=== PATIENT | male | born 1935 | race Caucasian/White ===

== ENCOUNTER 2018-05-24 15:21 | Emergency (ER) | payer OTHER ==
--- OUTSIDE RECORDS SUMMARY | 2018-05-24 15:24 | XMS REPORT | Clinical Summary ---
:1935 Author Organization [facility] Address [address] [place] [id number] Care Team Providers Name Role Phone Diana Lau MD Primary Care Provider Allergies Active Allergy Reactions Severity Noted Date Comments Morphine 03/17/2016 Tetracycline 03/17/2016 Current Medications Prescription Sig. Disp. Refills Start Date End Date Status latanoprost INT 1 GTT IN 3 11/11/2016 Active (XALATAN) 0.005 % OU HS ophthalmic solution FLUZONE HIGH-DOSE ADM 0.5ML IM 0 08/03/2017 Active 2017-18, PF, 180 UTD mcg/0.5 mL syringe vaccine PREVNAR 13, PF, 0.5 ADM 0.5ML IM 0 08/03/2017 Active mL vaccine UTD warfarin (COUMADIN) TAKE 1 TABLET 90 tablet 0 12/16/2017 Active 2.5 MG tablet BY MOUTH DAILY sacubitril-valsartan Take 1 tablet 60 tablet 11 01/24/2018 Active (ENTRESTO) 24-26 mg by mouth 2 tablet per tablet (two) times a day. levothyroxine TAKE 1 45 tablet 1 03/01/2018 Active (SYNTHROID, LEVOXYL) TABLET(100 100 mcg tablet MCG) BY MOUTH EVERY OTHER DAY atorvastatin TAKE 1 TABLET 90 tablet 0 03/13/2018 Active (LIPITOR) 40 MG BY MOUTH DAILY tabletIndications: Persistent atrial fibrillation, Essential hypertension finasteride TAKE 1 90 tablet 0 04/21/2018 Active (PROSCAR) 5 mg TABLET(5 MG) tablet BY MOUTH EVERY DAY DIGOX 125 mcg TAKE 1 TABLET 90 tablet 0 05/23/2018 Active tabletIndications: BY MOUTH EVERY Persistent atrial DAY fibrillation, Essential hypertension nitroglycerin Place 0.4 mg Discontinued (NITROSTAT) 0.4 MG under the 7 SL tablet tongue every 5 (five) minutes as needed for chest pain. nutritional Take by mouth. Discontinued supplements (nutren Take as 7 2.0) liquid directed by your physician. warfarin (COUMADIN) Take 1 tablet 30 tablet 11 10/02/2016 Discontinued 2.5 MG tablet by mouth daily 7 levothyroxine Take 1 tab 16 tablet 2 10/13/2016 Discontinued (SYNTHROID) 100 MCG every other 7 tablet day finasteride TAKE 1 90 tablet 0 10/14/2016 Discontinued (PROSCAR) 5 mg TABLET(5 MG) 7 tablet BY MOUTH EVERY DAY digOXIN (LANOXIN) Take 1 tablet 90 tablet 3 12/22/2016 Discontinued 125 mcg (125 mcg 8 tabletIndications: total) by Persistent atrial mouth daily. fibrillation, Essential hypertension atorvastatin Take 1 tablet 90 tablet 3 12/22/2016 Discontinued (LIPITOR) 40 MG (40 mg total) 8 tabletIndications: by mouth Persistent atrial daily. fibrillation, Essential hypertension amIODarone Take 1 tablet 90 tablet 3 12/22/2016 Discontinued (PACERONE) 100 MG (100 mg total) 8 tablet by mouth daily. finasteride TAKE 1 90 tablet 0 01/11/2017 Discontinued (PROSCAR) 5 mg TABLET(5 MG) 7 tablet BY MOUTH EVERY DAY sacubitril-valsartan Take 1 tablet 60 tablet 11 01/20/2017 Discontinued (ENTRESTO) 24-26 mg by mouth 2 8 tablet per tablet (two) times a day. warfarin (COUMADIN) Take 5 mg by Discontinued 5 MG tablet mouth daily. 8 Take 1 tablet (5mg) by mouth daily for 30 days. spironolactone Take 0.5 45 tablet 3 03/23/2017 Discontinued (ALDACTONE) 25 MG tablets (12.5 8 tabletIndications: mg total) by Chronic combined mouth daily. systolic and diastolic heart failure finasteride TAKE 1 90 tablet 0 04/29/2017 Discontinued (PROSCAR) 5 mg TABLET(5 MG) 7 tablet BY MOUTH EVERY DAY levothyroxine TAKE 1 30 tablet 0 05/15/2017 Discontinued (SYNTHROID, LEVOXYL) TABLET(88 MCG) 7 88 mcg tablet BY MOUTH EVERY MORNING furosemide (LASIX) Take 1 tablet 180 tablet 3 05/14/2017 Discontinued 20 mg tablet (20 mg total) 7 by mouth 2 (two) times a day. levothyroxine TAKE 1 TABLET 30 tablet 0 05/30/2017 Discontinued (SYNTHROID, LEVOXYL) BY MOUTH EVERY 7 100 mcg tablet OTHER DAY furosemide (LASIX) Take 1 tablet 90 tablet 3 07/15/2017 Discontinued 20 mg tablet (20 mg total) 7 by mouth daily. finasteride TAKE 1 90 tablet 0 07/26/2017 Discontinued (PROSCAR) 5 mg TABLET(5 MG) 7 tablet BY MOUTH EVERY DAY levothyroxine TAKE 1 TABLET 16 tablet 0 08/06/2017 Discontinued (SYNTHROID, LEVOXYL) BY MOUTH EVERY 7 100 mcg tablet OTHER DAY levothyroxine TAKE 1 30 tablet 0 08/06/2017 Discontinued (SYNTHROID, LEVOXYL) TABLET(88 MCG) 7 88 mcg tablet BY MOUTH EVERY MORNING furosemide (LASIX) Take 1 tablet 180 tablet 3 08/20/2017 Discontinued 20 mg (20 mg total) 8 tabletIndications: by mouth every Coronary other day. arteriosclerosis, Pulmonary hypertension levothyroxine Take 1 tablet 45 tablet 1 09/08/2017 Discontinued (SYNTHROID, LEVOXYL) (100 mcg 8 100 mcg tablet total) by mouth every other day. levothyroxine Take 1 tablet 45 tablet 1 09/08/2017 Discontinued (SYNTHROID, LEVOXYL) (88 mcg total) 8 88 mcg tablet by mouth every other day. nystatin APPLY TO BELLY 1 09/15/2017 Discontinued (MYCOSTATIN) 100,000 BUTTON RASH 8 unit/gram cream TWICE DAILY warfarin (COUMADIN) TAKE 1 TABLET 30 tablet 0 10/27/2017 Discontinued 2.5 MG tablet BY MOUTH DAILY 8 finasteride TAKE 1 90 tablet 0 10/26/2017 Discontinued (PROSCAR) 5 mg TABLET(5 MG) 8 tablet BY MOUTH EVERY DAY DIGOX 125 mcg TAKE 1 TABLET 90 tablet 0 12/01/2017 Discontinued tabletIndications: BY MOUTH DAILY 8 Persistent atrial fibrillation, Essential hypertension amIODarone TAKE 1 TABLET 90 tablet 0 12/07/2017 Discontinued (PACERONE) 100 MG BY MOUTH DAILY 8 tablet atorvastatin TAKE 1 TABLET 90 tablet 0 12/16/2017 Discontinued (LIPITOR) 40 MG BY MOUTH DAILY 8 tabletIndications: Persistent atrial fibrillation, Essential hypertension warfarin (COUMADIN) Take 1 tablet 90 tablet 0 12/22/2017 5 MG tablet (5 mg total) 8 by mouth daily for 90 days. metoprolol succinate Take 0.5 90 tablet 3 01/07/2018 Discontinued XL (TOPROL-XL) 25 mg tablets (12.5 8 24 hr mg total) by tabletIndications: mouth daily. Essential hypertension ENTRESTO 24-26 mg TAKE 1 TABLET 60 tablet 0 01/11/2018 Discontinued tablet per tablet BY MOUTH TWICE 8 DAILY finasteride TAKE 1 90 tablet 0 01/19/2018 Discontinued (PROSCAR) 5 mg TABLET(5 MG) 8 tablet BY MOUTH EVERY DAY levothyroxine TAKE 1 45 tablet 1 03/01/2018 Discontinued (SYNTHROID, LEVOXYL) TABLET(88 MCG) 8 88 mcg tablet BY MOUTH EVERY OTHER DAY DIGOX 125 mcg TAKE 1 TABLET 90 tablet 0 02/26/2018 Discontinued tabletIndications: BY MOUTH EVERY 8 Persistent atrial DAY fibrillation, Essential hypertension amIODarone TAKE 1 TABLET 90 tablet 0 03/03/2018 Discontinued (PACERONE) 100 MG BY MOUTH EVERY 8 tablet DAY Active Problems Problem Noted Date Orthostatic dizziness 04/23/2018 Hypotension 04/22/2018 CAM (acute kidney injury) 04/22/2018 Biventricular implantable cardioverter-defibrillator in situ 03/22/2018 Abdominal pain 10/14/2017 Abnormal findings on diagnostic imaging of other abdominal regions, 10/14/2017 including retroperitoneum Abnormal weight loss 10/14/2017 Acute on chronic combined systolic and diastolic congestive heart failure Atrial tachycardia 10/14/2017 Open wound of hand with complication 10/14/2017 Spasm of the cricopharyngeus muscle 10/14/2017 Pharyngeal spasm 10/14/2017 Deep vein thrombosis (DVT) 10/14/2017 Esophageal dysmotility 10/14/2017 History of cardiac arrest 10/14/2017 Hematuria 09/08/2017 Overview: Likely partially due to coumadin use; exhaustive work up twice yielded no clear cause. Gynecomastia 09/08/2017 Overview: Normal breast tissue on mammogram 09/2017 Coronary arteriosclerosis 10/12/2016 Edema of lower extremity 10/12/2016 Ischemic congestive cardiomyopathy 10/12/2016 Mitral and aortic incompetence 10/12/2016 Ventricular tachycardia 10/12/2016 Pulmonary hypertension 10/12/2016 Hypothyroidism 04/24/2016 Benign non-nodular prostatic hyperplasia with lower urinary tract symptoms 01/2016 Retention of urine Hyperlipidemia Congestive heart failure Atrial fibrillation On continuous oral anticoagulation Overview: now on warfarin; changed from elaquis Hearing loss Overview: with hearing aides Resolved Problems Problem Noted Date Resolved Date Mitral valve regurgitation 10/12/2016 09/08/2017 Intractable vomiting with nausea 09/14/2016 09/08/2017 Essential hypertension 04/22/2018 Dysphagia 09/08/2017 Overview: on tube bolus feeding; thought 2/2 radiation previously--starting to eat some thick liquids BPH (benign prostatic hypertrophy) 09/08/2017 Aortocoronary bypass status 09/08/2017 Encounters Date Type Specialty Care Team Description 05/23/2018 Refill Cardiology Felice Cooley Med Gisel Villela MD PhD 05/11/2018 Anticoagulation Visit Cardiology Paroxysmal atrial fibrillation 04/29/2018 Office Visit Cardiology Andres Unger, Drug therapy (Primary Dx) ; Paroxysmal atrial fibrillation; Chronic combined systolic and diastolic congestive heart failure; Ischemic congestive cardiomyopathy; Pulmonary hypertension 04/27/2018 Anticoagulation Visit Cardiology Paroxysmal atrial fibrillation 04/22/2018 Emergency General Internal Christiane Daniel Orthostatic hypotension (Primary Dx); - Medicine MD Ember Dehydration; 04/23/2018 Sera Aguayo Chronic congestive heart failure, unspecified congestive heart failure type MD Veronica 04/20/2018 Refill Urology Georgette Daniel MD 04/06/2018 Anticoagulation Visit Cardiology Persistent atrial fibrillation 03/23/2018 Office Visit Cardiology Felice Cooley Biventricular implantable cardioverter-defibrillator in situ (Primary Dx); MD Tika PhD Persistent atrial fibrillation; Ischemic congestive cardiomyopathy; History of cardiac arrest 03/23/2018 Orders Only Cardiology Felice Cooley MD PhD 03/16/2018 Anticoagulation Visit Cardiology Atrial fibrillation, unspecified type 03/12/2018 Refill Cardiology Felice Cooley Refradha Villela MD PhD 03/03/2018 Refill Cardiology Felice Cooley MD PhD 03/02/2018 Anticoagulation Visit Cardiology Atrial fibrillation, unspecified type 02/26/2018 Refill Cardiology Felice Cooley MD PhD 02/26/2018 Refill Internal Diana Lau Medicine MD Zaira 02/24/2018 Anticoagulation Visit Cardiology Atrial fibrillation, unspecified type 02/23/2018 Ancillary Orders Procedural Felice Cooley Atrial fibrillation, Cardiology MD Tika PhD unspecified type 02/16/2018 Lab Lab Diana Lau Essential hypertension; MD Zaira Hyperlipidemia, unspecified hyperlipidemia type; Hypothyroidism, unspecified type 02/16/2018 Anticoagulation Visit Cardiology Atrial fibrillation, unspecified type 02/08/2018 Hospital Encounter Procedural Felice Cooley Atrial fibrillation, Cardiology MD Tika PhD unspecified type 02/07/2018 Anticoagulation Visit Cardiology Atrial fibrillation, unspecified type 01/24/2018 Refill Cardiology [place], Med Refill (Entresto Luc, MA 24/ MG) 01/19/2018 Anticoagulation Visit Cardiology Atrial fibrillation, unspecified type 01/19/2018 Refill Urology Georgette Daniel MD 01/11/2018 Refill Cardiology Andres Unger, Med Refill 01/07/2018 Office Visit Cardiology Andres Unger, Essential hypertension ( Primary Dx); Chronic combined systolic and diastolic congestive heart failure; Ischemic congestive cardiomyopathy; Pulmonary hypertension 12/22/2017 Anticoagulation Visit Cardiology Atrial fibrillation, unspecified type 12/22/2017 Refill Cardiology [place], Med Refill (Warfarin 5 Luc, [place] mg) 12/15/2017 Refill Cardiology Felice Cooley Refradha Villela MD PhD 12/15/2017 Refill Cardiology Andres Unger, Med Farazill 12/08/2017 Anticoagulation Visit Cardiology Atrial fibrillation, unspecified type 12/07/2017 Refill Cardiology Felice Cooley MD PhD 12/01/2017 Refill Cardiology Felice Cooley Refradha Villela MD PhD 11/11/2017 Ancillary Orders Procedural Felice Cooley Atrial fibrillation, Cardiology MD Tika PhD unspecified type 11/10/2017 Anticoagulation Visit Cardiology Atrial fibrillation, unspecified type 11/09/2017 Hospital Encounter Procedural Felice Cooley Atrial fibrillation, Cardiology MD Tika PhD unspecified type 10/26/2017 Refill Urology Georgette Daniel MD 10/26/2017 Refill Cardiology Andres Unger Med Refill MD 10/22/2017 Office Visit Orthopedic Kamar Mcbride Other osteomyelitis of Surgery MD ABDIRAHMAN left foot (Primary Dx) 10/14/2017 Office Visit Internal Diana Lau Osteomyelitis, unspecified site, unspecified type (Primary Dx); Jeremiah Meneses MD Gynecomastia; Essential hypertension; Hypothyroidism, unspecified type; Hyperlipidemia, unspecified hyperlipidemia type 10/14/2017 Anticoagulation Visit Cardiology Atrial fibrillation, unspecified type 10/01/2017 Hospital Encounter Radiology Diana Lau Gyneclidya gaxiola MD 10/01/2017 Hospital Encounter Radiology Diana Lau Gyneclidya gaxiola MD 10/01/2017 Ancillary Orders Access Diana Lau Gynecomaslidya thompson MD 09/28/2017 Hospital Encounter Radiology Kamar Mcbride II, MD 09/28/2017 Hospital Encounter Radiology Kamar Mcbride II, MD 09/28/2017 Hospital Encounter Radiology Kamar Mcbride II, MD 09/28/2017 Hospital Encounter Radiology Kamar Mcbride Other osteomyelitis of MD ABDIRAHMAN left foot 09/28/2017 Ancillary Orders Orthopedic Kamar Mcbride Other osteomyelitis of Surgery MD ABDIRAHMAN left foot 09/28/2017 Ancillary Orders Access Kamar Mcbride Other osteomyelitis of MD ABDIRAHMAN left foot 09/15/2017 Anticoagulation Visit Cardiology Atrial fibrillation, unspecified type 09/15/2017 Transcribe Orders Access Diana Lau Gyneclidya gaxiola MD (Primary Dx) 09/13/2017 Office Visit Orthopedic Diana Lau Other osteomyelitis of left foot (Primary Dx); Surgery MD Zaira Pain of toe of left foot Kamar Mcbride II, MD 09/08/2017 Office Visit Internal Diana Lau Gynecomasdonna (Primary Dx); Medicine MD Zaira Hematuria, unspecified type; Pain of toe of left foot; Acquired hypothyroidism; Skin lesion 08/20/2017 Office Visit Cardiology Andres Unger, Coronary arteriosclerosis (Primary Dx); Pulmonary hypertension; Atrial fibrillation, unspecified type 08/20/2017 Lab Lab Diana Lau Hyperlipidemia, unspecified hyperlipidemia type; MD Zaira Hypothyroidism (acquired) 08/10/2017 Ancillary Orders Procedural YasirFelice lopez Atrial fibrillation, Travon Villela MD PhD unspecified type 08/09/2017 Hospital Encounter Procedural Felice Cooley Atrial fibrillation, Cardiology MD Tika PhD unspecified type 08/05/2017 Anticoagulation Visit Cardiology Atrial fibrillation, unspecified type 08/03/2017 Refill Internal LauDiana Hyperlipidemia, unspecified hyperlipidemia type (Primary Dx); Medicine MD Zaira Hypothyroidism (acquired) 07/26/2017 Refill Urology Georgette Daniel MD 07/15/2017 Refill Cardiology Amilcar, Med Refill R[place] Calle 07/15/2017 Telephone Cardiology Gema Fitzgerald MA 07/07/2017 Anticoagulation Visit Cardiology Atrial fibrillation, unspecified type 06/09/2017 Anticoagulation Visit Cardiology Atrial fibrillation, unspecified type 05/29/2017 Refill Internal Diana Lau Medicine MD Zaira after 05/23/2017 Immunizations Name Dates Previously Given Next Due FLUZONE HIGH-DOSE PF 08/03/2017 Influenza (IM) Preservative Free 08/11/2013 Pneumococcal Conjugate 13-Valent 08/03/2017 Family History Medical History Relation Name Comments Hypertension Brother Prostate cancer Brother Coronary artery disease Father Diabetes Father Hypertension Father Heart disease Mother Hypertension Mother Hypertension Sister Relation Name Status Comments Brother Father (Age 68) Mother (Age 73) Sister Social History Tobacco Use Types Packs/Day Years Used Date Never Smoker Smokeless Tobacco: Never Used Tobacco Cessation: Counseling Given: No Alcohol Use Drinks/Week oz/Week Comments No Sex Assigned at Date Recorded Not on file Last Filed Vital Signs Vital Sign Reading Time Taken Blood Pressure 108/59 04/23/2018 2:36 PM CDT Pulse 86 04/23/2018 2:36 PM CDT Temperature 35.6 C (96 F) 04/23/2018 2:36 PM CDT Respiratory Rate 17 04/23/2018 2:36 PM CDT Oxygen Saturation 96% 04/23/2018 2:36 PM CDT Inhaled Oxygen Concentration - - Weight 72 kg (158 lb 11.2 oz) 04/22/2018 8:14 PM CDT Height 179.1 cm (5' 10.5") 04/22/2018 8:14 PM CDT Body Mass Index 22.45 04/22/2018 8:14 PM CDT Plan of Treatment Date Type Specialty Care Team Description 05/25/2018 Anticoagulation Visit Cardiology 09/28/2018 Office Visit Cardiology Felice Cooley MD PhD [address] [place] [id number] 11/04/2018 Office Visit Cardiology Andres Unger MD [address] [facility] [address] [place], [place] [id number] Health Maintenance Due Date Last Done Comments SHINGRIX VACCINE (#1) 1987 ZOSTER VACCINE 1997 INFLUENZA VACCINE 06/15/2018 08/03/2017, 08/11/2013, 08/29/2009 PNEUMOCOCCAL POLYSACCHARIDE VACCINE Completed 10/13/2012 AGE 65 AND OVER PNEUMOCOCCAL-13 Completed 08/03/2017 Procedures Procedure Name Priority Date/Time Associated Diagnosis Comments POC PT/INR Routine 05/11/2018 10:50 Paroxysmal atrial Results for this AM CDT fibrillation procedure are in the results section. POC PT/INR Routine 04/29/2018 1:27 Drug therapy Results for this PM CDT procedure are in the results section. POC PT/INR Routine 04/27/2018 11:18 Paroxysmal atrial Results for this AM CDT fibrillation procedure are in the results section. ESTIMATED GFR Routine 04/23/2018 4:38 Results for this AM CDT procedure are in the results section. LIPID PANEL Routine 04/23/2018 4:38 Results for this AM CDT procedure are in the results section. T4, FREE Routine 04/23/2018 4:38 Results for this AM CDT procedure are in the results section. THYROID STIMULATING Routine 04/23/2018 4:38 Results for this HORMONE AM CDT procedure are in the results section. MAGNESIUM LEVEL Routine 04/23/2018 4:38 Results for this AM CDT procedure are in the results section. BASIC METABOLIC PANEL Routine 04/23/2018 4:38 Results for this AM CDT procedure are in the results section. PARTIAL Routine 04/23/2018 4:38 Results for this THROMBOPLASTIN TIME AM CDT procedure are in (PTT) the results section. PROTHROMBIN TIME WITH Routine 04/23/2018 4:38 Results for this INR AM CDT procedure are in the results section. HC COMPLETE BLD COUNT Routine 04/23/2018 4:38 Results for this W/AUTO DIFF AM CDT procedure are in the results section. UREA NITROGEN, URINE, Routine 04/22/2018 10:20 Results for this RANDOM PM CDT procedure are in the results section. CREATININE LEVEL, Routine 04/22/2018 10:20 Results for this URINE, RANDOM PM CDT procedure are in the results section. T4, FREE STAT 04/22/2018 6:41 Results for this PM CDT procedure are in the results section. THYROID STIMULATING STAT 04/22/2018 6:41 Results for this HORMONE PM CDT procedure are in the results section. PROTHROMBIN TIME WITH Routine 04/22/2018 6:41 Results for this INR, I-STAT PM CDT procedure are in the results section. TROPONIN, I-STAT Timed 04/22/2018 6:41 Results for this PM CDT procedure are in the results section. URINALYSIS STAT 04/22/2018 5:48 Results for this PM CDT procedure are in the results section. XR CHEST 1 VW STAT 04/22/2018 5:02 Results for this PORTABLE PM CDT procedure are in the results section. CT HEAD WO CONTRAST STAT 04/22/2018 4:31 Results for this PM CDT procedure are in the results section. ESTIMATED GFR STAT 04/22/2018 3:56 Results for this PM CDT procedure are in the results section. DIGOXIN LEVEL STAT 04/22/2018 3:56 Results for this PM CDT procedure are in the results section. B NATRIURETIC PEP, STAT 04/22/2018 3:56 Results for this I-STAT PM CDT procedure are in the results section. TROPONIN, I-STAT STAT 04/22/2018 3:56 Results for this PM CDT procedure are in the results section. CREATINE KINASE, STAT 04/22/2018 3:56 Results for this TOTAL (CPK) PM CDT procedure are in the results section. COMPREHENSIVE STAT 04/22/2018 3:56 Results for this METABOLIC PANEL PM CDT procedure are in the results section. HC COMPLETE BLD COUNT STAT 04/22/2018 3:56 Results for this W/AUTO DIFF PM CDT procedure are in the results section. ECG ED PRELIMINARY Routine 04/22/2018 3:41 Results for this INTERPRETATION PM CDT procedure are in the results section. ECG 12-LEAD Routine 04/22/2018 3:25 Results for this PM CDT procedure are in the results section. CREATININE LEVEL, Routine 04/22/2018 10:20 Results for this URINE, RANDOM AM CDT procedure are in the results section. UREA NITROGEN, URINE, Routine 04/22/2018 10:20 Results for this RANDOM AM CDT procedure are in the results section. POC PT/INR Routine 04/06/2018 10:48 Persistent atrial Results for this AM CDT fibrillation procedure are in the results section. POC PT/INR Routine 03/23/2018 4:37 Persistent atrial Results for this PM CDT fibrillation procedure are in Ischemic congestive the results cardiomyopathy section. History of cardiac arrest Biventricular implantable cardioverter-defibrilla tor in situ ECG 12-LEAD Routine 03/23/2018 3:16 Persistent atrial Results for this PM CDT fibrillation procedure are in Ischemic congestive the results cardiomyopathy section. History of cardiac arrest Biventricular implantable cardioverter-defibrilla tor in situ CV PACEMAKER DEFIB Routine 03/23/2018 12:00 ILR INTERROGATION AM CDT POC PT/INR Routine 03/16/2018 10:11 Atrial fibrillation, Results for this AM CDT unspecified type procedure are in the results section. POC PT/INR Routine 03/02/2018 10:28 Atrial fibrillation, Results for this AM CDT unspecified type procedure are in the results section. POC PT/INR Routine 02/24/2018 9:59 Atrial fibrillation, Results for this AM CDT unspecified type procedure are in the results section. 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 T4, FREE Routine 02/16/2018 10:19 Hypothyroidism, Results for this AM CDT unspecified type procedure are in the results section. THYROID STIMULATING Routine 02/16/2018 10:19 Hypothyroidism, Results for this HORMONE AM CDT unspecified type procedure are in the results section. LIPID PANEL Routine 02/16/2018 10:19 Hyperlipidemia, Results for this AM CDT unspecified procedure are in hyperlipidemia type the results section. CBC WITH PLATELET AND Routine 02/16/2018 10:19 Essential hypertension Results for this DIFFERENTIAL AM CDT procedure are in the results section. COMPREHENSIVE Routine 02/16/2018 10:19 Essential hypertension Results for this METABOLIC PANEL AM CDT procedure are in the results section. POC PT/INR Routine 02/16/2018 10:08 Atrial fibrillation, Results for this AM CDT unspecified type procedure are in the results section. POC PT/INR Routine 02/07/2018 10:36 Atrial fibrillation, Results for this AM CDT unspecified type procedure are in the results section. POC PT/INR Routine 01/19/2018 10:43 Atrial fibrillation, Results for this AM [employer] unspecified type procedure are in the results section. ECHOCARDIOGRAM 2D Routine 01/07/2018 1:51 Coronary Results for this COMPLETE W MMODE PM [employer] arteriosclerosis procedure are in SPECTRAL COLOR Pulmonary hypertension the results DOPPLER (78089) section. POC PT/INR Routine 12/22/2017 10:54 Atrial fibrillation, Results for this AM [employer] unspecified type procedure are in the results section. POC PT/INR Routine 12/08/2017 11:08 Atrial fibrillation, Results for this AM [employer] unspecified type procedure are in the results section. 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 POC PT/INR Routine 10/14/2017 10:40 Atrial fibrillation, Results for this AM [employer] unspecified type procedure are in the results section. US BREAST COMPLETE Routine 10/01/2017 1:52 Gynecomastia, male Results for this RIGHT PM [employer] procedure are in the results section. MAMMO DIAGNOSTIC W Routine 10/01/2017 1:28 Gynecomastia, male Results for this CAD BILATERAL PM [employer] procedure are in the results section. NM BONE SCAN 3 PHASE Routine 09/28/2017 3:39 Other osteomyelitis of Results for this PM [employer] left foot procedure are in the results section. POC PT/INR Routine 09/15/2017 10:49 Atrial fibrillation, Results for this AM CDT unspecified type procedure are in the results section. AMB REFERRAL TO Routine 09/13/2017 7:04 Pain of toe of left ORTHOPEDIC SURGERY PM CDT foot XR FOOT 3+ VW LEFT Routine 09/09/2017 3:07 Pain of toe of left Results for this PM CDT foot procedure are in the results section. POC PT/INR Routine 08/20/2017 3:23 Coronary Results for this PM CDT arteriosclerosis procedure are in the results section. T4, FREE Routine 08/20/2017 11:58 Hypothyroidism Results for this AM CDT (acquired) procedure are in the results section. THYROID STIMULATING Routine 08/20/2017 11:58 Hypothyroidism Results for this HORMONE AM CDT (acquired) procedure are in the results section. LIPID PANEL Routine 08/20/2017 11:58 Hyperlipidemia, Results for this AM CDT unspecified procedure are in hyperlipidemia type the results section. CV PACEMAKER DEFIB Routine 08/10/2017 11:30 Atrial fibrillation, REMOTE TECH SERVICE AM CDT unspecified type POC PT/INR Routine 08/05/2017 10:32 Atrial fibrillation, Results for this AM CDT unspecified type procedure are in the results section. POC PT/INR Routine 07/07/2017 11:06 Atrial fibrillation, Results for this AM CDT unspecified type procedure are in the results section. POC PT/INR Routine 06/09/2017 1:06 Atrial fibrillation, Results for this PM CDT unspecified type procedure are in the results section. after 05/23/2017 Results POC PT/INR (05/11/2018 10:50 AM)Only the most recent of20 resultswithin the time period is included. POC prothrombin time 20.7 POC INR 1.7 Specimen Blood Estimated GFR (04/23/2018 4:38 AM)Only the most recent of2 resultswithin the time period is included. GFR Non Af Amer 49 (A) mL/min/1.73 m2 [facility] DEPARTMENT OF PATHOLOGY AND GENOMIC MEDICINE GFR Af Amer 59 (A) mL/min/1.73 m2 [facility] DEPARTMENT OF Comment: PATHOLOGY AND GENOMIC Chronic kidney disease: <60 mL/min/1.73m2 MEDICINE Kidney failure: <15 mL/min/1.73m2 The estimated GFR is calculated from the IDMS-traceable Modification of Diet in Renal Disease Equation. The accuracy of the calculation is poor when the creatinine is normal. Calculated values >90 mL/min/1.73m2 are not reported. This equation has not been validated in children (<18 years), women, the elderly (>70 years), or ethnic groups other than Caucasians and Americans. Specimen Plasma specimen Performing Organization Address City/[facility] Phone Number [facility] DEPARTMENT OF PATHOLOGY AND [address] [place] [address] Partial thromboplastin time, activated (04/23/2018 4:38 AM) PTT 39.7 (H) 23.0 - 36.0 sec [facility] DEPARTMENT OF PATHOLOGY Comment: AND GENOMIC MEDICINE PTT therapeutic range for unfractionated heparin is 61.0-112.0 seconds which corresponds to Anti-Xa 0.3-0.7 U/ml. Specimen Blood Performing Organization Address City/[facility] Phone Number [facility] DEPARTMENT OF PATHOLOGY AND [address] [place] [id number] [facility] Prothrombin time with INR (04/23/2018 4:38 AM) Prothrombin time 29.6 (H) 12.0 - 15.0 sec [facility] DEPARTMENT OF PATHOLOGY AND GENOMIC MEDICINE INR 2.7 [facility] DEPARTMENT OF Comment: PATHOLOGY AND GENOMIC The International Normalized Ratio (INR) is a therapeutic MEDICINE monitoring tool for patients who are stable on oral anticoagulant therapy. An INR of 2.0-3.0 is suggested for deep vein thrombosis/pulmonary embolism. Specimen Blood Performing Organization Address [facility] Phone Number [facility] DEPARTMENT OF PATHOLOGY AND [address] [place] [address] CBC with platelet and differential (04/23/2018 4:38 AM)Only the most recent of3 resultswithin the time period is included. WBC 5.88 4.50 - 11.00 k/uL [facility] DEPARTMENT OF PATHOLOGY AND GENOMIC MEDICINE RBC 4.22 (L) 4.40 - 6.00 m/uL [facility] DEPARTMENT OF PATHOLOGY AND GENOMIC MEDICINE HGB 13.2 (L) 14.0 - 18.0 g/dL [facility] DEPARTMENT OF PATHOLOGY AND GENOMIC MEDICINE HCT 40.1 (L) 41.0 - 51.0 % [facility] DEPARTMENT OF PATHOLOGY AND GENOMIC MEDICINE MCV 95.0 82.0 - 100.0 fL [facility] DEPARTMENT OF PATHOLOGY AND GENOMIC MEDICINE MCH 31.3 27.0 - 34.0 pg [facility] DEPARTMENT OF PATHOLOGY AND GENOMIC MEDICINE MCHC 32.9 31.0 - 37.0 g/dL [facility] DEPARTMENT OF PATHOLOGY AND GENOMIC MEDICINE RDW - SD 49.7 37.0 - 55.0 fL [facility] DEPARTMENT OF PATHOLOGY AND GENOMIC MEDICINE MPV 10.0 8.8 - 13.2 fL [facility] DEPARTMENT OF PATHOLOGY AND GENOMIC MEDICINE Platelet count 125 (L) 150 - 400 k/uL [facility] DEPARTMENT OF PATHOLOGY AND GENOMIC MEDICINE Nucleated RBC 0.00 /100 WBC [facility] DEPARTMENT OF PATHOLOGY AND GENOMIC MEDICINE Neutrophils 57.4 39.0 - 69.0 % [facility] DEPARTMENT OF PATHOLOGY AND GENOMIC MEDICINE Lymphocytes 30.1 25.0 - 45.0 % [facility] DEPARTMENT OF PATHOLOGY AND GENOMIC MEDICINE Monocytes 8.5 0.0 - 10.0 % [facility] DEPARTMENT OF PATHOLOGY AND GENOMIC MEDICINE Eosinophils 3.2 0.0 - 5.0 % [facility] DEPARTMENT OF PATHOLOGY AND GENOMIC MEDICINE Basophils 0.5 0.0 - 1.0 % [facility] DEPARTMENT OF PATHOLOGY AND GENOMIC MEDICINE Immature granulocytes 0.3Comment: 0.0 - 1.0 % [facility] DEPARTMENT OF "Immature PATHOLOGY AND GENOMIC granulocytes" MEDICINE (promyelocytes, myelocytes, metamyelocytes) Specimen Blood Performing Organization Address City/[facility] Phone Number [facility] DEPARTMENT OF PATHOLOGY AND [address] [place] [address] Thyroid stimulating hormone (04/23/2018 4:38 AM)Only the most recent of4 resultswithin the time period is included. TSH 2.74 0.27 - 4.20 uIU/mL [facility] DEPARTMENT OF PATHOLOGY AND GENOMIC MEDICINE Specimen Plasma specimen Performing Organization Address [facility] Phone Number [facility] DEPARTMENT OF PATHOLOGY AND [address] [place] [address] T4, free (04/23/2018 4:38 AM)Only the most recent of4 resultswithin the time period is included. T4, free 1.5 0.9 - 1.7 ng/dL [facility] DEPARTMENT OF PATHOLOGY AND GENOMIC MEDICINE Specimen Plasma specimen Performing Organization Address [facility] Phone Number [facility] DEPARTMENT OF PATHOLOGY AND [address] [place] [address] Magnesium level (04/23/2018 4:38 AM) Magnesium 2.0 1.6 - 2.4 mg/dL [facility] DEPARTMENT OF PATHOLOGY AND GENOMIC MEDICINE Specimen Plasma specimen Performing Organization Address [facility] Phone Number [facility] DEPARTMENT OF PATHOLOGY AND [address] [place] [phone] GENOMIC MEDICINE Lipid panel (04/23/2018 4:38 AM)Only the most recent of3 resultswithin the time period is included. Cholesterol 103 <200 mg/dL [facility] DEPARTMENT OF PATHOLOGY AND GENOMIC MEDICINE Triglycerides 67 <150 mg/dL [facility] DEPARTMENT OF PATHOLOGY AND GENOMIC MEDICINE HDL cholesterol 36 (L) >40 mg/dL [facility] DEPARTMENT OF PATHOLOGY AND GENOMIC MEDICINE LDL cholesterol 61Comment: Result <100 mg/dL [facility] DEPARTMENT obtained by direct LDL PATHOLOGY AND GENOMIC measurement MEDICINE Lipid panel interpretation SeeBelow [facility] DEPARTMENT OF Comment: PATHOLOGY AND GENOMIC Total Cholesterol (mg/dL) MEDICINE <200 Desirable 120-257Hrssjwrild-ojkv >=240High Triglycerides (mg/dL) <150 Normal 793-174Crsneunymn-gmav 200-499High >=500Very high HDL Cholesterol (mg/dL) <40Low (male) <40Low (female) LDL Cholesterol (mg/dL) <100 Optimal 100-129Near or above optimal 702-647Gsdtnvlbhc-pwob 160-189High >=190Very high Risk Catergories that modify LDL goals. Risk CatergoriesLDL goal (mg/dL) CHD and CHD risk equivalent<100 (10-year risk >20%) Multiple (2+) risk factors <130 (10-year risk=<20%) 0-1 risk factors <160 (<10-year risk) Defining levels of lipids in metabolic syndrome Triglycerides>=150 mg/dL HDL Cholesterol Men<40 mg/dL Women<40 mg/dL Non-HDL cholesterol is a second target for therapy in persons with high triglycerides (>=200 mg/dL) Specimen Plasma specimen Performing Organization Address City/State/[facility] Phone Number [facility] OF PATHOLOGY AND [address] [place] [address] [employer] MEDICINE Basic metabolic panel (04/23/2018 4:38 AM) Sodium 139 135 - 148 mEq/L [facility] DEPARTMENT OF PATHOLOGY AND GENOMIC MEDICINE Potassium 4.5 3.5 - 5.0 mEq/L [facility] DEPARTMENT OF PATHOLOGY AND GENOMIC MEDICINE Chloride 102 98 - 112 mEq/L [facility] DEPARTMENT OF PATHOLOGY AND GENOMIC MEDICINE CO2 25 24 - 31 mEq/L [facility] DEPARTMENT OF PATHOLOGY AND GENOMIC MEDICINE Anion gap 12@ANIO 7 - 15 mEq/L [facility] DEPARTMENT OF PATHOLOGY AND GENOMIC MEDICINE BUN 29 (H) 8 - 23 mg/dL [facility] DEPARTMENT OF PATHOLOGY AND GENOMIC MEDICINE Creatinine 1.4 (H) 0.7 - 1.2 mg/dL [facility] DEPARTMENT OF PATHOLOGY AND GENOMIC MEDICINE Glucose 89 65 - 99 mg/dL [facility] DEPARTMENT OF PATHOLOGY AND GENOMIC MEDICINE Calcium 8.5 (L) 8.8 - 10.2 mg/dL [facility] DEPARTMENT OF PATHOLOGY AND GENOMIC MEDICINE Specimen Plasma specimen Performing Organization Address City/[facility] Phone Number [facility] DEPARTMENT OF PATHOLOGY AND [address] [place] [address] Urea nitrogen, urine, random (04/22/2018 10:20 PM)Only the most recent of2 resultswithin the time period is included. Urea nitrogen, urine, random 720 mg/dL [facility] DEPARTMENT OF PATHOLOGY AND GENOMIC MEDICINE Specimen Urine Performing Organization Address [facility] Phone Number [facility] DEPARTMENT OF PATHOLOGY AND [address] [place] [address] Creatinine level, urine, random (04/22/2018 10:20 PM)Only the most recent of2 resultswithin the time period is included. Creatinine, urine, random 74 mg/dL [facility] DEPARTMENT OF PATHOLOGY AND GENOMIC MEDICINE Specimen Urine Performing Organization Address [facility] Phone Number [facility] DEPARTMENT OF PATHOLOGY AND [address] [place] [address] Troponin, I-Stat (04/22/2018 6:41 PM)Only the most recent of2 resultswithin the time period is included. Troponin, I-Stat 0.01 0.00 - 0.08 ng/mL DEPARTMENT OF Comment: PATHOLOGY AND GENOMIC 0.09 - 1.49 ng/mlMay indicate increased risk of acute [facility] coronary syndrome. [facility] >=1.5 ng/mlConsistent with acute myocardial infarction. The diagnostic value of a single normal or non-diagnostic result is questionable.Serial samples at 2-6 hour intervals are required to rule out acute myocardial injury. Specimen Plasma specimen Performing Organization Address City/State/Zipcode Phone Number DEPARTMENT OF PATHOLOGY AND [id number] [place] [phone] [facility] Prothrombin time with INR, I-Stat (04/22/2018 6:41 PM) POC prothrombin time 40.3 (H) 11.0 - 14.5 sec [facility] POC INR 3.6 DEPARTMENT OF Comment: PATHOLOGY AND GENOMIC The International Normalized Ratio (INR) is a [facility] monitoring tool for patients who are stable on oral [facility] vitamin K antagonist therapy. An INR of 2.0-3.0 is suggested for deep vein thrombosis/pulmonary embolism. An INR of 2.5-3.5 (high dose) is suggested for some patients with mechanical heart valves) Specimen Blood Performing Organization Address City/[facility] Phone Number DEPARTMENT OF PATHOLOGY AND [address] [place] [address] Urinalysis (04/22/2018 5:48 PM) Glucose, UA Negative Negative [facility] Bilirubin, UA Negative Negative [facility] Ketones, UA Negative Negative [facility] Specific gravity, UA 1.015 1.001 - 1.035 [facility] Blood, UA Negative Negative [facility] pH, UA 6.0 5.0 - 8.5 [facility] Protein, UA Negative Negative [facility] Urobilinogen, UA <2.0 <2.0 [facility] Nitrite, UA Negative Negative [facility] Leukocyte esterase, UA Trace (A) Negative [facility] Color, UA Yellow [facility] Appearance, UA Clear [facility] Specimen Urine Performing Organization Address City/[facility]/Zipcode Phone Number DEPARTMENT OF PATHOLOGY AND [address] [place] [id number] [place] [address] XR Chest 1 Vw Portable (04/22/2018 5:02 PM) Narrative Performed At XR CHEST 1 VW PORTABLE [facility] CL[facility]ICAL INDICATION:Chest Pain COMPARISON:09/14/2016 IMPRESSION: The heart is moderately enlarged with multilead left-sided ICD in place. Pulmonary vascularity is top normal and similar to priors. There is mild scarring in the left midlung with decreased volume in the left hemithorax and mild elevation of left hemidiaphragm. No acute change is identified. Bones are severely demineralized and unchanged. Thank you for allowing us to participate in the care of your patient. [facility]-[id number] Procedure Note Interface, Radiology Results Incoming - 04/22/2018 5:12 PM CDT XR CHEST 1 VW PORTABLE CLINICAL INDICATION: Chest Pain COMPARISON: 09/14/2016 IMPRESSION: The heart is moderately enlarged with multilead left-sided ICD in place. Pulmonary vascularity is top normal and similar to priors. There is mild scarring in the left midlung with decreased volume in the left hemithorax and mild elevation of left hemidiaphragm. No acute change is identified. Bones are severely demineralized and unchanged. Thank you for allowing us to participate in the care of your patient. [facility]-[id number] Performing Organization Address City/State/Zipcode Phone Number [facility] [address] [place] [address] CT Head Wo Contrast (04/22/2018 4:31 PM) Narrative Performed At Study: CT HEAD WO CONTRAST [facility] History:headaches COMPARISON:August 15, 2016 TECHNIQUE: Multiple axial CT images of the head obtained without IV contrast. CT imaging was performed with iterative reconstruction technique and/or automated exposure control to reduce radiation dose. FINDINGS: Parenchymal volume is mildly diffusely decreased likely age related.. There is no acute hemorrhage, midline shift, hydrocephalus, edema, or extra-axial collections. .The visualized paranasal sinuses are well aerated.The mastoid air cells are well aerated. No destructive calvarial lesions are seen. The visualized orbits are unremarkable. IMPRESSION: No acute intracranial abnormality. [facility]-[id number] Procedure Note Interface, Radiology Results Incoming - 04/22/2018 4:37 PM CDT Study: CT HEAD WO CONTRAST History:headaches COMPARISON:August 15, 2016 TECHNIQUE: Multiple axial CT images of the head obtained without IV contrast. CT imaging was performed with iterative reconstruction technique and/or automated exposure control to reduce radiation dose. FINDINGS: Parenchymal volume is mildly diffusely decreased likely age related.. There is no acute hemorrhage, midline shift, hydrocephalus, edema, or extra- axial collections. .The visualized paranasal sinuses are well aerated. The mastoid air cells are well aerated. No destructive calvarial lesions are seen. The visualized orbits are unremarkable. IMPRESSION: No acute intracranial abnormality. [facility]-[id number] Performing Organization Address City/[facility]/Zipcode Phone Number [facility] [address] [place] [address] B natriuretic pep, I-Stat (04/22/2018 3:56 PM) BNP, I-Stat 456 (H) 0 - 100 pg/mL [facility] Specimen Blood Performing Organization Address [facility] Phone Number DEPARTMENT OF PATHOLOGY AND [address] [place] [address] Creatine kinase, total (CPK) (04/22/2018 3:56 PM) Creatine kinase 94 39 - 380 U/L [facility] Specimen Plasma specimen Performing Organization Address [facility] Phone Number DEPARTMENT OF PATHOLOGY AND [address] [place] [address] Digoxin level (04/22/2018 3:56 PM) Digoxin 1.3 0.8 - 2.0 ng/mL [facility] DEPARTMENT OF PATHOLOGY Comment: AND [facility] For valid Digoxin results, at least 6 hours should elapse between time of last dose and collection of blood. Otherwise, result may be false high. Therapeutic Range: 0.8 - 2.0 ng/mL Specimen Plasma specimen Narrative Performed At [facility] DEPARTMENT OF PATHOLOGY AND GENOMIC MEDICINE Performing Organization Address [facility] Phone Number [facility] DEPARTMENT OF PATHOLOGY AND [address] [place] [phone] [facility] Comprehensive metabolic panel (04/22/2018 3:56 PM)Only the most recent of2 resultswithin the time period is included. Sodium 137 128 - 145 mEq/L DEPARTMENT OF PATHOLOGY AND GENOMIC MEDICINE, [facility] Potassium 5.0 3.6 - 5.1 mEq/L DEPARTMENT OF PATHOLOGY AND GENOMIC MEDICINE, [facility] CO2 27 18 - 33 mEq/L [facility] Chloride 102 98 - 108 mEq/L [facility] Glucose 112 73 - 118 mg/dL [facility] Calcium 8.7 8.0 - 10.3 mg/dL [facility] BUN 35 (H) 7 - 22 mg/dL [facility] Creatinine 1.9 (H) 0.6 - 1.2 mg/dL [facility] Alkaline phosphatase 78 53 - 128 U/L [facility] ALT 29 10 - 47 U/L [facility] AST 36 11 - 38 U/L [facility] Total bilirubin 1.0 0.2 - 1.6 mg/dL [facility] Albumin 3.7 3.3 - 5.5 g/dL [facility] Protein 6.7 6.4 - 8.1 g/dL [facility] Anion gap 8@ANIO 7 - 15 mEq/L [facility] A/G ratio 1.2 0.7 - 3.8 [facility]OLOG[facility] Specimen Plasma specimen Performing Organization Address City/State/[facility] Phone Number [place] [address] [facility] ECG ED Preliminary Interpretation - NOT AN ORDER (04/22/2018 3:41 PM) Narrative Performed At Christiane Daniel MD 04/22/20187:43 PM ECG ED Preliminary Interpretation - Not an Order Performed by: CHRISTIANE DANIEL Authorized by: CHRISTIANE DANIEL ECG reviewed by ED Physician in the absence of a urologist md: yes Previous ECG: Previous ECG:Compared to current Comparison ECG info:12/22/16 Similarity:Changes noted Interpretation: Interpretation: non-specific Quality: Tracing quality:Limited by artifact Rate: ECG rate:85 ECG rate assessment: normal Rhythm: Rhythm: paced Pacing: Capture:Complete Ectopy: Ectopy: none ST segments: ST segments:Non-specific Depression:III ECG 12 lead (04/22/2018 3:25 PM)Only the most recent of2 resultswithin the time period is included. Ventricular rate 85 [facility] Atrial rate 57 [facility] QRSD interval 196 [facility] QT interval 446 [facility] QTC interval 530 [facility] QRS axis 1 203 [facility] T wave axis 30 [facility] EKG impression Ventricular-paced rhythm-Biventricular [facility] MUSE pacemaker detected-Abnormal ECG-In automated comparison with ECG of 23-MAR-2018 15:16,-No significant change was found- Performing Organization Address City/[facility]/Zipcode Phone Number [facility] MUSE [address] [place] [address] CV pacemaker defib or ilr interrogation (03/23/2018) Narrative Performed At Cv pacemaker defib or ilr interrogation (02/23/2018 9:29 AM) Narrative Performed At Performing Organization Address City/[facility] Phone Number [facility] [address] [place] [address] Urinalysis, automated with microscopy (02/16/2018 10:19 AM) Color, UA YELLOW YELLOW [facility] Appearance CLEAR CLEAR [facility] Specific gravity, urine 1.020 1.001 - 1.035 [facility] pH, urine 6.0 5.0 - 8.0 [facility] Glucose, urine NEGATIVE NEGATIVE [facility] Bilirubin, UA NEGATIVE NEGATIVE [facility] Ketones, UA NEGATIVE NEGATIVE [facility] Occult blood, urine NEGATIVE NEGATIVE [facility] Protein, UA NEGATIVE NEGATIVE [facility] Nitrite, UA NEGATIVE NEGATIVE [facility] Leukocyte esterase, UA NEGATIVE NEGATIVE [facility] WBC, UA NONE SEEN < OR=5 /HPF [facility] RBC, UA NONE SEEN < OR=2 /HPF [facility] Squamous epithelial cells, UA NONE SEEN < OR=5 /HPF [facility] Bacteria, UA NONE SEEN NONE SEEN /HPF [facility] Hyaline casts, UA NONE SEEN NONE SEEN /LPF [facility] Specimen Blood Resulting Agency Comment Performing Organization Information: Site ID: [id number] Address: [address] [place] [address] Director: Addie Larios MD Performing Organization Address City/State/Zipcode Phone Number [facility] [address] [place], [place] [phone] Echocardiogram complete w contrast and 3D if needed (01/07/2018 1:51 PM) Narrative Performed At [facility] Echocardiography Report Pat.Name:SHELLY CORTÉS WPat.ID:[id number] St.Date: 01/07/2018 Refer.MD:ESAU RICHARDSON MD Exam Time: 1:11:00 PMStudy Type:Routine Echo Height:70inWeight: 156.67lb BSA: 1.88 m2 DOBAge:1935,82Y Sex: MALEBP:112/66 Sonogrphr: Rafael Go RDSum[facility] Campust. Stat.:Outpatient ICD - 9: I25.10 Pulmonary Hypertension Study Status:Final Echo Event ID:[id number] Order ID:[id number] Reason for Study:Pulmonary Hypertension History / Clinical:Congestive Heart Failure, Pulmonary Hypertension Procedures:2D Echo, Colorflow Doppler Race:C SUMMARY: LV size is normal. Estimated EF is 40-44%. RV systolic function is normal. LA/RA volume is severely enlarged. LV filling pressure is elevated. Estimated PA systolic pressure is 31 mmHg, assuming a mean RAP of 5 mmHg. FINDINGS: LV: LV size is normal. LV EF is mild to moderately depressed. EstimatedEF is 40-44%. RV: RV size is mildly enlarged. A pacemaker wire is seen in the RV.RV systolic function is normal. LA: LA volume is severely enlarged. RA: RA volume is severely enlarged. A pacemaker wire is seen. AO: Aortic root diameter is normal. BRADLY: No pericardial effusion. AV: Focal calcification of AV leaflets. Mild aortic regurgitation. MV: Focal thickening of mitral leaflets. Mild mitral regurgitation. PV: No structural PV abnormalities noted. TV: No structural TV abnormalities noted. Mild tricuspid regurgitation [place]: LV relaxation is impaired. LV filling pressure is elevated. Other:Estimated PA systolic pressure is 31 mmHg, assuming a mean RAPof 5 mmHg. MEASUREMENTS: 2D Parasternal [place] LVIDd4.9 cmIndex2.6 cm/m LV Wwwx158.1 g(122-174) LVIDs3.9 cmLVM Xofir410.9 g/m2 LV%fs 20.4 % RWT0.5 IVSd 1 cmLVOT 2.1 cm LVPWd1.2 cmAo An2.5 cm LA Ds5 cmAo Rtd 3.4 cm Index1.8 cm/m Right Ventricle RVIDd4.2 cm (2.6-4.3) RA Sng Plane RA Area 30.4 cm2(8.3-19.5) RA Vol 118.7 ml Index63.2 ml/m RA LngAx 6.7 cm LA Biplane LA 4Ch Area 38.3 cm2 LA Vol 163.8 ml Index87.1 ml/m LA 2Ch Area 35.2 cm2 DOPPLER LVOT For Flow LVOT Area3.5 cm2 LVOT SV 52.9 ml LVOTpkVel 98.6 cm/sHR85.5 bpm LVOTpkPG 3.9 mmHgLVOT CO4.5 l/min LVOTmnPG 1.6 mmHgLVOT CI2.4 l/m/m2 LVOT TVI15.3 cm WALL MOTION: RESTING WALL MOTION: Basal Inferolateral, Mid Inferolateral villarreal are akinetic.Apical Inferior, Apical villarreal are hypokinetic.Basal Anterolateral, Mid Anterolateral, Apical Septal, Apical Lateral villarreal are mildly hypokinetic. Normal in all other villarreal. Wall Index=1.5 Signed 01/10/2018 03:45 PM Rashard Khan M.D. Procedure Note Interface, Radiology Results In - 01/10/2018 3:45 PM [employer] [facility] Echocardiography Report Pat.Name: SHELLY CORTÉS [facility].ID: [id number] .Date: 01/07/2018 Refer.MD: ESAU RICHARDSON MD Exam Time: 1:11:00 PM Study Type:Routine Echo Height: 70in Weight: 156.67lb BSA: 1.88 m2 Age: 11 1935,82Y Sex: MALE BP: 112/66 Sonogrphr: Rafael Go RDCS Pat. Stat.:Outpatient ICD - 9: I25.10 Pulmonary Hypertension Study Status:Final Echo Event ID:[id number] Order ID: [id number] Reason for Study:Pulmonary Hypertension History / Clinical:Congestive Heart Failure, Pulmonary Hypertension Procedures:2D Echo, Colorflow Doppler Race: C SUMMARY: LV size is normal. Estimated EF is 40-44%. RV systolic function is normal. LA/RA volume is severely enlarged. LV filling pressure is elevated. Estimated PA systolic pressure is 31 mmHg, assuming a mean RAP of 5 mmHg. FINDINGS: LV: LV size is normal. LV EF is mild to moderately depressed. Estimated EF is 40-44%. RV: RV size is mildly enlarged. A pacemaker wire is seen in the RV. RV systolic function is normal. LA: LA volume is severely enlarged. RA: RA volume is severely enlarged. A pacemaker wire is seen. AO: Aortic root diameter is normal. BRADLY: No pericardial effusion. AV: Focal calcification of AV leaflets. Mild aortic regurgitation. MV: Focal thickening of mitral leaflets. Mild mitral regurgitation. PV: No structural PV abnormalities noted. TV: No structural TV abnormalities noted. Mild tricuspid regurgitation [place]: LV relaxation is impaired. LV filling pressure is elevated. Other: Estimated PA systolic pressure is 31 mmHg, assuming a mean RAP of 5 mmHg. MEASUREMENTS: 2D Parasternal [place] LVIDd 4.9 cm Index 2.6 cm/m LV Mass 197.1 g (122-174) LVIDs 3.9 cm LVM Index 104.9 g/m2 LV%fs 20.4 % RWT 0.5 IVSd 1 cm LVOT 2.1 cm LVPWd 1.2 cm Ao An 2.5 cm LA Ds 5 cm Ao Rtd 3.4 cm Index 1.8 cm/m Right Ventricle RVIDd 4.2 cm (2.6-4.3) RA Sng Plane RA Area 30.4 cm2 (8.3-19.5) RA Vol 118.7 ml Index 63.2 ml/m RA LngAx 6.7 cm LA Biplane LA 4Ch Area 38.3 cm2 LA Vol 163.8 ml Index 87.1 ml/m LA 2Ch Area 35.2 cm2 DOPPLER LVOT For Flow LVOT Area 3.5 cm2 LVOT SV 52.9 ml LVOTpkVel 98.6 cm/s HR 85.5 bpm LVOTpkPG 3.9 mmHg LVOT CO 4.5 l/min LVOTmnPG 1.6 mmHg LVOT CI 2.4 l/m/m2 LVOT TVI 15.3 cm WALL MOTION: RESTING WALL MOTION: Basal Inferolateral, Mid Inferolateral villarreal are akinetic. Apical Inferior, Apical villarreal are hypokinetic. Basal Anterolateral, Mid Anterolateral, Apical Septal, Apical Lateral villarreal are mildly hypokinetic. Normal in all other villarreal. Wall Index=1.5 Signed 01/10/2018 03:45 PM Rashard Khan M.D. Performing Organization Address [facility] Phone Number [facility] [id number] [place] [address] Cv pacemaker defib or ilr interrogation (11/11/2017 10:59 AM) Narrative Performed At Performing Organization Address [facility]/[employer] Phone Number [facility] [id number] [place] [address] US Breast Complete Right (10/01/2017 1:52 PM) Narrative Performed At PROCEDURE: [facility] MAMMO DIAGNOSTIC W CAD BILATERAL, US BREAST COMPLETE RIGHT 10/01/2017 1:00 PM COMPARISON: None. TECHNIQUE: Digital bilateral diagnostic mammography was performed and interpreted using computer-assisted detection. Hand-held high resolution sonographic images of the right breast(s) including all 4 quadrants and the retroareolar regions were obtained with color Doppler imaging as needed. CLINICAL HISTORY: 82-year-old male with approximately a month history of a tender palpable abnormality in the right breast. No personal or family history of breast malignancy. FINDINGS: MAMMOGRAM: There are scattered fibroglandular densities.There are no suspicious masses, calcifications or distortions in either breast. There are bilateral mammographic findings consistent with gynecomastia, right greater than left. ULTRASOUND: Corresponding to the palpable area of concern in the right subareolar breast is benign appearing fibroglandular tissue consistent with gynecomastia. There are no suspicious cystic or solid masses. IMPRESSION: Bilateral gynecomastia, right greater than left. Recommend clinical correlation with risk factors. BI-RADS Category 2. Benign finding(s). Recommend comparison with physical examination. Findings and recommendations were discussed with the patient at the time of the examination. This facility is accredited by [employer] for Mammography. A negative x-ray report should not delay biopsy if a dominant or clinically suspicious mass is present. Not all cancers are identified by x-ray. [facility]-[id number] Performing Organization Address [facility] Phone Number [facility] [address] [place] [address] Mammo Diagnostic w Cad Bilateral (10/01/2017 1:28 PM) Narrative Performed At PROCEDURE: [facility] MAMMO DIAGNOSTIC W CAD BILATERAL, US BREAST COMPLETE RIGHT 10/01/2017 1:00 PM COMPARISON: None. TECHNIQUE: Digital bilateral diagnostic mammography was performed and interpreted using computer-assisted detection. Hand-held high resolution sonographic images of the right breast(s) including all 4 quadrants and the retroareolar regions were obtained with color Doppler imaging as needed. CLINICAL HISTORY: 82-year-old male with approximately a month history of a tender palpable abnormality in the right breast. No personal or family history of breast malignancy. FINDINGS: MAMMOGRAM: There are scattered fibroglandular densities.There are no suspicious masses, calcifications or distortions in either breast. There are bilateral mammographic findings consistent with gynecomastia, right greater than left. ULTRASOUND: Corresponding to the palpable area of concern in the right subareolar breast is benign appearing fibroglandular tissue consistent with gynecomastia. There are no suspicious cystic or solid masses. IMPRESSION: Bilateral gynecomastia, right greater than left. Recommend clinical correlation with risk factors. BI-RADS Category 2. Benign finding(s). Recommend comparison with physical examination. Findings and recommendations were discussed with the patient at the time of the examination. This facility is accredited by [employer] for Mammography. A negative x-ray report should not delay biopsy if a dominant or clinically suspicious mass is present. Not all cancers are identified by x-ray. [facility]-[id number] Performing Organization Address [facility] Phone Number [facility] [address] [place] [address] NM Bone Scan 3 Phase (09/28/2017 3:39 PM) Narrative Performed At PROCEDURE:NM BONE SCAN 3 PHASE [facility] INDICATION:Evaluate for osteomyelitis of left foot. COMPARISON:3 views left foot dated 09/09/2017. TECHNIQUE: The patient was injected with 25 mCi of Tc-99m labeled MDP IV and a three phase bone scan of the feet was performed. Immediate flow and pool images were followed by delayed images acquired th ree hours later. Delayed planar whole body imaging was also performed. FINDINGS:Flow and pool images demonstrate hyperemia to the left forefoot. Delayed images demonstrate focal uptake in the left third digit, involving the distal phalanx.Degenerative uptake is present in both great toes and in both mid feet.Whole body imaging demonstrates degenerative uptake in the shoulders and spine. Bilateral knee prostheses appear uncomplicated. IMPRESSION: 1. Osteomyelitis involving the left third toe, most pronounced about the distal phalanx. 2.Degenerative uptake elsewhere in both feet. 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 COMPARISON: 3 views left foot dated 09/09/2017. TECHNIQUE: The patient was injected with 25 mCi of Tc-99m labeled MDP IV and a three phase bone scan of the feet was performed. Immediate flow and pool images were followed by delayed images acquired three hours later. Delayed planar whole body imaging was also performed. FINDINGS: Flow and pool images demonstrate hyperemia to the left forefoot. Delayed images demonstrate focal uptake in the left third digit, involving the distal phalanx. Degenerative uptake is present in both great toes and in both mid feet. Whole body imaging demonstrates degenerative uptake in the shoulders and spine. Bilateral knee prostheses appear uncomplicated. IMPRESSION: 1. Osteomyelitis involving the left third toe, most pronounced about the distal phalanx. 2. Degenerative uptake elsewhere in both feet. [facility]-[id number] Performing Organization Address City/State/Zipcode Phone Number [facility] [address] [place] [address] Ambulatory referral to Orthopedic Surgery (09/13/2017 7:04 PM)XR Foot 3+ Vw Left (09/09/2017 3:07 PM) Narrative Performed At EXAMINATION:XR FOOT 3VW LEFT [facility] CLINICAL HISTORY:M79.675 Pain in left toe(s), signs of possible infection COMPARISON:None. IMPRESSION: There is no evidence of acute fracture or dislocation The bones are demineralized No radiopaque foreign bodies are present No cortical irregularities to suggest osteomyelitis [id number] Procedure Note Hm Interface, Radiology Results Incoming - 09/09/2017 3:41 PM CDT EXAMINATION: XR FOOT 3 VW LEFT CLINICAL HISTORY: M79.675 Pain in left toe(s), signs of possible infection COMPARISON: None. IMPRESSION: There is no evidence of acute fracture or dislocation The bones are demineralized No radiopaque foreign bodies are present No cortical irregularities to suggest osteomyelitis [id number] Performing Organization Address City/State/Zipcode Phone Number [facility] [address] [place] [address] Cv pacemaker defib or ilr interrogation (08/10/2017 11:30 AM) Narrative Performed At Performing Organization Address City/State/Zipcode Phone Number [facility] [address] [place] [address] after 05/23/2017 Insurance Payer Benefit Plan / Group Subscriber ID Type Phone Address [employer] MEDICARE A[employer] MEDICARE HMO/PPO [facility] xxxxxxxx HMO [phone] [place] [id number]
--- OUTSIDE RECORDS SUMMARY | 2018-05-24 15:31 | XMS REPORT | Continuity of Care Document ---
:1935 Author Organization Interface Problems Problem Status Onset Classification Date Comments Source Date Reported DEGLOVING INJURY R Active 02/02/20 [facility] HAND [address] [place] [address] OTHER Active 02/02/[address] FOLLOW UP Active 08/13/[address] FOLLOW UP GTUBE Active 08/11/20 [facility] REMOVAL [address] [place] [address] BDDC - F/U Active 05/21/[address] CRICOPHARYNGEAL Active 04/08/[address] R10.84 - Active 02/04/20 [facility] GENERALIZED [address] ABDOMINAL PAIN R60. HOSPITAL F/U Active 01/06/[address] DYSPHAGIA WITH Active 12/31/19 [facility] ASPIRATION [address] [place] [address] DYSPHAGIA Active 12/19/[address] DSU-DYSPHAGIA Active 12/17/[address] R13.10 - Active 12/09/19 [facility] "DYSPHAGIA, [address] [place] UNSPECIFIED" BDDC-DYSPHAGIA Active 12/06/[address] SWALLOWING ISSUE Active 11/29/[address] WT. GAIN Active 10/18/[address] 783.21 - ABNORMAL Active 01/27/20 [facility] LOSS O 478.2 - [address] [place] DISEASE ABNORMAL WEIGHT Active 01/27/20 [facility] LOSS [address] [place] [address] Center 478.29 - DISEASE Active 01/26/20 [facility] OF PHAR [address] DYSPHAGIA,ICD.9-78 Active 01/03/20 [facility] 7.2 Medical Center 01/16/13, Active 01/03/20 [facility] ESCOGSCOPY [address] [place] [address] 787.20/478.29 Active 12/13/[address] DDC/ DYSPHAGIA Active 09/13/[address] RUQ PAIN Active 04/12/[address] NEW CLINIC VISIT Active 03/31/[address] DDC- NEW CLINIC Active 03/31/20 [facility] VISIT Medical [place] RIGHT UPPER Active 03/15/20 [facility] QUADRANT PAIN [address] [place] [address] Methicillin Active 08/28/20 Problem 02/09/2013 1Problem [facility] resistant 09 added by [facility], aureus<sup>1</sup> Expert. BRAD Morris Methicillin Active 08/28/20 Problem 01/24/2016 Problem resistant 09 added by [facility], aureus - Expert. [facility]<sup>1</sup> [facility] Atrial Inactive Problem 02/09/2013 [facility] Hyperlipidemia Active Problem 02/09/2013 [facility] Hypertension Active Problem 02/09/2013 [facility] Hypothyroidism Active Problem 02/09/2013 [facility] CAD - Coronary Resolved Problem 02/09/2013 [facility] Depression Resolved Problem 02/09/2013 [facility] GERD - Resolved Problem 02/09/2013 [facility] Hepatitis C Resolved Problem 02/09/2013 [facility] HLD - Resolved Problem 02/09/2013 [facility] HTN - Hypertension Resolved Problem 02/09/2013 [facility] 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 [facility] Atrial Resolved Problem 02/07/2017 fibrillation [facility] CAD - Coronary Active Problem 02/07/2017 artery disease [facility] Depression Active Problem 01/24/2016 [facility] GERD - Active Problem [facility]/07[facility] Hepatitis C Resolved Problem 12/29/2015 [facility] HLD - Active Problem 01/24/2016 Hyperlipidemia [facility] HTN - Hypertension Active Problem 01/24/2016 [facility] Hyperlipidemia Active Problem 02/07/2017 [facility] Hypertension Active Problem 02/07/2017 [facility] Hypothyroidism Active Problem 02/07/2017 [facility] 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 [facility] Depression Active Problem 02/07/2017 [facility] Other<sup>1</sup> Resolved Problem 02/07/2017 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- [facility] Other<sup>2</sup> Resolved Problem 01/24/2016 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- [facility] Pulmonary Resolved Problem 02/07/2017 Diagnosed [facility] hypertension<sup>2 in January Medical </sup> 2016 Center ABDMNAL PAIN RT Active [facility] UPR QUAD Medical Center DYSPHAGIA NOS Active [facility] DISEASE OF PHARYNX Active [facility] MEDICAL SERVICES Active [facility] NOT AVAILABLE IN Medical HOME Center MALIGNANT TERRANCE Active [facility] LARYNX NOS Medical Center UNDERWEIGHT Active [facility] ALCOHOLIC FATTY Active [facility] LIVER [facility] Center DYSPHAGIA, Active [facility] UNSPECIFIED Medical Center OTHER DISEASES OF Active [facility] PHARYNX [facility] Center ENCNTR FOR GENERAL Active [facility] ADULT MEDICAL EXAM Medical W/ Center UNSPECIFIED OPEN Active [facility] WOUND OF RIGHT Medical HAND, IN Center Medications Medication Details Route Status Patient Ordering Order Source Instructions Provider Date Bacitracin 1 appl, Route: No Longer 02/05[facility] TOP, Daily, Active 2017 Medical Drug form: [place] OINT, Apply on the affected area on the b/l hands., Start date: 02/05/17 9:00:00 CDT, Duration: 30 day, Stop date: 03/06/17 9:00:00 CDT calcium-vitamin D See Active 02/04[facility] 600 mg-400 intl Instructions, 2017 Medical units oral Take 1 tab BID, Center tablet, chewable # 30 tab, 0 Refill(s) Acetaminophen 300 1 tab, PO, Q6H, Active 02/04[facility] MG / Codeine PRN Pain, X 7 2017 Medical Phosphate 30 MG day, # 28 tab, Center Oral Tablet 0 Refill(s) [Tylenol with Codeine #3] Cephalexin 750 MG 750 mg=1 cap, Active 02/04[facility] Oral Capsule PO, Q12H, X 5 2017 Medical [Keflex] day, # 10 cap, Center 0 Refill(s) Amiodarone 100 mg, 1 tab, Inactive 02/04[facility] Route: PO, Drug 2017 Medical form: TAB, Center Daily, Dosing Weight 68.182, kg, Start date: 02/04/17 9:00:00 CDT, Duration: 30 day, Stop date: 03/05/17 9:00:00 CDTNotes: Same as: Cordaron, Pacerone Sodium Chloride 500 mL, 500 Inactive 02/03[facility] 0.154 MEQ/ML ml/hr, Infuse 2016 Medical Injectable Over: 1 hr, Center Solution Route: IV, 500, Drug form: INJ, ONCE, Priority: STAT, Dosing Weight 68.182 kg, Start date: 02/03/17 13:28:00 CDT, Duration: 1 doses or times, Stop date: 02/03/17 13:28:00 CDT Naloxone 0.4 mg, 1 mL, Inactive [place] Route: IVP, 2016 Medical Drug form: INJ, Center Q2MIN, Dosing Weight 68.182, kg, PRN Narcotic Reversal, Start date: 02/02/17 21:42:00 CDT, Duration: 8 doses or times, Stop date: Limited # of timesNotes: Same as Narcan Promethazine 6.25 mg, 0.25 Inactive [place] mL, Route: 2017 Medical IVPB, Drug Center form: INJ, ONCE, Dosing Weight 68.182, kg, PRN Nausea & Vomiting, Start date: 02/02/17 21:42:00 CDTNotes: Do not give IV push. (Same as: Phenergan) Acetaminophen 1,000 mg, 2 Inactive [place] tab, Route: PO, 2016 Medical Drug form: TAB, Center ONCE, Dosing Weight 68.182, kg, PRN Pain Score 1-3, Start date: 02/02/17 21:42:00 CDT, Duration: 1 doses or times, Stop date: Limited # of timesNotes: Max acetaminophen 4000 mg/day (4 gm/day). (Same as: Tylenol Extra Strength) Fentanyl 25 microgram, Inactive [place] 0.5 mL, Route: 2017 Medical IVP, Drug form: Center INJ, Q5Min, Dosing Weight 68.182, kg, PRN Pain Score 4-6, Priority: Routine, Start date: 02/02/17 21:42:00 CDT, Duration: 4 doses or times, Stop date: Limited # of timesNotes: (Same as: Sublimaze) Preservative free. Oxycodone 5 mg, 1 tab, Inactive [facility] Route: PO, Drug 2016 Medical form: TAB, Q4H, Center Dosing Weight 68.182, kg, PRN Pain Score 4-6, Start date: 02/02/17 21:42:00 CDT, Duration: 30 day, Stop date: 03/04/17 21:41:00 CDTNotes: (Same as: Roxicodone) Flumazenil 0.2 mg, 2 mL, Inactive [place] Route: IV2016 Medical Drug form: INJ, Center PRN, Dosing Weight 68.182, kg, PRN Benzodiazepine Reversal, Initial dose, Start date: 02/02/17 21:42:00 CDT, Duration: 30 day, Stop date: 03/04/17 21:41:00 CDTNotes: (Same as: Romazicon) Lasix 20 mg, 2 mL, Inactive [place] Route: IVP2016 Medical Drug form: INJ, Center ONCE, Dosing Weight 68.182, kg, Start date: 02/02/17 13:28:00 CDT, Stop date: 02/02/17 13:28:00 CDTNotes: (Same as: Lasix) sacubitril 24 MG 1 tab, PO, BID, Active [facility] / valsartan 26 MG # 28 tab, 0 2017 Medical Oral Tablet Refill(s) Center [Entresto] spironolactone 25 25 mg=1 tab, Active mg oral tablet PO, Daily, # 30 2017 Medical tab, 3 Center Refill(s) digoxin 125 mcg 125 microgram, No Longer [place] (0.125 mg) oral 1 tab, Route: Active 2016 Medical tablet PO, Drug form: Center TAB, Daily, Dosing Weight 68.182, kg, Start date: 02/02/17 9:00:00 CDT, Duration: 30 day, Stop date: 03/03/17 9:00:00 CDTNotes: Take on an Empty Stomach (Same as: Lanoxin) Citalopram 20 mg, 1 tab, No Longer [place] Route: PO, Drug Active 2016 Medical form: TAB, Center Daily, Dosing Weight 68.182, kg, Start date: 02/02/17 9:00:00 CDT, Duration: 30 day, Stop date: 03/03/17 9:00:00 CDTNotes: (Same As: CeleXA) Lipitor 40 mg, 1 tab, No Longer [place] Route: PO, Drug Active 2016 Medical form: TAB, Center Daily, Dosing Weight 68.182, kg, Start date: 02/02/17 9:00:00 CDT, Duration: 30 day, Stop date: 03/03/17 9:00:00 CDTNotes: (Same as: Lipitor) Amiodarone 200 mg, 1 tab, No Longer [place] Route: PO, Drug Active 2016 Medical form: TAB, Center Daily, Dosing Weight 68.182, kg, Start date: 02/02/17 9:00:00 CDT, Duration: 30 day, Stop date: 03/03/17 9:00:00 CDTNotes: (Same as: Cordarone) Calcium Carbonate 1 tab, Route: No Longer [place] 1250 MG / PO, Drug Form: Active 2017 Medical Cholecalciferol TAB, Dosing Center 200 UNT Oral Weight 68.182, Tablet kg, BID, Start date: 02/02/17 9:00:00 CDT, Duration: 30 day, Stop date: 03/03/17 17:00:00 CDTNotes: (Same As: Fly-D, OsCal-D, Oyster Calcium) Spironolactone 25 mg, 1 tab, No Longer [place] Route: PO, Drug Active 2016 Medical form: TAB, BID, Center Dosing Weight 68.182, kg, Start date: 02/02/17 9:00:00 CDT, Duration: 30 day, Stop date: 03/03/17 17:00:00 CDTNotes: (Same As: Aldactone) Streptococcus 0.5 mL, Route: Inactive [place] pneumoniae IM, Drug Form: 2017 Medical serotype 1 INJ, Daily, Center capsular antigen Start date: diphtheria [id number] 02/02/17 protein conjugate 9:00:00 CDT, vaccine / Duration: 1 Streptococcus doses or times, pneumoniae Stop date: serotype 14 02/02/17 capsular antigen 9:00:00 diphtheria [id number] CDTNotes: protein conjugate Lightly roll vaccine / vial (DO NOT Streptococcus SHAKE) before pneumoniae administration. serotype 18C (Same as: capsular antigen Prevnar 13) d metoprolol 25 mg, 1 tab, No Longer [place] tartrate Route: PO, Drug Active 2016 Medical form: ERTAB, Center BID, Dosing Weight 68.182, kg, Start date: 02/02/17 9:00:00 CDT, Duration: 30 day, Stop date: 03/03/17 17:00:00 CDTNotes: (Same as: Toprol XL) Do Not Crush Levoxyl 88 microgram, 1 No Longer [place] tab, Route: PO, Active 2016 Medical Drug form: TAB, Center Daily, Dosing Weight 68.182, kg, Start date: 02/02/17 9:00:00 CDT, Duration: 30 day, Stop date: 03/03/17 9:00:00 CDTNotes: Take 1 hour before or 2 hours after meal; Enteral feeds may interefere with the absorption of this medication. (Same as:Synthroid) Finasteride 5 mg, 1 tab, No Longer [facility] Route: PO, Drug Active 2016 Medical form: TAB, Center Daily, Dosing Weight 68.182, kg, Start date: 02/02/17 9:00:00 CDT, Duration: 30 day, Stop date: 03/03/17 9:00:00 CDTNotes: (Same as: Proscar) "Do Not Crush" Women of childbearing age should not touch or handle broken tablets Lasix 80 mg, 1 tab, No Longer [place] Route: PO, Drug Active 2016 Medical form: TAB, Center Daily, Dosing Weight 68.182, kg, Start date: 02/02/17 9:00:00 CDT, Duration: 30 day, Stop date: 03/03/17 9:00:00 CDTNotes: (Same as: Lasix) May cause GI upset. Give with food or milk. Protonix 40 mg, 1 tab, No Longer [facility] Route: PO, Drug Active 2016 Medical form: ECTAB, Center Before Breakfast, Dosing Weight 68.182, kg, Start date: 02/02/17 7:30:00 CDT, Duration: 30 day, Stop date: 03/03/17 7:30:00 CDTNotes: Tablet should not be chewed or crushed. (Same as: Protonix) Levothyroxine 88 microgram=1 Active [facility] Sodium 0.088 MG tab, PO, Daily, 2017 Medical Oral Tablet # 30 tab, 0 Center [Levoxyl] Refill(s) Ondansetron 4 mg, 2 mL, Inactive [place] Route: IVP, 2017 Medical Drug form: INJ, Center Q6H, Dosing Weight 68.182, kg, PRN Nausea & Vomiting, Start date: 02/02/17 4:30:00 CDT, Duration: 30 day, Stop date: 03/04/17 4:29:00 CDTNotes: (Same as: Brooks) MEDICATION WASTE Product Size: 4 mg Product Wasted: ___ mg Docusate 100 mg, 1 cap, No Longer [facility] Route: PO, Drug Active 2017 Medical form: CAP, BID, Center Dosing Weight 68.182, kg, PRN Constipation, Start date: 02/02/17 4:30:00 CDT, Duration: 30 day, Stop date: 03/04/17 4:29:00 CDTNotes: (Same as: Colace) (Do Not Crush) Sodium Chloride 1,000 mL, Rate: No Longer [facility] 0.154 MEQ/ML 42 ml/hr, Active 2017 Medical Injectable Infuse over: Center Solution 23.8 hr, Route: IV, Dosing Weight 68.182 kg, Total Volume: 1,000, Start date: 02/02/17 4:30:00 CDT, Duration: 30 day, Stop date: 03/04/17 4:29:00 CDT Saline Flush 0.9% 10 ml, Route: No Longer [place] IVP, Drug Form: Active 2017 Medical INJ, Dosing Center Weight 68.182, kg, PRN, PRN Line Flush, Start date: 02/02/17 4:30:00 CDT, Duration: 30 day, Stop date: 03/04/17 4:29:00 CDTNotes: Same as: BD Posiflush Sterile Acetaminophen 325 1 tab, Route: No Longer [facility] MG / Hydrocodone PO, Drug Form: Active 2017 Medical Bitartrate 5 MG TAB, Dosing Center Oral Tablet Weight 68.182, kg, Q4H, PRN Pain Score 4-6, Start date: 02/02/17 4:30:00 CDT, Duration: 30 day, Stop date: 03/04/17 4:29:00 CDTNotes: (Same as: O'Brien 325/5) Do not exceed 4gm/day of acetaminophen. Acetaminophen 650 mg, 2 tab, No Longer [place] Route: PO, Drug Active 2016 Medical form: TAB, Q4H, Center Dosing Weight 68.182, kg, PRN Pain 1-3/Temp > 100.4 F, Start date: 02/02/17 4:30:00 CDT, Duration: 30 day, Stop date: 03/04/17 4:29:00 CDTNotes: Do not exceed 4 gm/day. (Same as: Tylenol) Dilaudid 0.5 mg, 0.25 Inactive [place] mL, Route: IVP, 2016 Medical Drug form: INJ, Center ONCE, Dosing Weight 68.182, kg, Priority: STAT, Start date: 02/02/17 3:35:00 CDT, Stop date: 02/02/17 3:35:00 CDTNotes: Same as: Dilaudid Ancef 1 gm, Route: No Longer [place] IV, Drug form: Active 2016 Medical PDR/INJ, Center ABXQ8H, Dosing Weight 68.182, kg, Start date: 02/02/17 1:18:00 CDT, Duration: 30 day, Stop date: 03/03/17 21:00:00 CDTNotes: (Same As: Ancef, Kefzol) MEDICATION WASTE Product Size: 1000 mg Product Wasted: ___ mg Gentamicin 341 mg, 8.53 Inactive [place] Sulfate (SKILLED NURSING) mL, Route: 2017 Medical IVPB, ONCE, Center Dosing Weight 68.182, kg, Priority: STAT, Start date: 02/02/17 1:16:00 CDT, Stop date: 02/02/17 1:16:00 CDTNotes: TIME CRITICAL MEDICATION (Same as Garamycin) sildenafil 20 MG 20 mg, 1 tab, No Longer [place] Oral Tablet Route: PO, Drug Active 2016 Medical form: TAB, Q8H, Center Dosing Weight 68.182, kg, Start date: 02/02/17 0:58:00 CDT, Duration: 30 day, Stop date: 03/04/17 0:00:00 CDTNotes: (Same as: Revatio) Keflex 500 mg, 1 cap, Inactive [facility] Route: PO, Drug 2016 Medical form: CAP, Center ONCE, Dosing Weight 68.182, kg, Start date: 02/02/17 0:30:00 CDT, Stop date: 02/02/17 0:30:00 CDTNotes: Take on empty stomach. (Same As: Keflex) Keflex 500 mg, 1 tab, Inactive [facility] Route: PO, Drug 2016 Medical form: TAB, Center ONCE, Dosing Weight 68.182, kg, Start date: 02/02/17 0:13:00 CDT, Stop date: 02/02/17 0:13:00 CDTNotes: Take on empty stomach. (Same As: Keftab) Dilaudid 0.5 mg, 0.25 Inactive [facility] mL, Route: IVP, 2016 Medical Drug form: INJ, Center ONCE, Dosing Weight 68.182, kg, Priority: STAT, Start date: 02/01/17 23:45:00 CDT, Stop date: 02/01/17 23:45:00 CDTNotes: Same as: Dilaudid iodixanol 150 mL, Route: Inactive [facility] IVP, Drug Form: 2017 Medical SOLN, Dosing Center Weight 68.182, kg, ONCALL, STAT, Start date: 02/01/17 22:12:00 CDT, Duration: 1 doses or times, Dose=2.2ml/kg, Max [id number] -- "To be infused by Radiology Staff ONLY" Dilaudid 0.5 mg, 0.25 Inactive [facility] mL, Route: IVP, 2016 Medical Drug form: INJ, Center ONCE, Dosing Weight 68.182, kg, Priority: STAT, Start date: 02/01/17 21:47:00 CDT, Stop date: 02/01/17 21:47:00 CDTNotes: Same as: Dilaudid Ondansetron 4 mg, 2 mL, Inactive [facility] Route: IVP, 2017 Medical Drug form: INJ, Center ONCE, Dosing Weight 68.182, kg, Priority: STAT, Start date: 02/01/17 21:46:00 CDT, Stop date: 02/01/17 21:46:00 CDTNotes: (Same as: Brooks) MEDICATION WASTE Product Size: 4 mg Product Wasted: ___ mg Saline Flush 0.9% 10 mL, Route: No Longer [facility] IVP, Drug Form: Active 2017 Medical INJ, Dosing Center Weight 68.182, kg, PRN, PRN Line Flush, Start date: 02/01/17 20:54:00 CDT, Duration: 30 day, Stop date: 03/03/17 20:53:00 CDTNotes: (Same as: BD Posiflush) predniSONE 50 mg 50 mg=1 tab, Active [facility] oral tablet PO, Daily, 0 2015 Medical Refill(s) Center Prednisone 20 mg, PO, Inactive [facility] Daily, Quantity 2016 Medical sufficient, 0 Center Refill(s) potassium nitrate 1 appl, TOP, Active [facility] 250 MG/ML / ONCE, APPLY TO 2016 Medical Silver Nitrate AFFECTED AREA Center 750 MG/ML ONCE DAILY FOR Medicated Pad 6 DAYS, # 6 ea, 0 Refill(s), Pharmacy: [facility] [id number] Warfarin Sodium 2.5 mg=1 tab, Active [facility] 2.5 MG Oral PO, Daily, 0 2016 Medical Tablet [Coumadin] Refill(s) Center spironolactone 25 25 mg=1 tab, Active [facility] mg oral tablet PO, BID, 0 2015 Medical Refill(s) Center silodosin 8 MG 8 mg=1 cap, PO, Active [facility] Oral Capsule Daily, 0 2016 Medical [Rapaflo] Refill(s) Center sildenafil 20 MG 60 mg=3 tab, Active [facility] Oral Tablet PO, TID, 0 2016 Medical Refill(s) Center Finasteride 5 MG 5 mg=1 tab, PO, Active [facility] Oral Tablet Daily, 0 2016 Medical [Proscar] Refill(s) Center AMIODarone 200 mg 200 mg=1 tab, Active [facility] oral tablet PO, Daily, 0 2016 Medical Refill(s) [place] metoprolol 25 mg=1 tab, Active [facility] tartrate 25 mg PO, BID, # 60 2016 Medical oral tablet tab, 0 Center Refill(s) Furosemide 80 MG 80 mg=1 tab, Active [facility] Oral Tablet PO, Daily, # 30 2016 Medical [Lasix] tab, 0 Center Refill(s) Warfarin Sodium 5 5 mg=1 tab, PO, Active [facility] MG Oral Tablet Daily, # 30 2015 Medical [Coumadin] tab, 0 Center Refill(s) silodosin 8 mg 8 mg=1 cap, PO, Active [facility] oral capsule Daily, 0 2016 Medical Refill(s) [place] sildenafil 0 Refill(s) Active [facility] 2016 Medical [place] finasteride 5 mg 5 mg=1 tab, PO, Active [facility] oral tablet Daily, # 30 2016 Medical tab, 0 Center Refill(s) Potassium 20 mEq=1 tab, Active [facility] Chloride 20 MEQ PO, BID, 0 2016 Medical Extended Release Refill(s) [place] Tablet Nutren 2.0 Nutren 2.0, See Active [facility] Instructions, 2016 Medical Nutren 2.0 via Center PEG 250mL q 4hrs x 4/day + 180 mL x 1/day Water flush 30mL before and after feeds, # 150 can, Refill(s) 12 amLODIPine 5 mg 5 mg=1 tab, PO, Active [facility] oral tablet Daily, # 30 2015 Medical tab, 0 Center Refill(s) metoprolol 25 mg 25 mg=1 tab, Active [facility] oral tablet, PO, BID, # 60 2016 Medical extended release tab, 0 Center Refill(s) Protonix 40 mg, 1 pkt, Inactive [facility] Route: PO, Drug 2015 Medical form: GRAN/REC, Center Daily, Start date: 01/02/16 11:00:00, Duration: 30 day, Stop date: 02/01/16 9:00:00Notes: Same as: Protonix Mix in 5 mL apple juice or applesauce for oral & 10mL apple juice for NG tube Tylenol 500 mg, 15.62 No Longer [facility] mL, Route: PEG, Active 2015 Medical Drug form: LIQ, Center Q4H, Dosing Weight 78.636, kg, PRN Pain 4-6/Temp > 100.4 F, Start date: 01/01/16 21:45:00, Duration: 30 day, Stop date: 01/31/16 21:44:00Notes: Max acetaminophen=4 000mg/day (4 gm/day). (Same as: Tylenol) [place]phy[place] 5 mg, 1 tab, Inactive [facility] Route: PO, Drug 2015 Medical form: TAB, Center ONCE, Start date: 01/01/16 10:30:00, Stop date: 01/01/16 10:30:00Notes: (Same as: [place]phy[place], Vitamin K) Protonix 40 mg, 1 pkt, No Longer [facility] Route: PO, Drug Active 2015 Medical form: GRAN/REC, Center Daily, Dosing Weight 78.636, kg, Start date: 01/01/16 9:00:00, Stop date: 01/30/16 9:00:00Notes: Same as: Protonix Mix in 5 mL apple juice or applesauce for oral & 10mL apple juice for NG tube Thyroxine 100 microgram, No Longer [facility] 1 tab, Route: Active 2015 Medical PO, Drug form: Center TAB, Daily, Dosing Weight 78.636, kg, Start date: 01/01/16 9:00:00, Duration: 30 day, Stop date: 01/30/16 9:00:00Notes: Take 1 hour before or 2 hours after meal; Enteral feeds may interefere with the absorption of this medication. (Same as:Levothroid, Synthroid) Furosemide 40 MG 40 mg, 1 tab, No Longer [facility] Oral Tablet Route: PO, Drug Active 2015 Medical form: TAB, Center Daily, Dosing Weight 78.636, kg, Start date: 01/01/16 9:00:00, Duration: 30 day, Stop date: 01/30/16 9:00:00Notes: (Same as: Lasix) May cause GI upset. Give with food or milk. digoxin 125 mcg 125 microgram, No Longer [facility] (0.125 mg) oral 1 tab, Route: Active 2016 Medical tablet PO, Drug form: Center TAB, Daily, Dosing Weight 78.636, kg, Start date: 01/01/16 9:00:00, Duration: 30 day, Stop date: 01/30/16 9:00:00Notes: Take on an Empty Stomach (Same as: Lanoxin) Citalopram 20 mg, 1 tab, No Longer [place] Route: PO, Drug Active 2015 Medical form: TAB, Center Daily, Dosing Weight 78.636, kg, Start date: 01/01/16 9:00:00, Duration: 30 day, Stop date: 01/30/16 9:00:00Notes: (Same As: CeleXA) Norvasc 5 mg, 1 tab, No Longer [place] Route: PO, Drug Active 2015 Medical form: TAB, Center Daily, Dosing Weight 78.636, kg, Start date: 01/01/16 9:00:00, Stop date: 01/30/16 9:00:00Notes: (Same as: Norvasc) Magnesium Sulfate 2 gm, 50 mL, Inactive [place] Route: IVPB, 2015 Medical Drug form: INJ, Center ONCE, Dosing Weight 78.636, kg, Start date: 01/01/16 8:01:00, Duration: 2 hr, Stop date: 01/01/16 8:01:00Notes: WASTE: F/P - Sink; E - Municipal Trash Bin Vitamin K1 5 mg, 0.5 mL, Inactive [place] Route: SUB-Q, 2015 Medical Drug form: INJ, Center ONCE, Dosing Weight 78.636, kg, Start date: 01/01/16 8:00:00, Duration: 1 doses or times, Stop date: 01/01/16 8:00:00Notes: (Same as: Aqua-[place], Vitamin K) MEDICATION WASTE Product Size: 10 mg Product Wasted: ___ mg metoprolol 25 mg, 1 tab, No Longer [place] extended release Route: PO, Drug Active 2015 Medical form: ERTAB, Center BID, Start date: 12/31/15 21:00:00, Stop date: 01/30/16 17:00:00Notes: (Same as: Toprol XL) Do Not Crush enalapril 5 mg, 1 tab, No Longer [place] Route: PO, Drug Active 2015 Medical form: TAB, BID, Center Dosing Weight 78.636, kg, Start date: 12/31/15 21:00:00, Duration: 30 day, Stop date: 01/30/16 17:00:00Notes: (Same as: Vasotec) Lipitor 40 mg, 1 tab, No Longer [place] Route: PO, Drug Active 2015 Medical form: TAB, Center Bedtime, Dosing Weight 78.636, kg, Start date: 12/31/15 21:00:00, Duration: 30 day, Stop date: 01/29/16 21:00:00Notes: (Same as: Lipitor) Nitroglycerin 0.4 0.4 mg, 1 tab, No Longer [place] MG Sublingual Route: SL, Drug Active 2015 Medical Tablet form: TAB, Center [Nitrostat] Q5Min, Dosing Weight 78.636, kg, PRN Chest Pain, Start date: 12/31/15 19:37:00, Duration: 30 day, Stop date: 01/30/16 20:36:00Notes: (Same as:Nitroquick, Nitrostat) "Do Not Crush" Sublingual tablet enalapril 5 mg 5 mg=1 tab, PO, No Longer [place] oral tablet BID, 0 Active 2015 Medical Refill(s) Center citalopram 20 mg 20 mg=1 tab, No Longer [place] oral tablet PO, Daily, # 30 Active 2015 Medical tab, 0 Center Refill(s) metoprolol See No Longer [place] extended release Instructions, Active 2015 Medical 75 mgPO BID, 0 Center Refill(s) Furosemide 40 MG 40 mg=1 tab, No Longer [place] Oral Tablet PO, Daily, # 30 Active 2015 Medical tab, 0 Center Refill(s) levothyroxine 100 100 microgram=1 Active [place] mcg (0.1 mg) oral tab, PO, Daily, 2016 Medical tablet # 30 tab, 0 Center Refill(s) digoxin 125 mcg 0.125 mg, PO, No Longer [place] (0.125 mg) oral Daily, # 30 2015 Medical tablet tab, 0 Center Refill(s) atorvastatin 40 40 mg=1 tab, No Longer [place] Oral Tablet PO, Bedtime, # 2015 Medical [Lipitor] 30 tab, 0 Center Refill(s) apixaban 5 MG 5 mg=1 tab, PO, No Longer [place] Oral Tablet BID, 0 2015 Medical [Eliquis] Refill(s) Center Saline Flush 0.9% 10 ml, Route: No Longer [place] IVP, Drug Form: 2015 Medical INJ, Dosing Center Weight 77.273, kg, PRN, PRN Line Flush, Start date: 12/31/15 14:50:00, Duration: 30 day, Stop date: 01/30/16 15:49:00Notes: (Same as: BD Posiflush) Naloxone 0.04 mg, 0.1 No Longer [place] mL, Route: IVP, 2015 Medical Drug form: INJ, Center Q2MIN, Dosing Weight 77.273, kg, PRN Narcotic Reversal, Start date: 12/26/15 16:02:00, Duration: 8 doses or times, Stop date: Limited # of timesNotes: Same as Narcan Flumazenil 0.2 mg, 2 mL, No Longer [place] Route: IVP, 2015 Medical Drug form: INJ, Center PRN, Dosing Weight 77.273, kg, PRN Benzodiazepine Reversal, Initial dose, Start date: 12/26/15 16:02:00, Duration: 30 day, Stop date: 01/25/16 16:01:00Notes: (Same as: Romazicon) Ondansetron 4 mg, 2 mL, No Longer [place] Route: IVP, 2015 Medical Drug form: INJ, Center ONCE, Dosing Weight 77.273, kg, PRN Nausea & Vomiting, Start date: 12/26/15 16:02:00Notes: (Same as: Zofran) MEDICATION WASTE Product Size: 4 mg Product Wasted: ___ mg Labetalol 10 mg, 2 mL, No Longer [place] Route: IVP, 2015 Medical Drug form: INJ, Center Q5Min, Dosing Weight 77.273, kg, PRN Elevated BP, Start date: 12/26/15 16:02:00, Duration: 5 doses or times, Stop date: Limited # of times Oxycodone 5 mg, 1 tab, No Longer [place] Route: PO, Drug Active 2015 Medical form: TAB, Q4H, Center Dosing Weight 77.273, kg, PRN Pain Score 4-6, Start date: 12/26/15 16:02:00, Duration: 30 day, Stop date: 01/25/16 16:01:00Notes: (Same as: Roxicodone) Acetaminophen 1,000 mg, 100 No Longer [place] mL, Route: Active 2015 Medical IVPB, Drug Center form: INJ, ONCE, Dosing Weight 77.273, kg, PRN Pain Score 1-3, Start date: 12/26/15 16:02:00, Duration: 1 doses or times, Stop date: Limited # of timesNotes: Infuse over 15 minutes Do not exceed 4gm/day of acetaminophen MEDICATION WASTE Product Size: 1000 mg Product Wasted: ___ mg Furosemide 40 MG 40 mg=1 tab, Active [place] Oral Tablet PO, Daily, 0 2015 Medical Refill(s) Center apixaban 5 MG 5 mg=1 tab, PO, Active [place] Oral Tablet BID, 0 2015 Medical [Eliquis] Refill(s) Center digoxin 125 mcg 125 microgram=1 Active [facility] (0.125 mg) oral tab, PO, Daily, 2016 Medical tablet 0 Refill(s) Center Nitroglycerin 0.4 0.4 mg=1 tab, Active [facility] MG Sublingual SL, Q5Min, PRN 2015 Medical Tablet Chest Pain, # Center [Nitrostat] 100 tab, 0 Refill(s) acetaminophen-hyd 15 mL, Route: PO No Longer Agatha [place] rocodone 325 PO, Drug Form: Active 2012 Medical mg-10 mg/15 mL SOLN, Dosing Center oral solution Weight 82.273, kg, Q4H, PRN Pain Score 4-6, Start date: 01/16/13 12:41:00, Duration: 30 day, Stop date: 02/15/13 12:40:00 metoprolol 1 mg, 1 mL, IVP No Longer Ag[facility] Route: IVP, Active 2012 Medical Drug form: INJ, Center Q5Min, Dosing Weight 82.273, kg, PRN Elevated BP, Start date: 01/16/13 12:41:00, Duration: 5 doses or times, Stop date: 01/17/13 0:00:00 labetalol 5 mg, 1 mL, IVP No Longer [facility] Route: IVP, Active 2012 Medical Drug form: INJ, Center Q5Min, Dosing Weight 82.273, kg, PRN Elevated BP, Start date: 01/16/13 12:41:00, Duration: 5 doses or times, Stop date: 01/17/13 0:00:00 esmolol IV Push 10 mg, 1 mL, IVP No Longer [facility] Route: IVP, Active 2012 Medical Drug form: INJ, Center Q5Min, Dosing Weight 82.273, kg, PRN Elevated BP, Start date: 01/16/13 12:41:00, Duration: 5 doses or times, Stop date: 01/17/13 0:00:00 ondansetron 4 mg, 2 mL, IVP No Longer [facility] Route: IVP, Active 2012 Medical Drug form: INJ, Center ONCE, Dosing Weight 82.273, kg, PRN Nausea & Vomiting, Start date: 01/16/13 12:41:00 naloxone 0.04 mg, 0.1 IVP No Longer [facility] mL, Route: IVP, Active 2012 Medical Drug form: INJ, Center Q2MIN, Dosing Weight 82.273, kg, PRN Narcotic Reversal, Start date: 01/16/13 12:41:00, Duration: 8 doses or times, Stop date: 01/17/13 0:00:00 flumazenil 0.2 mg, 2 mL, IVP No Longer Ag[facility] Route: IVP, Active 2012 Medical Drug form: INJ, Center PRN, Dosing Weight 82.273, kg, PRN Benzodiazepine Reversal, Initial dose, Start date: 01/16/13 12:41:00, Duration: 30 day, Stop date: 02/15/13 13:40:00 Cleocin HCl 600 mg, 4 mL, IVPB No Longer [facility] Route: IVPB, Active 2012 Medical Drug form: INJ, Center PRE OP, Start date: 01/16/13 6:00:00, Duration: 1 day, Stop date: 01/17/13 5:59:00 rivaroxaban 20 mg, Route: PO No Longer [place] [facility] PO, QPM, Dosing Active 2011 Medical Weight 79.545, Center kg, Start date: 10/13/12 17:00:00, Duration: 30 day, Stop date: 11/11/12 17:00:00 Protonix 40 mg, 1 tab, PO No Longer [place] [facility]13[facility] Route: PO, Drug Active 2011 Medical form: ECTAB, Center Before Dinner, Dosing Weight 79.545, kg, Start date: 10/13/12 16:30:00, Duration: 30 day, Stop date: 11/11/12 16:30:00 pneumococcal 0.5 ml, Route: IM No Longer [facility] 23-valent vaccine IM, Drug Form: Active 2011 Medical INJ, Start Center date: 10/13/12 9:00:00, Stop date: 10/13/12 9:00:00 citalopram 20 mg, 1 tab, PO No Longer [place] [facility] Route: PO, Drug Active 2011 Medical form: TAB, Center Daily, Dosing Weight 79.545, kg, Start date: 10/13/12 9:00:00, Duration: 30 day, Stop date: 11/11/12 9:00:00 Toprol-XL 50 mg 50 mg, 1 tab, PO No Longer [place] [facility] oral tablet, Route: PO, Drug Active 2011 Medical extended release form: ERTAB, Center Daily, Start date: 10/13/12 9:00:00, Duration: 30 day, Stop date: 11/11/12 9:00:00 enalapril 10 mg, 1 tab, PO No Longer [place] [facility] Route: PO, Drug Active 2011 Medical form: TAB, Center Daily, Dosing Weight 79.545, kg, Start date: 10/13/12 9:00:00, Duration: 30 day, Stop date: 11/11/12 9:00:00 dabigatran 150 mg, 1 cap, PO No Longer [place] [facility] Route: PO, Drug Active 2011 Medical form: CAP, BID, Center Dosing Weight 79.545, kg, Start date: 10/13/12 9:00:00, Duration: 30 day, Stop date: 11/11/12 17:00:00 Norvasc 10 mg, 1 tab, PO No Longer [place] [facility] Route: PO, Drug Active 2011 Medical form: TAB, Center Daily, Dosing Weight 79.545, kg, Start date: 10/13/12 9:00:00, Duration: 30 day, Stop date: 11/11/12 9:00:00 Lipitor 40 mg, 1 tab, PO No Longer [place] [facility] Route: PO, Drug Active 2011 Medical form: TAB, Center Daily, Dosing Weight 79.545, kg, Start date: 10/13/12 9:00:00, Duration: 30 day, Stop date: 11/11/12 9:00:00 levothyroxine 125 microgram, PO No Longer [place] [facility] 1 tab, Route: Active 2011 Medical PO, Drug form: Center TAB, [id number], Dosing Weight 79.545, kg, Start date: 10/13/12 6:30:00, Duration: 30 day, Stop date: 11/11/12 6:30:00 clindamycin 600 mg, 4 mL, IVPB No Longer [place] [facility] Route: IVPB, Active 2011 Medical Drug form: INJ, Center [id number], Dosing Weight 79.545, kg, Priority: STAT, Start date: 10/13/12 5:47:00, Duration: 30 day, Stop date: 11/11/12 21:47:00 magnesium sulfate 2 gm, 50 mL, IVPB No Longer [facility] Route: IVPB, Active 2011 Medical Drug form: INJ, Center ONCE, Dosing Weight 79.545, kg, Total dose=2 gm, Start date: 10/13/12 0:30:00, Duration: 1 doses or times, Stop date: 10/13/12 0:30:00 Omnipaque 80 mL, Route: IVP No Longer [place] 10[facility]13[facility] 350mg/ml IVP, Drug Form: Active 2011 Medical SOLN, Dosing Center Weight 79.545, kg, ONCALL, STAT, Start date: 10/12/12 21:07:00, Duration: 1 doses or times, Weight=75 - 94kgWeight=75 - 94kg docusate 100 mg, 1 cap, PO No Longer [place] [facility] Route: PO, Drug Active 2011 Medical form: CAP, BID, Center Dosing Weight 79.545, kg, PRN Constipation, Start date: 10/12/12 18:00:00, Duration: 30 day, Stop date: 11/11/12 17:59:00 Trandate 5 mg, 1 mL, IVP No Longer [place] 10/12[facility] Route: IVP, Active 2011 Medical Drug form: INJ, Center Q5Min, PRN Elevated BP, Start date: 10/12/12 14:50:00, Duration: 30 day, Stop date: 11/11/12 14:49:00 flumazenil 0.2 mg, 2 mL, IVP No Longer [place] 11[facility] Route: IVP, Active 2011 Medical Drug form: INJ, Center PRN, Dosing Weight 79.545, kg, PRN Benzodiazepine Reversal, Initial dose, Start date: 10/12/12 13:57:00, Duration: 5 doses or times, Stop date: 10/13/12 0:00:00 naloxone 0.04 mg, 0.1 IVP No Longer [place] 10/12[facility] mL, Route: IVP, Active 2011 Medical Drug form: INJ, Center Q2MIN, Dosing Weight 79.545, kg, PRN Narcotic Reversal, Start date: 10/12/12 13:57:00, Duration: 8 doses or times, Stop date: 10/13/12 0:00:00 ondansetron 4 mg, 2 mL, IVP No Longer [place] 11[facility] Route: IVP, Active 2011 Medical Drug form: INJ, Center ONCE, Dosing Weight 79.545, kg, PRN Nausea & Vomiting, Start date: 10/12/12 13:57:00 hydrALAZINE 5 mg, 0.25 mL, IVP No Longer [place] 11[facility] Route: IVP, Active 2011 Medical Drug form: INJ, Center Q5Min, Dosing Weight 79.545, kg, PRN Elevated BP, Start date: 10/12/12 13:57:00, Duration: 4 doses or times, Stop date: 10/13/12 0:00:00 niCARdipine 0.25 mg, 0.1 IVP No Longer [place] 10/12[facility] mL, Route: IVP, Active 2011 Medical Drug form: INJ, Center Q5Min, Dosing Weight 79.545, kg, PRN Elevated BP, Start date: 10/12/12 13:57:00, Duration: 4 doses or times, Stop date: 10/13/12 0:00:00 labetalol 5 mg, Route: IVP No Longer [place] 11[facility] IVP, Q5Min, Active 2011 Medical Dosing Weight Center 79.545, kg, PRN Elevated BP, Start date: 10/12/12 13:57:00, Duration: 5 doses or times, Stop date: Limited # of times hydromorphone 0.2 mg, 0.1 mL, IVP No Longer [place] [id number] Route: IVP, Active 2011 Medical Drug form: INJ, Center Q5Min, Dosing Weight 79.545, kg, PRN Pain Score 4-6, Start date: 10/12/12 13:57:00, Duration: 5 doses or times, Stop date: 10/13/12 0:00:00 Xarelto 20 mg Substitution Active 10/12[facility] oral tablet Allowed 2011 [facility] citalopram 20 mg 20 mg, 1 tab, PO Active [place] 09/21[facility] oral tablet PO, Daily, 2011 Medical tab, Center Substitution Allowed, TAB Protonix 40 mg 40 mg, 1 tab, PO Active [place] 09/21[facility] oral enteric PO, Daily, 2011 Medical coated tablet tab, Center Substitution Allowed, ECTAB Pradaxa 150 mg PO, BID, PO No Longer [place] 09/21[facility] oral capsule Substitution Active 2011 Medical [facility] enalapril 10 mg 10 mg, 1 tab, PO Active [place] 09/21[facility] oral tablet PO, Daily, 2011 Medical tab, Center Substitution Allowed, TAB metoprolol 50 mg 50 mg, PO, PO Active [place] [facility] oral tablet, Daily, 30 tab, 2011 Medical extended release Substitution Center Allowed Norvasc 10 mg 10 mg, 1 tab, PO Active [place] oral tablet PO, Daily, 30 2011 Medical tab, Center Substitution Allowed, TAB Norvasc 10 mg 10 mg, 1 tab, PO No Longer [place] oral tablet PO, Daily, 30 Active 2011 Medical tab, Center Substitution Allowed, TAB Lipitor 40 mg 40 mg, 1 tab, PO Active [place] [facility] oral tablet PO, Daily, 30 2011 Medical tab, Center Substitution Allowed, TAB levothyroxine 125 Substitution Active [facility] mcg (0.125 mg) Allowed 2011 [facility] oral capsule [place] influenza virus 0.5 ml, Route: IM No Longer [facility] vaccine, IM, Drug Form: Active 2008 Medical inactivated INJ, ONCE, [place], Start date: OPID 08/29/09 [place] 9:00:00, Stop date: 08/29/09 9:00:00 Allergies, Adverse Reactions, Alerts Substance Category Reaction Severity Reaction Status Date Comments Source type Reported morphine Assertion Drug Active [facility] tetracyclines Assertion Drug Active [facility] Immunizations Immunization Date Site Status Last Comments Source Given Updated diphtheria/pertus Left completed [place] sis, acel/tetanus 7 [facility] pneumococcal completed [facility] 23-valent vaccine 2 [facility] pneumococcal Left completed Erik [facility] 23-valent vaccine 2 [facility] influenza virus completed [facility] vaccine, 9 [facility] OPID [place] influenza virus Right completed Yob[facility] vaccine, 9 [facility] Results Order Name Results Value Reference Date Interpretation Comments Source Range HEMATOLOGY Monocytes # 1.2 K/CMM 0.0 - 0.8 02/[address] HEMATOLOGY Lymphocytes # 0.9 K/CMM 1.0 - 5.5 02/[address] HEMATOLOGY Basophils # 0.1 K/CMM 0.0 - 0.2 02/[address] HEMATOLOGY Eosinophils # 0.1 K/CMM 0.0 - 0.5 02/04 [facility] HEMATOLOGY Basophils 0.6 % 0.0 - 1.0 02/04 [facility] HEMATOLOGY Eosinophils 1.2 % 0.0 - 4.0 02/04 [facility] HEMATOLOGY Segs-Bands # 10.4 K/CMM 1.5 - 8.1 02/04 [facility] HEMATOLOGY Monocytes 9.5 % 2.0 - 12.0 02/04 [facility] HEMATOLOGY Lymphocytes 7.1 % 20.0 - 02/04 [place] 40.0 [facility] HEMATOLOGY RBC Morph Normal 02/04 [facility] (02/04/17 5:17 AM) [place] HEMATOLOGY Segs 81.6 % 45.0 - 02/04 75.0 [facility] HEMATOLOGY Plt Morph Normal 02/04 [facility] (02/04/17 5:17 AM) [place] HEMATOLOGY WBC 12.8 K/CMM 3.7 - 10.4 02/04 [facility] HEMATOLOGY RBC 3.95 M/CMM 4.70 - 02/04 [place] 6.10 [facility] HEMATOLOGY Platelet 146 K/CMM 133 - 450 02/04 [facility] HEMATOLOGY MCV 91.3 fL 80.0 - 02/04 94.0 [facility] HEMATOLOGY Hgb 12.2 g/dL 14.0 - 02/04 18.0 [facility] HEMATOLOGY MCH 30.8 pg 27.0 - 02/04 31.0 [facility] HEMATOLOGY Hct 36.0 % 42.0 - 02/04 54.0 [facility] HEMATOLOGY MCHC 33.8 g/dL 32.0 - 02/04 36.0 [facility] HEMATOLOGY RDW 15.2 % 11.5 - 02/04 14.5 [facility] HEMATOLOGY MPV 9.2 fL 7.4 - 10.4 02/04 [facility] CHEM PANEL eGFR 61 02/03 Result Comment: The eGFR is calculated using the CKD-EPI formula. In most young, healthy individuals the eGFR will be >90 mL/ min/1.73m2. The eGFR declines with age. An eGFR of 60-89 may be normal in [facility] mL/min/1.7 some populations, particularly the elderly, for whom the CKD-EPI formula has not been extensively validated. Use of the eGFR is not recommended in the following populations: [address] Individuals with unstable creatinine concentrations, including patients and those with serious co-morbid conditions. Patients with extremes in muscle mass or diet. The data above are obtained from the National Kidney Disease Education Program (NKDEP) which additionally recommends that when the eGFR is used in patients with extremes of body mass index for purposes of drug dosing, the eGFR should be multiplied by the estimated BMI. CHEM PANEL Alk Phos 68 unit/L 39 - 136 02/[address] CHEM PANEL Bili Total 1.2 mg/dL 0.2 - 1.3 02/[address] CHEM PANEL Potassium Lvl 4.4 meq/L 3.5 - 5.1 02/[address] CHEM PANEL Chloride Lvl 105 meq/L 95 - 109 02/[address] CHEM PANEL CO2 27 meq/L 24 - 32 02/[address] CHEM PANEL Calcium Lvl 8.9 mg/dL 8.5 - 10.5 02/[address] CHEM PANEL Total Protein 6.0 g/dL 6.4 - 8.4 02/[address] CHEM PANEL Glucose Lvl 114 mg/dL 70 - 99 02/[address] CHEM PANEL BUN 27 mg/dL 7 - 22 02/[address] CHEM PANEL Creatinine 1.14 mg/dL 0.50 - 02/03 [facility] Lvl 1.40 [facility] CHEM PANEL Sodium Lvl 140 meq/L 135 - 145 02/[address] CHEM PANEL Albumin Lvl 2.8 g/dL 3.5 - 5.0 02/[address] CHEM PANEL ALT 25 unit/L 0 - 65 02/[address] CHEM PANEL AST 23 unit/L 0 - 37 02/[address] CHEM PANEL A/G Ratio 0.9 0.7 - 1.6 02/[address] CHEM PANEL Globulin 3.2 g/dL 2.7 - 4.2 02/[address] CHEM PANEL AGAP 12.4 meq/L 10.0 - 02/03 [facility] . [facility] CHEM PANEL B/C Ratio 24 6 - 25 02/03 [facility] CHEM PANEL Phosphorus 2.8 mg/dL 2.5 - 4.5 02/03 [facility] CHEM PANEL Magnesium Lvl 2.3 mg/dL 1.8 - 2.4 02/03 [facility] ELECTROLYTE AGAP 12.4 meq/L 10.0 - 02/03 [facility] . [facility] ELECTROLYTE eGFR 61 02/03 Result Comment: The eGFR is calculated using the CKD-EPI formula. In most young, healthy individuals the eGFR will be >90 mL/ min/1.73m2. The eGFR declines with age. An eGFR of 60-89 may be normal in [facility] mL/min/1. some populations, particularly the elderly, for whom the CKD-EPI formula has not been extensively validated. Use of the eGFR is not recommended in the following populations: [address] Individuals with unstable creatinine concentrations, including patients and those with serious co-morbid conditions. Patients with extremes in muscle mass or diet. The data above are obtained from the National Kidney Disease Education Program (NKDEP) which additionally recommends that when the eGFR is used in patients with extremes of body mass index for purposes of drug dosing, the eGFR should be multiplied by the estimated BMI. ELECTROLYTE CO2 27 meq/L 24 - 32 02/03 [facility] ELECTROLYTE Calcium Lvl 8.9 mg/dL 8.5 - 10.5 02/03 [facility] ELECTROLYTE Glucose Lvl 114 mg/dL 70 - 99 02/03 [facility] ELECTROLYTE Potassium Lvl 4.4 meq/L 3.5 - 5.1 02/03 [facility] ELECTROLYTE Sodium Lvl 140 meq/L 135 - 145 02/03 [facility] ELECTROLYTE Creatinine 1.14 mg/dL 0.50 - 02/03 [facility] Lvl 1.40 [facility] ELECTROLYTE BUN 27 mg/dL 7 - 02/03 [facility] ELECTROLYTE Chloride Lvl 105 meq/L 95 - 109 02/03 [facility] HEMATOLOGY INR 1.85 0.85 - 02/03 [facility] 1.17 [facility] HEMATOLOGY PT 21.7 s 12.0 - 02/03 14. [facility] HEMATOLOGY Segs 83.5 % 45.0 - 02/03 75.0 [facility] HEMATOLOGY Eosinophils 0.1 % 0.0 - 4.0 02/03 [facility] HEMATOLOGY Basophils 0.1 % 0.0 - 1.0 02/03 [facility] HEMATOLOGY Lymphocytes 10.2 % 20.0 - 02/03 40.0 [facility] HEMATOLOGY Monocytes 6.1 % 2.0 - 12.0 02/03 [facility] HEMATOLOGY Segs-Bands # 6.1 K/CMM 1.5 - 8.1 02/03 [facility] HEMATOLOGY Lymphocytes # 0.7 K/CMM 1.0 - 5.5 02/03 [facility] HEMATOLOGY Monocytes # 0.4 K/CMM 0.0 - 0.8 02/[address] [place] [address] HEMATOLOGY MPV 8.2 fL 7.4 - 10.4 02/03 [facility] HEMATOLOGY Platelet 129 K/CMM 133 - 450 02/03 [facility] HEMATOLOGY WBC 7.3 K/CMM 3.7 - 10.4 02/03 [facility] HEMATOLOGY RBC 4.04 M/CMM 4.70 - 02/03 6.10 [facility] HEMATOLOGY Hgb 12.2 g/dL 14.0 - 02/03 18.0 [facility] HEMATOLOGY Hct 37.0 % 42.0 - 02/03 54.0 [facility] HEMATOLOGY MCV 91.7 fL 80.0 - 02/03 94.0 [facility] HEMATOLOGY MCHC 33.0 g/dL 32.0 - 02/03 36.0 [facility] HEMATOLOGY MCH 30.2 pg 27.0 - 02/03 31.0 [facility] HEMATOLOGY RDW 15.4 % 11.5 - 02/03 14. [facility] HEMATOLOGY INR 1.79 0.85 - 02/02 1.17 [facility] HEMATOLOGY PT 21.1 s 12.0 - 02/02 14. [facility] DRUG SCREEN UDS Note See Note 02/02 [facility] (02/02/17 2:53 AM) Center DRUG SCREEN U Phencyc Scr Negative Negative 02/02 Medical *NA* Center (02/02/17 2:53 AM) DRUG SCREEN U Opiate Scr Positive Negative 02/02 [facility] *ABN* [place] (02/02/17 2:53 AM) DRUG SCREEN U Cocaine Scr Negative Negative 02/02 [facility] *NA* [place] (02/02/17 2:53 AM) DRUG SCREEN U Benzodia Negative Negative 02/02 Medical *NA* [place] (02/02/17 2:53 AM) DRUG SCREEN U Kay Scr Negative Negative 02/02 [facility] *NA* [place] (02/02/17 2:53 AM) DRUG SCREEN U Amph Scr Negative Negative 02/02 [facility] *NA* [place] (02/02/17 2:53 AM) DRUG SCREEN U Cannab Scr Negative Negative 02/02 [facility] *NA* [place] (02/02/17 2:53 AM) URINE AND UA Nitrite Negative Negative 02/02 STOOL [facility] (02/02/17 2:53 AM) [place] URINE AND UA 0.2 EU/dL 0.1 - 1.0 02/02 [facility] Urobilinogen [facility] URINE AND UA Blood Small Negative 02/02 [facility] Medical *ABN* [place] (02/02/17 2:53 AM) URINE AND UA Sq Epi None Seen Few 02/02 [facility] STOOL [facility] (02/02/17 2:53 AM) Center URINE AND UA Spec Grav null <=1.030 02/02 [place] STOOL [facility] URINE AND UA Color Yellow Yellow 02/02 Medical *NA* [place] (02/02/17 2:53 AM) URINE AND UA Bili Negative Negative 02/02 [facility] Medical *NA* [place] (02/02/17 2:53 AM) URINE AND UA Ketones Negative Negative 02/02 [facility] STOOL Medical *NA* [place] (02/02/17 2:53 AM) URINE AND UA Glucose Negative Negative 02/02 [facility] STOOL [facility] (02/02/17 2:53 AM) Center URINE AND UA Protein Trace Negative 02/02 [facility] Medical *ABN* Center (02/02/17 2:53 AM) URINE AND UA pH 5.0 5.0 - 8.0 02/02 [facility] URINE AND UA Leuk Est Negative Negative 02/02 [facility] (02/02/17 2:53 AM) [place] URINE AND UA WBC None Seen None Seen 02/02 [facility] (02/02/17 2:53 AM) [place] URINE AND UA Turbidity Clear Clear 02/02 [facility] (02/02/17 2:53 AM) [place] URINE AND UA RBC None Seen 0 - 2 02/02 [facility] (02/02/17 2:53 AM) [place] CARDIAC Total CK 92 unit/L 12 - 191 02/02 [facility] CHEM PANEL Lactic Acid 0.9 mMol/L 0.5 - 2.2 02/02 [facility] ELECTROLYTE AGAP 15.3 meq/L 10.0 - 02/02 [facility] 20. [facility] ELECTROLYTE eGFR 51 02/02 Result Comment: The eGFR is calculated using the CKD-EPI formula. In most young, healthy individuals the eGFR will be >90 mL/ min/1.73m2. The eGFR declines with age. An eGFR of 60-89 may be normal in [facility] mL/min/1.7 some populations, particularly the elderly, for whom the CKD-EPI formula has not been extensively validated. Use of the eGFR is not recommended in the following populations: [address] Individuals with unstable creatinine concentrations, including patients and those with serious co-morbid conditions. Patients with extremes in muscle mass or diet. The data above are obtained from the National Kidney Disease Education Program (NKDEP) which additionally recommends that when the eGFR is used in patients with extremes of body mass index for purposes of drug dosing, the eGFR should be multiplied by the estimated BMI. ELECTROLYTE Calcium Lvl 9.0 mg/dL 8.5 - 10.5 02/02 [facility] ELECTROLYTE Potassium Lvl 4.3 meq/L 3.5 - 5.1 02/02 [facility]2016 [facility] ELECTROLYTE Chloride Lvl 101 meq/L 95 - 109 02/02 [facility] ELECTROLYTE CO2 26 meq/L 24 - 32 02/02 [facility] ELECTROLYTE Creatinine 1.32 mg/dL 0.50 - 02/02 [facility] S Lvl 1.40 /2016 [facility] ELECTROLYTE Sodium Lvl 138 meq/L 135 - 145 02/02 [facility] ELECTROLYTE Glucose Lvl 133 mg/dL 70 - 99 02/02 [facility] ELECTROLYTE BUN 26 mg/dL 7 - 22 02/02 [facility] HEMATOLOGY INR 2.00 0.85 - 02/02 1.17 [facility] HEMATOLOGY PT 23.0 s 12.0 - 02/02 14.7 [facility] HEMATOLOGY PTT 35.0 s 22.9 - 02/02 35.8 [facility] HEMATOLOGY MPV 8.1 fL 7.4 - 10.4 02/02 [facility] HEMATOLOGY MCHC 34.1 g/dL 32.0 - 02/02 36.0 [facility] HEMATOLOGY Platelet 133 K/CMM 133 - 450 02/02 [facility] HEMATOLOGY RDW 15.2 % 11.5 - 02/02 14.5 [facility] HEMATOLOGY Hgb 12.9 g/dL 14.0 - 02/02 18.0 [facility] HEMATOLOGY RBC 4.18 M/CMM 4.70 - 02/02 6.10 [facility] HEMATOLOGY MCH 30.9 pg 27.0 - 02/02 31.0 [facility] HEMATOLOGY MCV 90.6 fL 80.0 - 02/02 94.0 [facility] HEMATOLOGY Hct 37.9 % 42.0 - 02/02 54.0 [facility] HEMATOLOGY WBC 7.5 K/CMM 3.7 - 10.4 02/02 [facility] HEMATOLOGY G-value Rapid 9.4 K d/sc 5.0 - 11.6 02/02 [facility] HEMATOLOGY Max Amplitude 65 mm 52 - 71 02/02 [facility] HEMATOLOGY R-time Rapid 0.9 min 0.4 - 0.7 02/02 [facility] HEMATOLOGY ACT (TEG) 136 s 86 - 118 02/02 [facility] HEMATOLOGY Angle Rapid 76 degrees 64 - 80 02/02 [facility] HEMATOLOGY K-time Rapid 1.0 min 0.6 - 2.3 02/02 /2016 [facility] HEMATOLOGY [place] 0.8 min 02/02 [facility] HEMATOLOGY Estimated % 0.0 % 0.0 - 7.5 02/02 [facility] Lysis [facility] HEMATOLOGY Monocytes 8.2 % 2.0 - 12.0 02/[address] HEMATOLOGY Eosinophils 1.5 % 0.0 - 4.0 02/02 [facility]2016 [facility] HEMATOLOGY Segs-Bands # 5.8 K/CMM 1.5 - 8.1 02/[address] HEMATOLOGY Lymphocytes # 0.9 K/CMM 1.0 - 5.5 02/[address] HEMATOLOGY Basophils 0.4 % 0.0 - 1.0 02/[address] HEMATOLOGY Monocytes # 0.6 K/CMM 0.0 - 0.8 02/[address] HEMATOLOGY Eosinophils # 0.1 K/CMM 0.0 - 0.5 02/[address] HEMATOLOGY Lymphocytes 12.5 % 20.0 - 02/02 [facility] 40.0 [facility] HEMATOLOGY Segs 77.4 % 45.0 - 02/02 [facility] 75. [facility] BLOOD BANK Antibody Scrn Negative 02/02 [facility] RESULTS /2016 [facility] (02/01/17 9:13 PM) [place] BLOOD BANK ABO/Rh O POS 02/02 [facility] RESULTS [facility] Brain wo Brain wo CT HEAD WITHOUT CONTRAST 02/01 - [facility] contrast CT contrast CT /2016 [facility] DATE: 02/01/2017 at 10:10 PM. Read by: Mao Reddy MD Dictated Date/time: 02/02/17 03:15 Electronically Signed by: Mao Reddy MD 02/02/17 03:16 FINAL REPORT COMPARISON: None. HISTORY: Pain Post Trauma - trauma. TECHNIQUE: Contiguous axial images of the brain were obtained without intravenous contrast administration. Sagittal and coronal reformats were also provided. DLP: 997 mGy-cm. FINDINGS: There are no acute hemorrhages or acute infarcts. The goldstein-white interfaces are well defined. Low density is noted within the periventricular white matter consistent with chronic small vessel ischemic disease. There is prominence of the cortical sulci, fissures, cisterns and ventricles consisten t with cortical atrophy appropriate for the patient's stated age of 81 years. There are no acute bony abnormalities. The calvarium is intact. Atherosclerotic calcification is noted within the villarreal of the left vertebral and bilateral cavernous internal carotid arteries. A prosthe tic lens is noted within the left lobe consistent with prior cataract surgery. IMPRESSION: 1. No acute intracranial abnormality. 2. Age related volume loss. 3. White matter hypodensity consistent with chronic small vessel ischemic disease. 4. Arterial atherosclerosis. Resident preliminary report by Dr. Philip Sanabria: neg acute diffuse cerebral volume loss and chronic microangiopathic ischemic changes. Chest/Abdom Chest/Abdomen EXAM: CT CHEST WITH CONTRAST 02/01 - [facility] en/Pelvis w /Pelvis w /2016 - Medical IV contrast contrast CT EXAM: CT ABDOMEN AND PELVIS WITH CONTRAST This report was dictated by a Warp Scouring Vat Tender/Fellow. I have personally reviewed the images as Center CT well as the Resident's interpretation and agree with the findings. Read by: [id number] Salvador RES [id number] Resident: [id number] Sanabria RES [id number] Dictated Date/time: 02/01/17 22:32 DATE: 02/01/2017 8:54 PM CDT Electronically Signed by: aJy Basurto MD 02/01/17 23:52 FINAL REPORT INDICATION: Pain Post Trauma - trauma COMPARISON: None. TECHNIQUE: Volumetric acquisition of the chest, abdomen and pelvis following intravenous administration of contrast. Delayed imaging was then performed through the abdomen and pelvis, using a radiation reduction technique. Axial, coronal and sagittal reformats. IV contrast: 150 mL Visipaque 320 Oral contrast: None. DLP: 2304 mGy-cm FINDINGS: Lines and Tubes: None. Lower Neck: Visible portions unremarkable. Thoracic Aorta and Mediastinum: No mediastinal hematoma or thoracic aortic injury. Postsurgical changes status post coronary artery Lungs and Pleura: There is biapical scarring and/or atelectasis. right upper lung scattered hazy groundglass opacities. Mild bibasilar subsegmental atelectasis. No pleural fluid or pneumothorax. Hepatobiliary: Normal. Gallbladder: No injury. Spleen: Normal. Pancreas: Normal. Adrenals: Normal. Kidneys: No acute renal injury. Multiple cysts are noted bilaterally with the largest measuring 2.4 cm in the lower pole of the right kidney. Ureters and Bladder: No injury. Reproductive Organs: No injury. Gastrointestinal Tract: No injury. Peritoneum and Retroperitoneum: No fluid collections or free air. Abdominal/Pelvic Vasculature: No vascular injury. The abdominal aorta and bilateral proximal iliac arteries are severely calcified. Lymphadenopathy: None. Spine/Bones: There is a chronic appearing compression deformity of L2 40% height loss. No acute abnormalities noted of spine. Mild multilevel degenerative changes are present. No other acute bony injury. Diffuse osteopenia seen Soft Tissues: No acute injury. A small lipoma is seen in the left anterior pelvic wall. IMPRESSION: 1. No acute thoracic, abdominal, or pelvic abnormality 2. Right upper lobe scarring and edema, but no letitia contusion 3. Chronic compression deformity of L2 with approximately 40% height loss 4. Mild multilevel degenerative changes of thoracic and lumbar spine 5. Biapical scarring and/or atelectasis 6. Diffuse osteopenia 7. Multiple bilateral renal cysts 8. Small lipoma in the left anterior pelvic wall Facial Facial Bones EXAM: CT ORBITS WITHOUT CONTRAST 02/01 - [facility] Bones wo /2016 - Medical contrast CT CT (ER) This report was dictated by a Warp Scouring Vat Tender/ Fellow. I have personally reviewed the images as Center (ER) well as the Resident's interpretation and agree with the findings. DATE: 02/01/2017 8:54 PM CDT Read by: [id number] Salvador RES [id number] Resident: [id number] JOHN Salvador [id number] Dictated Date/time: 02/01/17 22:43 Electronically Signed by: Jay Basurto MD 02/01/17 23:13 FINAL REPORT INDICATION: Pain Post Trauma - trauma COMPARISON: None TECHNIQUE: Volumetric CT acquisition of the orbits without contrast. Axial , coronal and sagittal reconstructions. IV contrast: None. DLP: 123 mGy-cm FINDINGS: Bones: No fracture or other acute bony abnormality is identified. The paranasal sinuses and mastoid air cells are clear. Dentures are visualized and are intact. Soft tissues: No abnormality of the globes is seen. There is no intraconal hematoma. Mild soft tissue contusion is seen in the left frontal region and possibly at the left cheek. No radiopaque foreign body is identified. IMPRESSION: 1. Mild soft tissue contusion seen in the left frontal region and possibly the left cheek 2. No acute fracture or malalignment abnormality. 3. Diffuse osteopenia. 4. Mild atherosclerotic calcification of the internal carotid arteries. Spine Spine EXAM: CT CERVICAL SPINE WITHOUT CONTRAST 02/01 - [facility] cervical wo cervical - Medical contrast CT contrast CT This report was dictated by a Warp Scouring Vat Tender/Fellow. I have personally reviewed the images as Center well as the Resident's interpretation and agree with the findings. DATE: 02/01/2017 8:54 PM CDT Read by: [id number] Salvador RES [id number] Resident: [id number] Salvador RES [id number] Dictated Date/time: 02/01/17 22:25 Electronically Signed by: Jay Basurto MD 02/01/17 23:10 FINAL REPORT INDICATION: Pain Post Trauma - trauma COMPARISON: None TECHNIQUE: Volumetric acquisition of the cervical spine without contrast. Axial, sagittal and coronal reconstructions. IV contrast: None. DLP: 478 mGy-cm FINDINGS: The spine is imaged from the skull base to the level of superior endplate of T2. No acute fracture or malalignment is identified. There is severe diffuse bone demineralization. Moderate to severe degenerative changes as evidenced by multilevel uncovertebral joint arthropathy C4-C7, posterior disc osteophyte complexes from C5 to C7 and anterior endplate osteophytosis from C2 to C6. No soft tissue abnormality is identified. Bilateral carotid bulbs are moderately calcified. Biapical atelectasis and/ or scarring is seen. IMPRESSION: 1. No acute abnormality of the cervical spine. 2. Severe diffuse bone demineralization 3. Moderate to severe degenerative changes. 4. Biapical atelectasis and/or scarring. 5. Moderate desiccation of bilateral carotid bulbs. Elbow 3 Elbow 3 views EXAM: XR LEFT ELBOW 3 VIEWS 02/01 - [place] views DX DX /2016 [facility] DATE: 02/01/2017 9:20 PM CDT Read by: Jay Basurto MD Dictated Date/time: 02/01/17 23:47 Electronically Signed by: Jay Basurto MD 02/01/17 23:47 FINAL REPORT INDICATION: trauma - trauma COMPARISON: None TECHNIQUE: AP, lateral and oblique radiographs of the left elbow DISCUSSION: No acute fracture or malalignment is identified. There is no excessive joint fluid. No soft tissue abnormality is identified. IMPRESSION: No acute abnormality. Hand 3 Hand 3 views EXAM: XR LEFT HAND 3 VIEWS 02/01 - [place] views DX - Medical EXAM: XR RIGHT HAND 3 VIEWS Center Read by: Jay Basurto MD Dictated Date/time: 02/01/17 23:48 DATE: 02/01/2017 9:20 PM CDT Electronically Signed by: Jay Basurto MD 02/01/17 23:49 FINAL REPORT INDICATION: trauma - trauma COMPARISON: None TECHNIQUE: PA, lateral and oblique radiographs of each hand DISCUSSION: No acute fracture or malalignment is identified. Osteoarthrosis is noted bilaterally and rather diffuse distribution. There is swelling in the dorsal aspect of the metacarpophalangeal area o f the right hand, on the lateral view. Swelling is also present in the left wrist area. IMPRESSION: Soft tissue swelling at the right hand, and left wrist, but no other acute abnormality. Knee 3 Knee 3 views EXAM: XR LEFT KNEE 3 VIEWS 02/01 - [place] views DX DX - [facility] Center DATE: 02/01/2017 9:20 PM CDT Read by: Jay Basurto MD Dictated Date/time: 02/01/17 23:45 Electronically Signed by: Jay Basurto MD 02/01/17 23:46 FINAL REPORT INDICATION: trauma - trauma COMPARISON: None. TECHNIQUE: AP, lateral and oblique views of the left knee DISCUSSION: Total arthroplasty hardware is seen in usual position and anatomic alignment. No acute fracture or malalignment is identified. There is no excessive joint fluid. No soft tissue abnormality is identified. IMPRESSION: No acute abnormality. Hand 3 Hand 3 views EXAM: XR LEFT HAND 3 VIEWS 02/01 - [place] views DX DX - Medical EXAM: XR RIGHT HAND 3 VIEWS Center Read by: Jay Basurto MD Dictated Date/time: 02/01/17 23:48 DATE: 02/01/2017 9:20 PM CDT Electronically Signed by: Jay Basurto MD 02/01/17 23:49 FINAL REPORT INDICATION: trauma - trauma COMPARISON: None TECHNIQUE: PA, lateral and oblique radiographs of each hand DISCUSSION: No acute fracture or malalignment is identified. Osteoarthrosis is noted bilaterally and rather diffuse distribution. There is swelling in the dorsal aspect of the metacarpophalangeal area o f the right hand, on the lateral view. Swelling is also present in the left wrist area. IMPRESSION: Soft tissue swelling at the right hand, and left wrist, but no other acute abnormality. Knee 3 Knee 3 views EXAM: XR RIGHT KNEE 3 VIEWS 02/01 - [place] views DX DX /2016 - [facility] DATE: 02/01/2017 9:20 PM CDT Read by: Jay Basurto MD Dictated Date/time: 02/01/17 23:46 Electronically Signed by: Jay Basurto MD 02/01/17 23:46 FINAL REPORT INDICATION: trauma - trauma COMPARISON: None. TECHNIQUE: AP, lateral and oblique views of the right knee DISCUSSION: Total arthroplasty hardware is seen in usual position and anatomic alignment. No acute fracture or malalignment is identified. There is no excessive joint fluid. No soft tissue abnormality is identified. IMPRESSION: No acute abnormality. Pelvis AP Pelvis AP DX EXAM: XR PELVIS 1 VIEW 02/01 [facility] DX - [facility] This report was dictated by a Warp Scouring Vat Tender/Fellow. I have personally reviewed the images as Center well as the Resident's interpretation and agree with the findings. DATE: 02/01/2017 at 2043 hours Read by: Olu Lopez MD Resident: Olu Lopez MD Dictated Date/time: 02/01/17 21:35 Electronically Signed by: Jay Basurto MD 02/01/17 22:50 FINAL REPORT INDICATION: Pain Post Trauma - trauma COMPARISON: None available. TECHNIQUE: A single AP supine radiograph of the pelvis FINDINGS: No acute fracture or malalignment is identified. Large and small bowel loops are filled with stool and gas and are nondilated. IMPRESSION: No acute abnormality. Chest 1view Chest 1view EXAM: XR CHEST 1 VIEW 02/01 [place] DX DX - Medical This report was dictated by a Warp Scouring Vat Tender/Fellow. I have personally reviewed the images as Center well as the Resident's interpretation and agree with the findings. DATE: 02/01/2017 at 2043 hours Read by: Olu Lopez MD Resident: Olu Lopez MD Dictated Date/time: 02/01/17 21:29 Electronically Signed by: Jay Basurto MD 02/01/17 22:49 FINAL REPORT INDICATION: Pain Post Trauma - trauma COMPARISON: None available. TECHNIQUE: AP chest FINDINGS: Lines, tubes and hardware: Pulse generator projects over the left anterior chest with pacing lead in the right atrium, AICD lead in the right ventricle, and pacing lead in the coronary sinus. Median sternotomy wires are seen and intact. Lungs and pleura: Diffuse bilateral airspace disease consistent with pulmonary edema. Heart and mediastinum: The cardiomediastinal silhouette is enlarged. Bones: No acute bony abnormality is identified. IMPRESSION: Cardiomegaly with diffuse pulmonary edema HEMATOLOGY INR 2.00 0.85 - 01/02 [facility] 12.01 [facility] HEMATOLOGY PT 23.0 s 12.0 - 01/02 [facility] HEMATOLOGY PT 29.4 s 12.0 - 01/01 [facility] HEMATOLOGY INR 2.75 0.85 - 01/01 [facility] 12.01 [facility] CHEM PANEL Magnesium Lvl 1.7 mg/dL 1.8 - 2.4 01/01 [facility]2015 [facility] CHEM PANEL Phosphorus 2.9 mg/dL 2.5 - 4.5 01/01 [facility]2015 [facility] ELECTROLYTE AGAP 12.1 meq/L 10.0 - 01/01 [facility] ELECTROLYTE eGFR 50 01/01 Result Comment: The eGFR is calculated using the CKD-EPI formula. In most young, healthy individuals the eGFR will be >90 mL/ min/1.73m2. The eGFR declines with age. An eGFR of 60-89 may be normal in [facility] mL/min/1 some populations, particularly the elderly, for whom the CKD-EPI formula has not been extensively validated. Use of the eGFR is not recommended in the following populations: [address] Individuals with unstable creatinine concentrations, including patients and those with serious co-morbid conditions. Patients with extremes in muscle mass or diet. The data above are obtained from the National Kidney Disease Education Program (NKDEP) which additionally recommends that when the eGFR is used in patients with extremes of body mass index for purposes of drug dosing, the eGFR should be multiplied by the estimated BMI. ELECTROLYTE CO2 28 meq/L 24 - 32 01/01 [facility] ELECTROLYTE Calcium Lvl 8.9 mg/dL 8.5 - 10.5 01/01 [facility] ELECTROLYTE Potassium Lvl 4.1 meq/L 3.5 - 5.1 01/01 [facility] ELECTROLYTE Sodium Lvl 141 meq/L 135 - 145 01/01 [facility] ELECTROLYTE Chloride Lvl 105 meq/L 95 - 109 01/01 [facility]2015 [facility] ELECTROLYTE Creatinine 1.35 mg/dL 0.50 - 01/01 [facility] Lvl 1.40 [facility] ELECTROLYTE BUN 34 mg/dL 7 - 22 01/01 [facility]2015 [facility] ELECTROLYTE Glucose Lvl 72 mg/dL 70 - 99 01/01 [facility]2015 [facility] HEMATOLOGY Microcyte 1+ None Seen 01/01 [facility] (12/31/15 6:56 PM) HEMATOLOGY Lymphocytes # 2.4 K/CMM 1.0 - 5.5 01/[address] HEMATOLOGY Monocytes # 0.8 K/CMM 0.0 - 0.8 01/01 [facility]2015 [facility] HEMATOLOGY Eosinophils # 0.1 K/CMM 0.0 - 0.5 01/[address] HEMATOLOGY Segs 53.5 % 45.0 - 01/01 [facility] 75.0 [facility] HEMATOLOGY Monocytes 10.9 % 2.0 - 12.0 01/[address] HEMATOLOGY Eosinophils 1.5 % 0.0 - 4.0 01/[address] HEMATOLOGY Basophils 0.3 % 0.0 - 1.0 01/01 [facility]2015 [facility] HEMATOLOGY Lymphocytes 33.8 % 20.0 - 01/01 [place] 40.0 [facility] HEMATOLOGY Segs-Bands # 3.7 K/CMM 1.5 - 8.1 01/01 [facility]2015 [facility] HEMATOLOGY MPV 8.5 fL 7.4 - 10.4 01/01 [facility]2015 [facility] HEMATOLOGY WBC 7.0 K/CMM 3.7 - 10.4 01/01 [facility]2015 [facility] HEMATOLOGY RBC 5.41 M/CMM 4.70 - 01/01 [place] 6.10 [facility] HEMATOLOGY Hgb 13.6 g/dL 14.0 - 01/01 [place] 18.0 [facility] HEMATOLOGY Hct 42.4 % 42.0 - 01/01 [place] 54.0 /2016 [facility] HEMATOLOGY MCV 78.3 fL 80.0 - 01/01 [place] 94.0 /2015 [facility] HEMATOLOGY MCH 25.2 pg 27.0 - 01/01 [place] 31.0 /2015 [facility] HEMATOLOGY MCHC 32.1 g/dL 32.0 - 01/01 [place] 36.0 /2015 [facility] HEMATOLOGY RDW 18.5 % 11.5 - 01/01 [place] 14.5 /2015 [facility] HEMATOLOGY Platelet 148 K/CMM 133 - 450 01/01 /2015 [facility] HEMATOLOGY PTT 37.6 s 22.9 - 01/01 [place] 35.8 /2015 [facility] HEMATOLOGY PT 28.6 s 12.0 - 01/01 [facility] 14.7 /2015 [facility] HEMATOLOGY INR 2.65 0.85 - 01/01 [facility] 1. [facility] Esophagus Esophagus BA EXAM: FLUOROSCOPY MODIFIED BARIUM SWALLOW 12/31 - [facility] BA swallow swallow - Medical function function This report was dictated by a Warp Scouring Vat Tender/ Fellow. I have personally reviewed the images as Center video DX video DX well as the Resident's interpretation and agree with the findings. DATE: 12/31/2015 at 0958 hours Read by: Aneta Gray MD Resident: Aneta Gray MD Dictated Date/time: 12/31/15 10:29 Electronically Signed by: Adela Borja MD 12/31/15 18:04 FINAL REPORT INDICATION: Dysphagia. COMPARISON: Modified barium swallow 02/07/2013. TECHNIQUE: Oral barium contrast of differing consistencies was given to the patient to assess swallowing mechanism. The study was performed in conjunction with speech pathology. FLUOROSCOPY TIME: 2 minutes 8 seconds DISCUSSION: The patient was given barium contrast of different consistencies. The swallowing reflex is delayed with difficulty with pharyngeal peristalsis. Thin barium with spoon: Symptomatic aspiration. Holiday barium with spoon: Symptomatic aspiration. Honey barium with spoon: Severe vallecular pooling. Pudding barium with spoon: Severe vallecular pooling causing laryngeal penetration. IMPRESSION: 1. Please refer to speech pathologist's notes for further details and recommendations. 2. Symptomatic aspiration with thin and nectar barium. ELECTROLYTE Potassium WB 5.1 meq/L 3.5 - 5.1 12/[address] ELECTROLYTE AGAP 12.2 meq/L 10.0 - 12/17 [facility] 20.0 [facility] ELECTROLYTE eGFR 63 12/17 Result Comment: The eGFR is calculated using the CKD-EPI formula. In most young, healthy individuals the eGFR will be >90 mL/ min/1.73m2. The eGFR declines with age. An eGFR of 60-89 may be normal in [facility] mL/min/1.7 some populations, particularly the elderly, for whom the CKD-EPI formula has not been extensively validated. Use of the eGFR is not recommended in the following populations: [address] Individuals with unstable creatinine concentrations, including patients and those with serious co-morbid conditions. Patients with extremes in muscle mass or diet. The data above are obtained from the National Kidney Disease Education Program (NKDEP) which additionally recommends that when the eGFR is used in patients with extremes of body mass index for purposes of drug dosing, the eGFR should be multiplied by the estimated BMI. ELECTROLYTE CO2 30 meq/L 24 - 32 12/[address] ELECTROLYTE Calcium Lvl 8.6 mg/dL 8.5 - 10.5 12/[address] ELECTROLYTE Chloride Lvl 104 meq/L 95 - 109 12/[address] ELECTROLYTE Potassium Lvl 5.2 meq/L 3.5 - 5.1 12/[address] ELECTROLYTE Sodium Lvl 141 meq/L 135 - 145 12/[address] ELECTROLYTE Creatinine 1.12 mg/dL 0.50 - 12/17 [facility] Lvl 1.40 /2015 [facility] ELECTROLYTE BUN 27 mg/dL 7 - 22 12/[address] ELECTROLYTE Glucose Lvl 84 mg/dL 70 - 99 12/[address] HEMATOLOGY Eosinophils # 0.1 K/CMM 0.0 - 0.[address] HEMATOLOGY Monocytes # 0.7 K/CMM 0.0 - 0.8 12/[address] HEMATOLOGY Lymphocytes # 2.0 K/CMM 1.0 - 5.5 12/[address] HEMATOLOGY Segs-Bands # 3.3 K/CMM 1.5 - 8.1 12/[address] HEMATOLOGY Lymphocytes 32.2 % 20.0 - 12/17 [place] 40.0 [facility] HEMATOLOGY Segs 53.9 % 45.0 - 12/17 [place] 75.0 [facility] HEMATOLOGY Basophils 0.6 % 0.0 - 1.0 12/17 [facility] HEMATOLOGY Eosinophils 1.7 % 0.0 - 4.0 12/17 [facility] HEMATOLOGY Monocytes 11.6 % 2.0 - 12.0 12/17 [facility] HEMATOLOGY G-value 5.3 K d/sc 4.5 - 11.0 12/17 [facility] HEMATOLOGY Angle 66.9 53.0 - 12/17 [facility] degrees 72.0 [facility] HEMATOLOGY K-time 1.8 min 1.0 - 3.0 12/17 [facility] HEMATOLOGY Max Amp 51.5 mm 50.0 - 12/17 70.0 [facility] HEMATOLOGY Ly30 3.7 % 0.0 - 7.5 12/17 [facility] HEMATOLOGY Coag Index 0.0 -3.0-3.0 - 12/17 3.0 [facility] HEMATOLOGY R-time 4.5 min 5.0 - 10.0 12/17 [facility] HEMATOLOGY TEG Data See Note 12/17 [facility] (12/17/15 1:45 PM) [place] HEMATOLOGY TEG Interp Thrombelas 12/17 [facility] ra [facility] show shortened value of R. This finding is suggestive of enzymatic hypercoagu lation.CPT :76566 HEMATOLOGY PT 20.2 s 12.0 - 12/17 14.7 /2015 [facility] HEMATOLOGY INR 1.69 0.85 - 12/17 1.17 [facility] HEMATOLOGY PTT 34.9 s 22.9 - 12/17 35.8 [facility] HEMATOLOGY MCHC 31.3 g/dL 32.0 - 12/17 36.0 [facility] HEMATOLOGY MCH 25.1 pg 27.0 - 02 31.0 [facility] HEMATOLOGY Platelet 153 K/CMM 133 - 450 12/17 [facility] HEMATOLOGY RDW 18.7 % 11.5 - 02 [facility] [place] 14.5 /2015 [facility] HEMATOLOGY MPV 9.0 fL 7.4 - 10.4 12/17 [facility] HEMATOLOGY RBC 5.12 M/CMM 4.70 - 12/17 [facility] 6.10 /2015 [facility] HEMATOLOGY WBC 6.1 K/CMM 3.7 - 10.4 12/17 [facility] HEMATOLOGY Hgb 12.9 g/dL 14.0 - 12/17 [facility] 18.0 /2015 [facility] HEMATOLOGY Hct 41.0 % 42.0 - 12/17 [facility] 54.0 /2015 [facility] HEMATOLOGY MCV 80.0 fL 80.0 - 12/17 [facility] 94.0 /2015 [facility] HEMATOLOGY INR 1.26 0.85 - 01/16 MS 3Interpretive Data: RECOMMENDED RANGES FOR PROTIME INR: [facility] 12.01 2.0-3.0 for most medical and surgical thromboembolic states. Medical 2.5-3.5 for artificial heart valves and recurrent embolism. Center INR SHOULD BE USED ONLY FOR PATIENTS ON STABLE ANTICOAGULANT THERAPY. HEMATOLOGY PT 16.0 s 12.0 - 03 [facility] 14.7 /2012 [facility] HEMATOLOGY PTT 33.4 s 22.9 - / Normal 5Interpretive [facility] 35.8 Data: Heparin [facility] Range: 57 - 92 Seconds CHEMISTRY AGAP 12.8 meq/L 10.0 - 01/10 Normal [facility] 20.0 [facility] CHEMISTRY eGFR 73 01/10 NA 1Result Comment: The eGFR is calculated using the CKD-EPI formula. In most young, healthy individuals the eGFR will be > 90 mL/min/1.73m2. The eGFR declines with age. An eGFR of 60-89 may be normal in [facility] mL/min/1.7 some populations, particularly the elderly, for whom the CKD-EPI formula has not been extensively validated. Use of the eGFR is not recommended in the following populations: [facility] Individuals with unstable creatinine concentrations, including patients and those with serious co-morbid conditions. Patients with extremes in muscle mass or diet. The data above are obtained from the National Kidney Disease Education Program (NKDEP) which additionally recommends that when the eGFR is used in patients with extremes of body mass index for purposes of drug dosing, the eGFR should be multiplied by the estimated BMI. CHEMISTRY Potassium Lvl 4.8 meq/L 3.5 - 5.1 01/10 Normal [facility] CHEMISTRY Glucose Lvl 85 mg/dL 70 - 99 01/10 Normal 2Interpretive Data: Adult reference range values reflect the clinical guidelines of the [place] [employer]. [facility] CHEMISTRY CO2 32 meq/L 24 - 32 01/10 Normal [facility] CHEMISTRY Chloride Lvl 103 meq/L 95 - 109 01/10 Normal [facility] CHEMISTRY Sodium Lvl 143 meq/L 135 - 145 01/10 Normal [facility] CHEMISTRY Creatinine 1.0 mg/dL 0.5 - 1.4 01/10 [facility] CHEMISTRY BUN 19 mg/dL 7 - 01/10 Normal [facility] CHEMISTRY Calcium Lvl 8.9 mg/dL 8.5 - 10.5 01/10 Normal [facility] HEMATOLOGY Segs 58.9 % 45.0 - 01/10 Normal [facility] 75.0 [facility] HEMATOLOGY Monocytes # 0.8 K/CMM 0.0 - 0.8 01/10 Normal [facility] HEMATOLOGY Eosinophils # 0.2 K/CMM 0.0 - 0.5 01/10 Normal [facility] HEMATOLOGY Lymphocytes 26.3 % 20.0 - 01/10 Normal [facility] 40.0 [facility] HEMATOLOGY Monocytes 11.1 % 2.0 - 12.0 01/10 Normal [facility] HEMATOLOGY Eosinophils 3.2 % 0.0 - 4.0 01/10 Normal [facility] HEMATOLOGY Basophils 0.5 % 0.0 - 1.0 01/10 Normal [facility] HEMATOLOGY Segs-Bands # 4.4 K/CMM 1.5 - 8.1 01/10 Normal [facility] HEMATOLOGY Lymphocytes # 2.0 K/CMM 1.0 - 5.5 01/10 Normal [facility] HEMATOLOGY PTT 48.3 s 22.9 - 01/10 HI 6Interpretive [facility] 35.8 /2012 Data: [facility] Range: 57 - 92 Seconds HEMATOLOGY INR 3.03 0.85 - 01/10 HI 4Interpretive Data: RECOMMENDED RANGES FOR PROTIME INR: [facility] 1.17 2.0-3.0 for most medical and surgical thromboembolic states. Medical 2.5-3.5 for artificial heart valves and recurrent embolism. Center INR SHOULD BE USED ONLY FOR PATIENTS ON STABLE ANTICOAGULANT THERAPY. HEMATOLOGY PT 31.2 s 12.0 - 01/10 [facility] 14.7 /2012 [facility] HEMATOLOGY RBC 4.66 M/CMM 4.70 - 01/10 [place] 6.10 /2012 [facility] HEMATOLOGY Platelet 154 K/CMM 133 - 450 01/10 Normal [facility] HEMATOLOGY RDW 15.5 % 11.5 - 01/10 [facility] 14.5 /2012 [facility] HEMATOLOGY MPV 8.7 fL 7.4 - 10.4 01/10 Normal [facility] HEMATOLOGY Hct 41.4 % 42.0 - 01/10 [place] 54.0 [facility] HEMATOLOGY Hgb 13.5 g/dL 14.0 - 01/10 [place] 18.0 /2012 [facility] HEMATOLOGY MCHC 32.6 g/dL 32.0 - 01/10 [facility] 36.0 [facility] HEMATOLOGY MCV 88.9 fL 80.0 - 01/10 [facility] 94.0 [facility] HEMATOLOGY MCH 29.0 pg 27.0 - 01/10 [facility] 31.0 [facility] HEMATOLOGY WBC 7.5 K/CMM 3.7 - 10.4 01/10 Normal [facility] HEMATOLOGY TEG Interp Thrombelas 01/10 NA [facility] tograph [facility] are within reference ranges. These indicate adequate hemostasis . If there is evidence of bleeding, consider anatomical or surgical bleeding. CPT:16696 HEMATOLOGY Angle 63.7 53.0 - 01/10 Normal [facility] degrees 72.0 [facility] HEMATOLOGY K-time 1.9 min 1.0 - 3.0 01/10 Normal [facility]2012 [facility] HEMATOLOGY R-time 7.2 min 5.0 - 10.0 01/10 Normal [facility] HEMATOLOGY TEG Data See Note 7 01/10 Normal 7Interpretive Data: Normal ranges are for citrated whole blood with kaolin activator. [facility] (01/10/2013 15:10:00) R TIME: Reflects the degree of anti- coagulation due to LMWH, unfractionated heparin, and coumadin as well as non- specific Center factor deficiencies. K TIME, ALPHA ANGLE, AND MA(MAX AMPLITUDE): Have been associated with the platelet release reaction and fibrin polymer formation. These parameters assess the speed of clot formation and the tensil strength of the clot. Higher levels are associated with hypercoagulable states. G VALUE: Another measure of clot strength. LY30: Percent lysis in 30 Minutes is associated with the degree of fibrinolysis. CI or COAG INDEX: A calculation from the above measured data indicating an overall hyper or hypo coagulability with values above (plus) +3.0 being relatively hypercoagulable and those below (minus) -3.0 being relatively hypocoagulable. These measurements are functional in nature with many variables and require close clinical correlation. Thromboelasography (TEG) is mostly used to monitor significant coagulopathy in trauma patients or surgical patients. It assesses gloabal ( primary and secondary) hemostasis using whole blood and therefo re, not expected to correlate well with conventional coagulation tests. TEG results need to be correlated with clinical evaluation for patient management. HEMATOLOGY Coag Index -1.3 -3.0-3.0 - 01/10 Normal [facility] 3.0 [facility] HEMATOLOGY Ly30 0.6 % 0.0 - 7.5 01/10 Normal [facility] /2012 [facility] HEMATOLOGY G-value 6.8 K d/sc 4.5 - 11.0 01/10 Normal [facility] HEMATOLOGY Max Amp 57.7 mm 50.0 - 01/10 Normal [facility] 70.0 [facility] CHEMISTRY Troponin-T null 0.000 - 10/13 Normal [facility] 0.100 [facility] CHEMISTRY Troponin-I null 0.00 - 10/13 Normal [facility] 0.40 [facility] CHEMISTRY Total CK 43 unit/L 12 - 191 10/13 Normal [facility]2011 [facility] CHEMISTRY eGFR 87 10/13 NA 1Result Comment: The eGFR is calculated using the CKD-EPI formula. In most young, healthy individuals the eGFR will be > 90 mL/min/1.73m2. The eGFR declines with age. An eGFR of 60-89 may be normal in [facility] mL/min/1.7 /2011 some populations, particularly the elderly, for whom the CKD-EPI formula has not been extensively validated. Use of the eGFR is not recommended in the following populations: [address] Individuals with unstable creatinine concentrations, including patients and those with serious co-morbid conditions. Patients with extremes in muscle mass or diet. The data above are obtained from the National Kidney Disease Education Program (NKDEP) which additionally recommends that when the eGFR is used in patients with extremes of body mass index for purposes of drug dosing, the eGFR should be multiplied by the estimated BMI. CHEMISTRY Calcium Lvl 8.4 mg/dL 8.5 - 10.5 10/13 LOW [facility] CHEMISTRY CO2 24 meq/L 24 - 32 10/13 Normal [facility] CHEMISTRY Chloride Lvl 105 meq/L 95 - 109 10/13 Normal [facility] CHEMISTRY Potassium Lvl 4.3 meq/L 3.5 - 5.1 10/13 Normal [facility]2011 [facility] CHEMISTRY Sodium Lvl 142 meq/L 135 - 145 10/13 Normal [facility]2011 [facility] CHEMISTRY Creatinine 0.8 mg/dL 0.5 - 1.4 10/13 Normal [facility] CHEMISTRY BUN 20 mg/dL 7 - 22 10/13 Normal [facility]2011 [facility] CHEMISTRY Glucose Lvl 131 mg/dL 70 - 99 10/13 MS 4Interpretive Data: Adult reference range values reflect the clinical guidelines of the [place] [employer]. [facility] CHEMISTRY AGAP 17.3 meq/L 10.0 - 10/13 Normal [facility] 20.0 [facility] CHEMISTRY A/G Ratio 1.5 0.7 - 1.6 10/13 Normal [facility] CHEMISTRY Globulin 2.5 g/dL 2.0 - 4.0 10/13 Normal [facility] CHEMISTRY Bili Indirect 1.1 mg/dL 0.0 - 1.0 10/13 [facility] CHEMISTRY AST 22 unit/L 0 - 37 10/13 Normal [facility]2011 [facility] CHEMISTRY Total Protein 6.2 g/dL 6.4 - 8.4 10/13 LOW [facility]2011 [facility] CHEMISTRY Bili Total 1.7 mg/dL 0.2 - 1.3 10/13 [facility] CHEMISTRY Bili Direct 0.6 mg/dL 0.0 - 0.3 10/13 [facility] CHEMISTRY Alk Phos 113 unit/L 39 - 136 10/13 Normal [facility]2011 [facility] CHEMISTRY Albumin Lvl 3.7 g/dL 3.5 - 5.0 10/13 Normal [facility] CHEMISTRY ALT 23 unit/L 0 - 65 10/13 Normal [facility] CHEMISTRY Phosphorus 4.3 mg/dL 2.5 - 4.5 10/13 Normal [facility] CHEMISTRY Magnesium Lvl 2.3 mg/dL 1.8 - 2.4 10/13 Normal [facility] CHEMISTRY Ca Norm mgdL 4.64 mg/dL 4.65 - 10/13 LOW [place] 5.20 Medical Center CHEMISTRY Ca Ion mgdL 4.64 mg/dL 4.65 - 10/13 LOW [facility] 5.20 Medical Center CHEMISTRY Ca Norm 1.16 1.16 - 10/13 Normal [place] mMol/L 1. Medical [place] CHEMISTRY Ca Ion 1.16 1.16 - 10/13 Normal [place] mMol/L 1.30 Medical [place] CHEMISTRY Troponin-T null 0.000 - 10/13 Normal [facility] 0.100 Medical [place] CHEMISTRY Troponin-I null 0.00 - 10/13 Normal [facility] 0.40 Medical Center CHEMISTRY Total CK 38 unit/L 12 - 191 10/13 Normal [facility] CHEMISTRY POC A O2 Sat 91.0 % 95.0 - 10/13 LOW [facility] 100.0 Medical [place] CHEMISTRY POC A HCO3 25 mMol/L 22 - 26 10/13 Normal [facility] CHEMISTRY POC A Na 138 meq/L 135 - 145 10/13 Normal [facility] CHEMISTRY POC A K 4.0 meq/L 3.5 - 5.1 10/13 Normal [facility] CHEMISTRY POC A BE 1 mMol/L -2-2 - 2 10/13 Normal [facility] CHEMISTRY POC A LA 1.8 mMol/L 0.5 - 2.2 10/13 Normal [facility] CHEMISTRY POC A Glu 145 mg/dL 70 - 99 10/13 HI [facility] [place] CHEMISTRY POC A Ca Ion 1.16 1.16 - 10/13 Normal [place] mMol/L 1.30 [facility] [place] CHEMISTRY POC A Source ART 10/13 NA [facility] Center CHEMISTRY POC A Temp 37.0 Kar[place] 10/13 NA Medical Center CHEMISTRY POC A PCO2 40 mm[Hg] 35 - 45 10/13 Normal [facility] CHEMISTRY POC A pH 7.41 7.35 - 10/13 Normal [place] 7.45 [facility] CHEMISTRY POC A PO2 60 mm[Hg] 80 - 100 10/13 CRIT [facility] HEMATOLOGY Segs 84.9 % 45.0 - 10/13 HI [facility] 75.0 [facility] HEMATOLOGY Lymphocytes 10.4 % 20.0 - 10/13 LOW [facility] 40.0 [facility] HEMATOLOGY Monocytes 3.4 % 2.0 - 12.0 10/13 Normal [facility] HEMATOLOGY Monocytes # 0.3 K/CMM 0.0 - 0.8 10/13 Normal [facility] HEMATOLOGY Basophils # 0.1 K/CMM 0.0 - 0.2 10/13 Normal [facility] HEMATOLOGY Eosinophils 0.1 % 0.0 - 4.0 10/13 Normal [facility] HEMATOLOGY Basophils 1.2 % 0.0 - 1.0 10/13 HI [facility] HEMATOLOGY Segs-Bands # 7.7 K/CMM 1.5 - 8.1 10/13 Normal [facility] HEMATOLOGY Lymphocytes # 1.0 K/CMM 1.0 - 5.5 10/13 Normal [facility] HEMATOLOGY PTT 31.2 s 22.9 - 10/13 Normal 10Interpretiv [facility] 35.8 e Data: [facility] Therapeutic Range: 57 - 92 Seconds HEMATOLOGY INR 1.24 0.85 - 10/13 HI 7Interpretive Data: RECOMMENDED RANGES FOR PROTIME INR: [facility] 1. 2.0-3.0 for most medical and surgical thromboembolic states. Medical 2.5-3.5 for artificial heart valves and recurrent embolism. Center INR SHOULD BE USED ONLY FOR PATIENTS ON STABLE ANTICOAGULANT THERAPY. HEMATOLOGY PT 15.8 s 12.0 - 10/13 HI [facility] 14.7 [facility] HEMATOLOGY Platelet 134 K/CMM 133 - 450 10/13 Normal [facility] HEMATOLOGY MCH 30.0 pg 27.0 - 10/13 Normal [facility] 31.0 [facility] HEMATOLOGY MCHC 33.5 g/dL 32.0 - 10/13 Normal [facility] 36.0 [facility] HEMATOLOGY MCV 89.5 fL 80.0 - 10/13 Normal [facility] 94.0 /2011 [facility] HEMATOLOGY RDW 16.2 % 11.5 - 10/13 HI [facility] 14.5 /2011 [facility] HEMATOLOGY WBC 9.1 K/CMM 3.7 - 10.4 10/13 Normal [facility] HEMATOLOGY RBC 4.22 M/CMM 4.70 - 10/13 LOW [facility] 6.10 /2011 [facility] HEMATOLOGY Hgb 12.7 g/dL 14.0 - 10/13 LOW [facility] 18.0 /2011 [facility] HEMATOLOGY Hct 37.8 % 42.0 - 10/13 LOW [facility] 54.0 /2011 [facility] HEMATOLOGY MPV 8.8 fL 7.4 - 10.4 10/13 Normal [facility] URINALYSIS UA <=1.0 0.1 - 1.0 10/13 NA [facility] Urobilinogen mg/dL Medical
*NA*< Center br/>(10/12 22:50:00) <sup> </sup> URINALYSIS UA Sq Epi None Seen 10/13 NA [facility] URINALYSIS UA Hyal Cast 1 /LPF 0 - 2 10/13 Normal [facility]2011 [facility] URINALYSIS UA Bacteria Occasional /HPF None Seen 10/13 [facility] *NA* [place] (10/12/2012 22:50:00) URINALYSIS UA RBC null 0 - 2 10/13 Normal [facility] URINALYSIS UA WBC 2 /HPF 0 - 5 10/13 Normal [facility]2011 [facility] URINALYSIS UA Leuk Est Trace Negative 10/13 ABN [facility] *ABN* Center (10/12/2012 22:50:00) URINALYSIS UA Nitrite Negative Negative 10/13 Normal [facility] (10/12/2012 22:50:00) Center URINALYSIS UA Blood Negative Negative 10/13 Normal [facility] (10/12/2012 22:50:00) Center URINALYSIS UA Ketones Negative mg/dL Negative 10/13 NA [facility] *NA* Center (10/12/2012 22:50:00) URINALYSIS UA Mucus Few /LPF None Seen 10/13 NA [facility] *NA* Center (10/12/2012 22:50:00) URINALYSIS UA Bili Negative Negative 10/13 [facility] *NA* [place] (10/12/2012 22:50:00) URINALYSIS UA Glucose Negative mg/dL Negative 10/13 [facility] [place] (10/12/2012 22:50:00) URINALYSIS UA Spec Grav 1.011 <=1.030 10/13 Normal [facility] URINALYSIS UA Turbidity Clear Clear 10/13 Normal [facility] (10/12/2012 22:50:00) [place] URINALYSIS UA Color Yellow Yellow 10/13 [facility] [place] (10/12/2012 22:50:00) URINALYSIS UA Protein Negative mg/dL Negative 10/13 Normal [facility] (10/12/2012 22:50:00) [place] URINALYSIS UA pH 5.5 5.0 - 8.0 10/13 Normal [facility] CHEMISTRY Total CK 38 unit/L 12 - 191 10/13 Normal [facility] CHEMISTRY Troponin-T null 0.000 - 10/13 Normal [facility] 0.100 [facility] CHEMISTRY Troponin-I null 0.00 - 10/13 Normal [facility] 0.40 [facility] CHEMISTRY T4 Free 1.45 ng/dL 0.76 - 10/13 Normal [facility] 1.46 [facility] Microbiolog Culture: 10/13 [facility] y Urine [facility] CHEMISTRY Magnesium Lvl 1.7 mg/dL 1.8 - 2.4 10/13 LOW [facility] CHEMISTRY Phosphorus 4.5 mg/dL 2.5 - 4.5 10/13 Normal [facility] CHEMISTRY TSH 0.291 0.360 - 10/13 LOW [facility] uIU/mL 3.740 [facility] CHEMISTRY eGFR 83 10/13 NA 2Result Comment: The eGFR is calculated using the CKD-EPI formula. In most young, healthy individuals the eGFR will be > 90 mL/min/1.73m2. The eGFR declines with age. An eGFR of 60-89 may be normal in [facility] mL/min/1.7 some populations, particularly the elderly, for whom the CKD-EPI formula has not been extensively validated. Use of the eGFR is not recommended in the following populations: [address] Individuals with unstable creatinine concentrations, including patients and those with serious co-morbid conditions. Patients with extremes in muscle mass or diet. The data above are obtained from the National Kidney Disease Education Program (NKDEP) which additionally recommends that when the eGFR is used in patients with extremes of body mass index for purposes of drug dosing, the eGFR should be multiplied by the estimated BMI. CHEMISTRY BUN 18 mg/dL 7 - 22 10/13 Normal [facility] CHEMISTRY Glucose Lvl 129 mg/dL 70 - 99 10/13 MS 5Interpretive Data: Adult reference range values reflect the clinical guidelines of the [place] [employer]. [facility] CHEMISTRY Alk Phos 130 unit/L 39 - 136 10/13 Normal [facility]2011 [facility] CHEMISTRY Creatinine 0.9 mg/dL 0.5 - 1.4 10/13 Normal [facility] CHEMISTRY Sodium Lvl 141 meq/L 135 - 145 10/13 Normal [facility] CHEMISTRY ALT 24 unit/L 0 - 65 10/13 Normal [facility]2011 [facility] CHEMISTRY Albumin Lvl 4.4 g/dL 3.5 - 5.0 10/13 [facility] CHEMISTRY Total Protein 7.2 g/dL 6.4 - 8.4 10/13 Normal [facility] CHEMISTRY AST 18 unit/L 0 - 37 10/13 Normal [facility]2011 [facility] CHEMISTRY Calcium Lvl 8.8 mg/dL 8.5 - 10.5 10/13 [facility] CHEMISTRY Potassium Lvl 4.5 meq/L 3.5 - 5.1 10/13 Normal [facility] CHEMISTRY CO2 25 meq/L 24 - 32 10/13 [facility] CHEMISTRY Chloride Lvl 105 meq/L 95 - 109 10/13 Normal [facility] CHEMISTRY Bili Total 1.9 mg/dL 0.2 - 1.3 10/13 HI [facility] CHEMISTRY A/G Ratio 1.6 0.7 - 1.6 10/13 Normal [facility] CHEMISTRY Globulin 2.8 g/dL 2.0 - 4.0 10/13 Normal [facility] CHEMISTRY B/C Ratio 20 6 - 25 10/13 Normal [facility] CHEMISTRY AGAP 15.5 meq/L 10.0 - 10/13 Normal [place] 20.0 Medical [place] HEMATOLOGY RDW 16.0 % 11.5 - 10/13 HI [place] 14.5 /2011 Medical [place] HEMATOLOGY MCHC 32.8 g/dL 32.0 - 10/13 Normal [place] 36.0 /2011 [facility] HEMATOLOGY Platelet 156 K/CMM 133 - 450 10/13 Normal [facility] HEMATOLOGY MPV 8.9 fL 7.4 - 10.4 10/13 Normal [facility] HEMATOLOGY WBC 8.3 K/CMM 3.7 - 10.4 10/13 Normal [facility] HEMATOLOGY RBC 4.57 M/CMM 4.70 - 10/13 LOW [place] 6.10 [facility] HEMATOLOGY Hgb 13.5 g/dL 14.0 - 10/13 [facility] [place] 18.0 [facility] HEMATOLOGY MCV 90.0 fL 80.0 - 10/13 Normal [place] 94.0 [facility] HEMATOLOGY Hct 41.1 % 42.0 - 10/13 [facility] [place] 54.0 Medical [place] HEMATOLOGY MCH 29.6 pg 27.0 - 10/13 Normal [place] 31.0 [facility] HEMATOLOGY Basophils 0.2 % 0.0 - 1.0 10/13 Normal [facility] HEMATOLOGY Monocytes # 0.1 K/CMM 0.0 - 0.8 10/13 Normal [facility] HEMATOLOGY Lymphocytes # 0.9 K/CMM 1.0 - 5.5 10/13 [facility] HEMATOLOGY Segs-Bands # 7.2 K/CMM 1.5 - 8.1 10/13 Normal [facility] HEMATOLOGY Segs 86.6 % 45.0 - 10/13 [facility] [place] 75.0 [facility] HEMATOLOGY Eosinophils 0.3 % 0.0 - 4.0 10/13 Normal [facility] HEMATOLOGY Monocytes 1.5 % 2.0 - 12.0 10/13 [facility] HEMATOLOGY Lymphocytes 11.4 % 20.0 - 10/13 [facility] [place] 40.0 [facility] CHEMISTRY POC A Ca Ion 1.15 1.16 - 10/12 [facility] [place] mMol/L 1.30 [facility] CHEMISTRY POC A LA 0.7 mMol/L 0.5 - 2.2 10/12 Normal [facility] CHEMISTRY POC A O2 Sat 81.0 % 95.0 - 10/12 LOW [facility] 100.0 [facility] CHEMISTRY POC A BE 1 mMol/L -2-2 - 2 10/12 Normal [facility] CHEMISTRY POC A Na 137 meq/L 135 - 145 10/12 Normal [facility] CHEMISTRY POC A K 4.3 meq/L 3.5 - 5.1 10/12 Normal [facility] CHEMISTRY POC A Hct 41.0 % 42.0 - 10/12 LOW [facility] 54.0 [facility] CHEMISTRY POC A Glu 115 mg/dL 70 - 99 10/12 HI [facility] CHEMISTRY POC A PO2 46 mm[Hg] 80 - 100 10/12 CRIT [facility] CHEMISTRY POC A pH 7.39 7.35 - 10/12 Normal [facility] 7.45 [facility] CHEMISTRY POC A HCO3 26 mMol/L 22 - 26 10/12 Normal [facility] CHEMISTRY POC A PCO2 43 mm[Hg] 35 - 45 10/12 Normal [facility] CHEMISTRY POC A Temp 37.0 [place] 10/12 NA [facility] CHEMISTRY POC A Source ART 10/12 NA [facility] HEMATOLOGY PT 15.4 s 12.0 - 10/12 HI [facility] 14.7 [facility] HEMATOLOGY INR 1.20 0.85 - 10/12 HI 8Interpretive Data: RECOMMENDED RANGES FOR PROTIME INR: [facility] 1. 2.0-3.0 for most medical and surgical thromboembolic states. Medical 2.5-3.5 for artificial heart valves and recurrent embolism. Center INR SHOULD BE USED ONLY FOR PATIENTS ON STABLE ANTICOAGULANT THERAPY. HEMATOLOGY PTT 32.9 s 22.9 - 10/12 Normal 11Interpretiv [facility] 35.8 e Data: [facility] Therapeutic Range: 57 - 92 Seconds CHEMISTRY Globulin 2.8 g/dL 2.0 - 4.0 09/21 Normal [facility] CHEMISTRY A/G Ratio 1.5 0.7 - 1.6 09/21 Normal [facility] CHEMISTRY AGAP 13.0 meq/L 10.0 - 09/21 Normal [facility] 20. [facility] CHEMISTRY B/C Ratio 20 6 - 25 09/21 Normal [facility]2011 [facility] CHEMISTRY eGFR 84 09/21 NA 3Result Comment: The eGFR is calculated using the CKD-EPI formula. In most young, healthy individuals the eGFR will be > 90 mL/min/1.73m2. The eGFR declines with age. An eGFR of 60-89 may be normal in [facility] mL/min/1.7 some populations, particularly the elderly, for whom the CKD-EPI formula has not been extensively validated. Use of the eGFR is not recommended in the following populations: [address] Individuals with unstable creatinine concentrations, including patients and those with serious co-morbid conditions. Patients with extremes in muscle mass or diet. The data above are obtained from the National Kidney Disease Education Program (NKDEP) which additionally recommends that when the eGFR is used in patients with extremes of body mass index for purposes of drug dosing, the eGFR should be multiplied by the estimated BMI. CHEMISTRY AST 28 unit/L 0 - 37 09/21 Normal [facility]2011 [facility] CHEMISTRY Sodium Lvl 141 meq/L 135 - 145 09/[address] CHEMISTRY Total Protein 7.0 g/dL 6.4 - 8.4 09/[address] CHEMISTRY Chloride Lvl 104 meq/L 95 - 109 09/[address] CHEMISTRY Potassium Lvl 5.0 meq/L 3.5 - 5.1 09/[address] CHEMISTRY CO2 29 meq/L 24 - 32 09/[address] CHEMISTRY Bili Total 1.3 mg/dL 0.2 - 1.3 09/[address] CHEMISTRY Calcium Lvl 8.8 mg/dL 8.5 - 10.5 09/[address] CHEMISTRY Creatinine 0.9 mg/dL 0.5 - 1.4 09/21 Normal [facility] CHEMISTRY BUN 18 mg/dL 7 - 22 09/[address] CHEMISTRY Albumin Lvl 4.2 g/dL 3.5 - 5.0 09/[address] CHEMISTRY Glucose Lvl 93 mg/dL 70 - 99 09/21 Normal 6Interpretive Data: Adult reference range values reflect the clinical guidelines [facility] /2012 of the [employer]. Medical Center CHEMISTRY Alk Phos 102 unit/L 39 - 136 11 Normal [facility] CHEMISTRY ALT 27 unit/L 0 - 65 09/21 Normal [facility] HEMATOLOGY Basophils # 0.1 K/CMM 0.0 - 0.2 09/21 Normal [facility] HEMATOLOGY Basophils 2.0 % 0.0 - 1.0 09/21 [facility] [place] HEMATOLOGY Eosinophils 2.9 % 0.0 - 4.0 09/21 Normal [facility] HEMATOLOGY Segs-Bands # 4.4 K/CMM 1.5 - 8.1 09/21 Normal [facility] [place] HEMATOLOGY Lymphocytes # 1.8 K/CMM 1.0 - 5.5 09/21 Normal [facility] HEMATOLOGY Monocytes # 0.7 K/CMM 0.0 - 0.8 09/21 Normal [facility] [place] HEMATOLOGY Eosinophils # 0.2 K/CMM 0.0 - 0.5 09/21 Normal [facility] HEMATOLOGY Monocytes 9.7 % 2.0 - 12.0 09/21 Normal [facility] HEMATOLOGY Segs 61.0 % 45.0 - 11 Normal [place] 75.0 Medical Center HEMATOLOGY Lymphocytes 24.4 % 20.0 - 11 [facility] [place] 40.0 [facility] HEMATOLOGY RBC 4.44 M/CMM 4.70 - 09/21 LOW [place] 6.10 [facility] [place] HEMATOLOGY Hgb 13.0 g/dL 14.0 - 09/21 [place] 18.0 [facility] [place] HEMATOLOGY Hct 40.2 % 42.0 - 11 [facility] [place] 54.0 Medical Center HEMATOLOGY WBC 7.3 K/CMM 3.7 - 10.4 09/21 Normal Medical Center HEMATOLOGY MCH 29.4 pg 27.0 - 11 [facility] [place] 31.0 [facility] [place] HEMATOLOGY MCHC 32.4 g/dL 32.0 - 11 [facility] [place] 36.0 [facility] [place] HEMATOLOGY RDW 16.0 % 11.5 - 11 [facility] [place] 14.5 Medical Center HEMATOLOGY MCV 90.6 fL 80.0 - 11 Normal [place] 94.0 Medical Center HEMATOLOGY Platelet 153 K/CMM 133 - 450 09/21 Normal [facility] HEMATOLOGY MPV 8.9 fL 7.4 - 10.4 09/21 Normal [facility] HEMATOLOGY PT 20.1 s 12.0 - 09/21 [facility] [place] 14.7 /2011 [facility] HEMATOLOGY PTT 60.9 s 22.9 - 09/21 MS 12Interpretiv [facility] 35.8 /2012 e Data: Medical [facility] Therapeutic Range: 57 - 92 Second[facility] HEMATOLOGY INR 1.70 0.85 - 09/21 MS 9Interpretive Data: RECOMMENDED RANGES FOR PROTIME INR: [facility] . 2.0-3.0 for most medical and surgical thromboembolic states. Medical 2.5-3.5 for artificial heart valves and recurrent embolism. Center INR SHOULD BE USED ONLY FOR PATIENTS ON STABLE ANTICOAGULANT THERAPY. Vital Signs Vital Sign Value Date Comments Source Respitory Rate 20 02/04/2017 [facility] [place] [facility] Systolic (mm Hg) 125 02/04/2017 [facility] [place] [facility] Diastolic (mm Hg) 74 02/04/2017 [facility] [place] [facility] Heart Rate 85 02/04/2017 [facility] [place] [facility] Temperature Oral (F) 97.9 F 02/04/2017 [facility] [place] [facility] Temperature Oral (F) 97.6 F 02/04/2017 [facility] [place] [facility] Heart Rate 86 02/04/2017 [facility] [place] [facility] Respitory Rate 20 02/04/2017 [facility] [place] [facility] Systolic (mm Hg) 99 02/04/2017 [facility] [place] [facility] Diastolic (mm Hg) 59 02/04/2017 [facility] [place] [facility] Temperature Oral (F) 98.0 F 02/04/2017 [facility] [place] [facility] Systolic (mm Hg) 97 02/04/2017 [facility] [place] [facility] Diastolic (mm Hg) 60 02/04/2017 [facility] [place] [facility] Heart Rate 84 02/04/2017 [facility] [place] [facility] Respitory Rate 20 02/04/2017 [facility] [place] [facility] Height 180.34 cm 02/02/2017 [facility] [place] [facility] Weight 68.182 02/02/2017 [facility] [place] [facility] BMI Calculated 20.96 02/02/2017 [facility] [place] [facility] BMI Calculated 20.96 02/02/2017 [facility] [place] [facility] Weight 68.182 02/02/2017 [facility] [place] [facility] Height 180.34 cm 02/02/2017 [facility] [place] [facility] Height 180.34 cm 09/04/2016 [facility] [place] [facility] Respitory Rate 18 09/04/2016 [facility] Heart Rate 86 09/04/2016 [facility] [place] [facility] BMI Calculated 19.18 09/04/2016 [facility] Weight 62.386 09/04/2016 [facility] Systolic (mm Hg) 105 09/04/2016 [facility] Diastolic (mm Hg) 63 09/04/2016 [facility] [place] [facility] Weight 64.716 05/22/2016 [facility] [place] [facility] Height 177.8 cm 05/22/2016 [facility] [place] [facility] BMI Calculated 20.47 05/22/2016 [facility] Systolic (mm Hg) 107 05/22/2016 [facility] Diastolic (mm Hg) 67 05/22/2016 [facility] [place] [facility] Heart Rate 84 05/22/2016 [facility] [place] [facility] Temperature Oral (F) 96.9 F 05/22/2016 [facility] [place] [facility] Weight 62.273 03/25/2016 [facility] [place] [facility] BMI Calculated 19.7 03/25/2016 [facility] [place] [facility] Height 177.8 cm 03/25/2016 [facility] [place] [facility] Heart Rate 54 03/25/2016 [facility] Systolic (mm Hg) 76 03/25/2016 [facility] Diastolic (mm Hg) 51 03/25/2016 [facility] [place] [facility] BMI Calculated 26.89 01/21/2016 [facility] [place] [facility] Weight 68.864 01/21/2016 [facility] [place] [facility] Height 160.02 cm 01/21/2016 [facility] Systolic (mm Hg) 120 01/21/2016 [facility] Diastolic (mm Hg) 71 01/21/2016 [facility] [place] [facility] Temperature Oral (F) 97.2 F 01/21/2016 [facility] Heart Rate 53 01/21/2016 [facility] Systolic (mm Hg) 107 01/02/2016 [facility] Diastolic (mm Hg) 63 01/02/2016 [facility] Respitory Rate 18 01/02/2016 [facility] Heart Rate 86 01/02/2016 [facility] Systolic (mm Hg) 111 01/02/2016 [facility] Diastolic (mm Hg) 66 01/02/2016 [facility] Respitory Rate 18 01/02/2016 [facility] Systolic (mm Hg) 121 01/02/2016 [facility] Diastolic (mm Hg) 76 01/02/2016 [facility] Heart Rate 86 01/02/2016 [facility] Respitory Rate 18 01/02/2016 [facility] [place] [facility] Heart Rate 85 01/02/2016 [facility] [place] [facility] Temperature Oral (F) 97.1 F 01/01/2016 [facility] [place] [facility] Temperature Oral (F) 96.9 F 01/01/2016 [facility] [place] [facility] BMI Calculated 24.87 01/01/2016 [facility] [place] [facility] Weight 78.636 01/01/2016 [facility] [place] [facility] Height 177.8 cm 01/01/2016 [facility] Systolic (mm Hg) 117 12/31/2015 [facility] Diastolic (mm Hg) 74 12/31/2015 [facility] [place] [facility] Respitory Rate 84 12/31/2015 [facility] [place] [facility] BMI Calculated 24.44 12/31/2015 [facility] [place] [facility] Height 177.8 cm 12/31/2015 [facility] [place] [facility] Weight 77.273 12/31/2015 [facility] [place] [facility] Respitory Rate 16 12/26/2015 [facility] Systolic (mm Hg) 107 12/26/2015 [facility] Diastolic (mm Hg) 65 12/26/2015 [facility] [place] [facility] Respitory Rate 20 12/26/2015 [facility] Systolic (mm Hg) 112 12/26/2015 [facility] Diastolic (mm Hg) 74 12/26/2015 [facility] [place] [facility] Respitory Rate 19 12/26/2015 [facility] Systolic (mm Hg) 110 12/26/2015 [facility] Diastolic (mm Hg) 71 12/26/2015 [facility] [place] [facility] Heart Rate 93 12/26/2015 [facility] [place] [facility] Height 177.8 cm 12/17/2015 [facility] [place] [facility] BMI Calculated 24.44 12/17/2015 [facility] [place] [facility] Weight 77.273 12/17/2015 [facility] [place] [facility] Temperature Oral (F) 97.8 F 12/06/2015 [facility] [place] [facility] BMI Calculated 23.8 12/06/2015 [facility] [place] [facility] Weight 75.227 12/06/2015 [facility] [place] [facility] Height 177.8 cm 12/06/2015 [facility] Diastolic (mm Hg) 63 01/16/2013 [facility] Systolic (mm Hg) 98 01/16/2013 [facility] Respitory Rate 18 01/16/2013 [facility] Diastolic (mm Hg) 66 01/16/2013 [facility] Systolic (mm Hg) 103 01/16/2013 [facility] Respitory Rate 18 01/16/2013 [facility] Systolic (mm Hg) 102 01/16/2013 [facility] Diastolic (mm Hg) 66 01/16/2013 [facility] [place] [facility] Respitory Rate 20 01/16/2013 [facility] [place] [facility] Height 180.34 cm 01/16/2013 [facility] [place] [facility] Weight 82.273 01/16/2013 [facility] [place] [facility] Heart Rate 63 01/16/2013 [facility] [place] [facility] Weight 82.273 01/10/2013 [facility] [place] [facility] Height 180.34 cm 01/10/2013 [facility] Diastolic (mm Hg) 58 10/13/2012 [facility] [place] [facility] Respitory Rate 20 10/13/2012 [facility] [place] [facility] Systolic (mm Hg) 112 10/13/2012 [facility] [place] [facility] Temperature Oral (F) 96.0 F 10/13/2012 [facility] [place] [facility] Heart Rate 83 10/13/2012 [facility] [place] [facility] Systolic (mm Hg) 121 10/13/2012 [facility] Diastolic (mm Hg) 76 10/13/2012 [facility] [place] [facility] Heart Rate 82 10/13/2012 [facility] [place] [facility] Systolic (mm Hg) 120 10/13/2012 [facility] [place] [facility] Respitory Rate 20 10/13/2012 [facility] [place] [facility] Diastolic (mm Hg) 75 10/13/2012 [facility] [place] [facility] Heart Rate 83 10/13/2012 [facility] [place] [facility] Temperature Oral (F) 97.1 F 10/13/2012 [facility] [place] [facility] Respitory Rate 18 10/13/2012 [facility] [place] [facility] Temperature Oral (F) 97.0 F 10/13/2012 [facility] [place] [facility] Weight 79.545 10/12/2012 [facility] [place] [facility] Height 180.34 cm 10/12/2012 [facility] [place] [facility] Height 180.34 cm 09/21/2012 [facility] [place] [facility] Weight 80.909 09/21/2012 [facility] [place] [facility] Weight 86.136 04/12/2012 [facility] [place] [facility] Height 180.34 cm 04/12/2012 [facility] Systolic (mm Hg) 111 04/12/2012 [facility] [place] [facility] Diastolic (mm Hg) 72 04/12/2012 [facility] [place] [facility] Heart Rate 70 04/12/2012 [facility] [place] [facility] Encounters Location Location Encounter Encounter Reason Attending ADM DC Status Source Details Type Number For Provider Date Date Visit [facility] Outpatient [id number] RIGHT DONNELL 03/17 Active [facility] UPPER BARRETT /2011 [facility] [place] QUADRANT Center PAIN [facility] [place] [facility] [id number] DDC- NEW ADELA DELACRUZ 04/12 Active [facility] CLINIC /2011 [facility] [place] VISIT Center [facility] [place] [facility]patient [id number] RUQ PAIN ADELA DELACRUZ 04/15 Active [facility] /2011 Medical [facility] [place] OU [id number] DDC/ ADELA DELACRUZ 10/12 10/13 Active [facility] [place] Medical DYSPHAGI /2011 Medical [facility] [place] Outpatient [id number] 787.20/4 MULUGETA 12/16 Active [facility] 78.29 EAM[facility] [place] DS [id number] DYSPHAGI MULUGETA 01/16 Active [facility],ICD.9- EAMON [facility] 787.2 Center [facility] Outpatient [id number] DYSPHAGI MULUGETA 02/07 Active [facility] [place] [facility] Outpatient [id number] Non 10/24 10/25 Gurwinder Physician /2014 [facility] Outpatient [id number] [place] 12/06 12/07 [facility] /2015 [facility] Bedded [id number] 12/12 [facility] Outpatient [place] /2015 [facility] OBS Day [id number] [place] 12/26 12/27 [facility] [place] [facility] Outpatient [id number] [place] 12/31 01/01 [facility] [place] [facility] Outpatient [id number] [place] 12/31 01/01 [facility] [place] /2015 [facility] OBS [id number] Get[place]w 01/01 01/02 [facility] Observation Suhas Corrales /2015 [facility] Outpatient [id number] [place] 01/20 01/21 [facility] /2015 [facility] Outpatient [id number] WENCESLAO RALPH 02/03 Active [facility] Outpatient [id number] [place] 03/25 03/26 [facility] /2015 [facility] Outpatient [id number] Mulugeta 04/16 04/17 [facility] [place] [facility] /2015 [facility] Outpatient [id number] [place] 05/22 05/23 [facility] /2015 [facility] [id number] [place] 09/04 09/05 [facility] /2015 [facility] Inpatient [id number] Corina Lopez 02/02 02/04 [facility] /2016 [facility] Outpatient [id number] ABNORMAL NON Cancel [facility] PHYSICIAN [facility] LOSS Center OD [id number] 478.29 - MULUGETA Cancel OPID DISEASE EAMON Gurwinder OF PHAR OD [id number] 783.21 - MULUGETA Cancel OPID ABNORMAL EAMON Sugar LOSS [place] 478.2 - DISEASE OF PHAR 787.20 Procedures Procedure Code Date Perfomer Comments Source CABG - Coronary [id number] 29996 [facility] graft [place] <sup>1</sup> Hernia repair 52787576 [facility] [place] [facility] Knee replacement 739440803 [facility] [place] [facility] Operation [id number] 2Placement of [facility] <sup>2</sup> Pacemaker and Medical AICD (2008) Center CABG - Coronary [id number] 1992 [facility] graft<sup>1</sup> Hernia repair 38454741 [facility] Knee replacement [id number] [facility] Operation<sup>2</ 526154848 Placement of [facility] sup> Pacemaker and City AICD (2008) CABG - Coronary [id number] 1992 [facility] Medical graft<sup>1</sup> Center Hernia repair 14637973 [facility] [place] [facility] Knee replacement 98347389 [facility] [place] [facility] Operation<sup>2</ 852096752 Placement of [facility] sup> Pacemaker and Medical AICD (2008) Center Abdomen endoscopy 701372998 [facility] [place] [facility] Barium swallow 795018014 [facility] CABG - Coronary [id number] 1993patietn [facility] artery bypass [facility] had Medical graft<sup>1, quadraple CABG Center 2</sup> Cataract 805127383 left eye with [facility] surgery<sup>3</valencia lens Medical p> Center Colonoscopy<sup>4 [id number] 2009 [facility] </sup> Medical [place] Hernia 11521562 hernia repair [facility] repair<sup>5, (INGUINAL) Medical 6</sup> x4x'3 in the Center Operation<sup>7</ 522054521 Placement of [facility] sup> Pacemaker and Medical AICD (2008) Center Colonoscopy<sup>2 [id number] 2009 [facility] </sup> [facility] Hernia 49087537 x'3 in the [facility] repair<sup>3</sup Medical > Center Operation<sup>4</ 707231400 Placement of [facility] sup> Pacemaker and Medical AICD (2009) [place]
--- OUTSIDE RECORDS SUMMARY | 2018-05-24 15:32 | XMS REPORT | CCD ---
:1935 Author Organization [facility] Care Team Providers Name Role Phone Bertin Holguin Referring Provider Airam Jarvis Consulting Provider Allergies, Adverse Reactions, Alerts Substance Reaction Status morphine Active tetracyclines Active Problem List Condition Effective Dates Status Methicillin resistant Staphylococcus aureus1 08/28/2009 Active 1Problem added by Discern Expert. Medications Medication Instructions Start Date End Date Status influenza virus vaccine, 0.5 ml, Route: IM, Drug 08/29/2009 08/29/2009 Completed inactivated Form: INJ, ONCE, Start date: 08/29/09 9:00:00, Stop date: 08/29/09 9:00:00 Immunizations Vaccine Date Status influenza virus vaccine, inactivated 08/29/2009 Auth (Verified)
--- OUTSIDE RECORDS SUMMARY | 2018-05-24 15:32 | XMS REPORT | CCD ---
:1935 Author Organization [facility] Outpatient Imaging [facility] Team Providers Name Role Phone Bertin Holguin Consulting Provider Bertin Petersen Referring Provider Unavailable Allergies, Adverse Reactions, Alerts Substance Reaction Status [...]
--- OUTSIDE RECORDS SUMMARY | 2018-05-24 15:33 | XMS REPORT | Summary of Care ---
:[address] [facility] Address [address] [place], [place] [address]- Encounter HQ Cocontr_sophie(FIN) [id number] Date(s): 12/12/15 - 12/12/[address] [facility] [address] [place] [id number] [email or web address] Discharge Disposition: Home Attending Physician: Marin Beverly MD Referring Physician: Marin Beverly MD Vital Signs No data available for this section Problem List Condition Effective Dates Status Health Status Informant Atrial fibrillation(Confirmed) Resolved CAD - Coronary artery Resolved disease(Confirmed) Depression(Confirmed) Active GERD - Gastro-esophageal reflux Resolved disease(Confirmed) Hepatitis C(Confirmed) Resolved HLD - Hyperlipidemia(Confirmed) Active HTN - Hypertension(Confirmed) Active Hyperlipidemia(Confirmed) Active Hypertension(Confirmed) Active Hypothyroidism(Confirmed) Active Methicillin resistant Staphylococcus 08/28/09 Active aureus - nares(Confirmed)1 Tongue carcinoma(Confirmed) Resolved 1Problem added by Discern Expert. Allergies, Adverse Reactions, Alerts Substance Reaction Severity Status morphine Active tetracyclines Active Medications No data available for this section Results No data available for this section Immunizations Vaccine Date Refusal Reason influenza virus vaccine, inactivated 08/29/09 pneumococcal 23-valent vaccine 10/13/12 Procedures Procedure Date Related Diagnosis Body Site CABG - Coronary artery bypass graft1 Hernia repair Knee replacement Operation2 [id number] of Pacemaker and AICD (2008) Social History Social History Type Response Smoking Status Never smoker; Exposure to Tobacco Smoke None; Cigarette Smoking Last 365 Days No; Reg Smoking Cessation Counseling No Assessment and Plan No data available for this section
--- OUTSIDE RECORDS SUMMARY | 2018-05-24 15:33 | XMS REPORT | CCD ---
:1935 Author Organization [facility] Care Team Providers Name Role Phone Bertin Holguin Referring Provider Allergies, Adverse Reactions, Alerts Substance Reaction Status morphine Active tetracyclines Active Problem List Condition Effective Dates Status Atrial fibrillation < 10/12/2012 Inactive Hyperlipidemia Active Hypertension Active Hypothyroidism Active Methicillin resistant Staphylococcus aureus1 08/28/2009 Active 1Problem added by Discern Expert. Medications Medication Instructions Start Date End Date Status citalopram 20 mg, 1 tab, Route: PO, 10/13/2012 10/13/2012 Discontinued Drug form: TAB, Daily, Dosing Weight 79.545, kg, Start date: 10/13/12 9:00:00, Duration: 30 day, Stop date: 11/11/12 9:00:00 rivaroxaban 20 mg, Route: PO, QPM, 10/13/2012 10/13/2012 Deleted Dosing Weight 79.545, kg, Start date: 10/13/12 17:00:00, Duration: 30 day, Stop date: 11/11/12 17:00:00 Protonix 40 mg, 1 tab, Route: PO, 10/13/2012 10/13/2012 Discontinued Drug form: ECTAB, Before Dinner, Dosing Weight 79.545, kg, Start date: 10/13/12 16:30:00, Duration: 30 day, Stop date: 11/11/12 16:30:00 Toprol-XL 50 mg oral 50 mg, 1 tab, Route: PO, 10/13/2012 10/13/2012 Discontinued tablet, extended release Drug form: ERTAB, Daily, Start date: 10/13/12 9:00:00, Duration: 30 day, Stop date: 11/11/12 9:00:00 levothyroxine 125 microgram, 1 tab, 10/13/2012 10/13/2012 Discontinued Route: PO, Drug form: TAB, [id number], Dosing Weight 79.545, kg, Start date: 10/13/12 6:30:00, Duration: 30 day, Stop date: 11/11/12 6:30:00 Omnipaque 350mg/ml 80 mL, Route: IVP, Drug Form: SOLN, Dosing Weight 79.545, kg, ONCALL, STAT, Start date: 10/12/12 21:07:00, Duration: 1 doses or times, Weight=75 - 94kg 10/12/2012 10/12/2012 Completed Weight=75 - 94kg Protonix 40 mg oral 40 mg, 1 tab, PO, Daily, 09/21/2012 Ordered enteric coated tablet 30 tab, Substitution Allowed, ECTAB enalapril 10 mg, 1 tab, Route: PO, 10/13/2012 10/13/2012 Discontinued Drug form: TAB, Daily, Dosing Weight 79.545, kg, Start date: 10/13/12 9:00:00, Duration: 30 day, Stop date: 11/11/12 9:00:00 dabigatran 150 mg, 1 cap, Route: PO, 10/13/2012 10/13/2012 Canceled Drug form: CAP, BID, Dosing Weight 79.545, kg, Start date: 10/13/12 9:00:00, Duration: 30 day, Stop date: 11/11/12 17:00:00 Norvasc 10 mg, 1 tab, Route: PO, 10/13/2012 10/13/2012 Discontinued Drug form: TAB, Daily, Dosing Weight 79.545, kg, Start date: 10/13/12 9:00:00, Duration: 30 day, Stop date: 11/11/12 9:00:00 Lipitor 40 mg, 1 tab, Route: PO, 10/13/2012 10/13/2012 Discontinued Drug form: TAB, Daily, Dosing Weight 79.545, kg, Start date: 10/13/12 9:00:00, Duration: 30 day, Stop date: 11/11/12 9:00:00 clindamycin 600 mg, 4 mL, Route: 10/13/2012 10/13/2012 Discontinued IVPB, Drug form: INJ, [id number], Dosing Weight 79.545, kg, Priority: STAT, Start date: 10/13/12 5:47:00, Duration: 30 day, Stop date: 11/11/12 21:47:00 Pradaxa 150 mg oral PO, BID, Substitution 09/21/2012 10/13/2012 Discontinued capsule Allowed enalapril 10 mg oral 10 mg, 1 tab, PO, Daily, 09/21/2012 Ordered tablet 30 tab, Substitution Allowed, TAB metoprolol 50 mg oral 50 mg, PO, Daily, 30 tab, 09/21/2012 10/21/2012 Ordered tablet, extended release Substitution Allowed pneumococcal 23-valent 0.5 ml, Route: IM, Drug 10/13/2012 10/13/2012 Completed vaccine Form: INJ, Start date: 10/13/12 9:00:00, Stop date: 10/13/12 9:00:00 Norvasc 10 mg oral tablet 10 mg, 1 tab, PO, Daily, 09/21/2012 Ordered 30 tab, Substitution Allowed, TAB docusate 100 mg, 1 cap, Route: PO, 10/12/2012 10/13/2012 Discontinued Drug form: CAP, BID, Dosing Weight 79.545, kg, PRN Constipation, Start date: 10/12/12 18:00:00, Duration: 30 day, Stop date: 11/11/12 17:59:00 influenza virus vaccine, 0.5 ml, Route: IM, Drug 08/29/2009 08/29/2009 Completed inactivated Form: INJ, ONCE, Start date: 08/29/09 9:00:00, Stop date: 08/29/09 9:00:00 pneumococcal 23-valent 0.5 ml, Route: IM, Drug 10/13/2012 10/13/2012 Completed vaccine Form: INJ, Daily, Start date: 10/13/12 9:00:00, Duration: 1 doses or times, Stop date: 10/13/12 9:00:00 magnesium sulfate 2 gm, 50 mL, Route: IVPB, 10/13/2012 10/13/2012 Completed Drug form: INJ, ONCE, Dosing Weight 79.545, kg, Total dose=2 gm, Start date: 10/13/12 0:30:00, Duration: 1 doses or times, Stop date: 10/13/12 0:30:00 Norvasc 10 mg oral tablet 10 mg, 1 tab, PO, Daily, 09/21/2012 10/12/2012 Discontinued 30 tab, Substitution Allowed, TAB Lipitor 40 mg oral tablet 40 mg, 1 tab, PO, Daily, 09/21/2012 Ordered 30 tab, Substitution Allowed, TAB levothyroxine 125 mcg Substitution Allowed 09/21/2012 Ordered (0.125 mg) oral capsule flumazenil 0.2 mg, 2 mL, Route: IVP, 10/12/2012 10/12/2012 Discontinued Drug form: INJ, PRN, Dosing Weight 79.545, kg, PRN Benzodiazepine Reversal, Initial dose, Start date: 10/12/12 13:57:00, Duration: 5 doses or times, Stop date: 10/13/12 0:00:00 naloxone 0.04 mg, 0.1 mL, Route: 10/12/2012 10/12/2012 Discontinued IVP, Drug form: INJ, Q2MIN, Dosing Weight 79.545, kg, PRN Narcotic Reversal, Start date: 10/12/12 13:57:00, Duration: 8 doses or times, Stop date: 10/13/12 0:00:00 ondansetron 4 mg, 2 mL, Route: IVP, 10/12/2012 10/12/2012 Discontinued Drug form: INJ, ONCE, Dosing Weight 79.545, kg, PRN Nausea & Vomiting, Start date: 10/12/12 13:57:00 hydrALAZINE 5 mg, 0.25 mL, Route: 10/12/2012 10/12/2012 Discontinued IVP, Drug form: INJ, Q5Min, Dosing Weight 79.545, kg, PRN Elevated BP, Start date: 10/12/12 13:57:00, Duration: 4 doses or times, Stop date: 10/13/12 0:00:00 niCARdipine 0.25 mg, 0.1 mL, Route: 10/12/2012 10/12/2012 Discontinued IVP, Drug form: INJ, Q5Min, Dosing Weight 79.545, kg, PRN Elevated BP, Start date: 10/12/12 13:57:00, Duration: 4 doses or times, Stop date: 10/13/12 0:00:00 labetalol 5 mg, Route: IVP, Q5Min, 10/12/2012 10/12/2012 Discontinued Dosing Weight 79.545, kg, PRN Elevated BP, Start date: 10/12/12 13:57:00, Duration: 5 doses or times, Stop date: Limited # of times hydromorphone 0.2 mg, 0.1 mL, Route: 10/12/2012 10/12/2012 Discontinued IVP, Drug form: INJ, Q5Min, Dosing Weight 79.545, kg, PRN Pain Score 4-6, Start date: 10/12/12 13:57:00, Duration: 5 doses or times, Stop date: 10/13/12 0:00:00 Trandate 5 mg, 1 mL, Route: IVP, 10/12/2012 10/13/2012 Discontinued Drug form: INJ, Q5Min, PRN Elevated BP, Start date: 10/12/12 14:50:00, Duration: 30 day, Stop date: 11/11/12 14:49:00 Xarelto 20 mg oral tablet Substitution Allowed 10/12/2012 Ordered rivaroxaban 20 mg, 1 tab, Route: PO, 10/13/2012 10/13/2012 Discontinued Drug form: TAB, QPM, Dosing Weight 79.545, kg, Start date: 10/13/12 17:00:00, Duration: 30 day, Stop date: 11/11/12 17:00:00 citalopram 20 mg oral 20 mg, 1 tab, PO, Daily, 09/21/2012 Ordered tablet 30 tab, Substitution Allowed, TAB Immunizations Vaccine Date Status influenza virus vaccine, inactivated 08/29/2009 Auth (Verified) pneumococcal 23-valent vaccine 10/13/2012 Auth (Verified) Vital Signs Most recent to oldest 1 2 3 [Reference Range]: Height 180.34 cm 180.34 cm (10/12/2012 10:33:00) (09/21/2012 09:43:00) Temperature Oral 96.0 DegF 97.1 DegF 97.0 DegF [96.4-99.1 DegF] *LOW* (10/13/2012 07:31:00) (10/13/2012 05:07:00) (10/13/2012 11:42:00) Systolic Blood Pressure 112 mmHg 121 mmHg 120 mmHg [90-140 mmHg] (10/13/2012 11:42:00) (10/13/2012 10:04:00) (10/13/2012 07:31: 00) Diastolic Blood Pressure 58 mmHg 76 mmHg 75 mmHg [60-90 mmHg] *LOW* (10/13/2012 10:04:00) (10/13/2012 07:31:00) (10/13/2012 11:42:00) Respiratory Rate [14-20 20 BRMIN 20 BRMIN 18 BRMIN BRMIN] (10/13/2012 11:42:00) (10/13/2012 07:31:00) (10/13/2012 05:07:00) Peripheral Pulse Rate 83 bpm 82 bpm 83 bpm [60-100 bpm] (10/13/2012 11:42:00) (10/13/2012 10:04:00) (10/13/2012 07:31: 00) Weight 79.545 kg 80.909 kg (10/12/2012 10:33:00) (09/21/2012 09:43:00) Results URINALYSIS Most recent to oldest [Reference Range]: 1 2 3 UA Turbidity [Clear] Clear (10/12/2012 22:50:00) UA Color [Yellow] Yellow *NA* (10/12/2012 22:50:00) UA pH [5.0-8.0] 5.5 (10/12/2012 22:50:00) UA Spec Grav [<=1.030] 1.011 (10/12/2012 22:50:00) UA Glucose [Negative mg/dL] Negative mg/dL *NA* (10/12/2012 22:50:00) UA Blood [Negative] Negative (10/12/2012 22:50:00) UA Ketones [Negative mg/dL] Negative mg/dL *NA* (10/12/2012 22:50:00) UA Protein [Negative mg/dL] Negative mg/dL (10/12/2012 22:50:00) UA Urobilinogen [0.1-1.0 mg/dL] <=1.0 mg/dL *NA* (10/12/2012 22:50:00) UA Bili [Negative] Negative *NA* (10/12/2012 22:50:00) UA Leuk Est [Negative] Trace *ABN* (10/12/2012 22:50:00) UA Nitrite [Negative] Negative (10/12/2012 22:50:00) UA WBC [0-5 /HPF] 2 /HPF (10/12/2012 22:50:00) UA RBC [0-2 /HPF] <1 /HPF (10/12/2012 22:50:00) UA Bacteria [None Seen /HPF] Occasional /HPF *NA* (10/12/2012 22:50:00) UA Sq Epi None Seen *NA* (10/12/2012 22:50:00) UA Hyal Cast [0-2 /LPF] 1 /LPF (10/12/2012 22:50:00) UA Mucus [None Seen /LPF] Few /LPF *NA* (10/12/2012 22:50:00) CHEMISTRY Most recent to oldest 1 2 3 [Reference Range]: Sodium Lvl [135-145 mEq/L] 142 mEq/L 141 mEq/L 141 mEq/L (10/13/2012 06:20:00) (10/12/2012 18:20:00) (09/21/2012 12:15:00) Potassium Lvl [3.5-5.1 4.3 mEq/L 4.5 mEq/L 5.0 mEq/L mEq/L] (10/13/2012 06:20:00) (10/12/2012 18:20:00) (09/21/2012 12:15:00) Chloride Lvl [95-109 105 mEq/L 105 mEq/L 104 mEq/L mEq/L] (10/13/2012 06:20:00) (10/12/2012 18:20:00) (09/21/2012 12:15:00) CO2 [24-32 mEq/L] 24 mEq/L 25 mEq/L 29 mEq/L (10/13/2012 06:20:00) (10/12/2012 18:20:00) (09/21/2012 12:15:00) AGAP [10.0-20.0 mEq/L] 17.3 mEq/L 15.5 mEq/L 13.0 mEq/L (10/13/2012 06:20:00) (10/12/2012 18:20:00) (09/21/2012 12:15:00) Creatinine Lvl [0.5-1.4 0.8 mg/dL 0.9 mg/dL 0.9 mg/dL mg/dL] (10/13/2012 06:20:00) (10/12/2012 18:20:00) (09/21/2012 12:15:00) eGFR 87 mL/min/1.73m2 1 83 mL/min/1.73m2 2 84 mL/min/1.73m2 3 *NA* *NA* *NA* (10/13/2012 06:20:00) (10/12/2012 18:20:00) (09/21/2012 12:15:00) BUN [7-22 mg/dL] 20 mg/dL 18 mg/dL 18 mg/dL (10/13/2012 06:20:00) (10/12/2012 18:20:00) (09/21/2012 12:15:00) B/C Ratio [6-25] 20 20 (10/12/2012 18:20:00) (09/21/2012 12:15:00) Glucose Lvl [70-99 mg/dL] 131 mg/dL 4 129 mg/dL 5 93 mg/dL 6 *HI* *HI* (09/21/2012 12:15:00) (10/13/2012 06:20:00) (10/12/2012 18:20:00) Total Protein [6.4-8.4 6.2 g/dL 7.2 g/dL 7.0 g/dL g/dL] *LOW* (10/12/2012 18:20:00) (09/21/2012 12:15:00) (10/13/2012 06:20:00) Albumin Lvl [3.5-5.0 g/dL] 3.7 g/dL 4.4 g/dL 4.2 g/dL (10/13/2012 06:20:00) (10/12/2012 18:20:00) (09/21/2012 12:15:00) Globulin [2.0-4.0 g/dL] 2.5 g/dL 2.8 g/dL 2.8 g/dL (10/13/2012 06:20:00) (10/12/2012 18:20:00) (09/21/2012 12:15:00) A/G Ratio [0.7-1.6] 1.5 1.6 1.5 (10/13/2012 06:20:00) (10/12/2012 18:20:00) (09/21/2012 12:15:00) Calcium Lvl [8.5-10.5 8.4 mg/dL 8.8 mg/dL 8.8 mg/dL mg/dL] *LOW* (10/12/2012 18:20:00) (09/21/2012 12:15:00) (10/13/2012 06:20:00) Phosphorus [2.5-4.5 mg/dL] 4.3 mg/dL 4.5 mg/dL (10/13/2012 06:20:00) (10/12/2012 18:20:00) Magnesium Lvl [1.8-2.4 2.3 mg/dL 1.7 mg/dL mg/dL] (10/13/2012 06:20:00) *LOW* (10/12/2012 18:20:00) ALT [0-65 unit/L] 23 unit/L 24 unit/L 27 unit/L (10/13/2012 06:20:00) (10/12/2012 18:20:00) (09/21/2012 12:15:00) AST [0-37 unit/L] 22 unit/L 18 unit/L 28 unit/L (10/13/2012 06:20:00) (10/12/2012 18:20:00) (09/21/2012 12:15:00) Alk Phos [39-136 unit/L] 113 unit/L 130 unit/L 102 unit/L (10/13/2012 06:20:00) (10/12/2012 18:20:00) (09/21/2012 12:15:00) Bili Total [0.2-1.3 mg/dL] 1.7 mg/dL 1.9 mg/dL 1.3 mg/dL *HI* *HI* (09/21/2012 12:15:00) (10/13/2012 06:20:00) (10/12/2012 18:20:00) Bili Direct [0.0-0.3 0.6 mg/dL mg/dL] *HI* (10/13/2012 06:20:00) Bili Indirect [0.0-1.0 1.1 mg/dL mg/dL] *HI* (10/13/2012 06:20:00) Total CK [12-191 unit/L] 43 unit/L 38 unit/L 38 unit/L (10/13/2012 11:18:00) (10/13/2012 06:20:00) (10/12/2012 22:45:00) Troponin-T [0.000-0.100 <0.010 ng/mL <0.010 ng/mL <0.010 ng/mL ng/mL] (10/13/2012 11:18:00) (10/13/2012 06:20:00) (10/12/2012 22:45:00) Troponin-I [0.00-0.40 <0.02 ng/mL <0.02 ng/mL <0.02 ng/mL ng/mL] (10/13/2012 11:18:00) (10/13/2012 06:20:00) (10/12/2012 22:45:00) T4 Free [0.76-1.46 ng/dL] 1.45 ng/dL (10/12/2012 22:45:00) TSH [0.360-3.740 uIU/mL] 0.291 uIU/mL *LOW* (10/12/2012 18:20:00) Ca Ion mgdL [4.65-5.20 4.64 mg/dL mg/dL] *LOW* (10/13/2012 06:20:00) Ca Ion [1.16-1.30 mMol/L] 1.16 mMol/L (10/13/2012 06:20:00) Ca Norm [1.16-1.30 mMol/L] 1.16 mMol/L (10/13/2012 06:20:00) Ca Norm mgdL [4.65-5.20 4.64 mg/dL mg/dL] *LOW* (10/13/2012 06:20:00) POC A Hct [42.0-54.0 %] 41.0 % *LOW* (10/12/2012 15:56:00) POC A Ca Ion [1.16-1.30 1.16 mMol/L 1.15 mMol/L mMol/L] (10/13/2012 05:25:00) *LOW* (10/12/2012 15:56:00) POC A K [3.5-5.1 mEq/L] 4.0 mEq/L 4.3 mEq/L (10/13/2012 05:25:00) (10/12/2012 15:56:00) POC A Source ART ART *NA* *NA* (10/13/2012 05:25:00) (10/12/2012 15:56:00) POC A Temp 37.0 DegC 37.0 DegC *NA* *NA* (10/13/2012 05:25:00) (10/12/2012 15:56:00) POC A pH [7.35-7.45] 7.41 7.39 (10/13/2012 05:25:00) (10/12/2012 15:56:00) POC A PCO2 [35-45 mmHg] 40 mmHg 43 mmHg (10/13/2012 05:25:00) (10/12/2012 15:56:00) POC A PO2 [80-100 mmHg] 60 mmHg 46 mmHg *CRIT* *CRIT* (10/13/2012 05:25:00) (10/12/2012 15:56:00) POC A HCO3 [22-26 mMol/L] 25 mMol/L 26 mMol/L (10/13/2012 05:25:00) (10/12/2012 15:56:00) POC A BE [-2-2 mMol/L] 1 mMol/L 1 mMol/L (10/13/2012 05:25:00) (10/12/2012 15:56:00) POC A O2 Sat [95.0-100.0 91.0 % 81.0 % %] *LOW* *LOW* (10/13/2012 05:25:00) (10/12/2012 15:56:00) POC A Glu [70-99 mg/dL] 145 mg/dL 115 mg/dL *HI* *HI* (10/13/2012 05:25:00) (10/12/2012 15:56:00) POC A LA [0.5-2.2 mMol/L] 1.8 mMol/L 0.7 mMol/L (10/13/2012 05:25:00) (10/12/2012 15:56:00) POC A Na [135-145 mEq/L] 138 mEq/L 137 mEq/L (10/13/2012 05:25:00) (10/12/2012 15:56:00) 1Result Comment: The eGFR is calculated using the CKD-EPI formula. In most young , healthy individualsthe eGFR will be >90 mL/min/1.73m2. The eGFR declines with age. An eGFR of 60-89 may be normal in some populations, particularly the elderly, for whom the CKD-EPI formula has not been extensively validated. Use of the eGFR is not recommended in the following populations: Individuals with unstable creatinine concentrations, including patients and those with serious co-morbid conditions. Patients with extremes in muscle mass or diet. The data above are obtained from the National Kid[employer] Disease Education Program ( NK[employer]) which additionally recommends that when the eGFR is used in patients with extremes of body mass index for purposesof drug dosing, the eGFR should be multiplied by the estimated BMI.2Result Comment: The eGFR is calculated using the CKD-EPI formula. In most young, healthy individualsthe eGFR will be >90 mL/ min/1.73m2. The eGFR declines with age. An eGFR of 60-89 may be normal in some populations, particularly the elderly, for whom the CKD-EPI formula has not been extensively validated. Use of the eGFR is not recommended in the following populations: Individuals with unstable creatinine concentrations, including patients and those with serious co-morbid conditions. Patients with extremes in muscle mass or diet. The data above are obtained from the National Kid[employer] Education Program ( NK[employer]) which additionally recommends that when the eGFR is used in patients with extremes of body mass index for purposesof drug dosing, the eGFR should be multiplied by the estimated BMI.3Result Comment: The eGFR is calculated using the CKD-EPI formula. In most young, healthy individualsthe eGFR will be >90 mL/ min/1.73m2. The eGFR declines with age. An eGFR of 60-89 may be normal in some populations, particularly the elderly, for whom the CKD-EPI formula has not been extensively validated. Use of the eGFR is not recommended in the following populations: Individuals with unstable creatinine concentrations, including patients and those with serious co-morbid conditions. Patients with extremes in muscle mass or diet. The data above are obtained from the National Kid[employer] Disease Education Program ( NKDEP) which additionally recommends that when the eGFR is used in patients with extremes of body mass index for purposesof drug dosing, the eGFR should be multiplied by the estimated BMI.4Interpretive Data: Adult reference range values reflect the clinical guidelines of the [employer].5Interpretive Data: Adult reference range values reflect the clinical guidelines of the [employer].6Interpretive Data: Adult reference range values reflect the clinical guidelines of the [employer].HEMATOLOGY Most recent to oldest 1 2 3 [Reference Range]: WBC [3.7-10.4 K/CMM] 9.1 K/CMM 8.3 K/CMM 7.3 K/CMM (10/13/2012 04:40:00) (10/12/2012 18:20:00) (09/21/2012 12:15:00) RBC [4.70-6.10 M/CMM] 4.22 M/CMM 4.57 M/CMM 4.44 M/CMM *LOW* *LOW* *LOW* (10/13/2012 04:40:00) (10/12/2012 18:20:00) (09/21/2012 12:15:00) Hgb [14.0-18.0 g/dL] 12.7 g/dL 13.5 g/dL 13.0 g/dL *LOW* *LOW* *LOW* (10/13/2012 04:40:00) (10/12/2012 18:20:00) (09/21/2012 12:15:00) Hct [42.0-54.0 %] 37.8 % 41.1 % 40.2 % *LOW* *LOW* *LOW* (10/13/2012 04:40:00) (10/12/2012 18:20:00) (09/21/2012 12:15:00) MCV [80.0-94.0 fL] 89.5 fL 90.0 fL 90.6 fL (10/13/2012 04:40:00) (10/12/2012 18:20:00) (09/21/2012 12:15:00) MCH [27.0-31.0 pg] 30.0 pg 29.6 pg 29.4 pg (10/13/2012 04:40:00) (10/12/2012 18:20:00) (09/21/2012 12:15:00) MCHC [32.0-36.0 g/dL] 33.5 g/dL 32.8 g/dL 32.4 g/dL (10/13/2012 04:40:00) (10/12/2012 18:20:00) (09/21/2012 12:15:00) RDW [11.5-14.5 %] 16.2 % 16.0 % 16.0 % *HI* *HI* *HI* (10/13/2012 04:40:00) (10/12/2012 18:20:00) (09/21/2012 12:15:00) Platelet [133-450 K/CMM] 134 K/CMM 156 K/CMM 153 K/CMM (10/13/2012 04:40:00) (10/12/2012 18:20:00) (09/21/2012 12:15:00) MPV [7.4-10.4 fL] 8.8 fL 8.9 fL 8.9 fL (10/13/2012 04:40:00) (10/12/2012 18:20:00) (09/21/2012 12:15:00) Segs [45.0-75.0 %] 84.9 % 86.6 % 61.0 % *HI* *HI* (09/21/2012 12:15:00) (10/13/2012 04:40:00) (10/12/2012 18:20:00) Lymphocytes [20.0-40.0 %] 10.4 % 11.4 % 24.4 % *LOW* *LOW* (09/21/2012 12:15:00) (10/13/2012 04:40:00) (10/12/2012 18:20:00) Monocytes [2.0-12.0 %] 3.4 % 1.5 % 9.7 % (10/13/2012 04:40:00) *LOW* (09/21/2012 12:15:00) (10/12/2012 18:20:00) Eosinophils [0.0-4.0 %] 0.1 % 0.3 % 2.9 % (10/13/2012 04:40:00) (10/12/2012 18:20:00) (09/21/2012 12:15:00) Basophils [0.0-1.0 %] 1.2 % 0.2 % 2.0 % *HI* (10/12/2012 18:20:00) *HI* (10/13/2012 04:40:00) (09/21/2012 12:15:00) Segs-Bands # [1.5-8.1 7.7 K/CMM 7.2 K/CMM 4.4 K/CMM K/CMM] (10/13/2012 04:40:00) (10/12/2012 18:20:00) (09/21/2012 12:15:00) Lymphocytes # [1.0-5.5 1.0 K/CMM 0.9 K/CMM 1.8 K/CMM K/CMM] (10/13/2012 04:40:00) *LOW* (09/21/2012 12:15:00) (10/12/2012 18:20:00) Monocytes # [0.0-0.8 0.3 K/CMM 0.1 K/CMM 0.7 K/CMM K/CMM] (10/13/2012 04:40:00) (10/12/2012 18:20:00) (09/21/2012 12:15:00) Eosinophils # [0.0-0.5 0.2 K/CMM K/CMM] (09/21/2012 12:15:00) Basophils # [0.0-0.2 0.1 K/CMM 0.1 K/CMM K/CMM] (10/13/2012 04:40:00) (09/21/2012 12:15:00) PT [12.0-14.7 seconds] 15.8 seconds 15.4 seconds 20.1 seconds *HI* *HI* *HI* (10/13/2012 04:40:00) (10/12/2012 11:00:00) (09/21/2012 12:15:00) INR [0.85-1.17] 1.24 7 1.20 8 1.70 9 *HI* *HI* *HI* (10/13/2012 04:40:00) (10/12/2012 11:00:00) (09/21/2012 12:15:00) PTT [22.9-35.8 seconds] 31.2 seconds 10 32.9 seconds 11 60.9 seconds 12 (10/13/2012 04:40:00) (10/12/2012 11:00:00) *HI* (09/21/2012 12:15:00) 7Interpretive Data: RECOMMENDED RANGES FOR PROTIME INR: 2.0-3.0 for most medical and surgical thromboembolic states. 2.5-3.5 for artificial heart valves and recurrent embolism. INR SHOULD BE USED ONLY FOR PATIENTS ON STABLE ANTICOAGULANT THERAPY.8Interpretive Data: RECOMMENDED RANGES FOR PROTIME INR: 2.0-3.0 for most medical and surgical thromboembolic states. 2.5-3.5 for artificial heart valves and recurrent embolism. INR SHOULD BE USED ONLY FOR PATIENTS ON STABLE ANTICOAGULANT THERAPY.9Interpretive Data: RECOMMENDED RANGES FOR PROTIME INR: 2.0-3.0 for most medical and surgical thromboembolic states. 2.5-3.5 for artificial heart valves and recurrent embolism. INR SHOULD BE USED ONLY FOR PATIENTS ON STABLE ANTICOAGULANT THERAPY.10Interpretive Data: Heparin Therapeutic Range: 57 - 92 [id number] Data: Heparin Therapeutic Range: 57 - 92 [id number] Data: Heparin Therapeutic Range: 57 - 92 Seconds Microbiology Reports PROCEDURE:Culture: Urine STATUS: In Progress BODY SITE: COLLECTED DATE/TIME: 10/12/2012 22:45:00 SOURCE: Urine, Clean Catch FREE TEXT SOURCE: PRELIMINARY REPORTS Preliminary [id number] - 50,000 CFU/mL Gram Negative Rods, Lactose Fermenters Identification And Sensitivity Pending
--- OUTSIDE RECORDS SUMMARY | 2018-05-24 15:33 | XMS REPORT | CCD ---
:1935 Author Organization [facility] Care Team Providers Name Role Phone Ashwini Knutson Edy Referring Provider Allergies, Adverse Reactions, Alerts Substance Reaction Status morphine Active tetracyclines Active Problem List Condition Effective Dates Status Atrial fibrillation < 10/12/2012 Inactive Hyperlipidemia Active Hypertension Active Hypothyroidism Active Methicillin resistant Staphylococcus aureus1 08/28/2009 Active 1Problem added by Discern Expert. Medications Medication Instructions Start Date End Date Status pneumococcal 23-valent 0.5 ml, Route: IM, Drug 10/13/2012 10/13/2012 Completed vaccine Form: INJ, Start date: 10/13/12 9:00:00, Stop date: 10/13/12 9:00:00 influenza virus vaccine, 0.5 ml, Route: IM, Drug 08/29/2009 08/29/2009 Completed inactivated Form: INJ, ONCE, Start date: 08/29/09 9:00:00, Stop date: 08/29/09 9:00:00 Immunizations Vaccine Date Status influenza virus vaccine, inactivated 08/29/2009 Auth (Verified) pneumococcal 23-valent vaccine 10/13/2012 Auth (Verified)
--- OUTSIDE RECORDS SUMMARY | 2018-05-24 15:33 | XMS REPORT | CCD ---
:[address] [facility] Care Team Providers Name Role Phone Ashwini Knutson Edy Referring Provider Allergies, Adverse Reactions, Alerts Substance Reaction Status morphine Active tetracyclines Active Problem List Condition Effective Dates Status Atrial fibrillation < 10/12/2012 Inactive Atrial fibrillation Resolved CAD - Coronary artery disease Resolved Depression Resolved GERD - Gastro-esophageal reflux disease Resolved Hepatitis C Resolved HLD - Hyperlipidemia Resolved HTN - Hypertension Resolved Hyperlipidemia Active Hypertension Active Hypothyroidism Active Methicillin resistant Staphylococcus aureus1 08/28/2009 Active Tongue carcinoma Resolved 1Problem added by Discern Expert. Medications Medication [...]
--- OUTSIDE RECORDS SUMMARY | 2018-05-24 15:33 | XMS REPORT | CCD ---
:1935 Author Organization [facility] Care Team Providers Name Role Phone Bertin [...]
--- OUTSIDE RECORDS SUMMARY | 2018-05-24 15:33 | XMS REPORT | Summary of Care ---
:1935 Author Organization [facility] Address [address] [place] [address]- Encounter [facility] Encntr_sophie(FIN) [id number] Date(s): 10/24/15 - 10/24/[address] [address]- Discharge Disposition: Home Attending Physician: Physician, Non Associated MD Vital Signs No data available for this section Problem List Condition Effective Dates Status Health Status Informant Atrial fibrillation(Confirmed) Resolved CAD - Coronary artery Resolved disease(Confirmed) Depression(Confirmed) Resolved GERD - Gastro-esophageal reflux Resolved disease(Confirmed) Hepatitis C(Confirmed) Resolved HLD - Hyperlipidemia(Confirmed) Resolved HTN - Hypertension(Confirmed) Resolved Hyperlipidemia(Confirmed) Active Hypertension(Confirmed) Active Hypothyroidism(Confirmed) Active Methicillin [...] bypass graft1 Hernia repair Knee replacement Operation2 [id number] of Pacemaker and AICD (2008) Social History No data available for this section Assessment and Plan No data available for this section
--- OUTSIDE RECORDS SUMMARY | 2018-05-24 15:33 | XMS REPORT | CCD ---
:1935 Author Organization [facility] Care Team Providers Name Role Phone Ashwini [...] Medication Instructions Start Date End Date Status acetaminophen-hydrocodon 15 mL, Route: PO, Drug 01/16/2013 01/17/2013 Discontinued e 325 mg-10 mg/15 mL Form: SOLN, Dosing Weight oral solution 82.273, kg, Q4H, PRN Pain Score 4-6, Start date: 01/16/13 12:41:00, Duration: 30 day, Stop date: 02/15/13 12:40:00 metoprolol 1 mg, 1 mL, Route: IVP, 01/16/2013 01/17/2013 Completed Drug form: INJ, Q5Min, Dosing Weight 82.273, kg, PRN Elevated BP, Start date: 01/16/13 12:41:00, Duration: 5 doses or times, Stop date: 01/17/13 0:00:00 labetalol 5 mg, 1 mL, Route: IVP, 01/16/2013 01/17/2013 Completed Drug form: INJ, Q5Min, Dosing Weight 82.273, kg, PRN Elevated BP, Start date: 01/16/13 12:41:00, Duration: 5 doses or times, Stop date: 01/17/13 0:00:00 esmolol IV Push 10 mg, 1 mL, Route: IVP, 01/16/2013 01/17/2013 Completed Drug form: INJ, Q5Min, Dosing Weight 82.273, kg, PRN Elevated BP, Start date: 01/16/13 12:41:00, Duration: 5 doses or times, Stop date: 01/17/13 0:00:00 ondansetron 4 mg, 2 mL, Route: IVP, 01/16/2013 01/17/2013 Discontinued Drug form: INJ, ONCE, Dosing Weight 82.273, kg, PRN Nausea & Vomiting, Start date: 01/16/13 12:41:00 naloxone 0.04 mg, 0.1 mL, Route: 01/16/2013 01/17/2013 Completed IVP, Drug form: INJ, Q2MIN, Dosing Weight 82.273, kg, PRN Narcotic Reversal, Start date: 01/16/13 12:41:00, Duration: 8 doses or times, Stop date: 01/17/13 0:00:00 flumazenil 0.2 mg, 2 mL, Route: IVP, 01/16/2013 01/17/2013 Discontinued Drug form: INJ, PRN, Dosing Weight 82.273, kg, PRN Benzodiazepine Reversal, Initial dose, Start date: 01/16/13 12:41:00, Duration: 30 day, Stop date: 02/15/13 13:40:00 pneumococcal 23-valent 0.5 ml, Route: IM, Drug 10/13/2012 10/13/2012 Completed vaccine Form: INJ, Start date: 10/13/12 9:00:00, Stop date: 10/13/12 9:00:00 Cleocin HCl 600 mg, 4 mL, Route: IVPB, 01/16/2013 01/17/2013 Discontinued Drug form: INJ, PRE OP, Start date: 01/16/13 6:00:00, Duration: 1 day, Stop date: 01/17/13 5:59:00 influenza virus vaccine, 0.5 ml, Route: IM, Drug 08/29/2009 08/29/2009 Completed inactivated Form: INJ, ONCE, Start date: 08/29/09 9:00:00, Stop date: 08/29/09 9:00:00 Immunizations Vaccine Date Status influenza virus vaccine, inactivated 08/29/2009 Auth (Verified) pneumococcal 23-valent vaccine 10/13/2012 Auth (Verified) Vital Signs Most recent to oldest 1 2 3 [Reference Range]: Height 180.34 cm 180.34 cm (01/16/2013 08:29:00) (01/10/2013 15:54:00) Systolic Blood Pressure 98 mmHg 103 mmHg 102 mmHg [90-140 mmHg] (01/16/2013 14:15:00) (01/16/2013 13:45:00) (01/16/2013 13:30: 00) Diastolic Blood Pressure 63 mmHg 66 mmHg 66 mmHg [60-90 mmHg] (01/16/2013 14:15:00) (01/16/2013 13:45:00) (01/16/2013 13:30: 00) Respiratory Rate [14-20 18 BRMIN 18 BRMIN 20 BRMIN BRMIN] (01/16/2013 14:15:00) (01/16/2013 13:45:00) (01/16/2013 13:30:00) Peripheral Pulse Rate 63 bpm [60-100 bpm] (01/16/2013 08:20:00) Weight 82.273 kg 82.273 kg (01/16/2013 08:29:00) (01/10/2013 15:54:00) Results CHEMISTRY Most recent to oldest [Reference Range]: 1 2 Sodium Lvl [135-145 mEq/L] 143 mEq/L (01/10/2013 15:10:00) Potassium Lvl [3.5-5.1 mEq/L] 4.8 mEq/L (01/10/2013 15:10:00) Chloride Lvl [95-109 mEq/L] 103 mEq/L (01/10/2013 15:10:00) CO2 [24-32 mEq/L] 32 mEq/L (01/10/2013 15:10:00) AGAP [10.0-20.0 mEq/L] 12.8 mEq/L (01/10/2013 15:10:00) Creatinine Lvl [0.5-1.4 mg/dL] 1.0 mg/dL (01/10/2013 15:10:00) eGFR 73 mL/min/1.73m2 1 *NA* (01/10/2013 15:10:00) BUN [7-22 mg/dL] 19 mg/dL (01/10/2013 15:10:00) Glucose Lvl [70-99 mg/dL] 85 mg/dL 2 (01/10/2013 15:10:00) Calcium Lvl [8.5-10.5 mg/dL] 8.9 mg/dL (01/10/2013:10:) 1Result Comment: The eGFR is calculated using [...] eGFR should be multiplied by the estimated BMI.2Interpretive Data: Adult reference range values reflect the clinical guidelines of the [place] [employer].HEMATOLOGY Most recent to oldest 1 2 [Reference Range]: WBC [3.7-10.4 K/CMM] 7.5 K/CMM (01/10/2013 15:10:00) RBC [4.70-6.10 M/CMM] 4.66 M/CMM *LOW* (01/10/2013:10:) Hgb [14.0-18.0 g/dL] 13.5 g/dL *LOW* (01/10/2013:10:) Hct [42.0-54.0 %] 41.4 % *LOW* (01/10/2013:10:) MCV [80.0-94.0 fL] 88.9 fL (01/10/2013 15:10:00) MCH [27.0-31.0 pg] 29.0 pg (01/10/2013:10:) MCHC [32.0-36.0 g/dL] 32.6 g/dL (01/10/2013 15:10:00) RDW [11.5-14.5 %] 15.5 % *HI* (01/10/2013:10:00) Platelet [133-450 K/CMM] 154 K/CMM (01/10/2013 15:10:00) MPV [7.4-10.4 fL] 8.7 fL (01/10/2013 15:10:00) Segs [45.0-75.0 %] 58.9 % (01/10/2013 15:10:00) Lymphocytes [20.0-40.0 %] 26.3 % (01/10/2013 15:10:00) Monocytes [2.0-12.0 %] 11.1 % (01/10/2013 15:10:00) Eosinophils [0.0-4.0 %] 3.2 % (01/10/2013 15:10:00) Basophils [0.0-1.0 %] 0.5 % (01/10/2013 15:10:00) Segs-Bands # [1.5-8.1 K/CMM] 4.4 K/CMM (01/10/2013 15:10:00) Lymphocytes # [1.0-5.5 2.0 K/CMM K/CMM] (01/10/2013 15:10:00) Monocytes # [0.0-0.8 K/CMM] 0.8 K/CMM (01/10/2013 15:10:00) Eosinophils # [0.0-0.5 0.2 K/CMM K/CMM] (01/10/2013 15:10:00) PT [12.0-14.7 seconds] 16.0 seconds 31.2 seconds *HI* *HI* (01/16/2013 08:35:00) (01/10/2013 15:10:00) INR [0.85-1.17] 1.26 3 3.03 4 *HI* *HI* (01/16/2013 08:35:00) (01/10/2013 15:10:00) PTT [22.9-35.8 seconds] 33.4 seconds 5 48.3 seconds 6 (01/16/2013 08:35:00) *HI* (01/10/2013 15:10:00) R-time [5.0-10.0 minutes] 7.2 minutes (01/10/2013 15:10:00) K-time [1.0-3.0 minutes] 1.9 minutes (01/10/2013 15:10:) Angle [53.0-72.0 degrees] 63.7 degrees (01/10/2013:10:) Max Amp [50.0-70.0 mm] 57.7 mm (01/10/2013 15:10:00) G-value [4.5-11.0 K d/sc] 6.8 K d/sc (01/10/2013:10:) Ly30 [0.0-7.5 %] 0.6 % (01/10/2013 15:10:) Coag Index [-3.0-3.0] -1.3 (01/10/2013:10:) TEG Interp Thrombelastograph results are within reference ranges. These indicate adequate hemostasis. If there is evidence of bleeding, consider anatomical or surgical bleeding. CPT:06026 *NA* (01/10/2013 15:10:) TEG Data See Note 7 (01/10/2013 15:10:) 3Interpretive Data: RECOMMENDED RANGES FOR PROTIME INR: 2.0-3.0 for most medical and surgical thromboembolic states. 2.5-3.5 for artificial heart valves and recurrent embolism. INR SHOULD BE USED ONLY FOR PATIENTS ON STABLE ANTICOAGULANT THERAPY.4Interpretive Data: RECOMMENDED RANGES FOR PROTIME INR: 2.0-3.0 for most medical and surgical thromboembolic states. 2.5-3.5 for artificial heart valves and recurrent embolism. INR SHOULD BE USED ONLY FOR PATIENTS ON STABLE ANTICOAGULANT THERAPY.5Interpretive Data: Heparin Therapeutic Range: 57 - 92 [id number] Data: Heparin Therapeutic Range: 57 - 92 [id number] Data: Normal ranges are for citrated whole blood with kaolin activator. R TIME: Reflects the degree of anti-coagulation due to LMWH, unfractionated heparin, and coumadin as well as non-specific factor deficiencies. K TIME, ALPHA ANGLE, AND [...] patients or surgical patients. It assesses gloabal (primary and secondary) hemostasis using whole blood and therefore, not expected to correlate well with conventional coagulation tests. TEG results need to be correlated with clinical evaluation for patient management. Procedures Procedures Date Related Diagnosis CABG - Coronary artery bypass graft 1 Hernia repair Knee replacement Operation 2 [id number] of Pacemaker and AICD (2008)
--- OUTSIDE RECORDS SUMMARY | 2018-05-24 15:33 | XMS REPORT | Summary of Care ---
:1935 Author Organization [facility] Address [address] [place] [address]- Encounter [facility] John(HERNAN) [id number] Date(s): 12/06/15 - 12/06/[address] [address]- [facility] Discharge Disposition: Home Attending Physician: Marin Beverly MD Referring Physician: Ashwini Knutson MD Vital Signs Most recent to oldest [Reference Range]: 1 Height 177.8 cm (12/06/15 9:10 AM) Temperature Oral [96.4-99.1 DegF] 97.8 DegF (12/06/15 9:10 AM) Weight 75.227 kg (12/06/15 9:10 AM) Body Mass Index 23.8 m2 (12/06/15 9:10 AM) Problem List Condition Effective Dates Status Health [...] Severity Status morphine Active tetracyclines Active Medications digoxin 125 mcg (0.125 mg) oral tablet 125 microgram=1 tab, PO, Daily, 0 Refill(s) Start Date: 12/06/15 Status: OrderedEliquis 5 mg oral tablet 5 mg=1 tab, PO, BID, 0 Refill(s) Start Date: 12/06/15 Status: Orderedfurosemide 40 mg oral tablet 40 mg=1 tab, PO, Daily, 0 Refill(s) Start Date: 12/06/15 Status: OrderedNitrostat 0.4 mg sublingual tablet 0.4 mg=1 tab, SL, Q5Min, PRN Chest Pain, # 100 tab, 0 Refill(s) Start Date: 12/06/15 Status: Ordered Results No data available for this section Immunizations Vaccine Date Refusal Reason influenza virus vaccine, inactivated 08/29/09 pneumococcal 23-valent vaccine 10/13/12 Procedures Procedure Date Related Diagnosis Body Site CABG - Coronary artery bypass graft1 Hernia repair Knee replacement Operation2 [id number] of Pacemaker and AICD (2008) Social History Social History Type Response Smoking Status Never smoker; Exposure to Tobacco Smoke None; Cigarette Smoking Last 365 Days No; Reg Smoking Cessation Counseling No Assessment and Plan No data available for this section
--- OUTSIDE RECORDS SUMMARY | 2018-05-24 15:34 | XMS REPORT | Summary of Care ---
:1935 Author Organization [facility] Address [address] [place], [place] [address]- Encounter HQ John(FIN) [id number] Date(s): 05/22/16 - 05/22/16 [facility] [address] [facility] [address] [place] [phone] Discharge Disposition: Home Attending Physician: Mairn Beverly MD Referring Physician: Marin Beverly MD Vital Signs Most recent to oldest [Reference Range]: 1 Height 177.8 cm (05/22/16 9:14 AM) Temperature Oral [96.4-99.1 DegF] 96.9 DegF (05/22/16 9:14 AM) Blood Pressure [90-140/60-90 mmHg] 107/67 mmHg (05/22/16 9:14 AM) Peripheral Pulse Rate [60-100 bpm] 84 bpm (05/22/16 9:14 AM) Weight 64.716 kg (05/22/16 9:14 AM) Body Mass Index 20.47 m2 (05/22/16 9:14 AM) Problem List Condition Effective Dates Status Health Status Informant Atrial fibrillation(Confirmed) Resolved CAD - Coronary artery Active disease(Confirmed) Depression(Confirmed) Active GERD - Gastro-esophageal reflux Active disease(Confirmed) Hyperlipidemia(Confirmed) Active Hypertension(Confirmed) Active Hypothyroidism(Confirmed) Active Hypothyroidism(Confirmed) Active Other(Confirmed)1 Resolved 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 Allergies, Adverse Reactions, Alerts Substance Reaction Severity Status morphine Active tetracyclines Active Medications AMIODarone 200 mg oral tablet 200 mg=1 tab, PO, Daily, 0 Refill(s) Start Date: 05/22/16 Status: OrderedCoumadin 2.5 mg oral tablet 2.5 mg=1 tab, PO, Daily, 0 Refill(s) Start Date: 05/22/16 Status: OrderedProscar 5 mg oral tablet 5 mg=1 tab, PO, Daily, 0 Refill(s) Start Date: 05/22/16 Status: OrderedRapaflo 8 mg oral capsule 8 mg=1 cap, PO, Daily, 0 Refill(s) Start Date: 05/22/16 Status: Orderedsildenafil 20 mg oral tablet 60 mg=3 tab, PO, TID, 0 Refill(s) Start Date: 05/22/16 Status: Orderedsilver nitrate topical stick 1 appl, TOP, ONCE, APPLY TO AFFECTED AREA ONCE DAILY FOR 6 DAYS, # 6 ea, 0 Refill(s), Pharmacy: [facility] [id number] Start Date: 05/22/16 Status: Orderedspironolactone 25 mg oral tablet 25 mg=1 tab, PO, BID, 0 Refill(s) Start Date: 05/22/16 Status: Ordered Results No data available for this section Immunizations Given and Recorded Vaccine Date Status Refusal Reason influenza virus vaccine, inactivated 08/29/09 Given pneumococcal 23-valent vaccine 10/13/12 Given Procedures Procedure Date Related Diagnosis Body Site Abdomen endoscopy Barium swallow CABG - Coronary artery bypass graft1, 2 Cataract surgery3 Colonoscopy4 Hernia repair5, 6 Knee replacement Operation7 [id number] states had quadraple [id number] eye with [id number] repair ( INGUINAL) x46x'3 in the c0Serhylowu of Pacemaker and AICD (2008) Social History Social History Type Response Substance Abuse Use: None. Alcohol Current, Type Wine. Last use: occational. Smoking Status Never smoker; Exposure to Tobacco Smoke None; Cigarette Smoking Last 365 Days No; Reg Smoking Cessation Counseling No Assessment and Plan No data available for this section
--- OUTSIDE RECORDS SUMMARY | 2018-05-24 15:34 | XMS REPORT | Summary of Care ---
:1935 Author Organization [facility] Address [address] [place], [place] [address]- Encounter HQ John(FIN) [id number] Date(s): 12/26/15 - 12/26/15 [facility] [address] [place] [address]- [employer] Discharge Disposition: Home Attending Physician: Marin Beverly MD Vital Signs Most recent to oldest 1 2 3 [Reference Range]: Height 177.8 cm (12/17/15 1:49 PM) Blood Pressure [90-140/60-90 107/65 mmHg 112/74 mmHg 110/71 mmHg mmHg] (12/26/15 4:52 PM) (12/26/15 4:30 PM) (12/26/15 4:15 PM) Respiratory Rate [14-20 BRMIN] 16 BRMIN 20 BRMIN 19 BRMIN (12/26/15 4:52 PM) (12/26/15 4:30 PM) (12/26/15 4:15 PM) Peripheral Pulse Rate [60-100 93 bpm bpm] (12/26/15 2:17 PM) Weight 77.273 kg (12/17/15 1:49 PM) Body Mass Index 24.44 m2 (12/17/15 1:49 PM) Problem List Condition Effective Dates Status Health Status Informant Atrial fibrillation(Confirmed) Resolved CAD - Coronary artery Active disease(Confirmed) Depression(Confirmed) Active Depression(Confirmed) Active GERD - Gastro-esophageal reflux Active disease(Confirmed) Hepatitis C(Confirmed) Resolved HLD - Hyperlipidemia(Confirmed) Active HTN - Hypertension(Confirmed) Active Hyperlipidemia(Confirmed) Active Hypertension(Confirmed) Active Hypothyroidism(Confirmed) Active Hypothyroidism(Confirmed) Active Methicillin resistant Staphylococcus 08/28/09 Active aureus - nares(Confirmed)1 Tongue carcinoma(Confirmed) Resolved 1Problem added by Discern Expert. Allergies, Adverse Reactions, Alerts Substance Reaction Severity Status morphine Active tetracyclines Active Medications acetaminophen 1,000 mg, 100 mL, Route: IVPB, Drug form: INJ, ONCE, Dosing Weight 77.273, kg, PRN Pain Score 1-3, Start date: 12/26/15 16:02:00, Duration: 1 doses or times, Stop date: Limited # of times Notes: Infuse over 15 minutesDo not exceed 4gm/day of acetaminophen MEDICATION WASTE ProductSize: 1000 mgProduct Wasted: ___ mg Start Date: 12/26/15 Stop Date: 12/27/15 Status: Discontinuedflumazenil 0.2 mg, 2 mL, Route: IVP, Drug form: INJ, PRN, Dosing Weight 77.273, kg, PRN Benzodiazepine Reversal, Initial dose, Start date: 12/26/15 16:02:00, Duration: 30 day, Stop date: 01/25/16 16:01:00 Notes: (Same as: Romazicon) Start Date: 12/26/15 Stop Date: 12/27/15 Status: Discontinuedlabetalol 10 mg, 2 mL, Route: IVP, Drug form: INJ, Q5Min, Dosing Weight 77.273, kg, PRN Elevated BP, Start date: 12/26/15 16:02:00, Duration: 5 doses or times, Stop date: Limited # of times Start Date: 12/26/15 Stop Date: 12/27/15 Status: Discontinuednaloxone 0.04 mg, 0.1 mL, Route: IVP, Drug form: INJ, Q2MIN, Dosing Weight 77.273, kg, PRN Narcotic Reversal,Start date: 12/26/15 16:02:00, Duration: 8 doses or times , Stop date: Limited # of times Notes: Same as Narcan Start Date: 12/26/15 Stop Date: 12/27/15 Status: Discontinuedondansetron 4 mg, 2 mL, Route: IVP, Drug form: INJ, ONCE, Dosing Weight 77.273, kg, PRN Nausea & Vomiting, Start date: 12/26/15 16:02:00 Notes: (Same as: Zofran) MEDICATION WASTE Product Size: 4 mgProduct Wasted: ___ mg Start Date: 12/26/15 Stop Date: 12/27/15 Status: DiscontinuedoxyCODONE 5 mg, 1 tab, Route: PO, Drug form: TAB, Q4H, Dosing Weight 77.273, kg, PRN Pain Score 4-6, Start date: 12/26/15 16:02:00, Duration: 30 day, Stop date: 01/25/16 16:01:00 Notes: (Same as: Roxicodone) Start Date: 12/26/15 Stop Date: 12/27/15 Status: Discontinued Results ELECTROLYTES Most recent to oldest [Reference Range]: 1 Sodium Lvl [135-145 mEq/L] 141 mEq/L (12/17/15 1:45 PM) Potassium Lvl [3.5-5.1 mEq/L] 5.2 mEq/L *HI* (12/17/15 1:45 PM) Potassium WB [3.5-5.1 mEq/L] 5.1 mEq/L (12/26/15 2:16 PM) Chloride Lvl [95-109 mEq/L] 104 mEq/L (12/17/15 1:45 PM) CO2 [24-32 mEq/L] 30 mEq/L (12/17/15 1:45 PM) AGAP [10.0-20.0 mEq/L] 12.2 mEq/L (12/17/15 1:45 PM) CHEM PANEL Most recent to oldest [Reference Range]: 1 Creatinine Lvl [0.50-1.40 mg/dL] 1.12 mg/dL (12/17/15 1:45 PM) eGFR 63 mL/min/1.73m2 1 *NA* (12/17/15 1:45 PM) BUN [7-22 mg/dL] 27 mg/dL *HI* (12/17/15 1:45 PM) Glucose Lvl [70-99 mg/dL] 84 mg/dL (12/17/15 1:45 PM) Calcium Lvl [8.5-10.5 mg/dL] 8.6 mg/dL (12/17/15 1:45 PM) 1Result Comment: The eGFR is calculated using [...] eGFR should be multiplied by the estimated BMI.HEMATOLOGY Most recent to oldest [Reference Range]: 1 WBC [3.7-10.4 K/CMM] 6.1 K/CMM (12/17/15 1:45 PM) RBC [4.70-6.10 M/CMM] 5.12 M/CMM (12/17/15 1:45 PM) Hgb [14.0-18.0 g/dL] 12.9 g/dL *LOW* (12/17/15 1:45 PM) Hct [42.0-54.0 %] 41.0 % *LOW* (12/17/15 1:45 PM) MCV [80.0-94.0 fL] 80.0 fL (12/17/15 1:45 PM) MCH [27.0-31.0 pg] 25.1 pg *LOW* (12/17/15 1:45 PM) MCHC [32.0-36.0 g/dL] 31.3 g/dL *LOW* (12/17/15 1:45 PM) RDW [11.5-14.5 %] 18.7 % *HI* (12/17/15 1:45 PM) Platelet [133-450 K/CMM] 153 K/CMM (12/17/15 1:45 PM) MPV [7.4-10.4 fL] 9.0 fL (12/17/15 1:45 PM) Segs [45.0-75.0 %] 53.9 % (12/17/15 1:45 PM) Lymphocytes [20.0-40.0 %] 32.2 % (12/17/15 1:45 PM) Monocytes [2.0-12.0 %] 11.6 % (12/17/15 1:45 PM) Eosinophils [0.0-4.0 %] 1.7 % (12/17/15 1:45 PM) Basophils [0.0-1.0 %] 0.6 % (12/17/15 1:45 PM) Segs-Bands # [1.5-8.1 K/CMM] 3.3 K/CMM (12/17/15 1:45 PM) Lymphocytes # [1.0-5.5 K/CMM] 2.0 K/CMM (12/17/15 1:45 PM) Monocytes # [0.0-0.8 K/CMM] 0.7 K/CMM (12/17/15 1:45 PM) Eosinophils # [0.0-0.5 K/CMM] 0.1 K/CMM (12/17/15 1:45 PM) PT [12.0-14.7 seconds] 20.2 seconds *HI* (12/17/15 1:45 PM) INR [0.85-1.17] 1.69 *HI* (12/17/15 1:45 PM) PTT [22.9-35.8 seconds] 34.9 seconds (12/17/15 1:45 PM) R-time [5.0-10.0 minutes] 4.5 minutes *LOW* (12/17/15 1:45 PM) K-time [1.0-3.0 minutes] 1.8 minutes (12/17/15 1:45 PM) Angle [53.0-72.0 degrees] 66.9 degrees (12/17/15 1:45 PM) Max Amp [50.0-70.0 mm] 51.5 mm (12/17/15 1:45 PM) G-value [4.5-11.0 K d/sc] 5.3 K d/sc (12/17/15 1:45 PM) Ly30 [0.0-7.5 %] 3.7 % (12/17/15 1:45 PM) Coag Index [-3.0-3.0] 0.0 (12/17/15 1:45 PM) TEG Interp Thrombelastograph results show shortened value of R. This finding is suggestive of enzymatic hypercoagulation. CPT:97669 *NA* (12/17/15 1:45 PM) TEG Data See Note (12/17/15 1:45 PM) Immunizations Vaccine Date Refusal Reason influenza virus vaccine, inactivated 08/29/09 pneumococcal 23-valent vaccine 10/13/12 Procedures Procedure Date Related Diagnosis Body Site CABG - Coronary artery bypass graft1 Colonoscopy2 Hernia repair3 Knee replacement Operation4 [id number] in the [id number] of Pacemaker and AICD (2008) Social History Social History Type Response Alcohol Current, Type Wine. Last use: occational. Smoking Status Never smoker; Exposure to Tobacco Smoke None; Cigarette Smoking Last 365 Days No; Reg Smoking Cessation Counseling No Assessment and Plan No data available for this section
--- OUTSIDE RECORDS SUMMARY | 2018-05-24 15:34 | XMS REPORT | Summary of Care ---
:[address] [facility] Address [address] [address]- Encounter HQ John(FIN) [id number] Date(s): 01/21/16 - 01/21/16 [facility] [address] [facility] [address] [phone] Discharge Disposition: Home Attending Physician: Marin Beverly MD Referring Physician: Marin Beverly MD Vital Signs Most recent to oldest [Reference Range]: 1 Height 160.02 cm (01/21/16 1:43 PM) Temperature Oral [96.4-99.1 DegF] 97.2 DegF (01/21/16 1:43 PM) Blood Pressure [90-140/60-90 mmHg] 120/71 mmHg (01/21/16 1:43 PM) Peripheral Pulse Rate [60-100 bpm] 53 bpm *LOW* (01/21/16 1:43 PM) Weight 68.864 kg (01/21/16 1:43 PM) Body Mass Index 26.89 m2 (01/21/16 1:43 PM) Problem List Condition Effective Dates Status Health Status Informant Atrial fibrillation(Confirmed) Resolved CAD - Coronary artery Active disease(Confirmed) Depression(Confirmed) Active Depression(Confirmed) Active GERD - Gastro-esophageal reflux Active disease(Confirmed) HLD - Hyperlipidemia(Confirmed) Active HTN - Hypertension(Confirmed) Active Hyperlipidemia(Confirmed) Active Hypertension(Confirmed) Active Hypothyroidism(Confirmed) Active Hypothyroidism(Confirmed) Active Methicillin resistant Staphylococcus 08/28/09 Active aureus - nares(Confirmed)1 Other(Confirmed)2 Resolved Tongue carcinoma(Confirmed) Resolved 1Problem added by Discern Expert.2VP arrest- with AICD Allergies, Adverse Reactions, Alerts Substance Reaction Severity Status morphine Active tetracyclines Active Medications Nutren 2.0 Nutren 2.0, See Instructions, Nutren 2.0 via PEG 250mL q 4hrs x 4/day + 180 mL x 1/day Water flush 30mL before and after feeds, # 150 can, Refill(s) 12 Start Date: 01/21/16 Status: Ordered Results No data available for this section Immunizations Vaccine Date Refusal Reason influenza virus vaccine, inactivated 08/29/09 pneumococcal 23-valent vaccine 10/13/12 Procedures Procedure Date Related Diagnosis Body Site Abdomen endoscopy Barium swallow CABG - Coronary artery bypass graft1, 2 Cataract surgery3 Colonoscopy4 Hernia repair5, 6 Knee replacement Operation7 1patietn states had quadraple [id number] eye with [id number]'3 in the n2nuyhgd repair (INGUINAL) q14Dvhsizqov of Pacemaker and AICD (2008) Social History Social History Type Response Substance Abuse Use: None. Alcohol Current, Type Wine. Last use: occational. Smoking Status Never smoker; Exposure to Tobacco Smoke None; Cigarette Smoking Last 365 Days No; Reg Smoking Cessation Counseling No Assessment and Plan No data available for this section
--- OUTSIDE RECORDS SUMMARY | 2018-05-24 15:34 | XMS REPORT | Summary of Care ---
:[address] [facility] Address [address] [place] [address]- Encounter HQ Yao_sophie(FIN) [id number] Date(s): 12/31/15 - 01/02/[address] [facility] [address] [place] [address] Professional Services provided by [facility] [place] [address]- Discharge Disposition: Home Attending Physician: Getachew Bliss MD Admitting Physician: Getachew Bliss MD Vital Signs Most recent to oldest 1 2 3 [Reference Range]: Height 177.8 cm (12/31/15 6:59 PM) Temperature Oral [96.4-99.1 97.1 DegF 96.9 DegF DegF] (01/01/16 3:56 AM) (12/31/15 11:43 PM) Blood Pressure [90-140/60-90 107/63 mmHg 111/66 mmHg 121/76 mmHg mmHg] (01/02/16 11:06 AM) (01/02/16 10:00 AM) (01/02/16 8:02 AM) Respiratory Rate [14-20 18 BRMIN 18 BRMIN 18 BRMIN BRMIN] (01/02/16 11:06 AM) (01/02/16 8:02 AM) (01/02/16 4:36 AM) Peripheral Pulse Rate 86 bpm 86 bpm 85 bpm [60-100 bpm] (01/02/16 10:00 AM) (01/02/16 4:36 AM) (01/01/16 11:37 PM) Weight 78.636 kg (12/31/15 6:59 PM) Body Mass Index 24.87 m2 (12/31/15 6:59 PM) Problem List Condition Effective Dates Status [...] Severity Status morphine Active tetracyclines Active Medications amLODIPine 5 mg oral tablet 5 mg=1 tab, PO, Daily, # 30 tab, 0 Refill(s) Start Date: 01/02/16 Stop Date: 02/01/16 Status: Orderedcitalopram 20 mg, 1 tab, Route: PO, Drug form: TAB, Daily, Dosing Weight 78.636, kg, Start date: 01/01/16 9:00:00, Duration: 30 day, Stop date: 01/30/16 9:00:00 Notes: (Same As: CeleXA) Start Date: 01/01/16 Stop Date: 01/02/16 Status: Discontinuedcitalopram 20 mg oral tablet 20 mg=1 tab, PO, Daily, # 30 tab, 0 Refill(s) Start Date: 12/31/15 Stop Date: 01/02/16 Status: Discontinueddigoxin 125 mcg (0.125 mg) oral tablet 125 microgram, 1 tab, Route: PO, Drug form: TAB, Daily, Dosing Weight 78.636, kg , Start date: 01/01/16 9:00:00, Duration: 30 day, Stop date: 01/30/16 9:00:00 Notes: Take on an Empty Stomach (Same as: Lanoxin) Start Date: 01/01/16 Stop Date: 01/02/16 Status: Discontinueddigoxin 125 mcg (0.125 mg) oral tablet 0.125 mg, PO, Daily, # 30 tab, 0 Refill(s) Start Date: 12/31/15 Stop Date: 01/02/16 Status: DiscontinuedEliquis 5 mg oral tablet 5 mg=1 tab, PO, BID, 0 Refill(s) Start Date: 12/31/15 Stop Date: 01/02/16 Status: Discontinuedenalapril 5 mg, 1 tab, Route: PO, Drug form: TAB, BID, Dosing Weight 78.636, kg, Start date: 12/31/15 21:00:00, Duration: 30 day, Stop date: 01/30/16 17:00:00 Notes: (Same as: Vasotec) Start Date: 12/31/15 Stop Date: 01/02/16 Status: Discontinuedenalapril 5 mg oral tablet 5 mg=1 tab, PO, BID, 0 Refill(s) Start Date: 12/31/15 Stop Date: 01/02/16 Status: Discontinuedfurosemide 40 mg oral tablet 40 mg=1 tab, PO, Daily, # 30 tab, 0 Refill(s) Start Date: 12/31/15 Stop Date: 01/02/16 Status: Discontinuedfurosemide 40 mg oral tablet 40 mg, 1 tab, Route: PO, Drug form: TAB, Daily, Dosing Weight 78.636, kg, Start date: 01/01/16 9:00:00, Duration: 30 day, Stop date: 01/30/16 9:00:00 Notes: (Same as: Lasix) May cause GI upset. Give with food or milk. Start Date: 01/01/16 Stop Date: 01/02/16 Status: Discontinuedlevothyroxine 100 microgram, 1 tab, Route: PO, Drug form: TAB, Daily, Dosing Weight 78.636, kg , Start date: 01/01/16 9:00:00, Duration: 30 day, Stop date: 01/30/16 9:00:00 Notes: Take 1 hour before or 2 hours after meal; Enteral feeds may interefere with the absorption ofthis medication. (Same as:Levothroid, Synthroid) Start Date: 01/01/16 Stop Date: 01/02/16 Status: Discontinuedlevothyroxine 100 mcg (0.1 mg) oral tablet 100 microgram=1 tab, PO, Daily, # 30 tab, 0 Refill(s) Start Date: 12/31/15 Status: OrderedLipitor 40 mg, 1 tab, Route: PO, Drug form: TAB, Bedtime, Dosing Weight 78.636, kg, Start date: 12/31/15 21:00:00, Duration: 30 day, Stop date: 01/29/16 21:00:00 Notes: (Same as: Lipitor) Start Date: 12/31/15 Stop Date: 01/02/16 Status: DiscontinuedLipitor 40 mg oral tablet 40 mg=1 tab, PO, Bedtime, # 30 tab, 0 Refill(s) Start Date: 12/31/15 Stop Date: 01/02/16 Status: Discontinuedmagnesium sulfate 2 gm in Water 50 ml 2 gm, 50 mL, Route: IVPB, Drug form: INJ, ONCE, Dosing Weight 78.636, kg, Start date: 01/01/16 8:01:00, Duration: 2 hr, Stop date: 01/01/16 8:01:00 Notes: WASTE: F/P - Sink; E - Municipal Trash Bin Start Date: 01/01/16 Stop Date: 01/01/16 Status: CompletedMephyton 5 mg, 1 tab, Route: PO, Drug form: TAB, ONCE, Start date: 01/01/16 10:30:00, Stop date: 01/01/16 10:30:00 Notes: (Same as: Mephyton, Vitamin K) Start Date: 01/01/16 Stop Date: 01/01/16 Status: Completedmetoprolol 25 mg oral tablet, extended release 25 mg=1 tab, PO, BID, # 60 tab, 0 Refill(s) Start Date: 01/02/16 Stop Date: 02/01/16 Status: Orderedmetoprolol extended release 25 mg, 1 tab, Route: PO, Drug form: ERTAB, BID, Start date: 12/31/15 21:00:00, Stop date: 01/30/16 17:00:00 Notes: (Same as: Toprol XL) Do Not Crush Start Date: 12/31/15 Stop Date: 01/02/16 Status: Discontinuedmetoprolol extended release See Instructions, 75 mgPO BID, 0 Refill(s) Start Date: 12/31/15 Stop Date: 01/02/16 Status: DiscontinuedNitrostat 0.4 mg sublingual tablet 0.4 mg, 1 tab, Route: SL, Drug form: TAB, Q5Min, Dosing Weight 78.636, kg, PRN Chest Pain, Start date: 12/31/15 19:37:00, Duration: 30 day, Stop date: 20:36:00 Notes: (Same as:Nitroquick, Nitrostat)"Do Not Crush" Sublingual tablet Start Date: 12/31/15 Stop Date: 01/02/16 Status: DiscontinuedNorvasc 5 mg, 1 tab, Route: PO, Drug form: TAB, Daily, Dosing Weight 78.636, kg, Start date: 01/01/16 9:00:00, Stop date: 01/30/16 9:00:00 Notes: (Same as: Norvasc) Start Date: 01/01/16 Stop Date: 01/02/16 Status: DiscontinuedProtonix 40 mg, 1 pkt, Route: PO, Drug form: GRAN/REC, Daily, Dosing Weight 78.636, kg, Start date: 01/01/16 9:00:00, Stop date: 01/30/16 9:00:00 Notes: Same as: Protonix Mix in 5 mL apple juice or applesauce for oral & 10mL apple juice for NG tube Start Date: 01/01/16 Stop Date: 01/02/16 Status: DiscontinuedProtonix 40 mg, 1 pkt, Route: PO, Drug form: GRAN/REC, Daily, Start date: 01/02/16 11:00: 00, Duration: 30 day, Stop date: 02/01/16 9:00:00 Notes: Same as: Protonix Mix in 5 mL apple juice or applesauce for oral & 10mL apple juice for NG tube Start Date: 01/02/16 Stop Date: 01/02/16 Status: DiscontinuedSaline Flush 0.9% 10 ml, Route: IVP, Drug Form: INJ, Dosing Weight 77.273, kg, PRN, PRN Line Flush , Start date: 12/31/15 14:50:00, Duration: 30 day, Stop date: 01/30/16 15:49:00 Notes: (Same as: BD Posiflush) Start Date: 12/31/15 Stop Date: 01/02/16 Status: DiscontinuedTylenol 500 mg, 15.62 mL, Route: PEG, Drug form: LIQ, Q4H, Dosing Weight 78.636, kg, PRN Pain 4-6/Temp > 100.4 F, Start date: 01/01/16 21:45:00, Duration: 30 day, Stop date: 01/31/16 21:44:00 Notes: Max lquwilrbujlcl=1048mx/day (4 gm/day). (Same as: Tylenol) Start Date: 01/01/16 Stop Date: 01/02/16 Status: DiscontinuedVitamin K1 5 mg, 0.5 mL, Route: SUB-Q, Drug form: INJ, ONCE, Dosing Weight 78.636, kg, Start date: 01/01/16 8:00:00, Duration: 1 doses or times, Stop date: 01/01/16 8: 00:00 Notes: (Same as: Aqua-Mephyton, Vitamin K) MEDICATION WASTE Product Size : 10 mgProduct Wasted: ___ mg Start Date: 01/01/16 Stop Date: 01/01/16 Status: Deleted Results ELECTROLYTES Most recent to oldest [Reference Range]: 1 2 3 Sodium Lvl [135-145 mEq/L] 141 mEq/L (12/31/15 6:56 PM) Potassium Lvl [3.5-5.1 mEq/L] 4.1 mEq/L (12/31/15 6:56 PM) Chloride Lvl [95-109 mEq/L] 105 mEq/L (12/31/15 6:56 PM) CO2 [24-32 mEq/L] 28 mEq/L (12/31/15 6:56 PM) AGAP [10.0-20.0 mEq/L] 12.1 mEq/L (12/31/15 6:56 PM) CHEM PANEL Most recent to oldest [Reference Range]: 1 2 3 Creatinine Lvl [0.50-1.40 mg/dL] 1.35 mg/dL (12/31/15 6:56 PM) eGFR 50 mL/min/1.73m2 1 *NA* (12/31/15 6:56 PM) BUN [7-22 mg/dL] 34 mg/dL *HI* (12/31/15 6:56 PM) Glucose Lvl [70-99 mg/dL] 72 mg/dL (12/31/15 6:56 PM) Calcium Lvl [8.5-10.5 mg/dL] 8.9 mg/dL (12/31/15 6:56 PM) Phosphorus [2.5-4.5 mg/dL] 2.9 mg/dL (12/31/15 6:56 PM) Magnesium Lvl [1.8-2.4 mg/dL] 1.7 mg/dL *LOW* (12/31/15 6:56 PM) 1Result Comment: The eGFR is calculated [...] the estimated BMI.HEMATOLOGY Most recent to oldest 1 2 3 [Reference Range]: WBC [3.7-10.4 K/CMM] 7.0 K/CMM (12/31/15 6:56 PM) RBC [4.70-6.10 M/CMM] 5.41 M/CMM (12/31/15 6:56 PM) Hgb [14.0-18.0 g/dL] 13.6 g/dL *LOW* (12/31/15 6:56 PM) Hct [42.0-54.0 %] 42.4 % (12/31/15 6:56 PM) MCV [80.0-94.0 fL] 78.3 fL *LOW* (12/31/15 6:56 PM) MCH [27.0-31.0 pg] 25.2 pg *LOW* (12/31/15 6:56 PM) MCHC [32.0-36.0 g/dL] 32.1 g/dL (12/31/15 6:56 PM) RDW [11.5-14.5 %] 18.5 % *HI* (12/31/15 6:56 PM) Platelet [133-450 K/CMM] 148 K/CMM (12/31/15 6:56 PM) MPV [7.4-10.4 fL] 8.5 fL (12/31/15 6:56 PM) Segs [45.0-75.0 %] 53.5 % (12/31/15 6:56 PM) Lymphocytes [20.0-40.0 %] 33.8 % (12/31/15 6:56 PM) Monocytes [2.0-12.0 %] 10.9 % (12/31/15 6:56 PM) Eosinophils [0.0-4.0 %] 1.5 % (12/31/15 6:56 PM) Basophils [0.0-1.0 %] 0.3 % (12/31/15 6:56 PM) Segs-Bands # [1.5-8.1 K/CMM] 3.7 K/CMM (12/31/15 6:56 PM) Lymphocytes # [1.0-5.5 2.4 K/CMM K/CMM] (12/31/15 6:56 PM) Monocytes # [0.0-0.8 K/CMM] 0.8 K/CMM (12/31/15 6:56 PM) Eosinophils # [0.0-0.5 0.1 K/CMM K/CMM] (12/31/15 6:56 PM) Microcyte [None Seen] 1+ *ABN* (12/31/15 6:56 PM) PT [12.0-14.7 seconds] 23.0 seconds 29.4 seconds 28.6 seconds *HI* *HI* *HI* (01/02/16 9:24 AM) (01/01/16 3:53 AM) (12/31/15 6:56 PM) INR [0.85-1.17] 2.00 2.75 2.65 *HI* *HI* *HI* (01/02/16 9:24 AM) (01/01/16 3:53 AM) (12/31/15 6:56 PM) PTT [22.9-35.8 seconds] 37.6 seconds *HI* (12/31/15 6:56 PM) Immunizations Vaccine Date Refusal Reason influenza virus vaccine, inactivated 08/29/09 pneumococcal 23-valent vaccine 10/13/12 Procedures Procedure Date Related Diagnosis Body Site Abdomen endoscopy Barium swallow CABG - Coronary artery bypass graft1, 2 Cataract surgery3 Colonoscopy4 Hernia repair5, 6 Knee replacement Operation7 1patietn states had quadraple [id number] eye with [id number] in the x2rgzsvl repair (INGUINAL) [id number] of Pacemaker and AICD (2008) Social History Social History Type Response Substance Abuse Use: None. Alcohol Current, Type Wine. Last use: occational. Smoking Status Never smoker; Exposure to Tobacco Smoke None; Cigarette Smoking Last 365 Days No; Reg Smoking Cessation Counseling No Assessment and Plan Extracted from: Title: Clinical Document Author: Paul King Date: 01/02/16 Discharge Summary Name: Macho Cortés Record Number: [id number] Admission Date: 12/31/2015 Discharge Date: 01/02/2016 Copies to: Diagnoses: Dyphagia Procedures: PEG tube placement by GI Chief complaint: Dysphagia Hospital course: Patient is a 80 y/o CM with hx of throat cancer s/p radiation and chemo in the past, Atrial fibrillation on Eliquis, HTN, CAD, systolic CHF who was admitted for worsening of dysphagia since Sep, 2015. B arium swallow study done showed symptomatic aspiration with thin and nectar Barium. Patient received PEG tube placement on 01/01/2016 by GI. GI re- evaluated the PEG tube today (01/02/2016) and cleared p atient for discharge. Patients denies any fever, abdominal pain, nausea, and vomiting. While patient was admitted, he has been evaluated by Home Health and osteopathic medicine teacher. Discharge therapy: Medications: see medication reconciliation Diet: enteral tube feedings per PEG Activity: regular ADL Follow up: Dr. Negrete in 2 weeks. Primary care physician in 2 days Addendum by Bria Neri MD on 01/02/2016 pt seen and examined on discharge day. agree with d/c summary 19:47 total time 32 min Extracted from: Title: Infection Control Isolation Alert Author: Lewis Felix Date: 01/02 ISOLATION ALERT This patient has a history of infection/colonization with MRSA. Site Date Nares 08/28/2009 Isolation Required: CONTACT Before isolation precautions may be discontinued for this hospital visit, the following protocol must be followed and Infection Control should be notified: Patient must be off antibiotics for 72 hours or 7 days if on dialysis and vancomycin. Send one MRSA PCR nares specimen. Please place order for MRSA PCR. Do not order MRSA Culture. If MRSA PCR is negative, isolation may be discontinued. Patient can only be cleared from isolation for this visit. If readmitted, patient must be isolated and screened for MRSA again. Consult Infection Control for suggested regimens for decolonization of p atients with MRSA as well as for any questions. We can be reached at . Extracted from: Title: Hospitalist History and Physical Author: Reji Acosta MD Date: 12/31/15 Assessment/Plan 1.Dysphagia PEG in am. npo after midnight will recheck INR in am and hold eliquis 2.Atrial fibrillation beta josiane and dig has pacemaker in place. hold eliquis 3.CAD - Coronary artery disease beta blokcer, statin 4.Systolic CHF beta josiane, nathalie i and lasix will continue and monitor. has AICD in place 5.Depression continue home meds 6.HLD - Hyperlipidemia statin 7.HTN - Hypertension controlled continuecurrent regimen andmonitor 8.Hypothyroidism synthroid at home dose Orders: amLODIPine, 10 mg, 1 tab, Route: PO, Drug form: TAB, Daily, Dosing Weight 78.636, kg, Start date: 01/01/16 9:00:00, Duration: 30 day, Stop date: 9:00:00 atorvastatin, 40 mg, 1 tab, Route: PO, Drug form: TAB, Bedtime, Dosing Weight 78.636, kg, Start date: 12/31/15 21:00:00, Duration: 30 day, Stop date: 01/29/16 21:00:00 citalopram, 20 mg, 1 tab, Route: PO, Drug form: TAB, Daily, Dosing Weight 78.636, kg, Start date: 01/01/16 9:00:00, Duration: 30 day, Stop date: 01/30/16 9:00:00 digoxin, 125 microgram, 1 tab, Route: PO, Drug form: TAB, Daily, Dosing Weight 78.636, kg, Start date: 01/01/16 9:00:00, Duration: 30 day, Stop date: 9:00:00 enalapril, 5 mg, 1 tab, Route: PO, Drug form: TAB, BID, Dosing Weight 78.636 , kg, Start date: 12/31/15 21:00:00, Duration: 30 day, Stop date: 01/30/16 17:00 :00 furosemide, 40 mg, 1 tab, Route: PO, Drug form: TAB, Daily, Dosing Weight 78.636, kg, Start date: 01/01/16 9:00:00, Duration: 30 day, Stop date: 01/30/16 9:00:00 levothyroxine, 100 microgram, 1 tab, Route: PO, Drug form: TAB, Daily, Dosing Weight 78.636, kg, Start date: 01/01/16 9:00:00, Duration: 30 day, Stop date: 01/30/16 9:00:00 metoprolol, 75 mg, 3 tab, Route: PO, Drug form: ERTAB, BID, Start date: 12/31 21:00:00, Duration: 30 day, Stop date: 01/30/16 17:00:00 nitroglycerin, 0.4 mg, 1 tab, Route: SL, Drug form: TAB, Q5Min, Dosing Weight 78.636, kg, PRN Chest Pain, Start date: 12/31/15 19:37:00, Duration: 30 day, Stop date: 01/30/16 20:36:00 pantoprazole, 40 mg, 1 tab, Route: PO, Drug form: ECTAB, Daily, Dosing Weight 78.636, kg, Start date: 01/01/16 9:00:00, Duration: 30 day, Stop date: 9:00:00 Diet NPO After Midnight Diet NPO Except For Prophylaxis scds on eliquis will hold for procedure Disposition
--- OUTSIDE RECORDS SUMMARY | 2018-05-24 15:34 | XMS REPORT | Summary of Care ---
:1935 Author Organization [facility] Address [address] [place], [place] [address]- Encounter HQ Cocontr_sophie(FIN) [id number] Date(s): 04/16/16 - 04/16/[address] [address] [employer] Discharge Disposition: Home Attending Physician: Ashwini Knutson MD Referring Physician: Ashwini Knutson MD Vital Signs No data available for [...] Colonoscopy4 Hernia repair5, 6 Knee replacement Operation7 [id number] states had quadraple [id number] eye with [id number] repair ( INGUINAL) x46x'3 in the v7Ekuoiping of Pacemaker and AICD (2008) Social History Social History Type Response Substance Abuse Use: None. Alcohol Current, Type Wine. Last use: occational. Smoking Status Never smoker; Exposure to Tobacco Smoke None; Cigarette Smoking Last 365 Days No; Reg Smoking Cessation Counseling No Assessment and Plan No data available for this section
--- OUTSIDE RECORDS SUMMARY | 2018-05-24 15:34 | XMS REPORT | Summary of Care ---
:1935 Author Organization [facility] Address [address] [place], [place] [address]- Encounter HQ John(FIN) [id number] Date(s): 12/31/15 - 12/31/[address] [address]- [employer] Discharge Disposition: Home Attending Physician: Marin Beverly MD Referring Physician: Marin Beverly MD Vital Signs Most recent to oldest [Reference Range]: 1 Height 177.8 cm (12/31/15 12:49 PM) Blood Pressure [90-140/60-90 mmHg] 117/74 mmHg (12/31/15 12:49 PM) Respiratory Rate [14-20 BRMIN] 84 BRMIN *HI* (12/31/15 12:49 PM) Weight 77.273 kg (12/31/15 12:49 PM) Body Mass Index 24.44 m2 (12/31/15 12:49 PM) Problem List Condition Effective Dates Status [...] Status morphine Active tetracyclines Active Medications No Known Medications Results No data available for this section Immunizations Vaccine Date Refusal Reason influenza virus vaccine, inactivated 08/29/09 pneumococcal 23-valent vaccine 10/13/12 Procedures Procedure Date Related Diagnosis Body Site Abdomen endoscopy Barium swallow CABG - Coronary artery bypass graft1, 2 Cataract surgery3 Colonoscopy4 Hernia repair5, 6 Knee replacement Operation7 1patietn states had quadraple [id number] eye with [id number]'3 in the e1ewojms repair (INGUINAL) [id number] of Pacemaker and AICD (2008) Social History Social History Type Response Substance Abuse Use: None. Alcohol Current, Type Wine. Last use: occational. Smoking Status Never smoker; Exposure to Tobacco Smoke None; Cigarette Smoking Last 365 Days No; Reg Smoking Cessation Counseling No Assessment and Plan No data available for this section
--- OUTSIDE RECORDS SUMMARY | 2018-05-24 15:34 | XMS REPORT | Summary of Care ---
:1935 Author Organization [facility] Address [address] [id number]- Encounter HQ John(FIN) [id number] Date(s): 09/04/16 - 09/04/16 [facility] [address] [facility] [address] [place] [address] [phone] Discharge Disposition: Home or Self Care Attending Physician: Marin Beverly MD Referring Physician: Marin Beverly MD Vital Signs Most recent to oldest [Reference Range]: 1 Height 180.34 cm (09/04/16 9:09 AM) Blood Pressure [90-140/60-90 mmHg] 105/63 mmHg (09/04/16 9:09 AM) Respiratory Rate [14-20 BRMIN] 18 BRMIN (09/04/16 9:09 AM) Peripheral Pulse Rate [60-100 bpm] 86 bpm (09/04/16 9:09 AM) Weight 62.386 kg (09/04/16 9:09 AM) Body Mass Index 19.18 m2 (09/04/16 9:09 AM) Problem List Condition Effective Dates Status Health Status Informant Atrial fibrillation(Confirmed) Resolved CAD - Coronary artery Active disease(Confirmed) Depression(Confirmed) Active GERD - Gastro-esophageal reflux Active disease(Confirmed) Hyperlipidemia(Confirmed) Active Hypertension(Confirmed) Active Hypothyroidism(Confirmed) Active Hypothyroidism(Confirmed) Active Other(Confirmed)1 Resolved 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 Allergies, Adverse Reactions, Alerts Substance Reaction Severity Status morphine Active tetracyclines Active Medications predniSONE 20 mg, PO, Daily, Quantity sufficient, 0 Refill(s) Start Date: 09/04/16 Stop Date: 09/04/16 Status: DeletedpredniSONE 50 mg oral tablet 50 mg=1 tab, PO, Daily, 0 Refill(s) Start Date: 09/04/16 Status: Ordered Results No data available for this section Immunizations Given and Recorded Vaccine Date Status Refusal Reason influenza virus vaccine, inactivated 08/29/09 Given pneumococcal 23-valent vaccine 10/13/12 Given Procedures Procedure Date Related Diagnosis Body Site Abdomen endoscopy Barium swallow CABG - Coronary artery bypass graft1, 2 Cataract surgery3 Colonoscopy4 Hernia repair5, 6 Knee replacement Operation7 [id number] states had quadraple [id number] eye with [id number] repair ( INGUINAL) x46x'3 in the o5Mbkiwalul of Pacemaker and AICD (2008) Social History Social History Type Response Substance Abuse Use: None. Alcohol Current, Type Wine. Last use: occational. Smoking Status Never smoker; Exposure to Tobacco Smoke None; Cigarette Smoking Last 365 Days No; Reg Smoking Cessation Counseling No Assessment and Plan No data available for this section
--- OUTSIDE RECORDS SUMMARY | 2018-05-24 15:34 | XMS REPORT | Summary of Care ---
:[address] [facility] Address [address] [place], [place] [address]- Encounter HQ Yao_sophie(FIN) [id number] Date(s): 12/31/15 - 12/31/[address] [address]- [place] Discharge Disposition: Home Attending Physician: Marin Beverly [...] Knee replacement Operation7 1patietn states had quadraple [id number] eye with [id number]'3 in the m4zodjrm repair (INGUINAL) v00Dlbifftzl of Pacemaker and AICD (2008) Social History Social History Type Response Substance Abuse Use: None. Alcohol Current, Type Wine. Last use: occational. Smoking Status Never smoker; Exposure to Tobacco Smoke None; Cigarette Smoking Last 365 Days No; Reg Smoking Cessation Counseling No Assessment and Plan No data available for this section
--- OUTSIDE RECORDS SUMMARY | 2018-05-24 15:34 | XMS REPORT | Summary of Care ---
:1935 Author Organization [facility] Address [address] [place] [address]- Encounter HQ John(HERNAN) [id number] Date(s): 03/25/16 - 03/25/16 [facility] [address] [facility] [address] [phone] Discharge Disposition: Home Attending Physician: Marin Beverly MD Referring Physician: Marin Beverly MD Vital Signs Most recent to oldest [Reference Range]: 1 Height 177.8 cm (03/25/16 2:06 PM) Blood Pressure [90-140/60-90 mmHg] 76/51 mmHg *LOW* (03/25/16 2:06 PM) Peripheral Pulse Rate [60-100 bpm] 54 bpm *LOW* (03/25/16 2:06 PM) Weight 62.273 kg (03/25/16 2:06 PM) Body Mass Index 19.7 m2 (03/25/16 2:06 PM) Problem List Condition Effective Dates Status Health Status Informant Atrial fibrillation(Confirmed) Resolved CAD - Coronary artery Active disease(Confirmed) Depression(Confirmed) Active GERD - Gastro-esophageal reflux Active disease(Confirmed) Hyperlipidemia(Confirmed) Active Hypertension(Confirmed) Active Hypothyroidism(Confirmed) Active Hypothyroidism(Confirmed) Active Other(Confirmed)1 Resolved 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 Allergies, Adverse Reactions, Alerts Substance Reaction Severity Status morphine Active tetracyclines Active Medications Coumadin 5 mg oral tablet 5 mg=1 tab, PO, Daily, # 30 tab, 0 Refill(s) Start Date: 03/25/16 Status: Orderedfinasteride 5 mg oral tablet 5 mg=1 tab, PO, Daily, # 30 tab, 0 Refill(s) Start Date: 03/25/16 Status: OrderedLasix 80 mg oral tablet 80 mg=1 tab, PO, Daily, # 30 tab, 0 Refill(s) Start Date: 03/25/16 Status: Orderedmetoprolol tartrate 25 mg oral tablet 25 mg=1 tab, PO, BID, # 60 tab, 0 Refill(s) Start Date: 03/25/16 Status: Orderedpotassium chloride 20 mEq oral tablet, extended release 20 mEq=1 tab, PO, BID, 0 Refill(s) Start Date: 03/25/16 Status: Orderedsildenafil 0 Refill(s) Start Date: 03/25/16 Status: Orderedsilodosin 8 mg oral capsule 8 mg=1 cap, PO, Daily, 0 Refill(s) Start Date: 03/25/16 Status: Ordered Results No data available for this section Immunizations Vaccine Date Refusal Reason influenza virus vaccine, inactivated 08/29/09 pneumococcal 23-valent vaccine 10/13/12 Procedures Procedure Date Related Diagnosis Body Site Abdomen endoscopy Barium swallow CABG - Coronary artery bypass graft1, 2 Cataract surgery3 Colonoscopy4 Hernia repair5, 6 Knee replacement Operation7 [id number] states had quadraple ETUE8qgyo eye with [id number] repair ( INGUINAL) x46x'3 in the e0Vhrahrgri of Pacemaker and AICD (2008) Social History Social History Type Response Substance Abuse Use: None. Alcohol Current, Type Wine. Last use: occational. Smoking Status Never smoker; Exposure to Tobacco Smoke None; Cigarette Smoking Last 365 Days No; Reg Smoking Cessation Counseling No Assessment and Plan No data available for this section
--- OUTSIDE RECORDS SUMMARY | 2018-05-24 15:35 | XMS REPORT | Summary of Care ---
:1935 Author Organization [facility] Address [address] [place] [id number]- Encounter HQ Goyor_sophie(FIN) [id number] Date(s): 02/01/17 - 02/04/[address] Professional Services provided by [facility] [place] [address]- Discharge Disposition: Home or Self Care Attending Physician: Corina Lopez MD Admitting Physician: Mandy Melo DO Vital Signs Most recent to oldest 1 2 3 [Reference Range]: Height 180.34 cm 180.34 cm (02/02/17 4:25 AM) (02/01/17 8:34 PM) Temperature Oral [96.4-99.1 97.9 DegF 97.6 DegF 98.0 DegF DegF] (02/04/17 8:44 AM) (02/04/17 3:45 AM) (02/03/17 11:50 PM) Blood Pressure [90-140/60-90 125/74 mmHg 99/59 mmHg 97/60 mmHg mmHg] (02/04/17 8:44 AM) (02/04/17 3:45 AM) (02/03/17 11:50 PM) Respiratory Rate [14-20 BRMIN] 20 BRMIN 20 BRMIN 20 BRMIN (02/04/17 8:44 AM) (02/04/17 3:45 AM) (02/03/17 7:50 PM) Peripheral Pulse Rate [60-100 85 bpm 86 bpm 84 bpm bpm] (02/04/17 8:44 AM) (02/04/17 3:45 AM) (02/03/17 11:50 PM) Weight 68.182 kg 68.182 kg (02/02/17 4:25 AM) (02/01/17 8:34 PM) Body Mass Index 20.96 m2 20.96 m2 (02/02/17 4:25 AM) (02/01/17 8:34 PM) Problem List Condition Effective Dates Status Health Status Informant Atrial fibrillation(Confirmed) Resolved CAD - Coronary artery Active disease(Confirmed) Depression(Confirmed) Active GERD - Gastro-esophageal reflux Active disease(Confirmed) Hyperlipidemia(Confirmed) Active Hypertension(Confirmed) Active Hypothyroidism(Confirmed) Active Hypothyroidism(Confirmed) Active Other(Confirmed)1 Resolved Pulmonary hypertension(Confirmed)2 Resolved Tongue carcinoma(Confirmed) Resolved 1VP arrest- with [id number] in January 2016 Allergies, Adverse Reactions, Alerts Substance Reaction Severity Status morphine Active tetracyclines Active Medications acetaminophen 650 mg, 2 tab, Route: PO, Drug form: TAB, Q4H, Dosing Weight 68.182, kg, PRN Pain 1-3/Temp > 100.4 F, Start date: 02/02/17 4:30:00 CDT, Duration: 30 day, Stop date: 03/04/17 4:29:00 CDT Notes: Do not exceed 4 gm/day. (Same as: Tylenol) Start Date: 02/02/17 Stop Date: 02/04/17 Status: Discontinuedacetaminophen-hydrocodone 325 mg-5 mg oral tablet 1 tab, Route: PO, Drug Form: TAB, Dosing Weight 68.182, kg, Q4H, PRN Pain Score 4-6, Start date: 02/02/17 4:30:00 CDT, Duration: 30 day, Stop date: 03/04/17 4: 29:00 CDT Notes: (Same as: Itmann 325/5) Do not exceed 4gm/day of acetaminophen. Start Date: 02/02/17 Stop Date: 02/04/17 Status: DiscontinuedAMIODarone 200 mg, 1 tab, Route: PO, Drug form: TAB, Daily, Dosing Weight 68.182, kg, Start date: 02/02/17 9:00:00 CDT, Duration: 30 day, Stop date: 03/03/17 9:00:00 CDT Notes: (Same as: Cordarone) Start Date: 02/02/17 Stop Date: 02/03/17 Status: DiscontinuedAMIODarone 100 mg, 1 tab, Route: PO, Drug form: TAB, Daily, Dosing Weight 68.182, kg, Start date: 02/04/17 9:00:00 CDT, Duration: 30 day, Stop date: 03/05/17 9:00:00 CDT Notes: Same as: Mayo Mckeee Start Date: 02/04/17 Stop Date: 02/04/17 Status: DiscontinuedAncef 1 gm, Route: IV, Drug form: PDR/INJ, ABXQ8H, Dosing Weight 68.182, kg, Start date: 02/02/17 1:18:00 CDT, Duration: 30 day, Stop date: 03/03/17 21:00:00 CDT Notes: (Same As: Louie Vogt) MEDICATION WASTE Product Size: 1000 mgProduct Wasted: ___ mg Start Date: 02/02/17 Stop Date: 02/04/17 Status: DiscontinuedANES acetaminophen 1,000 mg, 2 tab, Route: PO, Drug form: TAB, ONCE, Dosing Weight 68.182, kg, PRN Pain Score 1-3, Start date: 02/02/17 21:42:00 CDT, Duration: 1 doses or times, Stop date: Limited # of times Notes: Max acetaminophen 4000 mg/day (4 gm/day). (Same as: Tylenol Extra Strength) Start Date: 02/02/17 Stop Date: 02/02/17 Status: DiscontinuedANES fentaNYL 25 microgram, 0.5 mL, Route: IVP, Drug form: INJ, Q5Min, Dosing Weight 68.182, kg, PRN Pain Score 4-6, Priority: Routine, Start date: 02/02/17 21:42:00 CDT, Duration: 4 doses or times, Stop date: Limited # of times Notes: (Same as: Sublimaze) Preservative free. Start Date: 02/02/17 Stop Date: 02/02/17 Status: DiscontinuedANES flumazenil 0.2 mg, 2 mL, Route: IVP, Drug form: INJ, PRN, Dosing Weight 68.182, kg, PRN Benzodiazepine Reversal, Initial dose, Start date: 02/02/17 21:42:00 CDT, Duration: 30 day, Stop date: 03/04/17 21:41:00 CDT Notes: (Same as: Romazicon) Start Date: 02/02/17 Stop Date: 02/02/17 Status: DiscontinuedANES naloxone 0.4 mg, 1 mL, Route: IVP, Drug form: INJ, Q2MIN, Dosing Weight 68.182, kg, PRN Narcotic Reversal, Start date: 02/02/17 21:42:00 CDT, Duration: 8 doses or times , Stop date: Limited # of times Notes: Same as Narcan Start Date: 02/02/17 Stop Date: 02/02/17 Status: DiscontinuedANES oxyCODONE 5 mg, 1 tab, Route: PO, Drug form: TAB, Q4H, Dosing Weight 68.182, kg, PRN Pain Score 4-6, Start date: 02/02/17 21:42:00 CDT, Duration: 30 day, Stop date: 03/04 21:41:00 CDT Notes: (Same as: Roxicodone) Start Date: 02/02/17 Stop Date: 02/02/17 Status: DiscontinuedANES promethazine 6.25 mg, 0.25 mL, Route: IVPB, Drug form: INJ, ONCE, Dosing Weight 68.182, kg, PRN Nausea & Vomiting, Start date: 02/02/17 21:42:00 CDT Notes: Do not give IV push. (Same as: Phenergan) Start Date: 02/02/17 Stop Date: 02/02/17 Status: Discontinuedbacitracin topical 1 appl, Route: TOP, Daily, Drug form: OINT, Apply on the affected area on the b/ l hands., Start date: 02/05/17 9:00:00 CDT, Duration: 30 day, Stop date: 9:00:00 CDT Start Date: 02/05/17 Stop Date: 02/04/17 Status: Canceledcalcium-vitamin D 500 mg-200 intl units oral tablet 1 tab, Route: PO, Drug Form: TAB, Dosing Weight 68.182, kg, BID, Start date: 9:00:00 CDT, Duration: 30 day, Stop date: 03/03/17 17:00:00 CDT Notes: (Same As: Fly-D, OsCal-D, Oyster Calcium) Start Date: 02/02/17 Stop Date: 02/04/17 Status: Discontinuedcalcium-vitamin D 600 mg-400 intl units oral tablet, chewable See Instructions, Take 1 tab BID, # 30 tab, 0 Refill(s) Start Date: 02/04/17 Status: Orderedcitalopram 20 mg, 1 tab, Route: PO, Drug form: TAB, Daily, Dosing Weight 68.182, kg, Start date: 02/02/17 9:00:00 CDT, Duration: 30 day, Stop date: 03/03/17 9:00:00 CDT Notes: (Same As: CeleXA) Start Date: 02/02/17 Stop Date: 02/04/17 Status: Discontinueddigoxin 125 mcg (0.125 mg) oral tablet 125 microgram, 1 tab, Route: PO, Drug form: TAB, Daily, Dosing Weight 68.182, kg , Start date: 02/02/17 9:00:00 CDT, Duration: 30 day, Stop date: 03/03/17 9:00: 00 CDT Notes: Take on an Empty Stomach (Same as: Lanoxin) Start Date: 02/02/17 Stop Date: 02/04/17 Status: DiscontinuedDilaudid 0.5 mg, 0.25 mL, Route: IVP, Drug form: INJ, ONCE, Dosing Weight 68.182, kg, Priority: STAT, Start date: 02/01/17 21:47:00 CDT, Stop date: 02/01/17 21:47:00 CDT Notes: Same as: Dilaudid Start Date: 02/01/17 Stop Date: 02/01/17 Status: CompletedDilaudid 0.5 mg, 0.25 mL, Route: IVP, Drug form: INJ, ONCE, Dosing Weight 68.182, kg, Priority: STAT, Start date: 02/01/17 23:45:00 CDT, Stop date: 02/01/17 23:45:00 CDT Notes: Same as: Dilaudid Start Date: 02/01/17 Stop Date: 02/01/17 Status: CompletedDilaudid 0.5 mg, 0.25 mL, Route: IVP, Drug form: INJ, ONCE, Dosing Weight 68.182, kg, Priority: STAT, Start date: 02/02/17 3:35:00 CDT, Stop date: 02/02/17 3:35:00 CDT Notes: Same as: Dilaudid Start Date: 02/02/17 Stop Date: 02/02/17 Status: Completeddocusate 100 mg, 1 cap, Route: PO, Drug form: CAP, BID, Dosing Weight 68.182, kg, PRN Constipation, Start date: 02/02/17 4:30:00 CDT, Duration: 30 day, Stop date: 4:29:00 CDT Notes: (Same as: Colace) (Do Not Crush) Start Date: 02/02/17 Stop Date: 02/04/17 Status: DiscontinuedEntresto 24 mg-26 mg oral tablet 1 tab, PO, BID, # 28 tab, 0 Refill(s) Start Date: 02/02/17 Stop Date: 02/16/17 Status: Orderedfinasteride 5 mg, 1 tab, Route: PO, Drug form: TAB, Daily, Dosing Weight 68.182, kg, Start date: 02/02/17 9:00:00 CDT, Duration: 30 day, Stop date: 03/03/17 9:00:00 CDT Notes: (Same as: Proscar) "Do Not Crush"Women of childbearing age should not touch or handle broken tablets Start Date: 02/02/17 Stop Date: 02/04/17 Status: Discontinuedgentamicin + sodium chloride 0.9% INJ 100 mL 341 mg, 8.53 mL, Route: IVPB, ONCE, Dosing Weight 68.182, kg, Priority: STAT, Start date: 02/02/17 1:16:00 CDT, Stop date: 02/02/17 1:16:00 CDT Notes: TIME CRITICAL MEDICATION(Same as Garamycin) Start Date: 02/02/17 Stop Date: 02/02/17 Status: CompletedKeflex 500 mg, 1 cap, Route: PO, Drug form: CAP, ONCE, Dosing Weight 68.182, kg, Start date: 02/02/17 0:30:00 CDT, Stop date: 02/02/17 0:30:00 CDT Notes: Take on empty stomach. (Same As: Keflex) Start Date: 02/02/17 Stop Date: 02/02/17 Status: CompletedKeflex 500 mg, 1 tab, Route: PO, Drug form: TAB, ONCE, Dosing Weight 68.182, kg, Start date: 02/02/17 0:13:00 CDT, Stop date: 02/02/17 0:13:00 CDT Notes: Take on empty stomach. (Same As: Keftab) Start Date: 02/02/17 Stop Date: 02/02/17 Status: DeletedKeflex 750 mg oral capsule 750 mg=1 cap, PO, Q12H, X 5 day, # 10 cap, 0 Refill(s) Start Date: 02/04/17 Stop Date: 02/09/17 Status: OrderedLasix 20 mg, 2 mL, Route: IVP, Drug form: INJ, ONCE, Dosing Weight 68.182, kg, Start date: 02/02/17 13:28:00 CDT, Stop date: 02/02/17 13:28:00 CDT Notes: (Same as: Lasix) Start Date: 02/02/17 Stop Date: 02/02/17 Status: CompletedLasix 80 mg, 1 tab, Route: PO, Drug form: TAB, Daily, Dosing Weight 68.182, kg, Start date: 02/02/17 9:00:00 CDT, Duration: 30 day, Stop date: 03/03/17 9:00:00 CDT Notes: (Same as: Lasix) May cause GI upset. Give with food or milk. Start Date: 02/02/17 Stop Date: 02/04/17 Status: DiscontinuedLevoxyl 88 microgram, 1 tab, Route: PO, Drug form: TAB, Daily, Dosing Weight 68.182, kg , Start date: 02/02/17 9:00:00 CDT, Duration: 30 day, Stop date: 03/03/17 9:00: 00 CDT Notes: Take 1 hour before or 2 hours after meal; Enteral feeds may interefere with the absorption ofthis medication. (Same as:Synthroid) Start Date: 02/02/17 Stop Date: 02/04/17 Status: DiscontinuedLevoxyl 88 mcg (0.088 mg) oral tablet 88 microgram=1 tab, PO, Daily, # 30 tab, 0 Refill(s) Start Date: 02/02/17 Status: OrderedLipitor 40 mg, 1 tab, Route: PO, Drug form: TAB, Daily, Dosing Weight 68.182, kg, Start date: 02/02/17 9:00:00 CDT, Duration: 30 day, Stop date: 03/03/17 9:00:00 CDT Notes: (Same as: Lipitor) Start Date: 02/02/17 Stop Date: 02/04/17 Status: Discontinuedmetoprolol tartrate 25 mg, 1 tab, Route: PO, Drug form: ERTAB, BID, Dosing Weight 68.182, kg, Start date: 02/02/17 9:00:00 CDT, Duration: 30 day, Stop date: 03/03/17 17:00:00 CDT Notes: (Same as: Toprol XL) Do Not Crush Start Date: 02/02/17 Stop Date: 02/04/17 Status: Discontinuedondansetron 4 mg, 2 mL, Route: IVP, Drug form: INJ, ONCE, Dosing Weight 68.182, kg, Priority : STAT, Start date: 02/01/17 21:46:00 CDT, Stop date: 02/01/17 21:46:00 CDT Notes: (Same as: Brooks) MEDICATION WASTE Product Size: 4 mgProduct Wasted: ___ mg Start Date: 02/01/17 Stop Date: 02/01/17 Status: Completedondansetron 4 mg, 2 mL, Route: IVP, Drug form: INJ, ONCE, Dosing Weight 68.182, kg, Priority : STAT, Start date: 02/01/17 21:46:00 CDT, Stop date: 02/01/17 21:46:00 CDT Notes: (Same as: Zofran) MEDICATION WASTE Product Size: 4 mgProduct Wasted: ___ mg Start Date: 02/01/17 Stop Date: 02/01/17 Status: Completedondansetron 4 mg, 2 mL, Route: IVP, Drug form: INJ, Q6H, Dosing Weight 68.182, kg, PRN Nausea & Vomiting, Start date: 02/02/17 4:30:00 CDT, Duration: 30 day, Stop date: 03/04/17 4:29:00 CDT Notes: (Same as: Zofrjose) MEDICATION WASTE Product Size: 4 mgProduct Wasted: ___ mg Start Date: 02/02/17 Stop Date: 02/02/17 Status: Discontinuedpneumococcal 13-valent vaccine 0.5 mL, Route: IM, Drug Form: INJ, Daily, Start date: 02/02/17 9:00:00 CDT, Duration: 1 doses or times, Stop date: 02/02/17 9:00:00 CDT Notes: Lightly roll vial (DO NOT SHAKE) before administration. (Same as: Prevnar 13) Start Date: 02/02/17 Stop Date: 02/02/17 Status: Pending CompleteProtonix 40 mg, 1 tab, Route: PO, Drug form: ECTAB, Before Breakfast, Dosing Weight 68.182, kg, Start date: 02/02/17 7:30:00 CDT, Duration: 30 day, Stop date: 03/03 7:30:00 CDT Notes: Tablet should not be chewed or crushed.(Same as: Protonix) Start Date: 02/02/17 Stop Date: 02/04/17 Status: DiscontinuedSaline Flush 0.9% 10 mL, Route: IVP, Drug Form: INJ, Dosing Weight 68.182, kg, PRN, PRN Line Flush , Start date: 02/01/17 20:54:00 CDT, Duration: 30 day, Stop date: 03/03/17 20:53 :00 CDT Notes: (Same as: BD Posiflush) Start Date: 02/01/17 Stop Date: 02/04/17 Status: DiscontinuedSaline Flush 0.9% 10 ml, Route: IVP, Drug Form: INJ, Dosing Weight 68.182, kg, PRN, PRN Line Flush , Start date: 02/02/17 4:30:00 CDT, Duration: 30 day, Stop date: 03/04/17 4:29: 00 CDT Notes: Same as: BD Posiflush Sterile Start Date: 02/02/17 Stop Date: 02/04/17 Status: Discontinuedsildenafil 20 mg oral tablet 20 mg, 1 tab, Route: PO, Drug form: TAB, Q8H, Dosing Weight 68.182, kg, Start date: 02/02/17 0:58:00CDT, Duration: 30 day, Stop date: 03/04/17 0:00:00 CDT Notes: (Same as: Revatio) Start Date: 02/02/17 Stop Date: 02/04/17 Status: DiscontinuedSodium Chloride 0.9% (Bolus) IV 500 mL, 500 ml/hr, Infuse Over: 1 hr, Route: IV, 500, Drug form: INJ, ONCE, Priority: STAT, Dosing Weight 68.182 kg, Start date: 02/03/17 13:28:00 CDT, Duration: 1 doses or times, Stop date: 02/03/17 13:28:00 CDT Start Date: 02/03/17 Stop Date: 02/03/17 Status: Completedsodium chloride 0.9% 1000 ml INJ 1,000 mL 1,000 mL, Rate: 42 ml/hr, Infuse over: 23.8 hr, Route: IV, Dosing Weight 68.182 kg, Total Volume: 1,000, Start date: 02/02/17 4:30:00 CDT, Duration: 30 day, Stop date: 03/04/17 4:29:00 CDT Start Date: 02/02/17 Stop Date: 02/04/17 Status: Discontinuedspironolactone 25 mg, 1 tab, Route: PO, Drug form: TAB, BID, Dosing Weight 68.182, kg, Start date: 02/02/17 9:00:00CDT, Duration: 30 day, Stop date: 03/03/17 17:00:00 CDT Notes: (Same As: Aldactone) Start Date: 02/02/17 Stop Date: 02/04/17 Status: Discontinuedspironolactone 25 mg oral tablet 25 mg=1 tab, PO, Daily, # 30 tab, 3 Refill(s) Start Date: 02/02/17 Stop Date: 03/04/17 Status: OrderedTylenol with Codeine #3 oral tablet 1 tab, PO, Q6H, PRN Pain, X 7 day, # 28 tab, 0 Refill(s) Start Date: 02/04/17 Stop Date: 02/11/17 Status: OrderedVisipaque 320mg/ml 150 mL, Route: IVP, Drug Form: SOLN, Dosing Weight 68.182, kg, ONCALL, STAT, Start date: 02/01/17 22:12:00 CDT, Duration: 1 doses or times, Dose=2.2ml/kg, Max [id number] -- "To be infused by RadiologyStaff ONLY" Start Date: 02/01/17 Stop Date: 02/01/17 Status: Completed Results BLOOD BANK RESULTS Most recent to oldest [Reference Range]: 1 2 3 ABO/Rh O POS *Unknown* (02/01/17 9:13 PM) Antibody Scrn Negative (02/01/17 9:13 PM) ELECTROLYTES Most recent to oldest 1 2 3 [Reference Range]: Sodium Lvl [135-145 mEq/L] 140 mEq/L 140 mEq/L 138 mEq/L (02/03/17 6:09 AM) (02/03/17 6:09 AM) (02/01/17 9:23 PM) Potassium Lvl [3.5-5.1 4.4 mEq/L 4.4 mEq/L 4.3 mEq/L mEq/L] (02/03/17 6:09 AM) (02/03/17 6:09 AM) (02/01/17 9:23 PM) Chloride Lvl [95-109 mEq/L] 105 mEq/L 105 mEq/L 101 mEq/L (02/03/17 6:09 AM) (02/03/17 6:09 AM) (02/01/17 9:23 PM) CO2 [24-32 mEq/L] 27 mEq/L 27 mEq/L 26 mEq/L (02/03/17 6:09 AM) (02/03/17 6:09 AM) (02/01/17 9:23 PM) AGAP [10.0-20.0 mEq/L] 12.4 mEq/L 12.4 mEq/L 15.3 mEq/L (02/03/17 6:09 AM) (02/03/17 6:09 AM) (02/01/17 9:23 PM) CHEM PANEL Most recent to oldest 1 2 3 [Reference Range]: Creatinine Lvl [0.50-1.40 1.14 mg/dL 1.14 mg/dL 1.32 mg/dL mg/dL] (02/03/17 6:09 AM) (02/03/17 6:09 AM) (02/01/17 9:23 PM) eGFR 61 mL/min/1.73m2 1 61 mL/min/1.73m2 2 51 mL/min/1.73m2 3 *NA* *NA* *NA* (02/03/17 6:09 AM) (02/03/17 6:09 AM) (02/01/17 9:23 PM) BUN [7-22 mg/dL] 27 mg/dL 27 mg/dL 26 mg/dL *HI* *HI* *HI* (02/03/17 6:09 AM) (02/03/17 6:09 AM) (02/01/17 9:23 PM) B/C Ratio [6-25] 24 (02/03/17 6:09 AM) Glucose Lvl [70-99 mg/dL] 114 mg/dL 114 mg/dL 133 mg/dL *HI* *HI* *HI* (02/03/17 6:09 AM) (02/03/17 6:09 AM) (02/01/17 9:23 PM) Total Protein [6.4-8.4 g/dL] 6.0 g/dL *LOW* (02/03/17 6:09 AM) Albumin Lvl [3.5-5.0 g/dL] 2.8 g/dL *LOW* (02/03/17 6:09 AM) Globulin [2.7-4.2 g/dL] 3.2 g/dL (02/03/17 6:09 AM) A/G Ratio [0.7-1.6] 0.9 (02/03/17 6:09 AM) Calcium Lvl [8.5-10.5 mg/dL] 8.9 mg/dL 8.9 mg/dL 9.0 mg/dL (02/03/17 6:09 AM) (02/03/17 6:09 AM) (02/01/17 9:23 PM) Phosphorus [2.5-4.5 mg/dL] 2.8 mg/dL (02/03/17 6:09 AM) Magnesium Lvl [1.8-2.4 2.3 mg/dL mg/dL] (02/03/17 6:09 AM) ALT [0-65 unit/L] 25 unit/L (02/03/17 6:09 AM) AST [0-37 unit/L] 23 unit/L (02/03/17 6:09 AM) Alk Phos [39-136 unit/L] 68 unit/L (02/03/17 6:09 AM) Bili Total [0.2-1.3 mg/dL] 1.2 mg/dL (02/03/17 6:09 AM) Lactic Acid Lvl [0.5-2.2 0.9 mMol/L mMol/L] (02/01/17 9:23 PM) 1Result Comment: The eGFR is calculated [...] eGFR should be multiplied by the estimated BMI.CARDIAC ENZYMES Most recent to oldest [Reference Range]: 1 2 3 Total CK [12-191 unit/L] 92 unit/L (02/01/17 9:23 PM) DRUG SCREEN Most recent to oldest [Reference Range]: 1 2 3 U Amph Scr [Negative] Negative *NA* (02/02/17 2:53 AM) U Kay Scr [Negative] Negative *NA* (02/02/17 2:53 AM) U Benzodia Scr [Negative] Negative *NA* (02/02/17 2:53 AM) U Cocaine Scr [Negative] Negative *NA* (02/02/17 2:53 AM) U Opiate Scr [Negative] Positive *ABN* (02/02/17 2:53 AM) U Phencyc Scr [Negative] Negative *NA* (02/02/17 2:53 AM) U Cannab Scr [Negative] Negative *NA* (02/02/17 2:53 AM) UDS Note See Note (02/02/17 2:53 AM) TOXICOLOGY Most recent to oldest [Reference Range]: 1 2 3 Etoh (%) <.003 % *NA* (02/01/17 9:23 PM) Ethanol Lvl <3 mg/dL *NA* (02/01/17 9:23 PM) URINE AND STOOL Most recent to oldest [Reference Range]: 1 2 3 UA Turbidity [Clear] Clear (02/02/17 2:53 AM) UA Color [Yellow] Yellow *NA* (02/02/17 2:53 AM) UA pH [5.0-8.0] 5.0 (02/02/17 2:53 AM) UA Spec Grav [<=1.030] >1.050 *NA* (02/02/17 2:53 AM) UA Glucose [Negative] Negative (02/02/17 2:53 AM) UA Blood [Negative] Small *ABN* (02/02/17 2:53 AM) UA Ketones [Negative] Negative *NA* (02/02/17 2:53 AM) UA Protein [Negative] Trace *ABN* (02/02/17 2:53 AM) UA Urobilinogen [0.1-1.0 EU/dL] 0.2 EU/dL (02/02/17 2:53 AM) UA Bili [Negative] Negative *NA* (02/02/17 2:53 AM) UA Leuk Est [Negative] Negative (02/02/17 2:53 AM) UA Nitrite [Negative] Negative (02/02/17 2:53 AM) UA WBC [None Seen] None Seen (02/02/17 2:53 AM) UA RBC [0-2] None Seen (02/02/17 2:53 AM) UA Sq Epi [Few] None Seen (02/02/17 2:53 AM) HEMATOLOGY Most recent to oldest 1 2 3 [Reference Range]: WBC [3.7-10.4 K/CMM] 12.8 K/CMM 7.3 K/CMM 7.5 K/CMM *HI* (02/03/17 6:09 AM) (02/01/17 9:23 PM) (02/04/17 5:17 AM) RBC [4.70-6.10 M/CMM] 3.95 M/CMM 4.04 M/CMM 4.18 M/CMM *LOW* *LOW* *LOW* (02/04/17 5:17 AM) (02/03/17 6:09 AM) (02/01/17 9:23 PM) Hgb [14.0-18.0 g/dL] 12.2 g/dL 12.2 g/dL 12.9 g/dL *LOW* *LOW* *LOW* (02/04/17 5:17 AM) (02/03/17 6:09 AM) (02/01/17 9:23 PM) Hct [42.0-54.0 %] 36.0 % 37.0 % 37.9 % *LOW* *LOW* *LOW* (02/04/17 5:17 AM) (02/03/17 6:09 AM) (02/01/17:23 PM) MCV [80.0-94.0 fL] 91.3 fL 91.7 fL 90.6 fL (02/04/17 5:17 AM) (02/03/17 6:09 AM) (02/01/17:23 PM) MCH [27.0-31.0 pg] 30.8 pg 30.2 pg 30.9 pg (02/04/17:17 AM) (02/03/17 6:09 AM) (02/01/17:23 PM) MCHC [32.0-36.0 g/dL] 33.8 g/dL 33.0 g/dL 34.1 g/dL (02/04/17 5:17 AM) (02/03/17 6:09 AM) (02/01/17:23 PM) RDW [11.5-14.5 %] 15.2 % 15.4 % 15.2 % *HI* *HI* *HI* (02/04/17:17 AM) (02/03/17 6:09 AM) (02/01/17:23 PM) Platelet [133-450 K/CMM] 146 K/CMM 129 K/CMM 133 K/CMM (02/04/17 5:17 AM) *LOW* (02/01/17 9:23 PM) (02/03/17 6:09 AM) MPV [7.4-10.4 fL] 9.2 fL 8.2 fL 8.1 fL (02/04/17:17 AM) (02/03/17 6:09 AM) (02/01/17:23 PM) Segs [45.0-75.0 %] 81.6 % 83.5 % 77.4 % *HI* *HI* *HI* (02/04/17:17 AM) (02/03/17 6:09 AM) (02/01/17:23 PM) Lymphocytes [20.0-40.0 %] 7.1 % 10.2 % 12.5 % *LOW* *LOW* *LOW* (3/23/17 5:17 AM) (02/03/17 6:09 AM) (02/01/17 9:23 PM) Monocytes [2.0-12.0 %] 9.5 % 6.1 % 8.2 % (02/04/17 5:17 AM) (02/03/17 6:09 AM) (02/01/17 9:23 PM) Eosinophils [0.0-4.0 %] 1.2 % 0.1 % 1.5 % (02/04/17 5:17 AM) (02/03/17 6:09 AM) (02/01/17 9:23 PM) Basophils [0.0-1.0 %] 0.6 % 0.1 % 0.4 % (02/04/17 5:17 AM) (02/03/17 6:09 AM) (02/01/17 9:23 PM) Segs-Bands # [1.5-8.1 K/CMM] 10.4 K/CMM 6.1 K/CMM 5.8 K/CMM *HI* (02/03/17 6:09 AM) (02/01/17 9:23 PM) (02/04/17 5:17 AM) Lymphocytes # [1.0-5.5 0.9 K/CMM 0.7 K/CMM 0.9 K/CMM K/CMM] *LOW* *LOW* *LOW* (02/04/17 5:17 AM) (02/03/17 6:09 AM) (02/01/17 9:23 PM) Monocytes # [0.0-0.8 K/CMM] 1.2 K/CMM 0.4 K/CMM 0.6 K/CMM *HI* (02/03/17 6:09 AM) (02/01/17 9:23 PM) (02/04/17 5:17 AM) Eosinophils # [0.0-0.5 0.1 K/CMM 0.1 K/CMM K/CMM] (02/04/17 5:17 AM) (02/01/17 9:23 PM) Basophils # [0.0-0.2 K/CMM] 0.1 K/CMM (02/04/17 5:17 AM) RBC Morph Normal (02/04/17 5:17 AM) Plt Morph Normal (02/04/17 5:17 AM) PT [12.0-14.7 seconds] 21.7 seconds 21.1 seconds 23.0 seconds *HI* *HI* *HI* (02/03/17 6:09 AM) (02/02/17 2:29 PM) (02/01/17 9:23 PM) INR [0.85-1.17] 1.85 1.79 2.00 *HI* *HI* *HI* (02/03/17 6:09 AM) (02/02/17 2:29 PM) (02/01/17 9:23 PM) PTT [22.9-35.8 seconds] 35.0 seconds (02/01/17 9:23 PM) ACT (TEG) Rapid [86-118 136 seconds seconds] *HI* (02/01/17 9:23 PM) Split Point Rapid 0.8 minutes *NA* (02/01/17 9:23 PM) R-time Rapid [0.4-0.7 0.9 minutes minutes] *HI* (02/01/17 9:23 PM) K-time Rapid [0.6-2.3 1.0 minutes minutes] (02/01/17 9:23 PM) Angle Rapid [64-80 degrees] 76 degrees (02/01/17 9:23 PM) Max Amplitude Rapid [52-71 65 mm mm] (02/01/17 9:23 PM) G-value Rapid [5.0-11.6 K 9.4 K d/sc d/sc] (02/01/17 9:23 PM) Estimated % Lysis Rapid 0.0 % [0.0-7.5 %] (02/01/17 9:23 PM) Immunizations Given and Recorded Vaccine Date Status Refusal Reason diphtheria/pertussis, acel/tetanus adult 02/01/17 Given influenza virus vaccine, inactivated 08/29/09 Given pneumococcal 23-valent vaccine 10/13/12 Given Procedures Procedure Date Related Diagnosis Body Site Abdomen endoscopy Barium swallow CABG - Coronary artery bypass graft1, 2 Cataract surgery3 Colonoscopy4 Hernia repair5, 6 Knee replacement Operation7 [id number] states had quadraple [id number] eye with [id number] repair ( INGUINAL) x46x'3 in the [id number] of Pacemaker and AICD (2008) Social History Social History Type Response Substance Abuse Use: None. Alcohol Past, Type Beer. Frequency: 1-2 times per year. Last use: in the past. Previous treatment: None. Alcohol use interferes with work or home: No. Drinks more than intended: No. Others hurt by drinking: No. Ready to change: No. Household alcohol concerns: No. Smoking Status Never smoker; Exposure to Tobacco Smoke None; Cigarette Smoking Last 365 Days No; Reg Smoking Cessation Counseling No Assessment and Plan Extracted from: Title: Progress Note Author: Corina Lopez MD Date: 02/03/17 Assessment/Plan Mr. Cortés is a 81 y/o male with a PMH CAD s/p CABG, CHF c EF 35% s/p AICD, Afib, HTN, HLD, Hx of throat ca s/p chemoradiation who sustained bilateral UE abrasions following a lawnmower accident 1.Degloving injury of right hand, Degloving injury of right hand Post-Op Dx: B/L hand abrasions Procedure: I&D of skin and subq to B/L hand, Application of integra 2 x 2 [6] -Cleared by ORS for discharge, PT seen and has cleared the patient for discharge -Needs more pain management, currently unable to assess pain as patient has received a block early this morning, will transition to p.o. pain meds and discharge tomorrow - present at bedside in the evening and she was given trainingregarding the dressings 3.Atrial fibrillation -Currently rate controlled -Amiodarone and digoxin and metoprolol has been on hold due to low BP, 500 cc bolus givenecho shows EF of 35-40% 4.CAD, s/p CABG in 1992, AICD/PPM in 2008 -at home he is on metoprolol, Lipitor, Lasix, Aldactone, statin: BP meds on hold due to low BP 5.Hypertension -Currently on the low normal side, will monitor. BP meds on hold at this time 6.Hypothyroidism -Continue levothyroxine home medication 7.GERD - Gastro-esophageal reflux disease -On PPI, continue same 8.Acute pain due to injury -Currently onblock and multimodal pain regimen 9.History of laryngeal cancer Completed chemoradiation in 2003, not active at this time 10.Osteopenia -On vitamin D supplementation 11.Compression fracture of L2 Chronic, no intervention at this time 12.Anemia -Normocytic anemia, no indication for transfusion at this time 13. Pulmonary Hypertension Sildenafil as BP allows Orders: AMIODarone, 100 mg, 1 tab, Route: PO, Drug form: TAB, Daily, Dosing Weight 68.182, kg, Start date: 02/04/17 9:00:00 CDT, Duration: 30 day, Stop date: 03/05 9:00:00 CDT MD to Nurse Order, Misc Prophylaxis Warfarinon hold, will resume upon discharge Disposition Possible DC tomorrow to home Extracted from: Title: History and Physical Author: Susu Keith MD Date: 02/02/17 Assessment/Plan 1.Degloving injury of right hand Surgery in the morning ECHO before clearance 2.Atrial fibrillation Rate controlled now Amiodarone, Digoxin and metoprolol AICD/PPM interogation ordered EKG is paced ECHO ordered (noneon file here) 3.CAD, s/p CABG in 1992, AICD/PPM in 2008 Metoprolol, lipitor, lasix, aldactone, statin 4.Hypertension BP relatively low now Begin IVF 5.Hypothyroidism Levoxyl 6.GERD - Gastro-esophageal reflux disease PPI 7.Acute pain due to injury Itmann as needed 8.History of laryngeal cancer Chemoradiation completed in 2003 9.Osteopenia Vitamin D 10.Compression fracture of L2 Chronic Pulmonary Hypertension Sildenafil as BP allows Prophylaxis INR therapeutic today Lovenox tomorrow Disposition Pending surgery and clearance [facility] Hospitalist service is primary. Page [phone] with concerns. Extracted from: Title: ORS HAND TRAUMA INITIAL Author: Diana Adams Date: 02/01 CONSULT H&P ORS Hand Trauma Consult History and Physical Reason for Consult: B hand degloving injuries Source of Consult: ER Date of Service: 02/01/17 Consulting Physician: [facility] Attending: Christopher CC: B hand pain HPI: The pt is a 81 y/o M s/p fall down hill and rollover by lawnmower sustaining B hand degloving injuries at approximately 7pm. Reports B pain in dorsum of hands worse with ROM and palpation and impro dana with rest. Denies other trauma/injury, pain or loss of ROM in other extremities. Denies radiation, N/T, or other paresthesias. TRUPTI: 230pm. 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 HEENT: Denies vision change, sore throat, ulcers in mouth, epistaxis CV: Denies CP, Palpitations Resp: Denies SOB, wheezing, cough GI: Denies Abd pain, N/V/D/Constipation. Denies incontinence. : Denies urinary retention, urgency, burning, discharge. Back/Spine: Denies pain. Neuro: Denies N/T, other paresthesias in extremities. Endocrine: Denies recent weight changes, heat/cold insensitivity. Psych: Denies depression, anxiety, labile mood, suicidal/homicidal ideation. Musculoskeletal: Denies all but HPI. All other systems negative except HPI. Social History: Tobacco: Denies EtOH: Occasional Illicit drugs: none RHD. Lives with . Family History: ID, HTN, DM, CA (types unknown) Vitals: Systolic Blood Pressure : 145 mmHg (HI) Diastolic Blood Pressure : 61 mmHg Peripheral Pulse Rate : 85 bpm Respiratory Rate : 18 BRMIN SpO2 percent : 90 % (LOW) ED Temperature Taken : Yes Temperature Oral : 97.8 DegF Exam: Gen: A&O x 3. in NAD. RUE: Inspection: + Degloving to dorsum of hand with exposed tendons. + Gross contamination with dirt. Neg. pulsatile bleeding. Neg. crepitis, laxity at joints. Sensation: sensation intact to light touch m/u/r nerves Motor: intact AIN/PIN/Ulnar in hand; 5/5 Wrist flex/ext; Elbow flex/ext; Shoulder ABd,Flex; chronic limited elevation and ABduction of shoulder FDS/FDP and extensors intact all digits. Vascular: radial pulse palpated, BCR all fingers <2 sec. LUE: Inspection: + Degloving to dorsum of hand with exposed tendon. + Skin tears at elbow/forearm. + Gross contamination with dirt. Neg. crepitis, laxity. Sensation: sensation intact to light touch m/r/u n Motor: intact AIN/PIN/Ulnar in hand; 5/5 Wrist flex/ext; Elbow flex/ext; Shoulder ABd,Flex FDS/FDP and extensors intact all digits. Vascular: radial pulse palpated, BCR all fingers <2 sec. Imaging: R hand x-rays: Soft tissue swelling at the right hand, and left wrist, but no other acute abnormality. L hand x-rays: Soft tissue swelling at the right hand, and left wrist, but no other acute abnormality. A/P: 81 y/o M c B hand degloving injuries, R > L s/p crush by lawnmower/fall down hill - Weight bearing status: NWB BUE - Antibiotics: Ancef q8hrs, Gentamycin - Pain control - Dressings: keep c/d/i - NPO - Pre-op labs, EKG - Marked, consented - Dispo: Admit to Hospitalist, plan for OR in AM with Dr. White for I&D, local flap, skin vs. allograft B hands; will continue to follow while in-house
[2018-05-24] MEDS ORDERED: SILVER NITRATE 1 APPL TOP ONE (16:11)
--- NOTE | 2018-05-24 16:26 | EDPHYS ---
Physician Documentation [facility] Name: Macho Matthews Age: 82 yrs Sex: Male : 1935 Arrival Date: 05/24/2018 Time: 15:24 Bed 25 Private MD: out of town, doctor ED Physician Kieran Nair HPI: 05/24 16:20 This 82 yrs old Male presents to ER via Ambulatory with complaints of Skin gs Tear(s). 16:20 The laceration(s) is(are) located on the dorsal aspect of right forearm. Onset: The gs symptoms/episode began/occurred 4 day(s) ago. Associated signs and symptoms: Pertinent positives: mild to mod bleeding, Pertinent negatives: heavy bleeding. The patient has experienced similar episodes in the past, a few times. Historical: - Allergies: 16:01 TETRACYCLINES; aj 16:01 Morphine; aj - Home Meds: 16:01 Coumadin 2.5 mg 5 days per week [Active]; digoxin 125 mcg Oral tab 1 tab once daily aj [Active]; Lipitor 40 mg Oral tab 1 tab once daily [Active]; finasteride 5 mg oral tab 1 tab once daily [Active]; Entresto 24-26 mg oral tab [Active]; levothyroxine 100 mcg tab [Active]; - PMHx: 16:01 CHF; Hypothyroidism; Hyperlipidemia; aj - PSHx: 16:01 Hernia repair; defibrillator/pacemaker; CABG; bilateral knee replacements; aj - Immunization history:: Adult Immunizations up to date. - Social history:: Smoking status: Patient/guardian denies using tobacco. - Ebola Screening: : Patient negative for fever greater than or equal to 101.5 degrees Fahrenheit, and additional compatible Ebola Virus Disease symptoms Patient denies exposure to infectious person Patient denies travel to an Ebola-affected area in the 21 days before illness onset No symptoms or risks identified at this time. ROS: 16:20 All other systems are negative. gs Exam: 16:20 Constitutional: The patient appears alert, awake. gs 16:20 Musculoskeletal/extremity: ROM: intact in all extremities, Circulation is intact in all extremities. Sensation intact. 16:20 Skin: injury, avulsion(s), A moderate sized 6 cm(s), 2 mod sized skin tears active bleeding from edges good result with silver nitrate application tolerated well. Vital Signs: 16:01 BP 113 / 73; Pulse 85; Resp 16; Temp 96.9; Pulse Ox 98% on R/A; Weight 71.21 kg; Height aj 5 ft. 10 in. (177.80 cm); 16:01 Body Mass Index 22.53 (71.21 kg, 177.80 cm) MDM: 16:14 Patient medically screened. 16:20 Data reviewed: vital signs, nurses notes. Administered Medications: No medications were administered Disposition: 05/24/18 16:25 Discharged to Home. Impression: Unspecified open wound of right forearm. - Condition is Stable. - Discharge Instructions: Skin Tear Care. - Medication Reconciliation Form, Thank You Letter, Antibiotic Education, Prescription Opioid Use form. - Follow up: Private Physician; When: 2 - 3 days; Reason: Re-evaluation by your physician. Signatures: Dasha Alicea RN RN aj Kieran Nair MD MD Claudia Landry RN RN kr2 Corrections: (The following items were deleted from the chart) 16:30 16:25 05/24/2018 16:25 Discharged to Home. Impression: Unspecified open wound of right kr2 forearm. Condition is Stable. Forms are Medication Reconciliation Form, Thank You Letter, Antibiotic Education, Prescription Opioid Use. Follow up: Private Physician; When: 2 - 3 days; Reason: Re-evaluation by your physician.
--- NOTE | 2018-05-24 16:26 | ER ---
Nurse's Notes [facility] Name: Macho Matthews Age: 82 yrs Sex: Male : 1935 Arrival Date: 05/24/2018 Time: 15:24 Bed 25 Private MD: out of town, doctor Diagnosis: Unspecified open wound of right forearm Presentation: 05/24 15:57 Presenting complaint: Patient states: Skin tears to right forearm that happened while aj moving furniture. Reports wound continues to bleed. Transition of care: patient was not received from another setting of care. Onset of symptoms was May 21, 2018. Risk Assessment: Do you want to hurt yourself or someone else? Patient reports no desire to harm self or others. Initial Sepsis Screen: Does the patient meet any 2 criteria? No. Patient's initial sepsis screen is negative. Does the patient have a suspected source of infection? No. Patient's initial sepsis screen is negative. Care prior to arrival: None. 15:57 Method Of Arrival: Ambulatory 15:57 Acuity: HAROLDO 5 Triage Assessment: 16:01 General: Appears in no apparent distress. comfortable, Behavior is calm, cooperative, aj appropriate for age. Pain: Denies pain. Neuro: Level of Consciousness is awake, alert, obeys commands, Oriented to person, place, time, situation, Appropriate for age. Respiratory: Airway is patent Respiratory effort is even, unlabored, Respiratory pattern is regular, symmetrical. Derm: Skin is intact, is healthy with good turgor, Skin is pink, warm \T\ dry. normal. Injury Description: Skin tear x 2 to right forearm. Historical: - Allergies: 16:01 TETRACYCLINES; aj 16:01 Morphine; aj - Home Meds: 16:01 Coumadin 2.5 mg 5 days per week [Active]; digoxin 125 mcg Oral tab 1 tab once daily aj [Active]; Lipitor 40 mg Oral tab 1 tab once daily [Active]; finasteride 5 mg oral tab 1 tab once daily [Active]; Entresto 24-26 mg oral tab [Active]; levothyroxine 100 mcg tab [Active]; - PMHx: 16:01 CHF; Hypothyroidism; Hyperlipidemia; aj - PSHx: 16:01 Hernia repair; defibrillator/pacemaker; CABG; bilateral knee replacements; aj - Immunization history:: Adult Immunizations up to date. - Social history:: Smoking status: Patient/guardian denies using tobacco. - Ebola Screening: : Patient negative for fever greater than or equal to 101.5 degrees Fahrenheit, and additional compatible Ebola Virus Disease symptoms Patient denies exposure to infectious person Patient denies travel to an Ebola-affected area in the 21 days before illness onset No symptoms or risks identified at this time. Screenin:13 Abuse screen: Denies threats or abuse. Denies injuries from another. Nutritional kr2 screening: No deficits noted. Tuberculosis screening: No symptoms or risk factors identified. Fall Risk None identified. Assessment: 16:10 General: Appears in no apparent distress. comfortable, well groomed, well developed, kr2 well nourished, Behavior is calm, cooperative, appropriate for age. Pain: Complains of pain in right arm Pain does not radiate. Pain currently is 0 out of 10 on a pain scale. at worst was 5 out of 10 on a pain scale. Quality of pain is described as tender, Is continuous, Alleviated by rest, Aggravated by touch. Neuro: Level of Consciousness is awake, alert, obeys commands, Oriented to person, place, time, situation, Appropriate for age. Cardiovascular: Capillary refill < 3 seconds in bilateral fingers Patient's skin is warm and dry. Respiratory: Airway is patent Respiratory effort is even, unlabored, Respiratory pattern is regular, symmetrical. Derm: Skin is fragile, Skin is pink, warm \T\ dry. Injury Description: Skin tears to right forearm. One oozing blood. Wounds are clean. 16:29 Reassessment: Patient appears in no apparent distress at this time. Skin tears covered kr2 with non-adherent pad, wrapped with gauze and secured with tape as instructed by provider. Tolerated well. Vital Signs: 16:01 BP 113 / 73; Pulse 85; Resp 16; Temp 96.9; Pulse Ox 98% on R/A; Weight 71.21 kg; Height aj 5 ft. 10 in. (177.80 cm); 16:01 Body Mass Index 22.53 (71.21 kg, 177.80 cm) aj ED Course: 15:24 Patient arrived in ED. mr 15:25 out of town, doctor is Private Physician. mr 15:58 Triage completed. aj 16:01 Arm band placed on left wrist. Patient placed in an exam room. aj 16:05 Kieran Nair MD is Attending Physician. larry 16:10 Claudia Landry, RN is Primary Nurse. kr2 16:13 Patient has correct armband on for positive identification. Bed in low position. Call kr2 light in reach. Side rails up X 1. Door closed. Head of bed elevated. 16:19 No provider procedures requiring assistance completed. Patient did not have IV access kr2 during this emergency room visit. Administered Medications: No medications were administered Outcome: 16:19 Condition: good kr2 16:19 Discharge instructions given to patient, family, Instructed on discharge instructions, follow up and referral plans. wound care, Demonstrated understanding of instructions, follow-up care, wound care. 16:25 Discharge ordered by . 16:30 Discharged to home ambulatory, with family. kr2 16:30 Patient left the ED. kr2 Signatures: Dasha Alicea, RN RN Spring Cobb mr Kieran Nair MD MD Claudia Landry, RN RN kr2
[2018-05-24 16:35] VITALS: BP 113/73; TEMP 96.9; O2SAT 98
== END 2018-05-24 16:30 | disposition home or self-care (01) ==
LOC: ER 15:21
DX: S51.801A Unspecified open wound of right forearm, initial encounter (principal); E78.5 Hyperlipidemia, unspecified; E03.9 Hypothyroidism, unspecified; I50.9 Heart failure, unspecified; Z79.01 Long term (current) use of anticoagulants; Z88.1 Allergy status to other antibiotic agents; Z88.5 Allergy status to narcotic agent; Z95.1 Presence of aortocoronary bypass graft
CPT/HCPCS: 99282

== ENCOUNTER 2019-12-27 11:33 | Emergency (ER) | payer OTHER ==
--- OUTSIDE RECORDS SUMMARY | 2019-12-27 11:35 | XMS REPORT | Summary of Care ---
:1935 Author Name ASHWINI LIZARRAGA M.D. 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, 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) Status: Active Hyperlipidemia (272.4, E78.5) Status: Active Acute on chronic combined systolic and diastolic congestive heart failure ( 428.43, I50.43) Status: Active Abnormal findings on diagnostic imaging of abdomen (793.6, R93.5) Status: Active Abdominal pain (789.00, R10.9) Status: Active Deep vein thrombosis (DVT) (453.40, I82.409) Status: Active CAD (coronary artery disease) (414.00, I25.10) Status: Active Congestive heart failure (428.0, I50.9) Status: Active Status post full thickness skin graft (V42.3, Z94.5) Status: Active Complicated laceration of hand, left, subsequent encounter (V58.89, S61.412D) Status: Active Complicated laceration of hand, right, subsequent encounter (V58.89, S61.411D) Status: Active Malignant neoplasm of larynx (161.9, C32.9) Status: Active Ventricular fibrillation (427.41, I49.01) Status: Active Hypothyroidism (244.9, E03.9) Status: Active Ischemic cardiomyopathy (414.8, I25.5) Status: Active CABG Status: Active Atrial fibrillation (427.31, I48.91) Status: Active History of Cardioverter-defibrillator Pulse Generator Insertion With Leads Status: Active Essential (primary) hypertension (401.9, I10) Status: Active Coronary arteriosclerosis (414.00, I25.10) Status: Active Abnormal weight loss (783.21, R63.4) Status: Active Dysphagia, pharyngeal phase (787.23, R13.13) Status: Active 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 Quantity: 90 Refills: 0 LORA CEVALLOS M.D. Start : 17-Aug-2014 Active Digoxin 125 MCG Oral Tablet Refills: 0 Active Coumadin 5 MG Oral Tablet Refills: 0 Active Coumadin 2.5 MG Oral Tablet Refills: 0 Active Entresto 24-26 MG Oral Tablet Refills: 0 Active Levothyroxine Sodium 88 MCG Oral Tablet Refills: 0 Active Metoprolol Succinate ER 25 MG Oral Tablet Extended Release 24 Hour Refills: 0 Active Allergies and Adverse Reactions Name Dates Details Morphine Derivatives (Allergy) Status: Active Tetracycline HCl CAPS (Allergy) Status: Active Past Medical History Name Dates Details Atrial fibrillation (427.31, I48.91) Status: Active History of cardiac arrest (V12.53, Z86.74) Status: Active Ischemic cardiomyopathy (414.8, I25.5) Status: Active Malignant neoplasm of larynx (161.9, C32.9) Status: Active Ventricular fibrillation (427.41, I49.01) Status: Active History of essential hypertension (V12.59, Z86.79) Status: Resolved History of hepatitis (V12.09, Z86.19) Status: Resolved History of Peptic Ulcer (V12.71) Status: Resolved 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 Procedures Procedure Dates Details CABG History of Cardioverter-defibrillator Pulse Generator Completed 30-Aug-2009 Insertion With Leads History of Knee Surgery Completed History of Hernia Repair Completed History of Pacemaker Placement Completed Immunization Name Dates Details Influenza on: 11-Aug-2013 Lot #: [id number] Family History Name Dates Details Family history of Heart Disease (V17.49) Comments: Family History Status: Active Family history of Cancer Comments: Family History Status: Active Social History Name Dates Details - Status: Name Dates Details Never smoker Vital Signs Date Test Result Details [id number]-000894:[id number] BP Systolic 114 mm[Hg] Status: BP Diastolic 78 mm[Hg] Status: Height 70 in Status: Weight 154 lb Status: Body Mass Index Calculated 22.1 kg/m2 Status: Body Surface Area Calculated 1.87 m2 Status: Heart Rate 81 /min Status: Results Date Description Value Details 15-Feb-20198:42 GI Esophagus barium swallow 51902 Esophagus barium swallow SEE NOTES Comments: Study: Barium swallow DX Clinical Indication: - R13.10 Dysphagia, unspecified,J39.2 Other diseasesof pharynx, K22.4 Dyskinesia of esophagus, K22.0 Achalasia of cardiaComparison: NoneFluorosco py time: 1.23 minutesFINDINGS: The barium swallow examination shows indentation along the posteriorpharynx at the level of the lower cervical spine , suspicious for acricopharyngeal bar. There are no ero sions, ulcerations or masses. There isnormal initiation of the swallowing. Aspiration of barium was noted followed byprotective cough. Large amount of residual contrast was noted in the piriformsinuses. There is normal esophageal contour and morphology without erosions, ulcerations, strictures or masses. Scattered tertiary esophageal contractionsare seen. There is no hiatal hernia. There was no gastroes ophageal refluxelicited during the exam.IMPRESSION:1. Aspiration of contrast noted during the examination, followed by protectivecough. Further evaluation with modified barium swallow study performed wi [facility] language pathology may be helpful.2. Incidentally noted cricopharyngeal bar.3. Scattered tertiary esophageal contractions.SL: [id number]-- Read by: David Bravo MDDictated Date/time: 0 02/15/19 09:14Electronically Signed by: David Bravo MD 02/15/1909:18FINAL REPORT Plan of Care Name Dates Details Planned Observations Planned Goals not documented Interventions Provided PlanReviewed options for chemodenervation vs open myotomyHe prefers to attempt chemodenervation Instructions Name Dates Details Instructions not documented Encounters Appointment; AJ YOU M.D. On: 18-Mar-2017 13:00 Encounter Diagnosis: Problem not documented Appointment; ASHWINI LIZARRAGA M.D. On: 07-Feb-2019 11:00 Encounter Diagnosis: Problem not documented Appointment; ASHWINI LIZARRAGA M.D. On: 07-Mar-2019 14:00 Encounter Diagnosis: Problem not documented
--- OUTSIDE RECORDS SUMMARY | 2019-12-27 11:35 | XMS REPORT ---
:1935 [facility] Address [address] [place] [address] Dr. Carrero [address] [place] [id number] Care Team Providers Name Role Phone Unavailable Unavailable Unavailable Problems This patient has no known problems. Allergies, Adverse Reactions, Alerts This patient has no known allergies or adverse reactions. Medications This patient has no known medications. Encounters Start End Encounter Admission Attending Care Care Encounter Date/Time Date/Time Type Type Clinicians Facility Department ID 2019-03-16 2019-03-16 Outpatient [facility] [id number] 13:48:00 13:48:00
[2019-12-27] MEDS ORDERED: MECLIZINE HCL 12.5 MG TAB ONE (13:04)
--- NOTE | 2019-12-27 13:32 | RAD REPORT ---
EXAM DESCRIPTION: CT - [id number] - 12/27/2019 1:20 pm CLINICAL HISTORY: Syncope, fall, head and neck injury COMPARISON: CT head and cervical December 2014 TECHNIQUE: Axial 5 mm thick images of the head were obtained. Axial 2 mm thick images of the cervic al spine were obtained with sagittal and coronal reconstruction images generated and reviewed. All CT scans are performed using dose optimization technique as appropriate and may include automated exposure control or mA/KV adjustment according to patient size. FINDINGS: No intracranial hemorrhage, mass, edema or acute intracranial finding. No suspicion for ac wendi infarction. No extra-axial fluid collections. Mastoid air cells and paranasal sinuses are clear. No globe or orbit abnormality seen. Moderate severity atrophy and chronic ischemic changes are presen t. Ventricles are in proportion to volume loss. Intracranial findings are similar to comparison. Cervical body height and alignment are normal. C5-6 and C6-7 disc space narrowing present with endpla te spurring. C4-5, C5-6 and C6-7 bony foraminal encroachment changes are present. Advanced degenerati ve change present at the dens anterior arch C1 level. No fracture or acute bony abnormality. Central canal findings are inherently limited. No paraspinal mass or hematoma. IMPRESSION: Atrophy and chronic ischemic changes are present similar to 2015. No acute finding. Prominent but stable cervical spine degenerative change. No acute finding. Negative CT cervical spine examination for acute or significant finding.
--- NOTE | 2019-12-27 15:08 | EDPHYS ---
Physician Documentation [facility] Name: Macho Matthews Age: 84 yrs Sex: Male : 1935 Arrival Date: 12/27/2019 Time: 11:29 Bed 19 Private MD: ED Physician Cabrera Marshall HPI: 12/27 15:42 This 84 yrs old Male presents to ER via EMS with complaints of Vertigo. snw 15:42 The patient presents with sense of spinning, vertigo. Onset: The symptoms/episode snw began/occurred suddenly, just prior to arrival. Context: occurred while the patient was turning to close a door . just prior to the episode the patient experienced no apparent symptoms. Modifying factors: The symptoms are alleviated by holding head still, the symptoms are aggravated by movement of head. Associated signs and symptoms: Pertinent positives: nausea. Severity of symptoms: At their worst the symptoms were moderate in the emergency department the symptoms are unchanged. Patient's baseline: Neuro: alert and fully oriented, Motor: no deficits, Ambulation: walks without assistance, Speech: normal, The patient has a previous history of vertigo. The patient has experienced a previous episode, many years ago, and the symptoms today are exactly the same. It is unknown whether or not the patient has recently seen a physician. Historical: - Allergies: 11:34 TETRACYCLINES; rb1 11:34 Morphine; rb1 - Home Meds: 11:20 Coumadin 2.5 mg 5 days per week [Active]; digoxin 125 mcg Oral tab 1 tab once daily rb1 [Active]; Lipitor 40 mg Oral tab 1 tab once daily [Active]; Entresto 24-26 mg Oral tab [Active]; levothyroxine 100 mcg tab 1 tab evrey other day [Active]; - PMHx: 11:34 vertigo; A-fib; Hypertension; Pacemaker; rb1 - PSHx: 11:34 Hernia repair; defibrillator/pacemaker; CABG; bilateral knee replacements; pacemaker; rb1 - Immunization history:: Adult Immunizations up to date. - Coronavirus screen:: The patient has NOT traveled to [place] in the past 14 days. The patient has NOT had contact with known/suspected case of Coronavirus?. - Social history:: Smoking status: Patient/guardian denies using. - Ebola Screening: : Patient negative for fever greater than or equal to 101.5 degrees Fahrenheit, and additional compatible Ebola Virus Disease symptoms. ROS: 15:37 Constitutional: Negative for fever, chills, and weight loss, Eyes: Negative for injury, snw pain, redness, and discharge, ENT: Negative for injury, pain, and discharge, Neck: Negative for injury, pain, and swelling, Cardiovascular: Negative for chest pain, palpitations, and edema, Respiratory: Negative for shortness of breath, cough, wheezing, and pleuritic chest pain, Abdomen/GI: Negative for abdominal pain, nausea, vomiting, diarrhea, and constipation, Back: Negative for injury and pain, : Negative for injury, bleeding, discharge, and swelling, MS/Extremity: Negative for injury and deformity, Skin: Negative for injury, rash, and discoloration, Psych: Negative for depression, anxiety, suicide ideation, homicidal ideation, and hallucinations. 15:37 Neuro: Positive for dizziness, Negative for gait disturbance, headache, hearing loss, loss of consciousness, seizure activity, speech changes, syncope. Exam: 15:37 Constitutional: This is a well developed, well nourished patient who is awake, alert, snw and in no acute distress. Head/Face: Normocephalic, atraumatic. Eyes: Pupils equal round and reactive to light, extra-ocular motions intact. Lids and lashes normal. Conjunctiva and sclera are non-icteric and not injected. Cornea within normal limits. Periorbital areas with no swelling, redness, or edema. ENT: Nares patent. No nasal discharge, no septal abnormalities noted. Tympanic membranes are normal and external auditory canals are clear. Oropharynx with no redness, swelling, or masses, exudates, or evidence of obstruction, uvula midline. Mucous membranes moist. Neck: Trachea midline, no thyromegaly or masses palpated, and no cervical lymphadenopathy. Supple, full range of motion without nuchal rigidity, or vertebral point tenderness. No Meningismus. Chest/axilla: Normal chest wall appearance and motion. Nontender with no deformity. No lesions are appreciated. Cardiovascular: Regular rate and rhythm with a normal S1 and S2. No gallop or rubs. + systolic murmur. Normal PMI, no JVD. No pulse deficits. Respiratory: Lungs have equal breath sounds bilaterally, clear to auscultation and percussion. No rales, rhonchi or wheezes noted. No increased work of breathing, no retractions or nasal flaring. Abdomen/GI: Soft, non-tender, with normal bowel sounds. No distension or tympany. No guarding or rebound. No evidence of tenderness throughout. Back: No spinal tenderness. No costovertebral tenderness. Full range of motion. Skin: Warm, dry with normal turgor. Normal color with no rashes, no lesions, and no evidence of cellulitis. MS/ Extremity: Pulses equal, no cyanosis. Neurovascular intact. Full, normal range of motion. Neuro: Awake and alert, GCS 15, oriented to person, place, time, and situation. Cranial nerves II-XII grossly intact. Motor strength 5/5 in all extremities. Sensory grossly intact. Cerebellar exam normal. Normal gait. Psych: Awake, alert, with orientation to person, place and time. Behavior, mood, and affect are within normal limits. Vital Signs: 11:20 BP 123 / 75; Pulse 81; Resp 17; Temp 97.4(TE); Pulse Ox 97% on R/A; Weight 72.57 kg rb1 (R); Height 5 ft. 10 in. (177.80 cm) (R); Pain 8/10; 12:20 BP 117 / 67; Pulse 80; Resp 20; Pulse Ox 95% on R/A; rb1 13:20 BP 120 / 72; Pulse 80; Resp 19; Pulse Ox 96% on R/A; Pain 7/10; rb1 14:20 BP 124 / 73; Pulse 80; Resp 25 A; Pulse Ox 97% on R/A; rb1 15:12 BP 130 / 79; Pulse 80; Resp 23; Pulse Ox 98% on R/A; rb1 11:20 Body Mass Index 22.96 (72.57 kg, 177.80 cm) rb1 MDM: 13:13 Patient medically screened. snw 15:39 Data reviewed: vital signs, nurses notes. Data interpreted: Pulse oximetry: on room air snw is 98 %. Interpretation: normal. Counseling: I had a detailed discussion with the patient and/or guardian regarding: the historical points, exam findings, and any diagnostic results supporting the discharge/admit diagnosis, radiology results, the need for outpatient follow up, to return to the emergency department if symptoms worsen or persist or if there are any questions or concerns that arise at home. Special discussion: Based on the history and exam findings, there is no indication for further emergent testing or inpatient evaluation. I discussed with the patient/guardian the need to see the primary care provider for further evaluation of the symptoms. 12/27 12:56 Order name: CT Head C Spine snw 12/27 13:34 Order name: CT; Complete Time: 13:37 EDMS Administered Medications: 13:02 Drug: Antivert 50 mg Route: PO; rb1 13:32 Follow up: Response: No adverse reaction; Marked relief of symptoms rb1 Disposition: 17:33 Co-signature as Attending Physician, Cabrera Marshall MD I agree with the assessment and kdr plan of care. Disposition: 12/27/19 15:06 Discharged to Home. Impression: Other peripheral vertigo, unspecified ear. - Condition is Stable. - Discharge Instructions: Fall Prevention in the Home, Vertigo. - Prescriptions for Antivert 25 mg Oral Tablet - take 1 tablet by ORAL route every 8 hours As needed; 20 tablet. - Medication Reconciliation Form, Thank You Letter, Antibiotic Education, Prescription Opioid Use form. - Follow up: Private Physician; When: 1 - 2 days; Reason: Recheck today's complaints, Continuance of care, Re-evaluation by your physician. Follow up: Emergency Department; When: As needed; Reason: Worsening of condition. Signatures: Dispatcher [employer] EDAK Cabrera Marshall MD MD [facility] Yu Millard, PRODUCTION BROACHING MACHINE OPERATOR-C PRODUCTION BROACHING MACHINE OPERATOR-Csnw Alicia Milner, RN RN rb1 Corrections: (The following items were deleted from the chart) 15:46 15:06 12/27/2019 15:06 Discharged to Home. Impression: Other peripheral vertigo, rb1 unspecified ear. Condition is Stable. Forms are Medication Reconciliation Form, Thank You Letter, Antibiotic Education, Prescription Opioid Use. Follow up: Private Physician; When: 1 - 2 days; Reason: Recheck today's complaints, Continuance of care, Re-evaluation by your physician. Follow up: Emergency Department; When: As needed; Reason: Worsening of condition. snw
--- NOTE | 2019-12-27 15:08 | ER ---
Nurse's Notes [facility] Name: Macho Matthews Age: 84 yrs Sex: Male : 1935 Arrival Date: 12/27/2019 Time: 11:29 Bed 19 Private MD: Diagnosis: Other peripheral vertigo, unspecified ear Presentation: 12/27 11:20 Presenting complaint: EMS states: Pt. was walking to his [place] when he got an rb1 episode of vertigo. Transition of care: patient was not received from another setting of care. Onset of symptoms was December 27, 2019. Risk Assessment: Do you want to hurt yourself or someone else? Patient reports no desire to harm self or others. Initial Sepsis Screen: Does the patient meet any 2 criteria? No. Patient's initial sepsis screen is negative. Does the patient have a suspected source of infection? No. Patient's initial sepsis screen is negative. Care prior to arrival: None. 11:20 Method Of Arrival: EMS: [place] [id number] 11:20 Acuity: HAROLDO 3 rb1 Triage Assessment: 11:20 General: Appears in no apparent distress. comfortable, Behavior is calm, cooperative. rb1 Pain: Complains of pain in neck Pain currently is 8 out of 10 on a pain scale. Neuro: Level of Consciousness is awake, alert, obeys commands, Oriented to person, place, time, situation. Cardiovascular: Capillary refill < 3 seconds is brisk in bilateral fingers. Respiratory: Airway is patent Respiratory effort is even, unlabored, Respiratory pattern is regular, symmetrical. GI: Reports nausea. : No signs and/or symptoms were reported regarding the genitourinary system. Derm: Skin is pink, warm \T\ dry. Musculoskeletal: Range of motion: intact in all extremities. Historical: - Allergies: 11:34 TETRACYCLINES; rb1 11:34 Morphine; rb1 - Home Meds: 11:20 Coumadin 2.5 mg 5 days per week [Active]; digoxin 125 mcg Oral tab 1 tab once daily rb1 [Active]; Lipitor 40 mg Oral tab 1 tab once daily [Active]; Entresto 24-26 mg Oral tab [Active]; levothyroxine 100 mcg tab 1 tab evrey other day [Active]; - PMHx: 11:34 vertigo; A-fib; Hypertension; Pacemaker; rb1 - PSHx: 11:34 Hernia repair; defibrillator/pacemaker; CABG; bilateral knee replacements; pacemaker; rb1 - Immunization history:: Adult Immunizations up to date. - Coronavirus screen:: The patient has NOT traveled to [place] in the past 14 days. The patient has NOT had contact with known/suspected case of Coronavirus?. - Social history:: Smoking status: Patient/guardian denies using. - Ebola Screening: : Patient negative for fever greater than or equal to 101.5 degrees Fahrenheit, and additional compatible Ebola Virus Disease symptoms. Screenin:20 Abuse screen: Denies threats or abuse. Nutritional screening: No deficits noted. rb1 Tuberculosis screening: No symptoms or risk factors identified. Fall Risk None identified. Assessment: 11:20 General: See triage assessment. rb1 12:20 Reassessment: Patient appears in no apparent distress at this time. No changes from rb1 previously documented assessment. 13:20 Reassessment: Patient appears in no apparent distress at this time. Patient and/or rb1 family updated on plan of care and expected duration. Pain level reassessed. Patient is alert, oriented x 3, equal unlabored respirations, skin warm/dry/pink. 14:20 Reassessment: Patient appears in no apparent distress at this time. No changes from rb1 previously documented assessment. Family at the bedside. 15:09 Reassessment: Patient appears in no apparent distress at this time. Patient and/or rb1 family updated on plan of care and expected duration. Pain level reassessed. Patient is alert, oriented x 3, equal unlabored respirations, skin warm/dry/pink. Vital Signs: 11:20 BP 123 / 75; Pulse 81; Resp 17; Temp 97.4(TE); Pulse Ox 97% on R/A; Weight 72.57 kg rb1 (R); Height 5 ft. 10 in. (177.80 cm) (R); Pain 8/10; 12:20 BP 117 / 67; Pulse 80; Resp 20; Pulse Ox 95% on R/A; rb1 13:20 BP 120 / 72; Pulse 80; Resp 19; Pulse Ox 96% on R/A; Pain 7/10; rb1 14:20 BP 124 / 73; Pulse 80; Resp 25 A; Pulse Ox 97% on R/A; rb1 15:12 BP 130 / 79; Pulse 80; Resp 23; Pulse Ox 98% on R/A; rb1 11:20 Body Mass Index 22.96 (72.57 kg, 177.80 cm) rb1 ED Course: 11:20 Arm band placed on right wrist. rb1 11:20 Patient has correct armband on for positive identification. Bed in low position. Call rb1 light in reach. Side rails up X 1. Pulse ox on. NIBP on. 11:20 Maintain EMS IV. Dressing intact. Good blood return noted. Site clean \T\ dry. Gauge \T\ rb 1 site: 18 g right AC. 11:29 Patient arrived in ED. rb1 11:31 Triage completed. rb1 11:36 Alicia Milner, RN is Primary Nurse. rb1 12:46 Yu Millard FNP-C is PSYCHIATRICP. snw 12:46 Cabrera Marshall MD is Attending Physician. snw 15:30 No provider procedures requiring assistance completed. IV discontinued, intact, rb1 bleeding controlled, No redness/swelling at site. Pressure dressing applied. Administered Medications: 13:02 Drug: Antivert 50 mg Route: PO; rb1 13:32 Follow up: Response: No adverse reaction; Marked relief of symptoms rb1 Outcome: 15:06 Discharge ordered by . snw 15:30 Patient left the ED. rb1 15:30 Discharged to home via wheelchair, with family. rb1 15:30 Condition: stable 15:30 Discharge instructions given to patient, Instructed on discharge instructions, follow up and referral plans. medication usage, Demonstrated understanding of instructions, follow-up care, medications, Prescriptions given X 1. Signatures: Yu Millard FNP-C ENVIRONMENTAL COMMUNICATIONS SPECIALIST-Csnw Alicia Milner, RN RN rb1 Corrections: (The following items were deleted from the chart) 15:49 15:46 Patient left the ED. rb1 rb1
[2019-12-28 21:08] VITALS: BP 130/79; O2SAT 98
== END 2019-12-27 15:46 | disposition home or self-care (01) ==
LOC: ER 11:33
DX: H81.399 Other peripheral vertigo, unspecified ear (principal); I10 Essential (primary) hypertension; I48.91 Unspecified atrial fibrillation; Z95.0 Presence of cardiac pacemaker; Z95.1 Presence of aortocoronary bypass graft; Z79.01 Long term (current) use of anticoagulants; Z88.1 Allergy status to other antibiotic agents; Z88.5 Allergy status to narcotic agent
CPT/HCPCS: 70450; 72125; 99284; J8597

== ENCOUNTER 2020-02-12 19:29 | Emergency (ER) | payer OTHER ==
--- OUTSIDE RECORDS SUMMARY | 2020-02-12 19:32 | XMS REPORT ---
:1935 [facility] [address] [place] [address] Dr. Carrero [address] [place] [id number] Care Team Providers Name Role Phone Unavailable Unavailable Unavailable Problems This patient has no known problems. Allergies, Adverse Reactions, Alerts This patient has no known allergies or adverse reactions. Medications This patient has no known medications. Encounters Start End Encounter Admission Attending Care Care Encounter Date/Time Date/Time Type Type Clinicians Facility Department ID 2019-03-16 2019-03-16 Outpatient [facility] [id number] 13:48:00 13:48:00
--- NOTE | 2020-02-12 20:17 | RAD REPORT ---
EXAM DESCRIPTION: CT - [id number] - 02/12/2020 7:58 pm CLINICAL HISTORY: Trauma, head and neck injury. fall COMPARISON: Head C Spine Mpr Wo Con dated 12/27/2019; [id number] dated 12/20/2014; CT HEAD CS PINE MPR WO CONTRAST dated 12/20/2014; CT HEAD CSPINE MPR WO CONTRAST dated 10/18/2013; Facial Bones W/ Mpr dated 02/12/2020; Thorax Wo Con dated 02/12/2020 TECHNIQUE: Axial 5 mm thick images of the head were obtained. Axial 2 mm thick images of the cervical spine were obtained with sagittal and coronal reconstruction images generated and reviewed. All CT scans are performed using dose optimization technique as appropriate and may include automated exposure control or mA/KV adjustment according to patient size. FINDINGS: CT HEAD WITHOUT CONTRAST: No acute hemorrhage, hydrocephalus or extra-axial collection is identified.Prominent brain atrophy pa ttern is seen. Moderate chronic periventricular and deep white matter microvascular ischemia.No areas of brain edema or midline shift. Mild fluid is seen in the right maxillary antrum.Periorbital soft tissue swelling is seen on the righ t.The calvarium is intact. CT CERVICAL SPINE WITHOUT CONTRAST: No fracture or subluxation.Mild cervical degenerative changes.No prevertebral soft tissues swelling i s identified. IMPRESSION: No acute intracranial or cervical spine findings.
--- NOTE | 2020-02-12 20:19 | RAD REPORT ---
EXAM DESCRIPTION: RAD - Chest Single View - 02/12/2020 8:01 pm CLINICAL HISTORY: fall Chest pain. COMPARISON: CHEST SINGLE VIEW dated 01/22/2015; CHEST SINGLE VIEW dated 12/20/2014; CHEST SINGLE VIEW d ated 10/29/2014; CHEST PA AND LAT 2 VIEW dated 08/09/2014 FINDINGS: Portable technique limits examination quality. Mild pulmonary edema. The heart is enlarged with multilead pacer/defibrillator device. Sternotomy wir es present. IMPRESSION: Mild CHF.
--- NOTE | 2020-02-12 20:19 | RAD REPORT ---
EXAM DESCRIPTION: CT - CTFB CLINICAL HISTORY: FACIAL PAIN Fall, trauma, facial injury with pain COMPARISON: No comparisons TECHNIQUE: Axial 2 mm thick images of the face were obtained with sagittal and coronal reconstructio n images. All CT scans are performed using dose optimization technique as appropriate and may include automated exposure control or mA/KV adjustment according to patient size. FINDINGS: Slight deformity of the nasal bones is seen which probably indicates a mild nasal bone fra cture. Mild adjacent soft tissue swelling is seen. There is significant right periorbital swelling wi thout acute globe finding.The mandible is intact. The globes and orbital contents are grossly unremarkable.Small amount of fluid is seen in the right m axillary sinus. IMPRESSION: Mild nasal bone fracture.
--- NOTE | 2020-02-12 20:21 | RAD REPORT ---
EXAM DESCRIPTION: RAD - Shoulder Right 2 View - 02/12/2020 7:57 pm CLINICAL HISTORY: DEFORMITY Pain and swelling COMPARISON: Shoulder Right 2 View dated 10/18/2013; Thorax Wo Con dated 02/12/2020 FINDINGS: High-riding humeral head is seen likely indicating underlying rotator cuff pathology. No e vidence of acute fracture or dislocation.
--- NOTE | 2020-02-12 20:25 | RAD REPORT ---
EXAM DESCRIPTION: CT - Thorax Wo Con CLINICAL HISTORY: Chest pain FALL COMPARISON: THORAX W CONTRAST dated 08/07/2014 FINDINGS: The lungs are clear. Scarring is present in both medial upper lobes. No pleural effusion. No pneumothorax. Mild cardiomegaly is seen with pacer device present. No axillary, mediastinal or hilar adenopathy. Diffuse osteopenia. No fracture is evident. Sternotomy wires are present. All CT scans are performed using dose optimization technique as appropriate and may include automated exposure control or mA/KV adjustment according to patient size. IMPRESSION: No acute intrathoracic abnormality detected.
[2020-02-12 20:35] LABS: Absolute Lymphocytes (CBC) 1.9 K/uL (0.7-4.9); Basophils % 0.4 % (0-1.3); Hematocrit 42.3 % (39.6-49.0); Lymphocytes % 20.8 % (15.3-44.8); MPV 8.9 fL (7.6-11.3)
[2020-02-12 20:48] LABS: Potassium 4.7 mmol/L (3.5-5.1)
[2020-02-12 21:12] LABS: Protime INR 1.54
--- NOTE | 2020-02-12 21:55 | EDPHYS ---
Physician Documentation [facility] Name: Macho Matthews Age: 84 yrs Sex: Male : 1935 Arrival Date: 02/12/2020 Time: 19:39 Bed 13 Private MD: ED Physician Willis Bear HPI: 02/11 20:50 This 84 yrs old Male presents to ER via Wheelchair with complaints of Fall tw4 Injury. 20:50 Details of fall: The patient fell from an upright position. Onset: The symptoms/episode tw4 began/occurred today. Associated injuries: The patient sustained no obvious injury. Severity of symptoms: At their worst the symptoms were moderate, in the emergency department the symptoms are unchanged. The patient has not experienced similar symptoms in the past. Historical: - Allergies: 19:40 TETRACYCLINES; jb4 19:40 Morphine; jb4 - Home Meds: 19:40 Coumadin 2.5 mg 5 days per week [Active]; digoxin 125 mcg Oral tab 1 tab once daily jb4 [Active]; Entresto 24-26 mg Oral tab [Active]; Lipitor 40 mg Oral tab 1 tab once daily [Active]; levothyroxine 100 mcg tab 1 tab evrey other day [Active]; - PMHx: 19:40 a-fib; Hyperlipidemia; Hypertension; Hypothyroidism; Pacemaker; CHF; Vertigo; jb4 - PSHx: 19:40 defibrillator/pacemaker; bilateral knee replacements; CABG; Hernia repair; pacemaker; jb4 - Immunization history: Last tetanus immunization: < 5 years ago. - Social history:: Smoking status: Patient denies any tobacco usage or history of. ROS: 20:50 Constitutional: Negative for fever, chills, and weight loss, Eyes: Negative for injury, tw4 pain, redness, and discharge, Cardiovascular: Negative for chest pain, palpitations, and edema, Respiratory: Negative for shortness of breath, cough, wheezing, and pleuritic chest pain, Abdomen/GI: Negative for abdominal pain, nausea, vomiting, diarrhea, and constipation, Back: Negative for injury and pain, MS/Extremity: Negative for injury and deformity, Skin: Negative for injury, rash, and discoloration, Neuro: Negative for headache, weakness, numbness, tingling, and seizure. Exam: 20:50 Constitutional: This is a well developed, well nourished patient who is awake, alert, tw4 and in no acute distress. Chest/axilla: Normal chest wall appearance and motion. Nontender with no deformity. No lesions are appreciated. Cardiovascular: Regular rate and rhythm with a normal S1 and S2. No gallops, murmurs, or rubs. Normal PMI, no JVD. No pulse deficits. Respiratory: Lungs have equal breath sounds bilaterally, clear to auscultation and percussion. No rales, rhonchi or wheezes noted. No increased work of breathing, no retractions or nasal flaring. Abdomen/GI: Soft, non-tender, with normal bowel sounds. No distension or tympany. No guarding or rebound. No evidence of tenderness throughout. Back: No spinal tenderness. No costovertebral tenderness. Full range of motion. MS/ Extremity: Pulses equal, no cyanosis. Neurovascular intact. Full, normal range of motion. Neuro: Awake and alert, GCS 15, oriented to person, place, time, and situation. Cranial nerves II-XII grossly intact. Motor strength 5/5 in all extremities. Sensory grossly intact. Cerebellar exam normal. Normal gait. 20:50 Head/face: Noted is contusion, that is deep, of the right eye and right cheek. 02/12 04:45 Head/face: Noted is ecchymosis, that is moderate, of the right eye, hematoma, that is tw4 severe, of the right eye. Eyes: Conjunctiva: subconjunctival hemorrhage(s), seen in the right eye, at 9 o'clock. Vital Signs: 02/11 19:42 BP 169 / 96; Pulse 80; Resp 18; Temp 97.9; Pulse Ox 100% on R/A; mg2 20:31 BP 137 / 77; Pulse 80; Resp 19; Pulse Ox 98% on R/A; jb4 21:30 BP 130 / 76; Pulse 80; Resp 18; Pulse Ox 98% on R/A; jb4 22:15 BP 120 / 87; Pulse 80; Resp 18; Pulse Ox 98% on R/A; jb4 Janiya Coma Score: 19:40 Eye Response: spontaneous(4). Verbal Response: oriented(5). Motor Response: obeys jb4 commands(6). Total: 15. 20:31 Eye Response: spontaneous(4). Verbal Response: oriented(5). Motor Response: obeys jb4 commands(6). Total: 15. 21:30 Eye Response: spontaneous(4). Verbal Response: oriented(5). Motor Response: obeys jb4 commands(6). Total: 15. 22:15 Eye Response: spontaneous(4). Verbal Response: oriented(5). Motor Response: obeys jb4 commands(6). Total: 15. Trauma Score (Adult): 19:40 Eye Response: spontaneous(1); Verbal Response: oriented(1); Motor Response: obeys jb4 commands(2); Systolic BP: > 89 mm Hg(4); Respiratory Rate: 10 to 29 per min(4); [place] Score: 15; Trauma Score: 12 20:31 Eye Response: spontaneous(1); Verbal Response: oriented(1); Motor Response: obeys jb4 commands(2); Systolic BP: > 89 mm Hg(4); Respiratory Rate: 10 to 29 per min(4); [place] Score: 15; Trauma Score: 12 21:30 Eye Response: spontaneous(1); Verbal Response: oriented(1); Motor Response: obeys jb4 commands(2); Systolic BP: > 89 mm Hg(4); Respiratory Rate: 10 to 29 per min(4); [place] Score: 15; Trauma Score: 12 22:15 Eye Response: spontaneous(1); Verbal Response: oriented(1); Motor Response: obeys jb4 commands(2); Systolic BP: > 89 mm Hg(4); Respiratory Rate: 10 to 29 per min(4); Janiya Score: 15; Trauma Score: 12 MDM: 19:46 Patient medically screened. tw4 02/12 04:39 Differential diagnosis: abrasion, closed head injury, contusion, fracture. Data tw4 reviewed: vital signs, nurses notes. Data reviewed: lab test result(s), cardiac enzymes, CBC, hepatic panel, radiologic studies, CT scan. Data interpreted: Pulse oximetry: Interpretation: normal. Counseling: I had a detailed discussion with the patient and/or guardian regarding: the historical points, exam findings, and any diagnostic results supporting the discharge/admit diagnosis. Special discussion: Based on the patient's history, exam and DX evaluation, there is no indication for emergent intervention or inpatient TX. It is understood by the patient/guardian that if the SXs persist or worsen they need to return immediately for re-evaluation. I discussed with the patient/guardian in detail that at this point there is no indication for admission to the hospital. It is understood, however, that if the symptoms persist or worsen the patient needs to return immediately for re-evaluation. 02/11 19:45 Order name: Basic Metabolic Panel; Complete Time: 21:49 02/11 21:49 Interpretation: Normal except: GLUC 107; BUN 23; GFR 68. 02/11 19:45 Order name: CBC with Diff; Complete Time: 20:48 02/11 20:48 Interpretation: Normal except: MCH 29.9; HCT 42.3; PLT 147. 02/11 19:45 Order name: Creatinine for Radiology; Complete Time: 21:49 02/11 21:51 Interpretation: Within normal limits: GFR 68; CRE 1.05. 02/11 19:45 Order name: Type And Screen 02/11 19:45 Order name: PT-INR; Complete Time: 21:49 [facility] 02/11 21:49 Interpretation: Normal except: PT 18.0. 02/11 19:45 Order name: Ptt, Activated; Complete Time: 21:49 02/11 19:45 Order name: CT Head C Spine; Complete Time: 20:43 02/11 19:45 Order name: XRAY Chest (1 view); Complete Time: 21:49 02/11 21:50 Interpretation: No acute disease. 02/11 19:45 Order name: Labs collected and sent; Complete Time: 20:24 02/11 19:45 Order name: CT Facial Bones W/O Con; Complete Time: 20:43 02/11 21:52 Interpretation: No acute disease. 02/11 19:49 Order name: Shoulder Right (2 View) XRAY; Complete Time: 20:42 02/11 19:55 Order name: Thorax Wo Con; Complete Time: 20:42 EDMS 02/11 21:51 Interpretation: No acute disease. tw4 EC:48 Rate is 80 beats/min. Rhythm is regular. QRS is negative in leads V3, V4, V5. DE tw4 interval is normal. QRS interval is normal. QT interval is normal. No Q waves. T waves are Normal. No ST changes noted. Clinical impression: ventricular paced rhythm. Interpreted by me. Reviewed by me. Administered Medications: No medications were administered Disposition: 02/12/20 21:54 Discharged to Home. Impression: Concussion without loss of consciousness, Fracture of nasal bones, Contusion of unspecified part of head, Contusion of right shoulder. - Condition is Stable. - Discharge Instructions: Contusion, Head Injury, Pediatric. - Prescriptions for Tramadol 50 mg Oral Tablet - take 1 tablet by ORAL route every 8 hours as needed; 10 tablet. - Medication Reconciliation Form, Thank You Letter, Antibiotic Education, Prescription Opioid Use form. - Follow up: Private Physician; When: Upon discharge from the Emergency Department; Reason: Recheck today's complaints, Continuance of care, Re-evaluation by your physician. - Problem is new. - Symptoms have improved. Signatures: Dispatcher [employer] EDMS Bernabe Luque RN RN jb4 Willis Bear MD MD tw4 Corrections: (The following items were deleted from the chart) 02/11 20:52 20:50 Constitutional: This is a well developed, well nourished patient who is awake, tw4 alert, and in no acute distress. Head/Face: Normocephalic, atraumatic. Chest/axilla: Normal chest wall appearance and motion. Nontender with no deformity. No lesions are appreciated. Cardiovascular: Regular rate and rhythm with a normal S1 and S2. No gallops, murmurs, or rubs. Normal PMI, no JVD. No pulse deficits. Respiratory: Lungs have equal breath sounds bilaterally, clear to auscultation and percussion. No rales, rhonchi or wheezes noted. No increased work of breathing, no retractions or nasal flaring. Abdomen/GI: Soft, non-tender, with normal bowel sounds. No distension or tympany. No guarding or rebound. No evidence of tenderness throughout. MS/ Extremity: Pulses equal, no cyanosis. Neurovascular intact. Full, normal range of motion. Neuro: Awake and alert, GCS 15, oriented to person, place, time, and situation. Cranial nerves II-XII grossly intact. Motor strength 5/5 in all extremities. Sensory grossly intact. Cerebellar exam normal. Normal gait. tw4 21:51 21:50 Within normal limits: GFR 68. tw4 tw4 22:40 21:54 02/12/2020 21:54 Discharged to Home. Impression: Concussion without loss of jb4 consciousness; Fracture of nasal bones; Contusion of unspecified part of head; Contusion of right shoulder. Condition is Stable. Forms are Medication Reconciliation Form, Thank You Letter, Antibiotic Education, Prescription Opioid Use. Follow up: Private Physician; When: Upon discharge from the Emergency Department; Reason: Recheck today's complaints, Continuance of care, Re-evaluation by your physician. Problem is new. Symptoms have improved. tw4
--- NOTE | 2020-02-12 21:55 | ER ---
Nurse's Notes [facility] Name: Macho Matthews Age: 84 yrs Sex: Male : 1935 Arrival Date: 02/12/2020 Time: 19:39 Bed 13 Private MD: Diagnosis: Concussion without loss of consciousness;Fracture of nasal bones;Contusion of unspecified part of head;Contusion of right shoulder Presentation: 02/11 19:40 Chief complaint: Patient states: I was at home doing yard work and I tripped and fell jb4 on th walk way. I feel forward and landed on my chest and face. It happened around 1700. 19:40 Care prior to arrival: None. Mechanism of Injury: Fall from standing position. Trauma jb4 event details: Injury occurred in the [facility]. 19:40 Acuity: HAROLDO 2 jb4 19:40 Method Of Arrival: Wheelchair jb4 19:40 Coronavirus screen: Patient denies fever greater than 100.4F, cough, shortness of jb4 breath, or difficulty breathing. Ebola Screen: No symptoms or risks identified at this time. Initial Sepsis Screen: Does the patient meet any 2 criteria? No. Patient's initial sepsis screen is negative. Does the patient have a suspected source of infection? No. Patient's initial sepsis screen is negative. Risk Assessment: Do you want to hurt yourself or someone else? Patient reports no desire to harm self or others. 19:40 Onset of symptoms was February 12, 2020 at 17:00. jb4 Trauma Activation: Alert Physician: ED Physician; Name: Marianela; Notified At: 19:40; Arrived At: 19:40 Physician: General Surgeon; Name: ; Notified At: 19:41; Arrived At: Physician: Radiology; Name: Gayla; Notified At: 19:41; Arrived At: 19:40 Physician: Respiratory; Name: ; Notified At: 19:41; Arrived At: Physician: Lab; Name: ; Notified At: 19:41; Arrived At: Historical: - Allergies: 19:40 TETRACYCLINES; jb4 19:40 Morphine; jb4 - Home Meds: 19:40 Coumadin 2.5 mg 5 days per week [Active]; digoxin 125 mcg Oral tab 1 tab once daily jb4 [Active]; Entresto 24-26 mg Oral tab [Active]; Lipitor 40 mg Oral tab 1 tab once daily [Active]; levothyroxine 100 mcg tab 1 tab evrey other day [Active]; - PMHx: 19:40 a-fib; Hyperlipidemia; Hypertension; Hypothyroidism; Pacemaker; CHF; Vertigo; jb4 - PSHx: 19:40 defibrillator/pacemaker; bilateral knee replacements; CABG; Hernia repair; pacemaker; jb4 - Immunization history: Last tetanus immunization: < 5 years ago. - Social history:: Smoking status: Patient denies any tobacco usage or history of. Screenin:43 Abuse screen: Denies threats or abuse. Denies injuries from another. Nutritional mg2 screening: No deficits noted. Tuberculosis screening: No symptoms or risk factors identified. Fall risk At risk due to injury, age, prior history of falls. 19:43 Fall Risk Fall in past 12 months (25 points). Total Ruiz Fall Scale indicates Low Risk jb4 Score (25-44 pts). Fall prevention measures have been instituted. Side Rails Up X 2 Placed close to Nursing Station Frequent Obs/Assesments occuring. Primary Survey: 19:45 NO uncontrolled hemorrhage observed. A: The patient is alert. Airway: patent, No mg2 supplemental oxygen in use on arrival. Breathing/Chest: Respiratory pattern: regular. Circulation: Cardiac rhythm: Disability Alert. Exposure/Environment: All clothing and personal items were removed. Forensic evidence collection is not deemed to be indicated at this time. Items placed in patient belonging bag. There is no evidence of uncontrolled external bleeding. Obvious injury(ies) are noted at this time: right eye hematoma A warming method has been applied: A warm blanket has been provided to the patient. 20:30 Reassessment Airway Airway Patent Oxygen No O2 Breathing/Chest Respiratory pattern jb4 Respiratory effort Spontaneous Unlabored Chest inspection Symmetrical Circulation Color [place] Temperature Warm Dry. Secondary Survey: 19:48 HEENT: Eyes: Other right eye hematoma. Gastrointestinal: No deficits noted. : No mg2 deficits noted. Musculoskeletal: Circulation, motion, and sensation intact. Capillary refill < 3 seconds. Injury Description: hematoma to right eye. Assessment: 19:40 General: Appears in no apparent distress. uncomfortable, Behavior is calm, cooperative, jb4 appropriate for age, Left eye is round and reactive to light. unable to assess right eye at this point due to swelling.. Pain: Complains of pain in face, chest and anterior aspect of right shoulder Pain does not radiate. Pain currently is 6 out of 10 on a pain scale. Pain began 3 hours ago. Neuro: Level of Consciousness is awake, alert, obeys commands, Oriented to person, place, time, situation, Corporate Strategy Associate are equal bilaterally Moves all extremities. Full function Speech is normal, Facial symmetry appears normal. Cardiovascular: Patient's skin is warm and dry. Respiratory: Airway is patent Respiratory effort is even, unlabored, Respiratory pattern is regular, symmetrical, Breath sounds are clear bilaterally. GI: No signs and/or symptoms were reported involving the gastrointestinal system. : No signs and/or symptoms were reported regarding the genitourinary system. EENT: No signs and/or symptoms were reported regarding the EENT system. Derm: Skin has skin tears on 1/2 cm skin tear noted to the right knee. Skin is pink, warm \T\ dry. Musculoskeletal: Circulation, motion, and sensation intact. Range of motion: intact in all extremities. Injury Description: Abrasion sustained to forehead Bruise sustained to right eye Hematoma to the right eye and forearm. 20:20 Reassessment: Patient appears in no apparent distress at this time. Patient and/or jb4 family updated on plan of care and expected duration. Pain level reassessed. Patient is alert, oriented x 3, equal unlabored respirations, skin warm/dry/pink. PT is back from CT. Reports pain is tolerable. Given warm blanket per pt's request. 21:30 Reassessment: Patient appears in no apparent distress at this time. Patient and/or jb4 family updated on plan of care and expected duration. Pain level reassessed. Patient is alert, oriented x 3, equal unlabored respirations, skin warm/dry/pink. 22:27 Reassessment: Patient appears in no apparent distress at this time. Patient and/or jb4 family updated on plan of care and expected duration. Pain level reassessed. Patient is alert, oriented x 3, equal unlabored respirations, skin warm/dry/pink. PT is able to open both eyes fully. Denies vision deficits. Ambulated to wheelchair with steady gait. Verbalized understanding of d/c and follow up instructions. PT assisted to vehicle via wheelchair. Vital Signs: 19:42 BP 169 / 96; Pulse 80; Resp 18; Temp 97.9; Pulse Ox 100% on R/A; mg2 20:31 BP 137 / 77; Pulse 80; Resp 19; Pulse Ox 98% on R/A; jb4 21:30 BP 130 / 76; Pulse 80; Resp 18; Pulse Ox 98% on R/A; jb4 22:15 BP 120 / 87; Pulse 80; Resp 18; Pulse Ox 98% on R/A; jb4 Janiya Coma Score: 19:40 Eye Response: spontaneous(4). Verbal Response: oriented(5). Motor Response: obeys jb4 commands(6). Total: 15. 20:31 Eye Response: spontaneous(4). Verbal Response: oriented(5). Motor Response: obeys jb4 commands(6). Total: 15. 21:30 Eye Response: spontaneous(4). Verbal Response: oriented(5). Motor Response: obeys jb4 commands(6). Total: 15. 22:15 Eye Response: spontaneous(4). Verbal Response: oriented(5). Motor Response: obeys jb4 commands(6). Total: 15. Trauma Score (Adult): 19:40 Eye Response: spontaneous(1); Verbal Response: oriented(1); Motor Response: obeys jb4 commands(2); Systolic BP: > 89 mm Hg(4); Respiratory Rate: 10 to 29 per min(4); Janiya Score: 15; Trauma Score: 12 20:31 Eye Response: spontaneous(1); Verbal Response: oriented(1); Motor Response: obeys jb4 commands(2); Systolic BP: > 89 mm Hg(4); Respiratory Rate: 10 to 29 per min(4); [place] Score: 15; Trauma Score: 12 21:30 Eye Response: spontaneous(1); Verbal Response: oriented(1); Motor Response: obeys jb4 commands(2); Systolic BP: > 89 mm Hg(4); Respiratory Rate: 10 to 29 per min(4); [place] Score: 15; Trauma Score: 12 22:15 Eye Response: spontaneous(1); Verbal Response: oriented(1); Motor Response: obeys jb4 commands(2); Systolic BP: > 89 mm Hg(4); Respiratory Rate: 10 to 29 per min(4); Janiya Score: 15; Trauma Score: 12 ED Course: 19:39 Patient arrived in ED. ds1 19:40 Patient maintains SpO2 saturation greater than 95% on room air. jb4 19:40 Thermoregulation: warm blanket given to patient. jb4 19:41 Willis Bear MD is Attending Physician. tw4 19:42 Bernabe Luque, RN is Primary Nurse. jb4 19:44 Patient has correct armband on for positive identification. Placed in gown. Bed in low mg2 position. Call light in reach. Side rails up X2. quality assurance monitor chassis on. Pulse ox on. NIBP on. Door closed. Warm blanket given. 19:52 Triage completed. jb4 19:56 CT Head C Spine In Process Unspecified. EDMS 19:57 Shoulder Right (2 View) XRAY In Process Unspecified. EDMS 20:00 CT Facial Bones W/O Con In Process Unspecified. EDMS 20:00 Thorax Wo Con In Process Unspecified. EDMS 20:02 XRAY Chest (1 view) In Process Unspecified. EDMS 20:15 Initial lab(s) drawn, by sd, sent to lab. Inserted saline lock: 18 gauge in left jb4 forearm, using aseptic technique. Blood collected. 20:24 Type And Screen Sent. ds4 20:24 Creatinine for Radiology Sent. ds4 20:24 CBC with Diff Sent. ds4 20:24 Basic Metabolic Panel Sent. ds4 20:25 EKG done, by ED staff, reviewed by Willis Bear MD. ds4 22:25 No provider procedures requiring assistance completed. IV discontinued, intact, jb4 bleeding controlled, No redness/swelling at site. Pressure dressing applied. Administered Medications: No medications were administered Intake: 22:25 PO: 0ml; Total: 0ml. jb4 Output: 22:25 Urine: 0ml; Total: 0ml. jb4 Outcome: 21:54 Discharge ordered by . tw4 22:25 Discharged to home via wheelchair. jb4 22:25 Condition: stable 22:25 Discharge instructions given to patient, family, Instructed on discharge instructions, follow up and referral plans. medication usage, Demonstrated understanding of instructions, follow-up care, medications, Prescriptions given X 1. 22:25 Patient's length of stay in the Emergency Department was greater than 2 hours. PT jb4 discharged home with family, Waiting for swelling to decrease with use of ice packs to assess right eye.Patient's length of stay extended due to 22:40 Patient left the ED. jb4 Signatures: Dispatcher [employer] EDPA Mary Alvares ds1 Taqueria Treviño ds4 Bernabe Luque RN RN jb4 Willis Bear MD MD tw4 Edil Valdovinos RN RN mg2 Corrections: (The following items were deleted from the chart) 20:28 19:40 Pain: Complains of pain in face, chest and anterior aspect of right shoulder Pain jb4 does not radiate. Pain currently is 8 out of 10 on a pain scale. jb4 20:28 19:40 Respiratory: Airway is patent Respiratory effort is even, unlabored, Respiratory jb4 pattern is regular, symmetrical, jb4 22:42 19:40 General: Appears in no apparent distress. uncomfortable, Behavior is calm, jb4 cooperative, appropriate for age, jb4
[2020-02-12 22:57] VITALS: TEMP 97.9
[2020-02-12 22:58] VITALS: O2SAT 98
[2020-02-12 23:01] VITALS: BP 120/87
--- NOTE | 2020-02-13 10:28 | EKG ---
Test Date: 2020-02-12 Test Time: 20:17:03 [facility]: SNE[facility] MEASUREMENT RESULTS: Intervals: Rate: 80 SD: QRSD: 188 QT: 452 QTc: 521 Rawlings: P: SD: QRS: 169 T: 46 INTERPRETIVE STATEMENTS: Ventricular-paced rhythm Abnormal ECG Compared to ECG 01/22/2015 16:41:18 Atrial fibrillation no longer present Right bundle-branch block no longer present Electronically Signed On 02-13-20 10:27:49 CDT by Efraín Love
== END 2020-02-12 22:40 | disposition home or self-care (01) ==
LOC: ER 19:29
DX: S06.0X0A Concussion without loss of consciousness, initial encounter (principal); S00.93XA Contusion of unspecified part of head, initial encounter; S40.011A Contusion of right shoulder, initial encounter; W19.XXXA Unspecified fall, initial encounter; Y93.9 Activity, unspecified; Y92.9 Unspecified place or not applicable; Z79.01 Long term (current) use of anticoagulants; Z88.1 Allergy status to other antibiotic agents; Z88.5 Allergy status to narcotic agent; Z95.0 Presence of cardiac pacemaker; Z95.1 Presence of aortocoronary bypass graft; I10 Essential (primary) hypertension; E78.5 Hyperlipidemia, unspecified; I48.91 Unspecified atrial fibrillation; E03.9 Hypothyroidism, unspecified
CPT/HCPCS: 36415; 70450; 70486; 71045; 71250; 72125; 76377; 80048; 85025; 85610; 85730; 86850; 86900; 86901; 93005; 99285

== ENCOUNTER 2020-04-30 03:48 | Inpatient (IN) | payer OTHER ==
--- OUTSIDE RECORDS SUMMARY | 2020-04-30 03:54 | XMS REPORT | Clinical Summary ---
:1935 Author Organization [facility] Address [address] [place] [address] Care Team Providers Name Role Phone Asked, Pcp Primary Care Provider Unavailable Allergies Active Allergy Reactions Severity Noted Date Comments Morphine GI Intolerance 03/17/2016 Tetracycline Hives 03/17/2016 Medications Medication Sig Dispensed Refills Start Date End Date Status warfarin (COUMADIN) 5 MG TAKE 1 TABLET(5 90 tablet 0 9 Active tabletIndications: MG) BY MOUTH Paroxysmal atrial DAILY fibrillation (HCC) Additional Information Patient taking differently: Take 5 mg by mouth daily 2.5 mg daily on 5 mg ,Wed, Reported on 03/12/2020 3:44 PM levothyroxine (SYNTHROID) 100 TAKE 1 TABLET(100 MCG) 45 tablet 0 11/27/2019 Active mcg tabletIndications: BY MOUTH EVERY OTHER Hypothyroidism, unspecified DAY type Additional Information Patient taking differently: TAKE 1 TABLET(100 MCG) BY MOUTH EVERY OTHER DAYSUNDAY, Reported on 01/07/2020 11:51 PM levothyroxine TAKE 1 TABLET(88 45 tablet 0 11/27/2019 Active (SYNTHROID) 88 mcg MCG) BY MOUTH tablet EVERY OTHER DAY sacubitriL-valsartan Take 1 tablet by 60 tablet 11 01/12/2020 Active (ENTRESTO) 24-26 mg mouth 2 (two) tablet per tablet times a day. digOXIN (LANOXIN) TAKE 1 TABLET BY 90 tablet 0 02/18/2020 Active 125 mcg (0.125 mg) MOUTH EVERY DAY tabletIndications: Persistent atrial fibrillation, Essential hypertension atorvastatin TAKE 1 TABLET BY 90 tablet 0 03/11/2020 Active (LIPITOR) 40 MG MOUTH DAILY tabletIndications: Persistent atrial fibrillation, Essential hypertension latanoprost Administer 1 0 Activ e (XALATAN) 0.005 % drop to both ophthalmic solution eyes nightly. levothyroxine TAKE 1 45 tablet 0 12/30/201806/08/ Disco ntinued (SYNTHROID, LEVOXYL) TABLET(100 MCG) 201 9 (Reorder) 100 mcg tablet BY MOUTH EVERY OTHER DAY warfarin (COUMADIN) TAKE 2 TABLETS 135 tablet 0 01/30/2019/ Discontinued (Stop 2.5 MG BY MOUTH 4 DAYS 2019 Neelima haas at tabletIndications: PER WEEK AND 1 Discharge) Paroxysmal atrial TABLET BY MOUTH fibrillation (HCC) 1 DAY PER WEEK sacubitril-valsartan Take 1 tablet by 60 tablet 11 01/26/2019 0 01/12/ Discontinued (ENTRESTO) 24-26 mg mouth 2 (two) 2019 (Reorder) tablet per tablet times a day. digOXIN (LANOXIN) Take 125 mcg by 0 12/05/ Discontinued 125 mcg tablet mouth daily. 2019 (D uplicate order) levothyroxine Take 88 mcg by 0 D iscontinued (SYNTHROID, LEVOXYL) mouth every 2018 (Reorder) 88 mcg tablet other day. metoprolol succinate Take 1 tablet 30 tablet 11 03/15/201908/15/ Discontinued XL (TOPROL-XL) 25 mg (25 mg total) by 20 19 (Discontinued by 24 hr tablet mouth daily. anot her clinician) Take an 1/2 tablet (12.5) mg daily diclofenac Apply topically 100 g 0 03/30/2019 Di scontinued (VOLTAREN) 1 % gel 4 (four) times a 2019 (Therapy day. completed) atorvastatin TAKE 1 TABLET BY 90 tablet 0 04/11/201907/07/ Discontinued (LIPITOR) 40 MG MOUTH DAILY 2018 (R eorder) tabletIndications: Persistent atrial fibrillation, Essential hypertension levothyroxine TAKE 1 45 tablet 0 06/08/201908/13/ Disco ntinued (SYNTHROID, LEVOXYL) TABLET(100 MCG) 201 9 (Reorder) 100 mcg tablet BY MOUTH EVERY OTHER DAY atorvastatin TAKE 1 TABLET BY 90 tablet 0 07/07/201909/17/ Discontinued (LIPITOR) 40 MG MOUTH DAILY 2018 (R eorder) tabletIndications: Persistent atrial fibrillation, Essential hypertension warfarin (COUMADIN) One tablet daily 200 tablet 3 07/25/2019 0 12/05/ Discontinued 5 MG tablet or as directed 2019 (Du plicate order) by MD office levothyroxine TAKE 1 15 tablet 0 08/14/201908/15/ Disco ntinued (SYNTHROID, LEVOXYL) TABLET(100 MCG) 201 9 (Reorder) 100 mcg tablet BY MOUTH EVERY OTHER DAY levothyroxine TAKE 1 45 tablet 0 08/15/201912/05/ Disco ntinued (SYNTHROID, LEVOXYL) TABLET(100 MCG) 202 0 (Duplicate order) 100 mcg tablet BY MOUTH EVERY OTHER DAY levothyroxine Take 1 tablet 45 tablet 0 08/17/201911/27/ D iscontinued (SYNTHROID) 88 mcg (88 mcg total) 2020 tablet by mouth every other day. guaiFENesin Take 10 mL (200 236 mL 0 09/01/201909/08/ E xpired (ROBITUSSIN) 100 mg total) by 2019 mg/5 mL syrup mouth every 8 (eight) hours as needed for cough for up to 7 days. benzonatate Take 1 capsule 9 capsule 0 09/01/201909/04/ Ex pired (TESSALON) 100 MG (100 mg total) 2019 capsule by mouth 3 (three) times a day as needed for cough for up to 3 days. levothyroxine TAKE 1 30 tablet 0 09/20/2019 Disco ntinued (SYNTHROID) 100 mcg TABLET(100 MCG) 2018 (Reorder) tabletIndications: BY MOUTH EVERY Hypothyroidism, OTHER DAY unspecified type atorvastatin TAKE 1 TABLET BY 90 tablet 0 09/17/201912/15/ Discontinued (LIPITOR) 40 MG MOUTH DAILY 2019 tabletIndications: Persistent atrial fibrillation, Essential hypertension digOXIN (LANOXIN) TAKE 1 TABLET BY 90 tablet 0 09/17/201911/17 1/ Discontinued 125 mcg (0.125 mg) MOUTH EVERY DAY 2019 tabletIndications: Persistent atrial fibrillation, Essential hypertension levothyroxine TAKE 1 15 tablet 0 09/25/201911/27/ Disco ntinued (SYNTHROID) 100 mcg TABLET(100 MCG) 2019 tabletIndications: BY MOUTH EVERY Hypothyroidism, OTHER DAY unspecified type digOXIN (LANOXIN) TAKE 1 TABLET BY 90 tablet 0 12/15/2019 04/0 5/ Discontinued 125 mcg (0.125 mg) MOUTH EVERY DAY 2019 tabletIndications: Persistent atrial fibrillation, Essential hypertension atorvastatin TAKE 1 TABLET BY 90 tablet 0 12/15/201903/11/ Discontinued (LIPITOR) 40 MG MOUTH DAILY 2019 tabletIndications: Persistent atrial fibrillation, Essential hypertension amoxicillin-pot Take 1 tablet by 10 tablet 0 01/11/2020// clavulanate mouth 2 (two) 2019 (AUGMENTIN) 875-125 times a day for mg per tablet 5 days. enoxaparin (LOVENOX) Inject 0.4 mL 10 Syringe 0 01/11/2020/ Discontinued (Med 40 mg/0.4 mL syringe (40 mg total) 2019 List Cleanup) under the skin daily for 10 days. 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 He didn't think much of it, but has been having neck pain since, and i s now complaining of pain and stiffness with significantly reduced range of motion of the neck. Has tried tylenol for pain which helps h im to rest. States he ignores the pain during the day. Patient denies numbness or tingling in the hands. Has some in the L leg, but states it did not start after the accident. 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 Last labs in range. Last Assessment & Plan: Continue current dose. Benign non-nodular prostatic hyperplasia with lower ur inary tract symptoms 03/17/2016 Overview: Previously had some urinary retention; patient says this has improved. Not using a catheter, no frequent infections. Saw Dr. Quesada 11/2016; currently not balbina ing the medications. In regard to flomax, has had some orthostatic dizziness in the past, so this may be limiting. Last Assessment & Plan: Continue to monitor. Hyperlipidemia Overview: On statin without myalgia Last Assessment & Plan: Continue current medication Congestive heart failure Persistent atrial fibrillation On continuous oral anticoagulation Overview: now on warfarin; changed from elaquis Followed by cardiology Hearing loss Overview: with hearing aides Resolved Problems Problem Noted Date Resolved Date Influenza A 01/07/2020 01/11/2020 Acute lung edema 08/30/2019 08/31/2019 Demand ischemia 08/30/2019 08/31/2019 Acute pulmonary edema 08/29/2019 08/31/2019 Encounters Date Type Specialty Care Team Description 04/29/2020 Travel 04/19/2020 Orders Only Cardiology Christopher, Persistent atri al Naila, SUPERVISOR SANDING fibrillation 04/05/2020 Orders Only Cardiology Christopher, Persistent atri al Naila, SUPERVISOR SANDING fibrillation 03/29/2020 Telephone Cardiology Christopher, Anticoagulation Naila, SUPERVISOR SANDING 03/15/2020 Telephone Cardiology Lyric Lopez anticoagulalexa Carrillo MA 03/14/2020 Telephone Consult Cardiology Andres Unger, Eliud ve heart failure, unspecified HF chronicity, unspecified heart failure type (HCC) (Primary Dx); Persistent atri al fibrillation; Coronary arteri osclerosis; Ischemic conges tive cardiomyopathy 03/12/2020 Orders Only Cardiology Christopher, Persistent atri al Naila, SUPERVISOR SANDING fibrillation (Primary Dx) 03/12/2020 Telephone Cardiology Yuli Burrows medication rev iew RENO 03/11/2020 Telephone Cardiology Ronda Aggarwal, KAVON 03/11/2020 Refill Cardiology Felice Cooley MD PhD 02/21/2020 Travel 02/18/2020 Refill Cardiology Felice Cooley MD PhD 02/07/2020 Travel 02/01/2020 Anticoagulation Visit Cardiology Persis tent atrial fibrillation 02/01/2020 Lab Lab System, Acute on chroni c Provider Not combined systol ic and MD Diana diastolic conge stive heart failure ( HCC) 02/01/2020 Travel 01/26/2020 Travel 01/23/2020 Telephone Cardiology Kimmy, blood tests Louie, KAVON 01/23/2020 Orders Only Transplant Sreedhar Caballero Acute on gis analyst melly [place], combined systol ic and INDUSTRIAL ORGANIZATIONAL PSYCHOLOGIST-C diastolic conge stive heart failure ( HCC) (Primary Dx) 01/22/2020 Office Visit Cardiology Dodie Lepe, Congestive he art INDUSTRIAL ORGANIZATIONAL PSYCHOLOGIST failure, unspec ified HF chronicity, unspecified hea rt failure type (H CC) (Primary Dx) 01/21/2020 Orders Only Transplant Sreedhar Caballero Acute on gis analyst melly [place], combined systol ic and INDUSTRIAL ORGANIZATIONAL PSYCHOLOGIST-C diastolic conge stive heart failure ( HCC) (Primary Dx) 01/18/2020 Anticoagulation Visit Cardiology Persis tent atrial fibrillation 01/12/2020 Telephone Cardiology Carlos White, SUPERVISOR SANDING 01/12/2020 Refill Cardiology Alessia, Med Refradha Summers, KAVON 01/11/2020 Hospital Encounter Procedural [facility] Atrial fl utter (HCC) Cardiology MD Tika PhD 01/10/2020 Telephone Cardiology Christopher Anticoagulation Naila, SUPERVISOR SANDING 01/07/2020 Hospital Encounter Nephrology Sheridan, Influenza A (Primary Dx); - Dinorah Acute systolic congestive heart failure (HCC); 01/11/2020 Tomiwa, DO Dehydration; Joglekar, Pneumonia of le ft lower lobe due to infectious organism (HCC) MD Armando Martini Umar, MD 01/04/2020 Anticoagulation Visit Cardiology Persis tent atrial fibrillation 12/21/2019 Anticoagulation Visit Cardiology Persis tent atrial fibrillation 12/15/2019 Refill Cardiology Felice Cooley MD PhD 12/05/2019 Office Visit Cardiology Ute, Ashrith, Chronic combi dang systolic and diastolic congestive heart failure (HCC) (Primary Dx); Persistent atri al fibrillation 11/26/2019 Refill Internal Medicine Diana Lau Newsome, MD unspecified typ e 11/16/2019 Anticoagulation Visit Cardiology Persis tent atrial fibrillation 10/19/2019 Anticoagulation Visit Cardiology Persis tent atrial fibrillation 10/06/2019 Hospital Encounter Procedural Felice Cooley AF (atria l Cardiology MD Tika PhD fibrillation) ( HCC) 09/28/2019 Anticoagulation Visit Cardiology Persis tent atrial fibrillation 09/28/2019 Lab Lab Diana Lau Newsome, MD unspecified typ e 09/20/2019 Refill Internal Medicine Diana Lau Newsome, MD unspecified typ e 09/17/2019 Refill Cardiology Felice Cooley Med Gisel Villela MD PhD 09/15/2019 Refill Internal Medicine Diana Lau Newsome, MD unspecified typ e (Primary Dx) 09/14/2019 Anticoagulation Visit Cardiology Persis tent atrial fibrillation 09/11/2019 Office Visit Cardiology Sreedhar Caballero [place], systolic and INDUSTRIAL ORGANIZATIONAL PSYCHOLOGIST-C diastolic conge stive heart failure ( HCC) (Primary Dx) 09/06/2019 Orders Only Cardiology Li Bryan, Chronic conges tive medical chief technician failure, unspecified hea rt failure type (H CC) (Primary Dx) 09/01/2019 Patient Outreach Quality Marla Dillard RN 08/30/2019 Hospital Encounter Procedural Felice Cooley Atrial fi brillation, Cardiology MD Tika PhD persistent 08/29/2019 Hospital Encounter General Internal [facility] pulmonary edema (HCC) (Primary Dx); - Medicine Sreedhar Petersen, Acute on gis analyst melly congestive heart failure, unspecified heart failure type (HCC); 09/01/2019 Paroxysmal atrial fibrillation (HCC); Sera Neves Rhinovirus inf ection MD Veronica 08/29/2019 Travel 08/17/2019 Anticoagulation Visit Cardiology Persis tent atrial fibrillation 08/17/2019 Telephone Family Medicine Diana Lau MD 08/15/2019 Refill Internal Medicine Diana Lau MD 08/13/2019 Refill Internal Medicine Diana Lau MD 07/27/2019 Anticoagulation Visit Cardiology Persis tent atrial fibrillation (H CC) 07/25/2019 Orders Only Cardiology Naila White LVN 07/18/2019 Refill Cardiology Andres Unger Med Refill 07/10/2019 Hospital Encounter Procedural Yasir, [facility] S/P ablat ion of Cardiology MD Tika PhD ventricular arrhythmia 07/10/2019 Hospital Encounter Procedural Yasir, [facility] Congestiv e heart Cardiology MD Tika PhD failure, unspec ified HF chronicity, unspecified hea rt failure type (H CC) 07/07/2019 Refill Cardiology Felice Cooley Med Gisel Villela MD PhD 06/28/2019 Anticoagulation Visit Cardiology [facility]is tent atrial fibrillation (H CC) 06/08/2019 Refill Internal Medicine Diana Lau MD 05/30/2019 Office Visit Cardiology Andrse Unger, Paroxysmal at rial fibrillation (HCC) (Primary Dx); Persistent atri al fibrillation (HCC) 05/12/2019 Office Visit Orthopedic Arthur, Spondylosis of Surgery Maximilian Miller MD cervical regio n without myelopa thy or radiculopathy (Primary Dx) after 04/30/2019 Immunizations Name Administration Dates Next Due FLUZONE HIGH-DOSE PF 08/03/2017 Influenza (IM) Preservative Free 08/11/2013 Influenza Trivalent 08/11/2013, 08/29/2009 Pneumococcal Conjugate 13-Valent 08/03/2017 Pneumococcal Polysaccharide 10/13/2012 Tdap 02/01/2017 Family History Medical History Relation Name Comments Hypertension Brother Prostate cancer Brother Coronary artery disease Father Tj Danvers Diabetes Father Tj Danvers Heart attack Father Tj Danvers Heart disease Father Tj Danvers Hypertension Father Tj Cassie Heart attack Mother Shalini Cassie Heart disease Mother Shalini Cortés Hypertension Mother Shalini Cortés Hypertension Sister Relation Name Status Comments Brother Father Yogi Danvers (Age 68) Mother Shalini Cortés (Age 73) Sister Social History Tobacco Use Types Packs/Day Years Used Date Never Smoker 0 0 Smokeless Tobacco: Never Used Tobacco Cessation: Counseling Given: No Alcohol Use Drinks/Week oz/Week Comments No Sex Assigned at Date Recorded Not on file Job Start Date Occupation Industry Not on file Not on file Not on file Travel History Travel Start Travel End No recent travel history available. COVID-19 Exposure Response Date Recorded In the last month, have you been in contact with No / Unsure 04/29/2020 11:18 AM CDT someone who was confirmed or suspected to have Coronavirus / COVID-19? Last Filed Vital Signs Vital Sign Reading Time Taken Comments Blood Pressure 122/69 03/12/2020 3:50 PM CDT Pulse 85 03/12/2020 3:50 PM CDT Temperature 35.9 C (96.6 F) 02/01/2020 10:29 AM CDT Respiratory Rate 17 01/22/2020 11:05 AM CDT Oxygen Saturation 100% 01/22/2020 11:05 AM CDT Inhaled Oxygen Concentration - - Weight 69.4 kg (153 lb) 03/12/2020 3:50 PM CDT Height 177.8 cm (5' 10") 03/12/2020 3:50 PM CDT Body Mass Index 21.95 03/12/2020 3:50 PM CDT Plan of Treatment Date Type Specialty Care Team Description 04/30/2020 Office Visit Internal Medicine Mil Sky MD [address] [place], [place] [address] [phone] 04/30/2020 Appointment Procedural Cardiology Kaitlyn Unger MD [address] [place], [place] [address] [phone] 05/08/2020 Office Visit Cardiology Felice Cooley MD PhD [address] [place], [place] [address] [phone] 06/04/2020 Office Visit Cardiology Andres Unger M D [address] [place], [place] [address] [phone] Health Maintenance Due Date Last Done Comments SHINGLES VACCINES (#1) 1987 INFLUENZA VACCINE 06/15/2020 07/30/2018, 08/03/2017, 2012, Additional history exists 65+ PNEUMOCOCCAL VACCINE Completed 08/03/2017, 10/13/2012 Procedures Procedure Name Priority Date/Time Associated Diagnosis Comme nts PROTHROMBIN TIME WITH Routine 04/29/2020 8:07 Persistent atri al Results for this INR AM CDT fibrillation procedure are i n the results section. PROTHROMBIN TIME WITH Routine 03/28/2020 8:17 Persistent atri al Results for this INR AM CDT fibrillation procedure are i n the results section. PROTHROMBIN TIME WITH Routine 03/14/2020 11:04 Persistent atri al Results for this INR AM CDT fibrillation procedure are i n the results section. MAGNESIUM LEVEL STAT 02/05/2020 10:30 Acute on chronic Resu lts for this AM CDT combined systolic procedure are in and diastolic the results congestive heart section. failure ([facility]) B NATRIURETIC PEPTIDE STAT 02/05/2020 10:30 Acute on chroni c Results for this AM CDT combined systolic procedure are in and diastolic the results congestive heart section. failure ([facility]) COMPREHENSIVE STAT 02/05/2020 10:30 Acute on chronic Result s for this METABOLIC PANEL AM CDT combined systolic procedu re are in and diastolic the results congestive heart section. failure ([facility]) PROTHROMBIN TIME WITH STAT 02/02/2020 2:32 Acute on chroni c INR PM CDT combined systolic and diastolic congestive heart failure ([facility]) POC PT/INR Routine 02/01/2020 10:30 Persistent atrial Result s for this AM CDT fibrillation procedure are i n the results section. ESTIMATED GFR STAT 01/22/2020 12:05 Results fo r this PM CDT procedure are i n the results section. MAGNESIUM LEVEL STAT 01/22/2020 12:05 Acute on chronic Resu lts for this PM CDT combined systolic procedure are in and diastolic the results congestive heart section. failure ([facility]) B NATRIURETIC PEPTIDE STAT 01/22/2020 12:05 Acute on chroni c Results for this PM CDT combined systolic procedure are in and diastolic the results congestive heart section. failure ([facility]) COMPREHENSIVE STAT 01/22/2020 12:05 Acute on chronic Result s for this METABOLIC PANEL PM CDT combined systolic procedu re are in and diastolic the results congestive heart section. failure ([facility]) POC PT/INR Routine 01/18/2020 10:47 Persistent atrial Result s for this AM PERSONALIZATION SPECIALIST fibrillation procedure are i n the results section. ESTIMATED GFR Routine 01/11/2020 3:33 Results fo r this AM PERSONALIZATION SPECIALIST procedure are i n the results section. PROTHROMBIN TIME WITH Routine 01/11/2020 3:33 Re sults for this INR AM PERSONALIZATION SPECIALIST procedure are i n the results section. MAGNESIUM LEVEL Routine 01/11/2020 3:33 Results for this AM PERSONALIZATION SPECIALIST procedure are i n the results section. BASIC METABOLIC PANEL Routine 01/11/2020 3:33 Re sults for this AM PERSONALIZATION SPECIALIST procedure are i n the results section. ESTIMATED GFR Routine 01/10/2020 4:00 Results fo r this AM PERSONALIZATION SPECIALIST procedure are i n the results section. MAGNESIUM LEVEL Routine 01/10/2020 4:00 Results for this AM PERSONALIZATION SPECIALIST procedure are i n the results section. BASIC METABOLIC PANEL Routine 01/10/2020 4:00 Re sults for this AM PERSONALIZATION SPECIALIST procedure are i n the results section. PROTHROMBIN TIME WITH Routine 01/10/2020 3:30 Re sults for this INR AM PERSONALIZATION SPECIALIST procedure are i n the results section. B NATRIURETIC PEPTIDE Routine 01/10/2020 3:30 Re sults for this AM PERSONALIZATION SPECIALIST procedure are i n the results section. TTE COMPLETE, WO Routine 01/09/2020 9:31 Results for this CONTRAST, W DOPPLER AM PERSONALIZATION SPECIALIST procedur e are in ([id number]) the results section. PROTHROMBIN TIME WITH Routine 01/09/2020 5:45 Re sults for this INR AM PERSONALIZATION SPECIALIST procedure are i n the results section. ESTIMATED GFR Routine 01/09/2020 4:00 Results fo r this AM PERSONALIZATION SPECIALIST procedure are i n the results section. THYROID STIMULATING Routine 01/09/2020 4:00 Resu lts for this HORMONE AM PERSONALIZATION SPECIALIST procedure are i n the results section. MAGNESIUM LEVEL Routine 01/09/2020 4:00 Results for this AM PERSONALIZATION SPECIALIST procedure are i n the results section. BASIC METABOLIC PANEL Routine 01/09/2020 4:00 Re sults for this AM PERSONALIZATION SPECIALIST procedure are i n the results section. TROPONIN Routine 01/08/2020 5:30 Results for this AM PERSONALIZATION SPECIALIST procedure are i n the results section. ESTIMATED GFR Routine 01/08/2020 5:30 Results fo r this AM PERSONALIZATION SPECIALIST procedure are i n the results section. PROTHROMBIN TIME WITH Routine 01/08/2020 5:30 Re sults for this INR AM PERSONALIZATION SPECIALIST procedure are i n the results section. B NATRIURETIC PEPTIDE Routine 01/08/2020 5:30 Re sults for this AM PERSONALIZATION SPECIALIST procedure are i n the results section. COMPREHENSIVE Routine 01/08/2020 5:30 Results fo r this METABOLIC PANEL AM PERSONALIZATION SPECIALIST procedure ar e in the results section. HC COMPLETE BLD COUNT Routine 01/08/2020 5:30 Re sults for this W/AUTO DIFF AM PERSONALIZATION SPECIALIST procedure are i n the results section. LACTIC ACID LEVEL Timed 01/07/2020 10:50 Result s for this PM PERSONALIZATION SPECIALIST procedure are i n the results section. TROPONIN Timed 01/07/2020 10:50 Results for this PM PERSONALIZATION SPECIALIST procedure are i n the results section. LACTIC ACID LEVEL Timed 01/07/2020 7:50 Result s for this PM PERSONALIZATION SPECIALIST procedure are i n the results section. BLOOD CULTURE, AEROBIC STAT 01/07/2020 7:25 R esults for this & ANAEROBIC PM PERSONALIZATION SPECIALIST procedure are i n the results section. BLOOD CULTURE, AEROBIC STAT 01/07/2020 7:08 R esults for this & ANAEROBIC PM PERSONALIZATION SPECIALIST procedure are i n the results section. STREP SCREEN CULTURE Routine 01/07/2020 6:17 Res ults for this PM PERSONALIZATION SPECIALIST procedure are i n the results section. GROUP A STREP, RAPID Routine 01/07/2020 6:17 Res ults for this ANTIGEN PM PERSONALIZATION SPECIALIST procedure are i n the results section. XR CHEST 1 VW PORTABLE STAT 01/07/2020 5:56 R esults for this PM PERSONALIZATION SPECIALIST procedure are i n the results section. ECG ED PRELIMINARY Routine 01/07/2020 5:07 Resul ts for this INTERPRETATION PM PERSONALIZATION SPECIALIST procedure are in the results section. INFLUENZA ANTIGEN Routine 01/07/2020 5:03 Result s for this TEST, REFLEX NEGATIVE PM PERSONALIZATION SPECIALIST proced ure are in TO RPP the results section. ESTIMATED GFR STAT 01/07/2020 4:59 Results fo r this PM PERSONALIZATION SPECIALIST procedure are i n the results section. HC COMPLETE BLD COUNT STAT 01/07/2020 4:59 Re sults for this W/AUTO DIFF PM PERSONALIZATION SPECIALIST procedure are i n the results section. B NATRIURETIC PEP, STAT 01/07/2020 4:59 Resul ts for this I-STAT PM PERSONALIZATION SPECIALIST procedure are i n the results section. TROPONIN, I-STAT STAT 01/07/2020 4:59 Results for this PM PERSONALIZATION SPECIALIST procedure are i n the results section. CREATINE KINASE, TOTAL STAT 01/07/2020 4:59 R esults for this (CPK) PM PERSONALIZATION SPECIALIST procedure are i n the results section. LACTIC ACID, I-STAT STAT 01/07/2020 4:59 Resu lts for this PM PERSONALIZATION SPECIALIST procedure are i n the results section. COMPREHENSIVE STAT 01/07/2020 4:59 Results fo r this METABOLIC PANEL PM PERSONALIZATION SPECIALIST procedure ar e in the results section. ECG 12-LEAD STAT 01/07/2020 4:58 Results for this PM PERSONALIZATION SPECIALIST procedure are i n the results section. POC PT/INR Routine 01/04/2020 10:31 Persistent atrial Result s for this AM PERSONALIZATION SPECIALIST fibrillation procedure are i n the results section. POC PT/INR Routine 12/21/2019 10:32 Persistent atrial Result s for this AM PERSONALIZATION SPECIALIST fibrillation procedure are i n the results section. 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 POC PT/INR Routine 11/16/2019 10:40 Persistent atrial Result s for this AM PERSONALIZATION SPECIALIST fibrillation procedure are i n the results section. POC PT/INR Routine 10/19/2019 10:54 Persistent atrial Result s for this AM PERSONALIZATION SPECIALIST fibrillation procedure are i n the results section. POC PT/INR Routine 09/28/2019 10:09 Persistent atrial Result s for this AM PERSONALIZATION SPECIALIST fibrillation procedure are i n the results section. T4, FREE Routine 09/28/2019 9:51 Hypothyroidism, Results for this AM PERSONALIZATION SPECIALIST unspecified type procedure a re in the results section. THYROID STIMULATING Routine 09/28/2019 9:51 Hypothyroidism, R esults for this HORMONE AM PERSONALIZATION SPECIALIST unspecified type procedure a re in the results section. POC PT/INR Routine 09/14/2019 2:23 Persistent atrial Result s for this PM CDT fibrillation procedure are i n the results section. NT-PROBNP STAT 09/11/2019 11:25 Results for this AM CDT procedure are i n the results section. ESTIMATED GFR Routine 09/01/2019 4:15 Results fo r this AM CDT procedure are i n the results section. PROTHROMBIN TIME WITH Routine 09/01/2019 4:15 Re sults for this INR AM CDT procedure are i n the results section. PHOSPHORUS LEVEL Routine 09/01/2019 4:15 Results for this AM CDT procedure are i n the results section. MAGNESIUM LEVEL Routine 09/01/2019 4:15 Results for this AM CDT procedure are i n the results section. BASIC METABOLIC PANEL Routine 09/01/2019 4:15 Re sults for this AM CDT procedure are i n the results section. HC COMPLETE BLD COUNT Routine 09/01/2019 4:15 Re sults for this W/AUTO DIFF AM CDT procedure are i n the results section. NM MYOCARDIAL Routine 08/31/2019 1:51 Results fo r this PERFUSION STRESS REST PM CDT proced ure are in 1 DAY the results section. ECG 12-LEAD STAT 08/31/2019 11:05 Results for this AM CDT procedure are i n the results section. CV STRESS TEST Routine 08/31/2019 11:05 Results f or this AM CDT procedure are i n the results section. TROPONIN STAT 08/31/2019 8:17 Results for this AM CDT procedure are i n the results section. PROTHROMBIN TIME WITH Routine 08/31/2019 4:16 Re sults for this INR AM CDT procedure are i n the results section. HC COMPLETE BLD COUNT Routine 08/31/2019 4:16 Re sults for this W/AUTO DIFF AM CDT procedure are i n the results section. ESTIMATED GFR Routine 08/31/2019 4:00 Results fo r this AM CDT procedure are i n the results section. PHOSPHORUS LEVEL Routine 08/31/2019 4:00 Results for this AM CDT procedure are i n the results section. MAGNESIUM LEVEL Routine 08/31/2019 4:00 Results for this AM CDT procedure are i n the results section. BASIC METABOLIC PANEL Routine 08/31/2019 4:00 Re sults for this AM CDT procedure are i n the results section. RESPIRATORY PATHOGEN Routine 08/30/2019 4:45 Res ults for this PANEL AM CDT procedure are i n the results section. INFLUENZA ANTIGEN Routine 08/30/2019 4:45 Result s for this TEST, REFLEX NEGATIVE AM CDT proced ure are in TO RPP the results section. DIGOXIN LEVEL Routine 08/30/2019 4:32 Results fo r this AM CDT procedure are i n the results section. CBC WITH PLATELET AND Routine 08/30/2019 4:32 Re sults for this DIFFERENTIAL AM CDT procedure are i n the results section. ESTIMATED GFR Routine 08/30/2019 4:32 Results fo r this AM CDT procedure are i n the results section. PROTHROMBIN TIME WITH Routine 08/30/2019 4:32 Re sults for this INR AM CDT procedure are i n the results section. HC COMPLETE BLD COUNT Routine 08/30/2019 4:32 Re sults for this W/AUTO DIFF AM CDT procedure are i n the results section. PHOSPHORUS LEVEL Routine 08/30/2019 4:32 Results for this AM CDT procedure are i n the results section. MAGNESIUM LEVEL Routine 08/30/2019 4:32 Results for this AM CDT procedure are i n the results section. BASIC METABOLIC PANEL Routine 08/30/2019 4:32 Re sults for this AM CDT procedure are i n the results section. TROPONIN Timed 08/30/2019 4:02 Results for this AM CDT procedure are i n the results section. ECG 12-LEAD STAT 08/30/2019 3:54 Results for this AM CDT procedure are i n the results section. TROPONIN, I-STAT Timed 08/29/2019 10:00 Results for this PM CDT procedure are i n the results section. CT HEAD WO CONTRAST STAT 08/29/2019 8:20 Resu lts for this PM CDT procedure are i n the results section. CT ABDOMEN PELVIS WO STAT 08/29/2019 8:12 Res ults for this CONTRAST PM CDT procedure are i n the results section. XR CHEST 1 VW PORTABLE STAT 08/29/2019 7:57 R esults for this PM CDT procedure are i n the results section. URINALYSIS STAT 08/29/2019 7:48 Results for this PM CDT procedure are i n the results section. BLOOD CULTURE, AEROBIC STAT 08/29/2019 7:40 R esults for this & ANAEROBIC PM CDT procedure are i n the results section. ESTIMATED GFR STAT 08/29/2019 7:28 Results fo r this PM CDT procedure are i n the results section. B NATRIURETIC PEP, STAT 08/29/2019 7:28 Resul ts for this I-STAT PM CDT procedure are i n the results section. TROPONIN, I-STAT STAT 08/29/2019 7:28 Results for this PM CDT procedure are i n the results section. LACTIC ACID, I-STAT STAT 08/29/2019 7:28 Resu lts for this PM CDT procedure are i n the results section. COMPREHENSIVE STAT 08/29/2019 7:28 Results fo r this METABOLIC PANEL PM CDT procedure ar e in the results section. PROTHROMBIN TIME WITH STAT 08/29/2019 7:28 Re sults for this INR, I-STAT PM CDT procedure are i n the results section. HC COMPLETE BLD COUNT STAT 08/29/2019 7:28 Re sults for this W/AUTO DIFF PM CDT procedure are i n the results section. BLOOD CULTURE, AEROBIC STAT 08/29/2019 7:28 R esults for this & ANAEROBIC PM CDT procedure are i n the results section. INFLUENZA ANTIGEN Routine 08/29/2019 7:25 Result s for this PM CDT procedure are i n the results section. ECG 12-LEAD STAT 08/29/2019 7:18 Results for this PM CDT procedure are i n the results section. ECG ED PRELIMINARY Routine 08/29/2019 7:16 Resul ts for this INTERPRETATION PM CDT procedure are in the results section. POC PT/INR Routine 08/17/2019 10:53 Persistent atrial Result s for this AM CDT fibrillation procedure are i n the results section. POC PT/INR Routine 07/27/2019 10:45 Persistent atrial Result s for this AM CDT fibrillation (HCC) procedure are in the results section. POC PT/INR Routine 06/28/2019 10:35 Persistent atrial Result s for this AM CDT fibrillation (HCC) procedure are in the results section. POC PT/INR Routine 05/30/2019 2:46 Paroxysmal atrial Result s for this PM CDT fibrillation (HCC) procedure are in the results section. after 04/30/2019 Results Prothrombin time with INR (04/29/2020 8:07 AM CDT)Only the most recent of10 resultswithin the time period is included. INR 1.9 (H) [employer] Comment: NEFTALY Reference Range 0.9-1.1 Moderate-intensity Warfarin Therapy 2.0-3.0 Higher-intensity Warfarin Therapy 3.0-4.0 Prothrombin time 19.4 (H) 9.0 - 11.5 [employer] Comment: rebekah SCHWARZ For more information on this test, go to: http://education.[employer]/faq/XEM412 Specimen Blood Narrative Performed At FASTING:YES [facility] FASTING: YES Resulting Agency Comment Performing Organization Information: Site ID: [id number] Name: [facility] Address: [address] [place] [phone] Director: Torrey Gaffney Performing Organization Address City/State/Zipcode Phone Number JERROD [employer] [place] [address] [place] [phone] B natriuretic peptide (02/05/2020 10:30 AM CDT)Only the most recent of4 results within the time period is included. Pathologist Sig nature BNP 314 (H) <100 pg/mL [employer] Comment: [place] BNP levels increase with age in the general population with the highest values seen in individuals greater than 75 years of age. Reference: J. Am. Raquel. Cardiol. 2002; 40:976-982. NO COLLECTION DATE RECEIVED. WE HAVE USED THE DATE THE SPECIMEN WAS RECEIVED BY THIS LABORATORY THE COLLECTION DATE. IF THIS IS INCORRECT, PLEASE CONTACT CLIENT SERVICES. PHONE NUMBER: [phone] Specimen Blood Resulting Agency Comment Performing Organization Information: Site ID: [facility]: [facility] Address: [address] [place], [place] [id number] Director: Torrey Gaffney Performing Organization Address City/State/[facility] Phone Number [email or web address] [place] [phone] Magnesium level (02/05/2020 10:30 AM CDT)Only the most recent of8 resultswithin the time period is included. Pathologist Sig nature Magnesium 2.0 1.5 - 2.5 mg/dL [facility] Specimen Blood Resulting Agency Comment Performing Organization Information: Site ID: [facility] Name: [facility] Address: [address] [place], [place] [id number] Director: Torrey Gaffney Performing Organization Address City/[facility] [email or web address] [address] Comprehensive metabolic panel (02/05/2020 10:30 AM CDT)Only the most recent of5 resultswithin the time period is included. Glucose 76 65 - 99 [employer] Comment: mg/dL [place] Fasting reference interval BUN 21 7 - 25 mg/dL [facility] [place] Creatinine 1.10 0.70 - 1.11 [facility] Comment: mg/dL [place] For patients >49 years of age, the reference limit for Creatinine is approximately 13% higher for people identified as -[place]. EGFR Non-Afr. 62 > OR = 60 [facility] [place] mL/min/1.73m [place] 2 EGFR 72 > OR = 60 [facility] [place] mL/min/1.73m [place] 2 BUN/creatinine NOT APPLICABLE 6 - 22 [facility] ratio (calc) [place] Sodium 140 135 - 146 [facility] mmol/L [place] Potassium 4.5 3.5 - 5.3 [facility] mmol/L [place] Chloride 103 98 - 110 [facility] mmol/L [place] CO2 31 20 - 32 [facility] mmol/L [place] Calcium 9.3 8.6 - 10.3 [facility] mg/dL [place] Protein 6.3 6.1 - 8.1 [facility] g/dL [place] Albumin, S 4.2 3.6 - 5.1 [facility] g/dL [place] Globulin, total 2.1 1.9 - 3.7 [facility] g/dL (calc) [place] Albumin/globulin 2.0 1.0 - 2.5 [facility] ratio (calc) [place] Total bilirubin 0.8 0.2 - 1.2 [facility] mg/dL [place] Alkaline 80 35 - 144 U/L [facility] phosphatase [place] AST 30 10 - 35 U/L [facility] [place] ALT 22 9 - 46 U/L [facility] [place] Specimen Blood Resulting Agency Comment Performing Organization Information: Site ID: [id number]: [facility] Address: [address] [place] [phone] Director: Torrey Gaffney Performing Organization Address City/State/Zipcode Phone Number [email or web address] [place] [phone] POC PT/INR (02/01/2020 10:30 AM CDT)Only the most recent of13 resultswithin the time period is included. Pathologist Sig nature POC prothrombin time 24.8 POC INR 2.1 Specimen Blood Estimated GFR (01/22/2020 12:05 PM CDT)Only the most recent of10 resultswithin the time period is included. Estimated GFR 57 (A) mL/min/1.73 [place] [facility] Comment: [facility]2 HOSPITAL Catergory Units Interpretation G1 >=90 Normal or high G2 60-89 Mildly decreased G3a 45-59 Mildly to moderately decreas ed G3b 30-44 Moderately to severely decre ased G4 15-29 Severely decreased G5 <15 Kidney failure The eGFR was calculated using the Chronic Kidney Disea se Epidemiology Collaboration (CKD-EPI) equation. Interpretation is based on recommendations of the National Kidney Foundation-Kidney Disease Outcomes Raphael lity Initiative (NKF-KDOQI) published in 2014. Specimen Plasma specimen Performing Organization Address City/[facility]/Zipcode Phone Number [facility] DEPARTMENT OF PATHOLOGY AND [address] [phone] [place] [phone] Basic metabolic panel (01/11/2020 3:33 AM PERSONALIZATION SPECIALIST)Only the most recent of6 results within the time period is included. Pathologist Sig nature Sodium 143 135 - 148 mEq/L [facility] Potassium 4.2 3.5 - 5.0 mEq/L [facility] Chloride 106 98 - 112 mEq/L [facility] CO2 21 (L) 24 - 31 mEq/L [facility] Anion gap 16@ANIO (H) 7 - 15 mEq/L [facility] BUN 18 8 - 23 mg/dL [facility] Creatinine 1.08 0.70 - 1.20 mg/dL [facility] Glucose 87 65 - 99 mg/dL [facility] Calcium 9.1 8.8 - 10.2 mg/dL [facility] Specimen Plasma specimen Performing Organization Address [facility]/Zipcode Phone Number [facility] DEPARTMENT OF PATHOLOGY AND [address] [place] [address] Echocardiogram complete w contrast and 3D if needed (01/09/2020 9:31 AM PERSONALIZATION SPECIALIST) Specimen Narrative Performed At [facility] Echo cardiography Report [id number] [facility], [facility] [address], [place] [address] Pat.Name: SHELLY CORTÉS Pat.ID: [id number] .Date: 01/09/2020 Refer.MD: BALBIR FONSECA NP Exam Time: 8:48:00 AM Study Type:R outine Echo Height: 70in Weight: 154lb BSA: 1.87 m2 Ag e: 1935,84Y Sex: MALE BP: 98/57 HR: 86 bpm Sonogr phr: TIBURCIO Elias Pat. Stat.:Inpatient Room: [facility] Study Status:Final Echo Event ID:[id number] Order ID: [id number] Reason for Study:CHF History / Clinical:Congestive Heart Fail ure, Pulmonary Hypertension Procedures: 2D Echo, Colorflow Doppler, Strain, Portable Race: SUMMARY: LV EF is mild to moderately depressed. Basal Inferior, Basal Inferolateral, Mid Inferior, Mid Inferolateral villarreal are akinetic. Basal Anterolatera l, Mid Anterolateral villarreal are mildly hypokinetic. Normal wall motio n in all other villarreal. RV systolic function is lower limits of normal. Mild aortic valve stenosis. LV filling pressure is elevated. FINDINGS: LV: LV size is upper limits of normal. There is moderate concentric LV hypertrop hy. Reduced average LV global longitudinal strain at -12.5%. LV EF is mild to moderately depressed. Estimated EF is 40-44%. Bas al Inferior, Basal Inferolateral, Mid Inferior, Mid Inferol ateral villarreal are akinetic. Basal Anterolateral, Mid Anterolateral w alls are mildly hypokinetic. Normal wall motion in all other villarreal. RV: RV size is moderately enlar ged. A pacemaker wire is seen in the RV. RV systolic fun ction is lower limits of normal. LA: LA volume is severely enlar ged. RA: RA volume is severely enlar ged. A pacemaker wire is seen. AO: Aortic root diameter is nor mal. BRADLY: No pericardial effusion. AV: Mild thickening and calcification of AV l eaflets. A trace of aortic regurgitation. Mild aortic briana ve stenosis. Estimated mean aortic valve gradient 18 mmHg wi th a valve area of 1.1 cm2. MV: Mild thickening and calcifi cation of mitral leaflets. Moderate mitral annular calcification. Mild mitral regurgitation. PV: No structural PV abnormalit ies noted. TV: No structural TV abnormalit ies noted. A trace of tricuspid regurgitation Edmond: LV relaxation is impaired. L V filling pressure is elevated. Other: Estimated PA systolic pressu re is 33 mmHg, assuming a mean RAP of 10 mmHg. MEASUREMENTS: 2D Parasternal Long [place] Ao An 1.9 cm LVPWd 1.2 cm Ao Rtd 3.2 cm Index 1.7 cm/m2 LA Ds 4.9 cm IVSd 1.3 cm RWT 0.45 LVIDd 5.3 cm Index 2.8 cm/m2 LV Mass 267 g (122-1 74) LVIDs 2.1 cm LVM In dex 143 g/m LV%fs 61 % LA Sng Plane LA Area 40 cm (8.8-23.4) LA Vol 187 ml Index 100 ml/m2 LA LngAx 7.3 cm RA Sng Plane RA Vol 102 ml Index 54 ml/m2 RA LngAx 6.2 cm RA Area 28 cm (8.3-1 9.5) LVOT For Flow LVOT 1.9 cm LVOT A sandoval 2.8 cm EF Biplane EDV 130 ml SV 54 ml ESV 76 ml EF 42 % DOPPLER AV For Flow/PINO AV pkVel 264 cm/s (100-170) AV TVI 48 cm AV mnVel 200 cm/s AVpkAcRt 5352 cm/s AV pkPG 28 mmHg AV DeRt 1104 cm/s AV Mean G 18 mmHg AV Area 1.1 cm (3-5) AV ET 239 msec AV AC 79 msec (83-118) AV AC/ET 0.33 Aortic Valve AV DI 0.4 LVOT For Flow LVOT TVI 19 cm LVOT CI 2.3 l/m/m LVOT SV 54 ml LVOTpkP G 5.1 mmHg LVOTpkVel 113 cm/s LVOTmnPG 2.8 mmHg LVOT CO 4.3 l/min HR 79 bpm LVOT SVi 29 ml/m WALL MOTION: RESTING WALL MOTION: Basal Inferior, Basal Inferolateral, Mid Inferior, Mid Inferolateral villarreal are akinetic. Basal Anterolatera l, Mid Anterolateral villarreal are mildly hypokinetic. Normal wall motio n in all other villarreal. Wall Index = 1.5 Signed 01/09/2020 02:59 PM Lula Worley M.D. Procedure Note Interface, Radiology Results In - 2019 3:00 PM PERSONALIZATION SPECIALIST Echocardiography Report [address] [place] [address] Pat.Name: SHELLY CORTÉS Pat.I D: [id number] .Date: 01/09/2020 Refer .MD: BALBIR FONSECA NP Exam Time: 8:48:00 AM Study Type:Routine Echo Height: 70in Weigh t: 154lb BSA: 1.87 m2 Age: 13 1935,84Y Sex: MALE BP: 98/57 HR: 86 bpm Sonog rphr: TIBURCIO Elias Pat. Stat.:Inpatient Room: [facility] Study Status:Final Echo Event ID:[id number] Order ID: [id number] Reason for Study:CHF History / Clinical:Congestive Heart Fail ure, Pulmonary Hypertension Procedures: 2D Echo, Colorflow Doppler, Strain, Portable Race: SUMMARY: LV EF is mild to moderately depressed. Basal Inferior, Basal Inferolateral, Mid Inferior, Mid Inferolateral villarreal are akinetic. Basal Anterolateral , Mid Anterolateral villarreal are mildly hypokinetic. Normal wall motion in all other villarreal. RV systolic function is lower limits of normal. Mild aortic valve stenosis. LV filling pressure is elevated. FINDINGS: LV: LV size is upper limits of nor mal. There is moderate concentric LV hypertrophy. Re duced average LV global longitudinal strain at -12.5% . LV EF is mild to moderately depressed. Estimated EF is 40-44%. Basa l Inferior, Basal Inferolateral, Mid Inferior, Mid Inferol ateral villarreal are akinetic. Basal Anterolateral, Mid Anterolateral w alls are mildly hypokinetic. Normal wall motion in all other villarreal. RV: RV size is moderately enlarged . A pacemaker wire is seen in the RV. RV systolic function is lower limits of normal. LA: LA volume is severely enlarged . RA: RA volume is severely enlarged . A pacemaker wire is seen. AO: Aortic root diameter is normal . BRADLY: No pericardial effusion. AV: Mild thickening and calcificat ion of AV leaflets. A trace of aortic regurgitation. Mild ao rtic valve stenosis. Estimated mean aortic valve gradient 18 mmHg with a valve area of 1.1 cm2. MV: Mild thickening and calcificat ion of mitral leaflets. Moderate mitral annular calci fication. Mild mitral regurgitation. PV: No structural PV abnormalities noted. TV: No structural TV abnormalities noted. A trace of tricuspid regurgitation Edmond: LV relaxation is impaired. LV filling pressure is elevated. Other: Estimated PA systolic pressure is 33 mmHg, assuming a mean RAP of 10 mmHg. MEASUREMENTS: 2D Parasternal Long [place] Ao An 1.9 cm LVPW d 1.2 cm Ao Rtd 3.2 cm Inde x 1.7 cm/m2 LA Ds 4.9 cm IVSd 1.3 cm RWT 0.45 LVIDd 5.3 cm Inde x 2.8 cm/m2 LV Mass 267 g (122-174) LVIDs 2.1 cm LVM Index 143 g/m LV%fs 61 % LA Sng Plane LA Area 40 cm (8.8-23.4) L A Vol 187 ml Index 100 ml/m2 LA LngAx 7.3 cm RA Sng Plane RA Vol 102 ml Inde x 54 ml/m2 RA LngAx 6.2 cm RA Area 28 cm (8.3-19.5) LVOT For Flow LVOT 1.9 cm LVOT Area 2.8 cm EF Biplane EDV 130 ml SV 54 ml ESV 76 ml EF 42 % DOPPLER AV For Flow/PNIO AV pkVel 264 cm/s (100-170) AV TVI 48 cm AV mnVel 200 cm/s AVpk AcRt 5352 cm/s AV pkPG 28 mmHg AV D eRt 1104 cm/s AV Mean G 18 mmHg AV A sandoval 1.1 cm (3-5) AV ET 239 msec AV A C 79 msec (83-118) AV AC/ET 0.33 Aortic Valve AV DI 0.4 LVOT For Flow LVOT TVI 19 cm LVOT CI 2.3 l/m/m LVOT SV 54 ml LVOT pkPG 5.1 mmHg LVOTpkVel 113 cm/s LVOT mnPG 2.8 mmHg LVOT CO 4.3 l/min HR 79 bpm LVOT SVi 29 ml/m WALL MOTION: RESTING WALL MOTION: Basal Inferior, Basal Inferolateral, Mid Inferior, Mid Inferolateral villarreal are akinetic. Basal Anterolateral , Mid Anterolateral villarreal are mildly hypokinetic. Normal wall motion in all other villarreal. Wall Index = 1.5 Signed 01/09/2020 02:59 PM Lula Worley M.D. Performing Organization Address City/State/Zipcode Phone Number [facility] [address] [place] [address] Thyroid stimulating hormone (01/09/2020 4:00 AM PERSONALIZATION SPECIALIST)Only the most recent of2 resultswithin the time period is included. Pathologist Sig nature TSH 0.65 0.27 - 4.20 uIU/mL [facility] Specimen Plasma specimen Performing Organization Address City/[facility]/Zipcode Phone Number [facility] DEPARTMENT OF PATHOLOGY AND [address] [place], [place] [address] [facility] [address] [place] [address] Troponin (01/08/2020 5:30 AM PERSONALIZATION SPECIALIST)Only the most recent of4 resultswithin the time period is included. Troponin 0.041 (H) 0.000 - 0.040 [facility] Comment: ng/mL HOSPITAL In patients suspected of having a myocardial infarctio n, along with all other appropriate clinical measures and actions includ ing ECG and other diagnostics as appropriate, measure Ultra TnI at 0 hrs and at 3 hrs. Myocardial infarction VERY LIKELY The 0 hr TnI level is > 0.10 ng/mL Myocardial infarction LIKELY The 0 hr TnI level is > 0.04 ng/mL and 3 hr level is i ncreased or decreased by at least 0.020 ng/mL Myocardial infarction VERY UNLIKELY Both the 0 hr and 3 hr TnI levels <= 0.04 ng/mL(within normal limits) OR 0 hr is > 0.04 ng/mL and 3 hr is increased OR decreased by less than 0.020 ng/mL Specimen Plasma specimen Performing Organization Address City/State/Zipcode Phone Number [facility] DEPARTMENT OF PATHOLOGY AND [address] [place], [place] [address] [facility] [address] [place] [address] CBC with platelet and differential (01/08/2020 5:30 AM PERSONALIZATION SPECIALIST)Only the most recent of7 resultswithin the time period is included. WBC 4.50 4.50 - 11.00 [facility] k/uL HOSPITAL RBC 4.12 (L) 4.40 - 6.00 [facility] m/uL HOSPITAL HGB 12.6 (L) 14.0 - 18.0 [facility] g/dL HOSPITAL HCT 39.6 (L) 41.0 - 51.0 % [facility] MCV 96.1 82.0 - 100.0 [facility] MCH 30.6 27.0 - 34.0 pg [facility] MCHC 31.8 31.0 - 37.0 [facility] RDW - SD 51.3 37.0 - 55.0 fL [facility] MPV 10.5 8.8 - 13.2 [facility] Platelet count 89 (L) 150 - 400 k/uL [facility] Nucleated RBC 0.00 /100 WBC [facility] Neutrophils 49.0 39.0 - 69.0 % [facility] Lymphocytes 35.3 25.0 - 45.0 % [facility] Monocytes 13.3 (H) 0.0 - 10.0 % [facility] Eosinophils 2.0 0.0 - 5.0 % [facility] [facility] Basophils 0.2 0.0 - 1.0 % [facility] Immature granulocytes 0.2Comment: 0.0 - 1.0 % [facility] granulocytes" (promyelocytes , myelocytes, metamyelocytes ) Specimen Blood Performing Organization Address City/[facility] Phone Number [facility] DEPARTMENT OF PATHOLOGY AND [address] [place] [address] [phone] [address] Lactic acid level (01/07/2020 10:50 PM PERSONALIZATION SPECIALIST)Only the most recent of2 results within the time period is included. Pathologist Sig nature Lactic acid 1.3 0.5 - 2.2 mmol/L [facility] Specimen Plasma specimen Performing Organization Address City/[facility]/Zipcode Phone Number [facility] DEPARTMENT OF PATHOLOGY AND [address] [place] [address] [phone] [address] Blood culture, aerobic & anaerobic (01/07/2020 7:25 PM PERSONALIZATION SPECIALIST)Only the most recent of4 resultswithin the time period is included. Blood culture No growth after 5 days of incubation. HO MICA [facility] isolate Comment: HOSPITAL Specimen Information Specimen Source: Blood Specimen Site: Forearm, left Specimen Blood - Forearm, left Performing Organization Address City/State/Zipcode Phone Number [facility] DEPARTMENT OF PATHOLOGY AND [address] [place], [place] [address] [address] Group A strep, rapid antigen (01/07/2020 6:17 PM PERSONALIZATION SPECIALIST) Pathologist [facility] Group A strep, Negative for Group A Streptococcus antigen. [facility] rapid antigen Comment: WHITING result Specimen Information EMERGENCY CARE Specimen Source: Throat CENTER Specimen Site: Not otherwise specified Specimen Throat - Not otherwise specified Performing Organization Address City/State/Zipcode Phone Number DEPARTMENT OF PATHOLOGY AND [address] [place] [phone] [facility] [address] [place] [address] EMERGENCY CARE CENTER Strep screen culture (01/07/2020 6:17 PM PERSONALIZATION SPECIALIST) Pathologist [facility] Strep screen No beta hemolytic Streptococci isolated H ERNIE [facility] culture isolate Comment: HOSPITAL Specimen Information Specimen Source: Throat Specimen Site: Not otherwise specified Specimen Throat - Not otherwise specified Performing Organization Address City/[facility]/Zipcode Phone Number [facility] DEPARTMENT OF PATHOLOGY AND [address] [place] [address] [phone] [address] XR Chest 1 Vw Portable (01/07/2020 5:56 PM PERSONALIZATION SPECIALIST)Only the most recent of2 results within the time period is included. Specimen Narrative Performed At EXAMINATION: XR CHEST 1 VW PORTABLE [facility] CLINICAL HISTORY: chf COMPARISON: 08/29/2019 IMPRESSION: Heart and mediastinum stable. Left-sided AICD is again noted. Central pulmonary vascular enlargement again noted. Mi ld interstitial edema may be present and should be correlated. Left ba silar patchy opacities are noted. [facility]-[id number] Procedure Note Interface, Radiology Results Incoming - 01/07/2020 6:08 PM PERSONALIZATION SPECIALIST EXAMINATION: XR CHEST 1 VW PORTABLE CLINICAL HISTORY: chf COMPARISON: 08/29/2019 IMPRESSION: Heart and mediastinum stable. Left-sided AICD is again noted. Central pulmonary vascular enlargement a gain noted. Mild interstitial edema may be present and should be correlated. Left basilar patchy opacities are noted. [facility]-[id number] Performing Organization Address City/State/Zipcode Phone Number [facility] [address] [place] [address] ECG ED Preliminary Interpretation - Not an Order (01/07/2020 5:07 PM PERSONALIZATION SPECIALIST)Only the most recent of2 resultswithin the time period is included. Narrative Performed At Dinorah Swartz DO 020 9:54 AM ECG ED Preliminary Interpretation - Not an Order Performed by: Dinorah Swartz D O Authorized by: Dinorah Swartz DO ECG reviewed by ED Physician in the abse nce of a police captain: yes Interpretation: Interpretation: abnormal Rhythm: Rhythm: paced Pacing: Capture: Complete Type of pacing: Ventricular Ectopy: Ectopy: none QRS: QRS axis: Indeterminate ST segments: ST segments: Normal Influenza antigen test, reflex negative to RPP (01/07/2020 5:03 PM PERSONALIZATION SPECIALIST)Only the most recent of2 resultswithin the time period is included. [facility] Influenza antigen Positive for Influenza A antigen. (A) [facility] Comment: HOSPITAL Specimen Information Specimen Source: Nares Specimen Site: Left Specimen Nares - Left Performing Organization Address City/[facility] Phone Number [facility] DEPARTMENT OF PATHOLOGY AND [address] [place], [place] [address] [facility] [address] [place] [address] Troponin, I-Stat (01/07/2020 4:59 PM PERSONALIZATION SPECIALIST)Only the most recent of3 resultswithin the time period is included. [facility] Troponin, I-Stat 0.01 0.00 - 0.08 [facility] Comment: ng/mL WHITING 0.09 - 1.49 ng/ml May indicate increa sed risk of acute EMERGENCY CARE coronary syndrome. CENTER >=1.5 ng/ml Consistent with acute myocardial infarction. The diagnostic value of a single normal or non-diagnos tic result is questionable. Serial samples at 2-6 hour i ntervals are required to rule out acute myocardial injury. Specimen Plasma specimen Performing Organization Address City/[facility]/Zipcode Phone Number DEPARTMENT OF PATHOLOGY AND [address] [place], [place] [address] [address] [place] [address] EMERGENCY CARE CENTER Lactic acid, I-Stat (01/07/2020 4:59 PM PERSONALIZATION SPECIALIST)Only the most recent of2 results within the time period is included. Pathologist [facility] Lactic acid, I-Stat 1.0 0.5 - 2.2 mmol/L [facility] Specimen Plasma specimen Performing Organization Address City/[facility] Phone Number DEPARTMENT OF PATHOLOGY AND [address] [place] [address] [phone] [place] [address] EMERGENCY CARE CENTER B natriuretic pep, I-Stat (01/07/2020 4:59 PM PERSONALIZATION SPECIALIST)Only the most recent of2 resultswithin the time period is included. Pathologist Sig [facility] BNP, I-Stat 796 (H) 0 - 100 pg/mL [facility] Specimen Blood Performing Organization Address [facility] Phone Number DEPARTMENT OF PATHOLOGY AND [address] [place] [address] 7 [address] [place] [address] EMERGENCY CARE CENTER Creatine kinase, total (CPK) (01/07/2020 4:59 PM PERSONALIZATION SPECIALIST) Pathologist Sig [facility] Creatine kinase 84 39 - 380 U/L [facility] Specimen Plasma specimen Performing Organization Address [facility] Phone Number DEPARTMENT OF PATHOLOGY AND [address] [place] [address] [phone] [place] [address] EMERGENCY CARE CENTER ECG 12 lead (01/07/2020 4:58 PM PERSONALIZATION SPECIALIST)Only the most recent of4 resultswithin the time period is included. Pathologist Sig nature Ventricular rate 79 [facility] QRSD interval 178 [facility] QT interval 414 [facility] QTC interval 474 [facility] QRS axis 1 205 [facility] T wave axis 68 [facility] EKG impression Ventricular-paced [facility] MUSE rhythm-Biventricular pacemaker detected-Atrial fibrillation-Abnormal ECG-In automated comparison with ECG of 31-AUG-2019 11:05,-Vent. rate has decreased BY 6 BPM- Specimen Narrative Performed At This result has an attachment that is no t available. Performing Organization Address City/[facility]/Zipcode Phone Number [facility] MUSE [address] [place] [address] T4, free (09/28/2019 9:51 AM PERSONALIZATION SPECIALIST) Pathologist Sig nature T4, free 1.3 0.8 - 1.8 ng/dL [facility] [place] Specimen Blood Resulting Agency Comment Performing Organization Information: Site ID: [id number] Name: [facility] Adriana eaton Address: [address] [place] [id number] Director: Torrey Gaffney Performing Organization Address [facility] Hospital[facility] Phone Number [email or web address] [place] [address] [place] [address] NT-proBNP (09/11/2019 11:25 AM CDT) Pathologist Sig nature NT-proBNP 1,904 (H) 0 - 450 pg/mL [facility] Specimen Performing Organization Address [facility] Phone Number [facility] DEPARTMENT OF PATHOLOGY AND [address] [place] [address] [phone] [address] Phosphorus level (09/01/2019 4:15 AM CDT)Only the most recent of3 resultswithin the time period is included. Pathologist Sig nature Phosphorus 2.9 2.4 - 4.5 mg/dL [facility] L Specimen Plasma specimen Performing Organization Address [facility] Phone Number [facility] DEPARTMENT OF PATHOLOGY AND [address] [place] [address] [phone] [address] Nm myocardial perfusion (08/31/2019 1:51 PM CDT) Specimen Narrative Performed At This result has an attachment that is no t available. [facility] Nuclear Cardiology and Card iac [place] [address] [address] Myocardial Perfusion Imagin g Report Stress ECG tracings are available in MUSE, EP IC and CV Web All ECG interpretations are included in this report Pat.Name: SHELLY CORTÉS Pat.ID: [id number] .Date: 08/31/2019 Refer.MD: SERA NEVES MD Exam Time: 11:35:00 AM Study Type:Myocardial Perfusion Imaging Height: 67in BSA: 1.79 m2 Age: 11 1935,83Y Sex: MALE BP: 133/65 HR: 80 bpm Nuclear Tech:Lu KINGMT,BANNERT/Albert Remy NJT, ARRT Nuclear Event ID:[id number] Order ID: [id number] Reason for Study:Elevated troponin History / Clinical:A.FIB, CAD, Congestive HF, Fam. Hx of CAD, HTN, HDL, DVT Procedures: Single Day Stress / Rest Risk Factors:Cardiovascular Disease, Hyperlipidemia, H ypertension, Family history of cardiovascular disease Clinical Symptoms:Regadenoson Physical Exam:S1, S2 SUMMARY: SCINTIGRAPHIC RESULTS Perfusion Defect Size (% LV) 25% Total 5% Ischemia 20% Scar Left Ventricular Perfusion Results There is a severe lateral (anterolateral, mid-lateral) perfusion defect during stress which minimally improves with res t imaging. Gated SPECT Results The post stress left ventricular ejection fraction is 52% with akinesis of all hypoperfused segments. Left ventricu lar end-diastolic volume is 213 ml; end-systolic volume is 103 ml. T he left ventricle is moderately enlarged at stress. Conclusion Abnormal regadenoson Tc-99m tetrofosmin myocardial per fusion study compatible with scar in the circumflex coronary artery vascular territory. The LVEF is low-normal. CT Findings: Coronary calcification is present. The ascending and descending aorta are normal in size. There is no significant pericardia l effusion. Limited lung espinoza show no significant abnormalities. Comments The study results indicate a high (>2%) annual risk fo r a cardiac or non-fatal myocardial infarction. Study Quality/Artifacts The study quality is good. Comparison to Previous Study None available. FINDINGS: STRESS: Baseline Vital Signs: Intervention Regadenoson 0.4mg/5ml IV over 10 seconds followed by radiotracer injection a nd 5ml saline flush Baseline EKG Ventricular pacemaker Heart Rate: 80 Atropine Administered: 0 Rest BP: 133/65 Stress Test Results: Target HR: 118 Symptoms and Complications: Stress-induced Arrhythmias Ventricular premature depol arizations Reason for Stopping Test: As per Regadenoson protocol Symptoms During Test GI discomfort, Shortness of breat h, Lightheadedness Complications None Other: Normal heart rate response to pharmacolog ical stress, Normal blood pressure response to pharmacological stre ss ECG / Stress Interpretation: Pacemaker rhythm preclude s ST-segment analysis for diagnosing myocardial ischemia. Signed 08/31/2019 04:23 PM Rodney Lees MD Procedure Note Interface, Radiology Results In - 2018 4:24 PM CDT Nuclear Cardiology and Cardiac CT [address] [place] [address] [phone] Myocardial Perfusion I maging Report Stress ECG tracings are available in MUSE, EPIC and [employer] Web All ECG interpretations are in cluded in this report Pat.Name: SHELLY CORTÉS Pat.I D: [id number] St.Date: 08/31/2019 Refer .MD: SERA NEVES MD Exam Time: 11:35:00 AM Study Type:Myocardial Perfusion Imaging Height: 67in BSA: 1.79 m2 Age: 11 1935,83Y Sex: MALE BP: 133/65 HR: 80 bpm Nuclear Tech:Lu KINGMT,BANNERT/Young Matthew SHIPPING ROOM SUPERVISOR, ARRT Nuclear Event ID:[id number] Order ID: [id number] Reason for Study:Elevated troponin History / Clinical:A.FIB, CAD, Congestiv e HF, Fam. Hx of CAD, HTN, HDL, DVT Procedures: Single Day Stress / Rest Risk Factors:Cardiovascular Disease, Hyp erlipidemia, Hypertension, Family history of cardiovascular disease Clinical Symptoms:Regadenoson Physical Exam:S1, S2 SUMMARY: SCINTIGRAPHIC RESULTS Perfusion Defect Size (% LV) 25% Total 5% Ischemia 20% Scar Left Ventricular Perfusion Results There is a severe lateral (anterolateral , mid-lateral) perfusion defect during stress which minimally imp roves with rest imaging. Gated SPECT Results The post stress left ventricular ejectio n fraction is 52% with akinesis of all hypoperfused segments. Left ventricular end-diastolic volume is 213 ml; end-systolic volume is 103 ml. The left ventricle is moderately enlarged at stress. Conclusion Abnormal regadenoson Tc-99m tetrofosmin myocardial perfusion study compatible with scar in the circumflex c oronary artery vascular territory. The LVEF is low-normal. CT Findings: Coronary calcification is present. The ascending and descending aorta are normal in size. There is no signific ant pericardial effusion. Limited lung espinoza show no significant abnormalities. Comments The study results indicate a high (>2%) annual risk for a cardiac or non-fatal myocardial infarction . Study Quality/Artifacts The study quality is good. Comparison to Previous Study None available. FINDINGS: STRESS: Baseline Vital Signs: Inter vention Regadenoson 0.4mg/5ml IV over 10 seconds followed by radiotrac er injection and 5ml saline flush Baseline EKG Ventricular pacemaker Heart Rate: 80 Atrop ine Administered: 0 Rest BP: 133/65 Stress Test Results: Target HR: 118 Symptoms and Complications: Stress-induced Arrhythmias Ventricular p remature depolarizations Reason for Stopping Test: As per Regaden oson protocol Symptoms During Test GI discomfort, Shor tness of breath, Lightheadedness Complications None Other: Normal heart rate response to pharmacological stress, Normal blood pressure response to pharma cological stress ECG / Stress Interpretation: Pacemaker r hythm precludes ST-segment analysis for diagnosing myocardial ische milton. Signed 08/31/2019 04:23 PM Rodney Lees MD Performing Organization Address [facility] Phone Number [facility] [address] [place] [address] Cv stress test (08/31/2019 11:05 AM CDT) Resting HR 84 [facility] Resting BP 133 [facility] Peak MET Achieved 1.0 [facility] Protocol Name REGADENO [facility] Time in Exercise 00:01:00 [facility] Phase Max Systolic BP 133 [facility] Max Diastolic BP 65 [facility] Max Heart Rate 85 [facility] Max Predicted Heart 139 [facility] Rate Target HR Formula (220 - Age)*100% [facility] Test Indication [facility] Arrhy During Ex [facility] ECG Interp Before EX [facility] ECG Interp During Ex [facility] Ex Summary Comment [facility] Overall HR Response [facility] to Exercise Overall BP Response [facility] To Exercise Reason for [facility] Termination Stress Test -Waveform interpreted [facility] Impression in report associated with image study. No interpretation is provided as part of this Stress ECG report.-Electronically Signed By Lacie MARTI, Alber Calle ([id number]), photograph editor Aneta Pace ([id number]) on 08/31/2019 1:59:34 PM Specimen Narrative Performed At This result has an attachment that is no t available. Performing Organization Address [facility] Phone Number [facility] [address] [place] [address] Respiratory pathogen panel (08/30/2019 4:45 AM CDT) Respiratory Positive for Rhinovirus/Enterovirus [place] pathogen panel [facility] Negative for all other pathogens tested: HOSPITAL Negative for Adenovirus Negative for Coronavirus HKU1 Negative for Coronavirus NL63 Negative for Coronavirus 229E Negative for Coronavirus OC43 Negative for Human Metapneumovirus Negative for Influenza A Negative for Influenza A/H1 Negative for Influenza A/H3 Negative for Influenza A/H1-2009 Negative for Influenza B Negative for Parainfluenza Virus 1 Negative for Parainfluenza Virus 2 Negative for Parainfluenza Virus 3 Negative for Parainfluenza Virus 4 Negative for Respiratory Syncytial Virus Negative for Bordetella pertussis Negative for Chlamydophila pneumoniae Negative for Mycoplasma pneumoniae This real-time PCR assay detects the presence of nucle ic acids (RNA or DNA) for the respiratory pathogens liste d. A result of "Not-detected" does not exclude the possib ility of the presence of one or more pathogens at concentrat ions less than the detectable limits of the assa (A) Comment: Specimen Information Specimen Source: Nares Specimen Site: Left Specimen Nares - Left Performing Organization Address City/State/Zipcode Phone Number [facility] DEPARTMENT OF PATHOLOGY AND [address] [place] [phone] Digoxin level (08/30/2019 4:32 AM CDT) Pathologist [facility] Digoxin 0.5 (L) 0.8 - 2.0 ng/mL [facility] Comment: HOSPITAL For valid Digoxin results, at least 6 hours should christy pse between time of last dose and collection of blood. Otherwise, result may be false high. Therapeutic Range: 0.8 - 2.0 ng/mL Specimen Plasma specimen Performing Organization Address City/[facility] Phone Number [facility] DEPARTMENT OF PATHOLOGY AND [address] [place] [address] Head Wo Contrast (08/29/2019 8:20 PM CDT) Specimen Narrative Performed At EXAMINATION: CT HEAD WO CONTRAST [facility] CT IMAGING WAS PERFORMED WITH ITERATIVE RECONSTRUCTION TECHNIQUE AND/OR AUTOMATED EXPOSURE CONTROL TO REDUCE RAD IATION DOSE. CLINICAL HISTORY: dizzy vomiting on coumadin COMPARISON: CT brain April 22, 2018 FINDINGS: There is no acute intracranial abnormality. Specifica lly there is no intracranial hemorrhage, mass effect or acute infarction. There are mild nonspecific cerebral white matter micro vascular changes. This chronic lacunar infarction versus perivascular sp nathalie in the lateral basal ganglia region bilaterally. There is [id number] cerebral cortical volume los s and mild cerebellar volume loss. There is minimal basal ganglia calcification. Atherosc lerotic calcifications noted in the distal internal carotid an d to a lesser degree vertebral arteries. There is amild mucosal thickening/mucus in the ethmoid sinus, maxillary sinuses and to a lesser degree sphenoid sinus. IMPRESSION: No acute abnormality and no significant change from the prior study. [id number] Procedure Note Interface, Radiology Results Incoming - 08/29/2019 8:30 PM CDT EXAMINATION: CT HEAD WO CONTRAST CT IMAGING WAS PERFORMED WITH ITERATIVE RECONSTRUCTION TECHNIQUE AND/OR AUTOMATED EXPOSURE CONTROL TO REDUCE RADIATION DOSE. CLINICAL HISTORY: dizzy vomiting on coumadin COMPARISON: CT brain April 22, 2018 FINDINGS: There is no acute intracranial abnormal ity. Specifically there is no intracranial hemorrhage, mass effect or acute infarction. There are mild nonspecific cerebral whit e matter microvascular changes. This chronic lacunar infarction versus perivascular space in the lateral basal ganglia region bilaterally. There is [id number]-pr-[id number] cerebral corti yolanda volume loss and mild cerebellar volume loss. There is minimal basal ganglia calcifica tion. Atherosclerotic calcifications noted in the distal internal carotid and to a lesser degree vertebral arteries. There is amild mucosal thickening/mucus in the ethmoid sinus, maxillary sinuses and to a lesser degree sphenoid sinus. IMPRESSION: No acute abnormality and no significant change from the prior study. [id number] Performing Organization Address City/State/Zipcode Phone Number [facility] [address] [place] [address] CT Abdomen Pelvis Wo Contrast (08/29/2019 8:12 PM CDT) Specimen Narrative Performed At This result has an attachment that is no t available. EXAMINATION: CT ABDOMEN PELVIS WO CONTRAST [facility] CLINICAL HISTORY: 83 yearsMale abd pain vomiting TECHNIQUE: Multidetector computed axial tomography of the abdomen and pelvis was performed without contrast utilizing automated exposure control and/or iterative reconstruction techniques to rad iation dose. Coronal and sagittal reformatted images created at the CT scanner CT technologi st were also submitted for interpretation. COMPARISON: September 14, 2016 IMPRESSION: LUNG BASES: Cardiomegaly with mildly thickened inter lobular septal thickening suggestive of pulmonary edema cardiogenic pulmonary edema. Pacing leads are partially visualized. Median sternotomy wires are present. There is no pleural or pericardial effusion. ABDOMEN: Liver: The liver is normal. No focal mass. Gallbladder/Biliary: The gallbladder is contracted and contains a small gallstone. There is no evidence of intra or extrahepatic biliary ductal dilatation. Spleen: The spleen is not enlarged. Pancreas: The pancreas is unremarkable. Adrenal Glands: The adrenal glands are unremarkable. Kidneys: The kidneys are atrophic. There is no mass or hydronephrosis. Bilateral hypodensities arise from the kidney measuring up to 2 cm on the right and 2 cm on the left both of which demonstrate atte nuation values suggestive of simple cysts. There is mild nonspecific perinephric fat strandi ng more so on the left. Within the left upper pole there is a punctate renal stone measuring 4 mm. A subcentimeter hypodensity arising from the lower pole of the right kidney displays attenuation values which may represent a proteinaceous or hemorrhagic cyst. Vascular: Dense atherosclerotic calcific ation of the abdominal aorta and its branches. The aorta is nonaneurysmal. Nodes: No enlarged retroperitoneal or mesenteric lymph adenopathy. Bowel: Small hiatal hernia. No bowel obs truction or inflammatory changes.The appendix is normal. A moderate stool burden is present within colon. Ascites/fluid collections: No ascites or fluid collect ions. PELVIS: No mass, fluid collection or significant adenopathy. The prostate is enlarged and indents the posterior bladder wall. Prominence of the bladder wall is likely secondary to chronic bladder outlet obstruc tion. If concern for cystitis is present urinalysis is recommended. There are coarse calcifi cations within the prostate. Scattered pelvic phleboliths are noted. A small hypodensity arises anterior wall the bladder is suspected to be a small diverticula. MUSCULOSKELETAL: Chronic L2 body compression fracture wit h approximately 50% height loss. There is no aggressive height loss compared to the prior exam. SUMMARY: 1. Cardiomegaly with findings suggestive of cardiogeni c pulmonary edema. 2. Nonobstructive left renal stone and stable bilatera l renal cysts. 3. Enlarged prostate with findings of ch ronic bladder outlet obstruction, clinical correlation recommended. 4. Chronic L2 vertebral body compression fracture with approximately 50% height loss. 5. Cholelithiasis without evidence of acute cholecysti tis. 6. Moderate stool burden query constipation. 7. Small hiatal hernia. [id number] Procedure Note Hm Interface, Radiology Results Incoming - 08/29/2019 8:35 PM CDT EXAMINATION: CT ABDOMEN PELVIS WO CONTRAST CLINICAL HISTORY: 83 yearsMale abd pain vomiting TECHNIQUE: Multidetector computed axial tomography of the abdomen and pelvis was performed without contrast utilizing automated exposure control and/or iterative reconstruction techniques to radiation dose. Coronal and sagittal reformatted images created at the CT scanner CT technologi st were also submitted for interpretation. COMPARISON: September 14, 2016 IMPRESSION: LUNG BASES: Cardiomegaly with mildly thickened inter lobular septal thickening suggestive of pulmonary edema cardiogenic pulmonary edema. Pacing leads are partially visualized. Median sternotomy wires are present. There is no pleural or pericardial effusion. ABDOMEN: Liver: The liver is normal. No focal mas s. Gallbladder/Biliary: The gallbladder is contracted and contains a small gallstone. There is no evidence of intra or extrahepatic biliary ductal dilatation. Spleen: The spleen is not enlarged. Pancreas: The pancreas is unremarkable. Adrenal Glands: The adrenal glands are u nremarkable. Kidneys: The kidneys are atrophic. There is no mass or hydronephrosis. Bilateral hypodensities arise from the kidney measuring up to 2 cm on the right and 2 cm on the left both of which demonstrate attenuation values suggestive of simple cysts. There is mild nonspecific perinephric fat strandi ng more so on the left. Within the left upper pole there is a punctate renal stone measuring 4 mm. A subcentimeter hypodensity arising from the lower pole of the right kidney displays attenuation values which may represent a proteinaceous or hemorrhagic cyst. Vascular: Dense atherosclerotic calcific ation of the abdominal aorta and its branches. The aorta is nonaneurysmal. Nodes: No enlarged retroperitoneal or me senteric lymphadenopathy. Bowel: Small hiatal hernia. No bowel obs truction or inflammatory changes.The appendix is normal. A moderate stool burden is present within colon. Ascites/fluid collections: No ascites or fluid collections. PELVIS: No mass, fluid collection or significant adenopathy. The prostate is enlarged and indents the posterior bladder wall. Prominence of the bladder wall is likely secondary to chronic bladder outlet obstruction. If concern for cystitis is present urinalysis is recommended. There are coarse calcifi cations within the prostate. Scattered pelvic phleboliths are noted. A small hypodensity arises anterior wall the bladder is suspected to be a small diverticula. MUSCULOSKELETAL: Chronic L2 body compression fracture wit h approximately 50% height loss. There is no aggressive height loss compared to the prior exam. SUMMARY: 1. Cardiomegaly with findings suggestive of cardiogenic pulmonary edema. 2. Nonobstructive left renal stone and s table bilateral renal cysts. 3. Enlarged prostate with findings of ch ronic bladder outlet obstruction, clinical correlation recommended. 4. Chronic L2 vertebral body compression fracture with approximately 50% height loss. 5. Cholelithiasis without evidence of ac wendi cholecystitis. 6. Moderate stool burden query constipat ion. 7. Small hiatal hernia. [id number] Performing Organization Address City/[facility]/Zipcode Phone Number [employer] [address] [place] [address] Urinalysis (08/29/2019 7:48 PM CDT) Pathologist Sig nature Glucose, UA Negative Negative [facility] Bilirubin, UA Negative Negative [facility] Ketones, UA Negative Negative [facility] Specific gravity, UA 1.020 1.001 - 1.035 [facility] Blood, UA Negative Negative [facility] pH, UA 5.0 5.0 - 8.5 [facility] Protein, UA Negative Negative [facility] Urobilinogen, UA <2.0 <2.0 [facility] Nitrite, UA Negative Negative [facility] Leukocyte esterase, Negative Negative [facility] Color, UA Yellow [facility] Appearance, UA Clear [facility] Specimen Urine Performing Organization Address City/State/Zipcode Phone Number DEPARTMENT OF PATHOLOGY AND [address] [place], [place] [address] [facility], [facility] EMERGENCY DEPARTMENT [address] [place] [address] EMER[facility]ENCY [facility]ARE CENTER Prothrombin time with INR, I-Stat (08/29/2019 7:28 PM CDT) POC prothrombin 21.0 (H) 11.0 - 14.5 SCHWARZ time sec [facility] POC INR 1.8 NEFTALY Comment: ORTHODOX The International Normalized Ratio (INR) is a therapeu [facility] monitoring tool for patients who are stable on oral EMERGENCY CARE vitamin K antagonist therapy. An INR of 2.0-3.0 is sug gested CENTER for deep vein thrombosis/pulmonary embolism. An INR of 2.5-3.5 (high dose) is suggested for some pa tients with mechanical heart valves) Specimen Blood Performing Organization Address [facility] Phone Number DEPARTMENT OF PATHOLOGY AND [address] [place] [address] [address] [place] [address] EMERGENCY CARE CENTER Influenza antigen (08/29/2019 7:25 PM CDT) Pathologist [facility] Influenza antigen Negative for Influenza A/B antigen. 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
--- OUTSIDE RECORDS SUMMARY | 2020-04-30 04:01 | XMS REPORT | Continuity of Care Document ---
:1935 Author Organization [employer] Care Team Providers Name Role Phone CannaBuild Unavailable Un available Problems Problem Status Onset Classification Date Comments Sourc e Date Reported CRICOPHARYLNGEAL Active 03/08/20 [facility] DYSPHAGIA, 19 Medical CRICOPHARYNG Center OTHER Active 02/02/[address] DEGLOVING INJURY R Active 02/02/20 [facility] HAND [address] [place] [address] FOLLOW UP Active 08/13/[address] FOLLOW UP GTUBE Active 08/11/20 [facility] REMOVAL [address] [place] [address] BDDC - F/U Active 05/21/[address] CRICOPHARYNGEAL Active 04/08/20 [place] SPASM [address] [place] [address] R10.84 - Active 02/04/20 [facility] GENERALIZED [address] [place] [address] ABDOMINAL PAIN R60. HOSPITAL F/U Active 01/06/20 [facility] [address] [place] [address] DYSPHAGIA WITH Active 12/31/19 [facility] ASPIRATION [address] [place] [address] DYSPHAGIA Active 12/19/[address] DSU-DYSPHAGIA Active 12/17/[address] R13.10 - Active 12/09/19 [facility] "DYSPHAGIA, [address] [place] UNSPECIFIED" BDDC-DYSPHAGIA Active 12/06/[address] SWALLOWING ISSUE Active 11/29/[address] WT. GAIN Active 10/18/[address] 783.21 - ABNORMAL Active 01/27/20 [facility] LOSS O 478.2 - [address] [place] DISEASE ABNORMAL WEIGHT Active 01/27/20 [facility] [place] LOSS [address] [place] [address] 478.29 - DISEASE OF Active 01/26/20 [facility] PHAR [address] [place] 01/16/13, Active 01/03/20 [facility] ESCOGSCOPY [address] [place] [address] DYSPHAGIA,ICD.9-787 Active 01/03/20 [facility] .[address] [place] [address] 787.20/478.29 Active 12/13/19 [facility] as [facility] DDC/ DYSPHAGIA Active 09/13/20 [facility] [place] [address] [place] [address] RUQ PAIN Active 04/12/[address] NEW CLINIC VISIT Active 03/31/[address] DDC- NEW CLINIC Active 03/31/20 [facility] [place] VISIT [address] [place] [address] RIGHT UPPER Active 03/15/20 [facility] QUADRANT PAIN 12 [facility] Methicillin Active 08/28/20 Problem 02/09/2013 [place] resistant 09 added by Medical Staphylococcus Edson yanes aureus Expert. BRAD Morris Methicillin Active 08/28/20 Problem 01/24/2016 [place] resistant 09 added by Medical Staphylococcus Edson yanes aureus (organism) Expert. [facility] Atrial fibrillation Inactive Problem 02/09/2013 [facility] Hyperlipidemia Active Problem 02/09/2013 [facility] Hypertension Active Problem 02/09/2013 [facility] Hypothyroidism Active Problem 02/09/2013 [facility] [place] [facility] CAD - Coronary Resolved Problem 02/09/2013 [facility] artery disease Medic al Center Depression Resolved Problem 02/09/2013 [facility] GERD - Resolved Problem 02/09/2013 [facility] Gastro-esophageal [place] reflux disease [facility] Hepatitis C Resolved Problem 02/09/2013 [facility] HLD - Resolved Problem 02/09/2013 [facility] Hyperlipidemia [facility] Center HTN - Hypertension Resolved Problem 02/09/2013 [facility] 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 [facility] Atrial fibrillation Resolved Problem 03/18/2019 [facility] (disorder) [facility] Coronary Active Problem 03/18/2019 [facility] arteriosclerosis Med ical (disorder) Center, [facility] Gastroesophageal Active Problem 03/18/2019 [facility] reflux disease Medic al (disorder) Center, [facility] Hyperlipidemia Active Problem 03/18/2019 [facility] (disorder) [facility], [facility] Hypertensive Active Problem 03/18/2019 [place] as disorder, systemic M edical arterial (disorder) Center, [facility] Hypothyroidism Active Problem 03/18/2019 [facility] (disorder) [facility] Other (qualifier Resolved Problem 03/18/2019 INTEGRATION SOLUTION ARCHITECT arrest- [facility] value) with [facility] Medical Center, BRAD Morris Pulmonary Resolved Problem 03/18/2019 Diagnosed [facility] hypertension in January Medical (disorder) 2016 Center, BRAD [place] 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 Viral hepatitis C Resolved Problem 12/29/2015 [facility] (disorder) 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 MEDICAL SERVICES Active [facility] NOT AVAILABLE IN Med ical HOME Center DYSPHAGIA, Active [facility] UNSPECIFIED Medical [place] ALCOHOLIC FATTY Active [facility] ex LIVER [facility] Center OTHER DISEASES OF Active [facility] PHARYNX [facility] ENCNTR FOR GENERAL Active [facility] ADULT MEDICAL EXAM M edical W/ Center UNSPECIFIED OPEN Active [facility] WOUND OF RIGHT Medic al HAND, IN Center Medications Medication Details Route Status Patient Ordering Order Source Instructions Provider Date ONAbotulinumtoxinA Notes: "TO BE Active 03/16/ [facility] RECONSTITUTED 2019 Medical AND Center ADMINISTERED ONLY BY A PHYSICIAN" Reconstitute with preservative free NS only. Stability = 4 hours after reconstitution . (Same As: Botox) WASTE: F/P - Red; E -Red Bacitracin 1 appl, Route: No Longer 02/05[facility] TOP, Daily, Active 2016 Medical Drug form: Center OINT, Apply on the affected area on the b/l hands., Start date: 02/05/17 9:00:00 CDT, Duration: 30 day, Stop date: 03/06/17 9:00:00 CDT calcium-vitamin D See Active 02/04[facility] Kyle as 600 mg-400 intl Instructions, 2017 [place] dical units oral tablet, Take 1 tab Ce nter chewable BID, # 30 tab, 0 Refill(s) Acetaminophen 300 1 tab, PO, Active 02/04[facility] MG / Codeine Q6H, PRN Pain, 2017 [facility] yolanda Phosphate 30 MG X 7 day, # 28 Ce nter Oral Tablet tab, 0 [Tylenol with Refill(s) Codeine #3] Cephalexin 750 MG 750 mg = 1 Active [facility] Oral Capsule cap, PO, Q12H, 2017 Medi [place]olanda [Keflex] X 5 day, # 10 Center cap, 0 Refill(s) Amiodarone Notes: Same Inactive [facility] as: Cordaron, 2017 [facility] Pacerone [place] Sodium Chloride 500 mL, 500 Inactive [facility] 0.154 MEQ/ML ml/hr, Infuse 2017 Medic al Injectable Over: 1 hr, [place] Solution Route: IV, 500, Drug form: INJ, ONCE, Priority: STAT, Dosing Weight 68.182 kg, Start date: 02/03/17 13:28:00 CDT, Duration: 1 doses or times, Stop date: 02/03/17 13:28:00 CDT Naloxone Notes: Same as Inactive 02/03[facility] Abraham humphrey Narcan [address] [place] [address] Promethazine Notes: Do not Inactive [place] give IV push. 2017 Medical (Same as: [place] Phenergan) Acetaminophen Notes: Max Inactive 02/03[facility] Kyle as acetaminophen [address] [place] [address] 4000 mg/day (4 Center gm/day). (Same as: Tylenol Extra Strength) Fentanyl Notes: (Same Inactive [facility] as: Sublimaze) [address] [place] [address] Preservative [place] free. Oxycodone Notes: (Same Inactive 02/03[facility] Domingo as: [address] [place] [address] Roxicodone) [place] Flumazenil Notes: (Same Inactive 02/03[facility] Abraham s as: Romazicon) [address] [place] [address] Lasix Notes: (Same Inactive 02/02[facility] Domingo as: Lasix) 2017 [facility] sacubitril 24 MG / 1 tab, PO, Active [facility] valsartan 26 MG BID, # 28 tab, 2017 M edical Oral Tablet 0 Refill(s) [place] [Entresto] spironolactone 25 25 mg = 1 tab, Active [facility] mg oral tablet PO, Daily, # 2017 Medi yolanda 30 tab, 3 Center Refill(s) digoxin 125 mcg Notes: Take on No Longer [place] (0.125 mg) oral an Empty Active 2017 Medical tablet Stomach (Same Center as: Lanoxin) Citalopram Notes: (Same No Longer [place] As: CeleXA) Active 2017 Medical Center Lipitor Notes: (Same No Longer [place] as: Lipitor) Active 2017 Medical Center Amiodarone Notes: (Same No Longer [place] as: Cordarone) Active 2017 Medical Center Calcium Carbonate Notes: (Same No Longer [place] 1250 MG / As: Fly-D, Active 2017 Medical Cholecalciferol OsCal-D, Center 200 UNT Oral Oyster Tablet Calcium) Spironolactone Notes: (Same No Longer [place] As: Aldactone) Active 2017 Medical Center Streptococcus Notes: Lightly Inactive [place] pneumoniae roll vial (DO 2017 Medical serotype 1 NOT SHAKE) Center capsular antigen before diphtheria [id number] administration protein conjugate . (Same as: vaccine / Prevnar 13) Streptococcus pneumoniae serotype 14 capsular antigen diphtheria [id number] protein conjugate vaccine / Streptococcus pneumoniae serotype 18C capsular antigen d metoprolol Notes: (Same No Longer [place] as tartrate as: Toprol XL) Active 2017 Medical Do Not Crush Center Levoxyl Notes: Take 1 No Longer [place] hour before or Active 2017 Medical 2 hours after Center meal; Enteral feeds may interefere with the absorption of this medication. (Same as:Synthroid) Finasteride Notes: (Same [place] Long[place] as: Proscar) Active 2017 Medical "Do Not Crush" Center Women of childbearing age should not touch or handle broken tablets Lasix Notes: (Same No Longer [place] as: Lasix) Active 2017 Medical May cause GI Center upset. Give with food or milk. Protonix Notes: Tablet [place] Longer [place] should not be Active 2017 Medical chewed or Center crushed. (Same as: Protonix) Levothyroxine 88 microgram = Active [place] Sodium 0.088 MG 1 tab, PO, 2017 Medic al Oral Tablet Daily, # 30 Center [Levoxyl] tab, 0 Refill(s) Ondansetron Notes: (Same Inactive [place] as: Zofran) 2017 Medical MEDICATION Center WASTE Product Size: 4 mg Product Wasted: ___ mg Docusate Notes: (Same No Longer [place] as: Colace) Active 2017 Medical (Do Not Crush) Center Sodium Chloride 1,000 mL, No Longer [place] 0.154 MEQ/ML Rate: 42 Active 2017 Medical Injectable ml/hr, Infuse Center Solution over: 23.8 hr, Route: IV, Dosing Weight 68.182 kg, Total Volume: 1,000, Start date: 02/02/17 4:30:00 CDT, Duration: 30 day, Stop date: 03/04/17 4:29:00 CDT Saline Flush 0.9% Notes: Same No Longer [place] as: BD Active 2017 [facility] Posiflush Center Sterile Acetaminophen 325 Notes: (Same No Longer [facility] MG / Hydrocodone as: Planada Active 2016 Medic al Bitartrate 5 MG 325/5) Do not C enter Oral Tablet exceed 4gm/day of acetaminophen. Acetaminophen Notes: Do not No Longer [facility] exceed 4 Active 2017 Medical gm/day. (Same Center as: Tylenol) Dilaudid Notes: Same Inactive [place] as: Dilaudid 2017 Medical [place] Ancef Notes: (Same No Longer [place] As: Ancef, Active 2017 [facility] Kefzol) Center MEDICATION WASTE Product Size: 1000 mg Product Wasted: ___ mg Gentamicin Sulfate Notes: TIME Inactive [facility] (NURSING HOME) CRITICAL 2017 Medical MEDICATION Center (Same as Garamycin) sildenafil 20 MG Notes: (Same No Longer [facility] Oral Tablet as: Revatio) Active 2017 Medical Center Keflex Notes: Take on Inactive [place] empty stomach. 2017 Medical (Same As: Center Keflex) Keflex Notes: Take on Inactive [facility] empty stomach. 2017 Medical (Same As: Center Keftab) Dilaudid Notes: Same Inactive [facility] as: Dilaudid 2017 [facility] iodixanol 150 mL, Route: Inactive [place] as IVP, Drug 2017 Medical Form: SOLN, Center Dosing Weight 68.182, kg, ONCALL, STAT, Start date: 02/01/17 22:12:00 CDT, Duration: 1 doses or times, Dose = 2.2ml/kg, Max dose = 150ml -- "To be infused by Radiology Staff ONLY" Dilarya Notes: Same Inactive [facility] as: Dilaudid 2017 Medical Center Ondansetron Notes: (Same Inactive [place] as: Zofran) 2017 Medical MEDICATION Center WASTE Product Size: 4 mg Product Wasted: ___ mg Saline Flush 0.9% Notes: (Same No Longer [place] as: BD Active 2017 Medical Posiflush) Center predniSONE 50 mg 50 mg = 1 tab, Active [facility] oral tablet PO, Daily, 0 2015 Medical Refill(s) Center Prednisone 20 mg, PO, Inactive [facility] Daily, 2016 Medical Quantity Center sufficient, 0 Refill(s) potassium nitrate 1 appl, TOP, Active H [place] 250 MG/ML / Silver ONCE, APPLY TO 2016 Medical Nitrate 750 MG/ML AFFECTED AREA Center Medicated Pad ONCE DAILY FOR 6 DAYS, # 6 ea, 0 Refill(s), Pharmacy: [facility] [address] Warfarin Sodium 2.5 mg = 1 [place] 2.5 MG Oral Tablet tab, PO, 2016 Medi [place]anda [Coumadin] Daily, 0 Center Refill(s) spironolactone 25 25 mg = 1 tab, Active [facility] mg oral tablet PO, BID, 0 2015 Medica l Refill(s) Center silodosin 8 MG 8 mg = 1 cap, Active [facility] Oral Capsule PO, Daily, 0 2016 Medica l [Rapaflo] Refill(s) Center sildenafil 20 MG 60 mg = 3 tab, Active [facility] Oral Tablet PO, TID, 0 2016 Medical Refill(s) Center Finasteride 5 MG 5 mg = 1 tab, Active 05/22/ M H [place] Oral Tablet PO, Daily, 0 2016 Medical [Proscar] Refill(s) Center AMIODarone 200 mg 200 mg = 1 Active [facility] oral tablet tab, PO, 2016 Medical Daily, 0 Center Refill(s) metoprolol 25 mg = 1 tab, Active [place] as tartrate 25 mg PO, BID, # 60 2016 Med ical oral tablet tab, 0 Center Refill(s) Furosemide 80 MG 80 mg = 1 tab, Active [facility] Oral Tablet PO, Daily, # 2016 Medical [Lasix] 30 tab, 0 Center Refill(s) Warfarin Sodium 5 5 mg = 1 tab, Active [facility] MG Oral Tablet PO, Daily, # 2016 Medi [place]anda [Coumadin] 30 tab, 0 Center Refill(s) silodosin 8 mg 8 mg = 1 cap, Active [facility] oral capsule PO, Daily, 0 2016 Medica l Refill(s) [place] sildenafil 0 Refill(s) Active [facility] 2016 Medical Center finasteride 5 mg 5 mg = 1 tab, Active H [place] oral tablet PO, Daily, # 2016 Medical 30 tab, 0 Center Refill(s) Potassium Chloride 20 mEq = 1 Active [facility] 20 MEQ Extended tab, PO, BID, 2016 Me dical Release Tablet 0 Refill(s) Cente r Nutren 2.0 Nutren 2.0, Active [facility] See 2016 Medical Instructions, [place] Nutren 2.0 via PEG 250mL q 4hrs x 4/day + 180 mL x 1/day Water flush 30mL before and after feeds, # 150 can, Refill(s) 12 amLODIPine 5 mg 5 mg = 1 tab, Active [facility] oral tablet PO, Daily, # 2016 Medical 30 tab, 0 Center Refill(s) metoprolol 25 mg 25 mg = 1 tab, Active [facility] oral tablet, PO, BID, # 60 2016 Medic al extended release tab, 0 Center Refill(s) Protonix Notes: Same Inactive [facility] as: Protonix 2016 Medical Mix in 5 mL Center apple juice or applesauce for oral & 10mL apple juice for NG tube Tylenol Notes: Max No Longer [facility] acetaminophen Active 2015 Medical = 4000mg/day Center (4 gm/day). (Same as: Tylenol) [place] Notes: (Same Inactive [facility] as: Mephyton, 2016 Medical Vitamin K) [place] Protonix Notes: Same No Longer [facility] [place] as: Protonix Active 2015 Medical Mix in 5 mL Center apple juice or applesauce for oral & 10mL apple juice for NG tube Thyroxine Notes: Take 1 No Longer [place] as hour before or Active 2015 Medical 2 hours after Center meal; Enteral feeds may interefere with the absorption of this medication. (Same as:Levothroid, Synthroid) Furosemide 40 MG Notes: (Same No Longer [place] Oral Tablet as: Lasix) Active 2015 Medical May cause GI Center upset. Give with food or milk. digoxin 125 mcg Notes: Take on No Longer [place] (0.125 mg) oral an Empty Active 2015 Medical tablet Stomach (Same Center as: Lanoxin) Citalopram Notes: (Same No Longer [place] As: CeleXA) Active 2016 [facility] Norvasc Notes: (Same No Longer [place] as: Norvasc) Active 2015 [facility] Magnesium Sulfate Notes: WASTE: Inactive [place] F/P - Sink; E 2016 [facility] Trash Bin Vitamin K1 Notes: (Same Inactive [place] as: 2016 [facility] K) MEDICATION WASTE Product Size: 10 mg Product Wasted: ___ mg metoprolol Notes: (Same No Longer [place] as extended release as: Toprol XL) Active 2015 Medical Do Not Crush Center enalapril Notes: (Same [place]er [place] as: Vasotec) Active 2015 [facility] Lipitor Notes: (Same No Longer [place] as: Lipitor) Active 2016 [facility] Nitroglycerin 0.4 Notes: (Same No Longer [place] MG Sublingual as:Nitroquick, Active 2015 Med ical Tablet [Nitrostat] Nitrostat) "Do Center Not Crush" Sublingual tablet enalapril 5 mg 5 mg = 1 tab, No Longer 01/01/ H [place] oral tablet PO, BID, 0 Active 2015 Medical Refill(s) Center citalopram 20 mg 20 mg = 1 tab, No Longer [place] oral tablet PO, Daily, # Active 2015 Medical 30 tab, 0 Center Refill(s) metoprolol See No Longer [place] extended release Instructions, Active 2015 M edical 75 mgPO BID, 0 Center Refill(s) Furosemide 40 MG 40 mg = 1 tab, No Longer [place] Oral Tablet PO, Daily, # Active 2015 Medical 30 tab, 0 Center Refill(s) levothyroxine 100 100 microgram Active [place] mcg (0.1 mg) oral = 1 tab, PO, 2015 M edical tablet Daily, # 30 Center tab, 0 Refill(s) digoxin 125 mcg 0.125 mg, PO, No Longer [place] (0.125 mg) oral Daily, # 30 Active 2015 Medi [place]anda tablet tab, 0 Center Refill(s) atorvastatin 40 MG 40 mg = 1 tab, No Longer 12/16 [facility] Oral Tablet PO, Bedtime, # Active 2015 Medic al [Lipitor] 30 tab, 0 Center Refill(s) apixaban 5 MG Oral 5 mg = 1 tab, No Longer 01/01 [place] Tablet [Eliquis] PO, BID, 0 Active 2015 Medi [place]olanda Refill(s) Center Saline Flush 0.9% Notes: (Same No Longer [place] as: BD Active 2015 Medical Posiflush) Center Naloxone Notes: Same as No Longer [place] as Narcan Active 2015 Medical Center Flumazenil Notes: (Same No Longer [place] as: Romazicon) Active 2016 Medical Center Ondansetron Notes: (Same [place] as: Zofran) Active 2015 Medical MEDICATION Center WASTE Product Size: 4 mg Product Wasted: ___ mg Labetalol 10 mg, 2 mL, [place] Route: IVP, Active 2015 Medical Drug form: Center INJ, Q5Min, Dosing Weight 77.273, kg, PRN Elevated BP, Start date: 12/26/15 16:02:00, Duration: 5 doses or times, Stop date: Limited # of times Oxycodone Notes: (Same [place] Long[place] as: Active 2015 Medical Roxicodone) Center Acetaminophen Notes: Infuse No Longer [place] over 15 Active 2015 Medical minutes Do Center not exceed 4gm/day of acetaminophen MEDICATION WASTE Product Size: 1000 mg Product Wasted: ___ mg Furosemide 40 MG 40 mg = 1 tab, Active [place] Oral Tablet PO, Daily, 0 2015 Medical Refill(s) [place] apixaban 5 MG Oral 5 mg = 1 tab, Active [place] Tablet [Eliquis] PO, BID, 0 2015 Medi [place] Refill(s) [place] digoxin 125 mcg 125 microgram Active [place] (0.125 mg) oral = 1 tab, PO, 2016 Med ical tablet Daily, 0 [place] Refill(s) Nitroglycerin 0.4 0.4 mg = 1 Active [facility] MG Sublingual tab, SL, 2015 Medical Tablet [Nitrostat] Q5Min, PRN Ce nter Chest Pain, # 100 tab, 0 Refill(s) acetaminophen-hydr 15 mL, Route: PO No Longer Agatha 01/16 [place] ocodone 325 mg-10 PO, Drug Form: Active 2012 Medical mg/15 mL oral SOLN, Dosing Cente r solution Weight 82.273, kg, Q4H, PRN Pain Score 4-6, Start date: 01/16/13 12:41:00, Duration: 30 day, Stop date: 02/15/13 12:40:00 metoprolol 1 mg, 1 mL, IVP No Longer [facility] Route: IVP, Active 2012 Medical Drug form: [place] INJ, Q5Min, Dosing Weight 82.273, kg, PRN Elevated BP, Start date: 01/16/13 12:41:00, Duration: 5 doses or times, Stop date: 01/17/13 0:00:00 labetalol 5 mg, 1 mL, IVP No Longer Agatha [facility] Route: IVP, Active 2012 Medical Drug form: Center INJ, Q5Min, Dosing Weight 82.273, kg, PRN Elevated BP, Start date: 01/16/13 12:41:00, Duration: 5 doses or times, Stop date: 01/17/13 0:00:00 esmolol IV Push 10 mg, 1 mL, IVP No Longer Agatha [facility] [place] [facility] Route: IVP, Active 2012 Medical Drug form: Center INJ, Q5Min, Dosing Weight 82.273, kg, PRN Elevated BP, Start date: 01/16/13 12:41:00, Duration: 5 doses or times, Stop date: 01/17/13 0:00:00 ondansetron 4 mg, 2 mL, IVP No Longer Agatha [place] as Route: IVP, Active 2012 Medical Drug form: [place] INJ, ONCE, Dosing Weight 82.273, kg, PRN Nausea & Vomiting, Start date: 01/16/13 12:41:00 naloxone 0.04 mg, 0.1 IVP No Longer [place]atha [place] mL, Route: Active 2012 Medical IVP, Drug Center form: INJ, Q2MIN, Dosing Weight 82.273, kg, PRN Narcotic Reversal, Start date: 01/16/13 12:41:00, Duration: 8 doses or times, Stop date: 01/17/13 0:00:00 flumazenil 0.2 mg, 2 mL, IVP No Long[place] Route: IVP, Active 2012 Medical Drug form: [place] INJ, PRN, Dosing Weight 82.273, kg, PRN Benzodiazepine Reversal, Initial dose, Start date: 01/16/13 12:41:00, Duration: 30 day, Stop date: 02/15/13 13:40:00 Cleocin HCl 600 mg, 4 mL, IVPB No Longer Eamon [facility] Route: IVPB, Active 2012 Medical Drug form: [place] INJ, PRE OP, Start date: 01/16/13 6:00:00, Duration: 1 day, Stop date: 01/17/13 5:59:00 rivaroxaban 20 mg, Route: PO [place] PO, QPM, Active 2011 Medical Dosing Weight [place] 79.545, kg, Start date: 10/13/12 17:00:00, Duration: 30 day, Stop date: 11/11/12 17:00:00 Protonix 40 mg, 1 tab, PO [place] Route: PO, Active 2011 Medical Drug form: [place] ECTAB, Before Dinner, Dosing Weight 79.545, kg, Start date: 10/13/12 16:30:00, Duration: 30 day, Stop date: 11/11/12 16:30:00 pneumococcal 0.5 ml, Route: IM No Longer SYSTEM [facility] 23-valent vaccine IM, Drug Form: Active 2011 Medical INJ, Start Center date: 10/13/12 9:00:00, Stop date: 10/13/12 9:00:00 citalopram 20 mg, 1 tab, PO [place] Route: PO, Active 2011 Medical Drug form: Center TAB, Daily, Dosing Weight 79.545, kg, Start date: 10/13/12 9:00:00, Duration: 30 day, Stop date: 11/11/12 9:00:00 Toprol-XL 50 mg 50 mg, 1 tab, PO No Longer [place] [facility] oral tablet, Route: PO, Active 2011 Medical extended release Drug form: Cent er ERTAB, Daily, Start date: 10/13/12 9:00:00, Duration: 30 day, Stop date: 11/11/12 9:00:00 enalapril 10 mg, 1 tab, PO [place] Longer [place] Route: PO, Active 2011 Medical Drug form: Center TAB, Daily, Dosing Weight 79.545, kg, Start date: 10/13/12 9:00:00, Duration: 30 day, Stop date: 11/11/12 9:00:00 dabigatran 150 mg, 1 cap, PO [place] Route: PO, Active 2011 Medical Drug form: [place] CAP, BID, Dosing Weight 79.545, kg, Start date: 10/13/12 9:00:00, Duration: 30 day, Stop date: 11/11/12 17:00:00 Norvasc 10 mg, 1 tab, PO No Longer [place] [facility] Route: PO, Active 2011 Medical Drug form: Center TAB, Daily, Dosing Weight 79.545, kg, Start date: 10/13/12 9:00:00, Duration: 30 day, Stop date: 11/11/12 9:00:00 Lipitor 40 mg, 1 tab, PO No Longer [facility] Route: PO, Active 2011 Medical Drug form: Center TAB, Daily, Dosing Weight 79.545, kg, Start date: 10/13/12 9:00:00, Duration: 30 day, Stop date: 11/11/12 9:00:00 levothyroxine 125 microgram, PO No Longer [place] [facility] 1 tab, Route: Active 2011 Medical PO, Drug form: [place] TAB, [id number], Dosing Weight 79.545, kg, Start date: 10/13/12 6:30:00, Duration: 30 day, Stop date: 11/11/12 6:30:00 clindamycin 600 mg, 4 mL, IVPB [place] Route: IVPB, Active 2011 Medical Drug form: [place] INJ, [id number], Dosing Weight 79.545, kg, Priority: STAT, Start date: 10/13/12 5:47:00, Duration: 30 day, Stop date: 11/11/12 21:47:00 magnesium sulfate 2 gm, 50 mL, IVPB No Longer [facility] Route: IVPB, Active 2011 Medical Drug form: [place] INJ, ONCE, Dosing Weight 79.545, kg, Total dose = 2 gm, Start date: 10/13/12 0:30:00, Duration: 1 doses or times, Stop date: 10/13/12 0:30:00 Omnipaque 350mg/ml 80 mL, Route: IVP No Longer [place] 10/13 [facility] IVP, Drug Active 2011 Medical Form: ETHAN, [place] Dosing Weight 79.545, kg, ONCALL, STAT, Start date: 10/12/12 21:07:00, Duration: 1 doses or times, Weight = 75 - 94kgWeight = 75 - 94kg docusate 100 mg, 1 cap, PO No Longer [place] [facility] Route: PO, Active 2011 Medical Drug form: [place] CAP, BID, Dosing Weight 79.545, kg, PRN Constipation, Start date: 10/12/12 18:00:00, Duration: 30 day, Stop date: 11/11/12 17:59:00 Trandate 5 mg, 1 mL, IVP No Longer [place] [facility] Route: IVP, Active 2011 Medical Drug form: [place] INJ, Q5Min, PRN Elevated BP, Start date: 10/12/12 14:50:00, Duration: 30 day, Stop date: 11/11/12 14:49:00 flumazenil 0.2 mg, 2 mL, IVP No Longer [place] 10/12[facility] [place] Route: IVP, Active 2011 Medical Drug form: Center INJ, PRN, Dosing Weight 79.545, kg, PRN Benzodiazepine Reversal, Initial dose, Start date: 10/12/12 13:57:00, Duration: 5 doses or times, Stop date: 10/13/12 0:00:00 naloxone 0.04 mg, 0.1 IVP No Longer [place] 10/12[facility] [place] mL, Route: Active 2011 [facility] IVP, Drug Center form: INJ, Q2MIN, Dosing Weight 79.545, kg, PRN Narcotic Reversal, Start date: 10/12/12 13:57:00, Duration: 8 doses or times, Stop date: 10/13/12 0:00:00 ondansetron 4 mg, 2 mL, IVP No Longer [place] 10/12[facility] [place] Route: IVP, Active 2011 Medical Drug form: Center INJ, ONCE, Dosing Weight 79.545, kg, PRN Nausea & Vomiting, Start date: 10/12/12 13:57:00 hydrALAZINE 5 mg, 0.25 mL, IVP No Longer [place] 10/12[facility] [place] Route: IVP, Active 2011 Medical Drug form: Center INJ, Q5Min, Dosing Weight 79.545, kg, PRN Elevated BP, Start date: 10/12/12 13:57:00, Duration: 4 doses or times, Stop date: 10/13/12 0:00:00 niCARdipine 0.25 mg, 0.1 IVP No Longer [place] 10/12[facility] [place] mL, Route: Active 2011 Medical IVP, Drug Center form: INJ, Q5Min, Dosing Weight 79.545, kg, PRN Elevated BP, Start date: 10/12/12 13:57:00, Duration: 4 doses or times, Stop date: 10/13/12 0:00:00 labetalol 5 mg, Route: IVP No Longer [place] 10/12[facility] [place] IVP, Q5Min, Active 2011 Medical Dosing Weight Center 79.545, kg, PRN Elevated BP, Start date: 10/12/12 13:57:00, Duration: 5 doses or times, Stop date: Limited # of times hydromorphone 0.2 mg, 0.1 IVP No Longer [place] mL, Route: Active 2011 Medical IVP, Drug Center form: INJ, Q5Min, Dosing Weight 79.545, kg, PRN Pain Score 4-6, Start date: 10/12/12 13:57:00, Duration: 5 doses or times, Stop date: 10/13/12 0:00:00 Xarelto 20 mg oral Substitution Active [facility] tablet Allowed 2011 [facility] citalopram 20 mg 20 mg, 1 tab, PO Active [place] [facility] oral tablet PO, Daily, 2011 Medica l tab, Center Substitution Allowed, TAB Protonix 40 mg 40 mg, 1 tab, PO Active [place] [facility] oral enteric PO, Daily, 2011 Medic al coated tablet tab, Center Substitution Allowed, ECTAB Pradaxa 150 mg PO, BID, PO No Longer [place] oral capsule Substitution Active 2011 Medica l Allowed [place] enalapril 10 mg 10 mg, 1 tab, PO Active [place] [facility] oral tablet PO, Daily, 30 2011 Medica l tab, Center Substitution Allowed, TAB metoprolol 50 mg 50 mg, PO, PO Active [place] oral tablet, Daily, 30 tab, 2011 [facility] yolanda extended release Substitution Ce nter Allowed Norvasc 10 mg oral 10 mg, 1 tab, PO Active [place] tablet PO, Daily, 30 2011 Medical tab, Center Substitution Allowed, TAB Norvasc 10 mg oral 10 mg, 1 tab, PO No Longer 09/21 [place] tablet PO, Daily, 30 Active 2011 Medical tab, Center Substitution Allowed, TAB Lipitor 40 mg oral 40 mg, 1 tab, PO Active [place] tablet PO, Daily, 30 2011 Medical tab, Center Substitution Allowed, TAB levothyroxine 125 Substitution Active [facility] mcg (0.125 mg) Allowed 2011 Medical oral capsule [place] influenza virus 0.5 ml, Route: IM No Longer [facility] [place] vaccine, IM, Drug Form: Active 2008 Medical inactivated INJ, ONCE, Center, Start date: OPID 08/29/09 [place] 9:00:00, Stop date: 08/29/09 9:00:00 Allergies, Adverse Reactions, Alerts Substance Category Reaction Severity Reaction Status Date Comments S ource type Reported morphine Assertion Drug Active [facility] tetracyclines Assertion Drug Active [facility] Immunizations Immunization Date Site Status Last Comments Source Given Updated diphtheria/pertus Left completed [place] [facility] sis, acel/tetanus 7 Deltoid [facility] Center,[facility] pneumococcal completed Erik [facility] 23-valent vaccine 2 [facility] pneumococcal Left completed [facility] vaccine 2 deltoid [facility] influenza virus completed [place] [facility] vaccine, [address] [facility] inactivated Center,[facility] influenza virus Right completed [place] [facility] [place] vaccine, 9 Deltoid [facility] Results Order Name Results Value Reference Date Interpretation Comments [facility] [place] HEMATOLOGY Monocytes # 1.2 0.0 - 0.8 02/04 [facility] [place] [facility] HEMATOLOGY Lymphocytes # 0.9 1.0 - 5.5 02/04 [facility] [address] [place] [address] HEMATOLOGY Basophils # 0.1 0.0 - 0.2 02/04 [facility] HEMATOLOGY Eosinophils # 0.1 0.0 - 0.5 02/04 [facility]2016 [facility] HEMATOLOGY Basophils 0.6 0.0 - 1.0 02/[address] HEMATOLOGY Eosinophils 1.2 0.0 - 4.0 02/04 [facility] HEMATOLOGY Segs-Bands # 10.4 1.5 - 8.1 02/04 [facility] HEMATOLOGY Monocytes 9.5 2.0 - 12.0 02/[address] HEMATOLOGY Lymphocytes 7.1 20.0 - 02/04 [place] 40.0 [facility] HEMATOLOGY RBC Morph Normal 02/04 [facility] (02/04/17 5:17 AM) [facility] HEMATOLOGY Segs 81.6 45.0 - 02/04 [place] 75.0 [facility] HEMATOLOGY Plt Morph Normal 02/04 [facility] (02/04/17 5:17 AM) [facility] HEMATOLOGY WBC 12.8 3.7 - 10.4 02/04 [facility] HEMATOLOGY RBC 3.95 4.70 - 02/04 [place] 6.10 [facility] HEMATOLOGY Platelet 146 133 - 450 02/04 [facility] HEMATOLOGY MCV 91.3 80.0 - 02/04 [facility] 94.0 [facility] HEMATOLOGY Hgb 12.2 14.0 - 02/04 [facility] 18.0 [facility] HEMATOLOGY MCH 30.8 27.0 - 02/04 [facility] 31.0 [facility] HEMATOLOGY Hct 36.0 42.0 - 02/04 [facility] 54.0 [facility] HEMATOLOGY MCHC 33.8 32.0 - 02/04 [facility] 36.0 [facility] HEMATOLOGY RDW 15.2 11.5 - 02/04 [facility] 14.5 [facility] HEMATOLOGY MPV 9.2 7.4 - 10.4 02/04 [facility] CHEM PANEL eGFR 61 02/03 [facility] Comment: The Medical eGFR is Center calculated using the CKD-EPI formula. In most young, healthy individuals the eGFR will be >90 mL/min/1.73m2 . The eGFR declines with age. An eGFR of 60-89 may be normal in some populations, particularly the elderly, for whom the CKD-EPI formula has not been extensively validated. Use of the eGFR is not recommended in the following populations:< br/>
Celsa viduals with unstable creatinine concentration s, including patients and those with serious co-morbid conditions.<b r/>
Patie nts with extremes in muscle mass or diet.

The data above are obtained from the National Kidney Disease Education Program (NKDEP) which additionally recommends that when the eGFR is used in patients with extremes of body mass index for purposes of drug dosing, the eGFR should be multiplied by the estimated BMI. CHEM PANEL Alk Phos 68 39 - 136 02/03 [facility] CHEM PANEL Bili Total 1.2 0.2 - 1.3 02/03 [facility] [address] CHEM PANEL Potassium Lvl 4.4 3.5 - 5.1 02/03 [facility]2016 [facility] CHEM PANEL Chloride Lvl 105 95 - 109 02/03 [facility] 2016 [facility] CHEM PANEL CO2 27 24 - 32 02/[address] CHEM PANEL Calcium Lvl 8.9 8.5 - 10.5 02/03 [facility] CHEM PANEL Total Protein 6.0 6.4 - 8.4 02/03 [facility] CHEM PANEL Glucose Lvl 114 70 - 99 02/[address] CHEM PANEL BUN 27 7 - 22 02/03 [facility]2016 [facility] CHEM PANEL Creatinine 1.14 0.50 - 02/03 [facility] Lvl 1.40 [facility] CHEM PANEL Sodium Lvl 140 135 - 145 02/[address] CHEM PANEL Albumin Lvl 2.8 3.5 - 5.0 02/03 [facility] CHEM PANEL ALT 25 0 - 65 02/03 [facility]2016 [facility] CHEM PANEL AST 23 0 - 37 02/[address] CHEM PANEL A/G Ratio 0.9 0.7 - 1.6 02/03 [facility]2016 [facility] CHEM PANEL Globulin 3.2 2.7 - 4.2 02/[address] CHEM PANEL AGAP 12.4 10.0 - 02/03 [facility] . [facility] CHEM PANEL B/C Ratio 24 6 - 25 02/[address] CHEM PANEL Phosphorus 2.8 2.5 - 4.5 02/03 [facility]2016 [facility] CHEM PANEL Magnesium Lvl 2.3 1.8 - 2.4 02/03 [facility] ELECTROLYTE AGAP 12.4 10.0 - 02/03 S . [facility] ELECTROLYTE eGFR 61 02/03 [facility] Comment: The Medical eGFR is Center calculated using the CKD-EPI formula. In most young, healthy individuals the eGFR will be >90 mL/min/1.73m2 . The eGFR declines with age. An eGFR of 60-89 may be normal in some populations, particularly the elderly, for whom the CKD-EPI formula has not been extensively validated. Use of the eGFR is not recommended in the following populations:< br/>
Celsa viduals with unstable creatinine concentration s, including patients and those with serious co-morbid conditions.<b r/>
Patie nts with extremes in muscle mass or diet.

The data above are obtained from the National Kidney Disease Education Program (NKDEP) which additionally recommends that when the eGFR is used in patients with extremes of body mass index for purposes of drug dosing, the eGFR should be multiplied by the estimated BMI. ELECTROLYTE CO2 27 24 - 32 02/03 [facility] ELECTROLYTE Calcium Lvl 8.9 8.5 - 10.5 02/03 [facility] ELECTROLYTE Glucose Lvl 114 70 - 99 02/03 [facility] 2016 [facility] ELECTROLYTE Potassium Lvl 4.4 3.5 - 5.1 02/03 [place] 2016 [facility] ELECTROLYTE Sodium Lvl 140 135 - 145 02/03 [facility] ELECTROLYTE Creatinine 1.14 0.50 - 02/03 [facility] S Lvl 1.40 [facility] ELECTROLYTE BUN 27 7 - 22 02/03 [facility] 2016 [facility] ELECTROLYTE Chloride Lvl 105 95 - 109 02/03 [facility] HEMATOLOGY INR 1.85 0.85 - 02/03 [place] 1.17 [facility] HEMATOLOGY PT 21.7 12.0 - 02/03 [facility] 14.7 [facility] HEMATOLOGY Segs 83.5 45.0 - 02/03 [place] 75.0 [facility] HEMATOLOGY Eosinophils 0.1 0.0 - 4.0 02/03 [facility] HEMATOLOGY Basophils 0.1 0.0 - 1.0 02/03 2016 [facility] HEMATOLOGY Lymphocytes 10.2 20.0 - 02/03 [place] 40.0 [facility] HEMATOLOGY Monocytes 6.1 2.0 - 12.0 02/[address] HEMATOLOGY Segs-Bands # 6.1 1.5 - 8.1 02/03 [facility] HEMATOLOGY Lymphocytes # 0.7 1.0 - 5.5 02/03 [facility] HEMATOLOGY Monocytes # 0.4 0.0 - 0.8 02/03 [facility] s [facility] HEMATOLOGY MPV 8.2 7.4 - 10.4 02/03 [facility] HEMATOLOGY Platelet 129 133 - 450 02/03 [facility] HEMATOLOGY WBC 7.3 3.7 - 10.4 02/03 [facility] HEMATOLOGY RBC 4.04 4.70 - 02/03 [place] 6.10 /2016 [facility] HEMATOLOGY Hgb 12.2 14.0 - 02/03 [place] 18.0 /2016 [facility] HEMATOLOGY Hct 37.0 42.0 - 02/03 [place] 54.0 /2016 [facility] HEMATOLOGY MCV 91.7 80.0 - 02/03 [place] 94.0 /2016 [facility] HEMATOLOGY MCHC 33.0 32.0 - 02/03 [place] 36.0 /2016 [facility] HEMATOLOGY MCH 30.2 27.0 - 02/03 [place] 31.0 [facility] HEMATOLOGY RDW 15.4 11.5 - 02/03 [place] 14.5 [facility] HEMATOLOGY INR 1.79 0.85 - 02/02 [place] 1.17 [facility] HEMATOLOGY PT 21.1 12.0 - 02/02 [facility] 14.7 [facility] DRUG SCREEN UDS Note See Note 02/02 [facility] (02/02/17 2:53 AM) /2016 Medica l Center DRUG SCREEN U Phencyc Scr Negative Negative 02/02 [place] *NA* Medical (02/02/17 2:53 AM) Center DRUG SCREEN U Opiate Scr Positive Negative 02/02 [place] *ABN* Medical (02/02/17 2:53 AM) Center DRUG SCREEN U Cocaine Scr Negative Negative 02/02 [place] *NA* Medical (02/02/17 2:53 AM) Center DRUG SCREEN U Benzodia Negative Negative 02/02 [place] *NA* Medical (02/02/17 2:53 AM) Center DRUG SCREEN U Kay Scr Negative Negative 02/02 [place] *NA[place] Medical (02/02/17 2:53 AM) Center DRUG SCREEN U Amph Scr Negative Negative 02/02 [place] *NA[place] Medical (02/02/17 2:53 AM) Center DRUG SCREEN U Cannab Scr Negative Negative 02/02 [place] *NA* /2016 Medical (02/02/17 2:53 AM) Center URINE AND UA Nitrite Negative Negative 02/02 [facility] [place] [facility] (02/02/17 2:53 AM) /2016 [facility] URINE AND UA 0.2 0.1 - 1.0 02/02 [facility] [place] [facility] Urobilinogen /2016 [facility] URINE AND UA Blood Small Negative 02/02 [facility] STOOL *ABN* /2016 [facility] (02/02/17 2:53 AM) Center URINE AND UA Sq Epi None Seen Few 02/02 [facility] [place] [facility] (02/02/17 2:53 AM) [facility] URINE AND UA Spec Grav >1.050 <=1.030 02/02 [facility] [place] [facility] /2016 [facility] URINE AND UA Color Yellow Yellow 02/02 [facility] [place] [facility] *NA* /2016 [facility] (02/02/17 2:53 AM) [place] URINE AND UA Bili Negative Negative 02/02 [facility] [place] [facility] *NA* /2016 [facility] (02/02/17 2:53 AM) [place] URINE AND UA Ketones Negative Negative 02/02 [facility] [place] [facility] *NA* /2016 [facility] (02/02/17 2:53 AM) [place] URINE AND UA Glucose Negative Negative 02/02 [facility] [place] [facility] (02/02/17 2:53 AM) /2016 [facility] URINE AND UA Protein Trace Negative 02/02 [facility] [place] [facility] *ABN* /2016 [facility] (02/02/17 2:53 AM) Center URINE AND UA pH 5.0 5.0 - 8.0 02/02 [facility] [place] [facility] /2017 [facility] URINE AND UA Leuk Est Negative Negative 02/02 [facility] [place] [facility] (02/02/17 2:53 AM) [facility] URINE AND UA WBC None Seen None Seen 02/02 [facility] [place] [facility] (02/02/17 2:53 AM) [facility] URINE AND UA Turbidity Clear Clear 02/02 [facility] [place] [facility] (02/02/17 2:53 AM) [facility] URINE AND UA RBC None Seen 0 - 2 02/02 [facility] [place] [facility] (02/02/17 2:53 AM) [facility] CARDIAC Total CK 92 12 - 191 02/02 [place] [facility] /2016 Medical [place] CHEM PANEL Lactic Acid 0.9 0.5 - 2.2 02/02 [place] /2016 [facility] ELECTROLYTE AGAP 15.3 10.0 - 02/02 [facility] S 20.0 [facility] ELECTROLYTE eGFR 51 02/02 Result [facility] Comment: The Medical eGFR is Center calculated using the CKD-EPI formula. In most young, healthy individuals the eGFR will be >90 mL/min/1.73m2 . The eGFR declines with age. An eGFR of 60-89 may be normal in some populations, particularly the elderly, for whom the CKD-EPI formula has not been extensively validated. Use of the eGFR is not recommended in the following populations:< br/>
Celsa viduals with unstable creatinine concentration s, including patients and those with serious co-morbid conditions.<b r/>
Patie nts with extremes in muscle mass or diet.

The data above are obtained from the National Kidney Disease Education Program (NKDEP) which additionally recommends that when the eGFR is used in patients with extremes of body mass index for purposes of drug dosing, the eGFR should be multiplied by the estimated BMI. ELECTROLYTE Calcium Lvl 9.0 8.5 - 10.5 02/02 [place] [facility] ELECTROLYTE Potassium Lvl 4.3 3.5 - 5.1 02/02 [place] [facility] ELECTROLYTE Chloride Lvl 101 95 - 109 02/02 [facility] ELECTROLYTE CO2 26 24 - 32 02/02 [facility] 2016 [facility] ELECTROLYTE Creatinine 1.32 0.50 - 02/02 [facility] Lvl 1.40 [facility] ELECTROLYTE Sodium Lvl 138 135 - 145 02/02 [facility] ELECTROLYTE Glucose Lvl 133 70 - 99 02/02 [facility] ELECTROLYTE BUN 26 7 - 22 02/02 [facility] HEMATOLOGY INR 2.00 0.85 - 02/02 [facility] 1.17 [facility] HEMATOLOGY PT 23.0 12.0 - 02/02 [facility] 14.7 [facility] HEMATOLOGY PTT 35.0 22.9 - 02/02 [facility] 35.8 [facility] HEMATOLOGY MPV 8.1 7.4 - 10.4 02/02 [facility]2016 [facility] HEMATOLOGY MCHC 34.1 32.0 - 02/02 [facility] 36.0 [facility] HEMATOLOGY Platelet 133 133 - 450 03/21 [facility] HEMATOLOGY RDW 15.2 11.5 - 02/02 14.5 Medical [place] HEMATOLOGY Hgb 12.9 14.0 - 02/02 18.0 [facility] HEMATOLOGY RBC 4.18 4.70 - 02/02 6.10 [facility] HEMATOLOGY MCH 30.9 27.0 - 02/02 31.0 Medical [place] HEMATOLOGY MCV 90.6 80.0 - 02/02 94.0 [facility] HEMATOLOGY Hct 37.9 42.0 - 02/02 54.0 [facility] HEMATOLOGY WBC 7.5 3.7 - 10.4 02/02 [facility] HEMATOLOGY G-value Rapid 9.4 5.0 - 11.6 02/02 T [facility] HEMATOLOGY Max Amplitude 65 52 - 71 02/02 s [facility] HEMATOLOGY R-time Rapid 0.9 0.4 - 0.7 02/02 [facility] HEMATOLOGY ACT (TEG) 136 86 - 118 02/02 [facility] HEMATOLOGY Angle Rapid 76 64 - 80 02/02 [facility] HEMATOLOGY K-time Rapid 1.0 0.6 - 2.3 02/02 [facility] HEMATOLOGY [place] 0.8 02/02 [facility] HEMATOLOGY Estimated % 0.0 0.0 - 7.5 02/02 [place] [facility] HEMATOLOGY Monocytes 8.2 2.0 - 12.0 02/02 [facility] HEMATOLOGY Eosinophils 1.5 0.0 - 4.0 02/02 [facility] HEMATOLOGY Segs-Bands # 5.8 1.5 - 8.1 02/02 [facility] HEMATOLOGY Lymphocytes # 0.9 1.0 - 5.5 02/02 [facility] HEMATOLOGY Basophils 0.4 0.0 - 1.0 02/02 [facility] HEMATOLOGY Monocytes # 0.6 0.0 - 0.8 02/02 [facility] HEMATOLOGY Eosinophils # 0.1 0.0 - 0.5 02/02 [facility] HEMATOLOGY Lymphocytes 12.5 20.0 - 02/02 [place] 40.0 [facility] HEMATOLOGY Segs 77.4 45.0 - 02/02 [place] 75.0 [facility] TOXICOLOGY Etoh (%) <0.003 02/02 [facility] TOXICOLOGY Ethanol Lvl <3 02/02 [facility] BLOOD BANK Antibody Scrn Negative 02/02 [place] RESULTS (02/01/17 9:13 PM) [facility] BLOOD BANK ABO/Rh O POS 02/02 [place] [facility] HEMATOLOGY INR 2.00 0.85 - 01/02 [place] 1. [facility] HEMATOLOGY PT 23.0 12.0 - 01/02 [place] 14. [facility] HEMATOLOGY PT 29.4 12.0 - 01/01 [place] . [facility] HEMATOLOGY INR 2.75 0.85 - 01/01 [place] 1. [facility] CHEM PANEL Magnesium Lvl 1.7 1.8 - 2.4 01/01 [place] [facility] CHEM PANEL Phosphorus 2.9 2.5 - 4.5 01/01 [facility] ELECTROLYTE AGAP 12.1 10.0 - 01/01 [place] S . [facility] ELECTROLYTE eGFR 50 01/01 Result Comment: The [facility] eGFR is Center calculated using the CKD-EPI formula. In most young, healthy individuals the eGFR will be >90 mL/min/1.73m2 . The eGFR declines with age. An eGFR of 60-89 may be normal in some populations, particularly the elderly, for whom the CKD-EPI formula has not been extensively validated. Use of the eGFR is not recommended in the following populations:< br/>
Celsa viduals with unstable creatinine concentration s, including patients and those with serious co-morbid conditions.<b r/>
Patie nts with extremes in muscle mass or diet.

The data above are obtained from the National Kidney Disease Education Program (NKDEP) which additionally recommends that when the eGFR is used in patients with extremes of body mass index for purposes of drug dosing, the eGFR should be multiplied by the estimated BMI. ELECTROLYTE CO2 28 24 - 32 01/01 [facility] ELECTROLYTE Calcium Lvl 8.9 8.5 - 10.5 01[place]01 [place] [facility] ELECTROLYTE Potassium Lvl 4.1 3.5 - 5.1 01/01 [place] [facility] ELECTROLYTE Sodium Lvl 141 135 - 145 01/01 [place] [facility] ELECTROLYTE Chloride Lvl 105 95 - 109 01/01 [place] [facility] ELECTROLYTE Creatinine 1.35 0.50 - 01/01 [facility] S Lvl 1.40 /2015 [facility] ELECTROLYTE BUN 34 7 - 22 01/01 [place] [facility] ELECTROLYTE Glucose Lvl 72 70 - 99 01/01 [facility] S [facility] HEMATOLOGY Microcyte 1+ None Seen 01/01 [place] *ABN* /2015 Medical (12/31/15 6:56 PM) [place] HEMATOLOGY Lymphocytes # 2.4 1.0 - 5.5 01/01 [place] [facility] HEMATOLOGY Monocytes # 0.8 0.0 - 0.8 01/01 [place] [facility] HEMATOLOGY Eosinophils # 0.1 0.0 - 0.5 01/01 [place] [facility] HEMATOLOGY Segs 53.5 45.0 - 01/01 [place] 75.0 [facility] HEMATOLOGY Monocytes 10.9 2.0 - 12.0 01/01 [facility] HEMATOLOGY Eosinophils 1.5 0.0 - 4.0 01/01 [place] [facility] HEMATOLOGY Basophils 0.3 0.0 - 1.0 01/01 [facility] HEMATOLOGY Lymphocytes 33.8 20.0 - 01/01 [place] 40.0 [facility] HEMATOLOGY Segs-Bands # 3.7 1.5 - 8.1 01/01 [place] [facility] HEMATOLOGY MPV 8.5 7.4 - 10.4 01/01 [facility] HEMATOLOGY WBC 7.0 3.7 - 10.4 01/01 [facility] HEMATOLOGY RBC 5.41 4.70 - 01/01 [place] 6.10 [facility] HEMATOLOGY Hgb 13.6 14.0 - 01/01 [place] 18.0 /2015 [facility] HEMATOLOGY Hct 42.4 42.0 - 01/01 [place] 54.0 /2016 [facility] HEMATOLOGY MCV 78.3 80.0 - 01/01 [facility] [place] 94.0 /2015 [facility] HEMATOLOGY MCH 25.2 27.0 - 01/01 [place] 31.0 /2015 [facility] HEMATOLOGY MCHC 32.1 32.0 - 01/01 [place] 36.0 /2015 [facility] HEMATOLOGY RDW 18.5 11.5 - 01/01 [place] 14.5 /2015 [facility] HEMATOLOGY Platelet 148 133 - 450 01/01 /2015 [facility] HEMATOLOGY PTT 37.6 22.9 - 01/01 [place] 35.8 /2016 [facility] HEMATOLOGY PT 28.6 12.0 - 01/01 [place] 14.7 /2015 [facility] HEMATOLOGY INR 2.65 0.85 - 01/01 [place] 1.17 [facility] ELECTROLYTE Potassium WB 5.1 3.5 - 5.1 12/26 [facility] ELECTROLYTE AGAP 12.2 10.0 - 12/17 [facility] S 20.0 [facility] ELECTROLYTE eGFR 63 12/17 [facility] Comment: The [facility] eGFR is Center calculated using the CKD-EPI formula. In most young, healthy individuals the eGFR will be >90 mL/min/1.73m2 . The eGFR declines with age. An eGFR of 60-89 may be normal in some populations, particularly the elderly, for whom the CKD-EPI formula has not been extensively validated. Use of the eGFR is not recommended in the following populations:< br/>
Celsa viduals with unstable creatinine concentration s, including patients and those with serious co-morbid conditions.<b r/>
Patie nts with extremes in muscle mass or diet.

The data above are obtained from the National Kidney Disease Education Program (NKDEP) which additionally recommends that when the eGFR is used in patients with extremes of body mass index for purposes of drug dosing, the eGFR should be multiplied by the estimated BMI. ELECTROLYTE CO2 30 24 - 32 12/17 [facility] ELECTROLYTE Calcium Lvl 8.6 8.5 - 10.5 12/17 [place] [facility] ELECTROLYTE Chloride Lvl 104 95 - 109 12/17 [place] [facility] ELECTROLYTE Potassium Lvl 5.2 3.5 - 5.1 12/17 [place] [facility] ELECTROLYTE Sodium Lvl 141 135 - 145 12/17 [facility] s [facility] ELECTROLYTE Creatinine 1.12 0.50 - 02 [facility] S Lvl 1.40 /2015 [facility] ELECTROLYTE BUN 27 7 - 22 12/17 [facility] ELECTROLYTE Glucose Lvl 84 70 - 99 12/17 [facility] HEMATOLOGY Eosinophils # 0.1 0.0 - 0.5 02 [facility] HEMATOLOGY Monocytes # 0.7 0.0 - 0.8 12/17 [facility] HEMATOLOGY Lymphocytes # 2.0 1.0 - 5.5 12/17 [facility] HEMATOLOGY Segs-Bands # 3.3 1.5 - 8.1 12/17 [facility] HEMATOLOGY Lymphocytes 32.2 20.0 - 12/17 [facility] 40.0 [facility] HEMATOLOGY Segs 53.9 45.0 - 12/17 [facility] 75.0 [facility] HEMATOLOGY Basophils 0.6 0.0 - 1.0 12/17 [facility] HEMATOLOGY Eosinophils 1.7 0.0 - 4.0 12/17 [facility] HEMATOLOGY Monocytes 11.6 2.0 - 12.0 12/17 [facility] [address] [place] [address] HEMATOLOGY G-value 5.3 4.5 - 11.0 12/17 [facility] HEMATOLOGY Angle 66.9 53.0 - 12/17 [facility] 72.0 [facility] HEMATOLOGY K-time 1.8 1.0 - 3.0 12/17 [facility] HEMATOLOGY Max Amp 51.5 50.0 - 12/17 70.0 [facility] HEMATOLOGY Ly30 3.7 0.0 - 7.5 12/17 [facility] HEMATOLOGY Coag Index 0.0 -3.0-3.0 - 12/17 [facility] [place] [facility] 3.0 [facility] HEMATOLOGY R-time 4.5 5.0 - 10.0 12/17 [facility] [address] [place] [address] HEMATOLOGY TEG Data See Note 12/17 [facility] (12/17/15 1:45 PM) /2015 [facility] HEMATOLOGY TEG Interp Thrombelas 12/17 [facility] [place] [facility] tograph [facility] show shortened value of R. This finding is suggestive of enzymatic hypercoagu lation. CPT:14711 HEMATOLOGY PT 20.2 12.0 - 12/17 [place] 14.7 [facility] HEMATOLOGY INR 1.69 0.85 - 12/17 [place] 1.17 [facility] HEMATOLOGY PTT 34.9 22.9 - 12/17 [place] 35.8 /2015 [facility] HEMATOLOGY MCHC 31.3 32.0 - 12/17 [place] 36.0 /2015 [facility] HEMATOLOGY MCH 25.1 27.0 - 12/17 [place] 31.0 /2015 [facility] HEMATOLOGY Platelet 153 133 - 450 02 [facility] HEMATOLOGY RDW 18.7 11.5 - 12/17 [place] 14.5 [facility] HEMATOLOGY MPV 9.0 7.4 - 10.4 12/17 [facility] HEMATOLOGY RBC 5.12 4.70 - 12/17 [facility] 6.10 /2015 [facility] HEMATOLOGY WBC 6.1 3.7 - 10.4 12/17 [facility] HEMATOLOGY Hgb 12.9 14.0 - 12/17 [place] 18.0 [facility] HEMATOLOGY Hct 41.0 42.0 - 12/17 [place] 54.0 /2015 [facility] HEMATOLOGY MCV 80.0 80.0 - 12/17 [place] 94.0 /2015 [facility] HEMATOLOGY INR 1.26 0.85 - 01/16 [place] <sup>3</sup>I [place] 1. nterpretive Medical Data: Center RECOMMENDED RANGES FOR PROTIME INR:
2.0-3.0 for most medical and surgical thromboemboli c states.
2.5-3.5 for artificial heart valves and recurrent embolism.<br/ >
INR SHOULD BE USED ONLY FOR PATIENTS ON STABLE ANTICOAGULANT THERAPY. HEMATOLOGY PT 16.0 12.0 - 01/16 HI [place] 14. [facility] HEMATOLOGY PTT 33.4 22.9 - 01/16 Normal <sup>5</sup>[place] 35. nterpretive Medical Data: Heparin Center Therapeutic Range: 57 - 92 Seconds CHEMISTRY AGAP 12.8 10.0 - 01/10 Normal [place] 20.0 [facility] CHEMISTRY eGFR 73 01/10 NA <sup>1</sup>R esult Medical Comment: The Center eGFR is calculated using the CKD-EPI formula. In most young, healthy individuals the eGFR will be >90 mL/min/1.73m2 . The eGFR declines with age. An eGFR of 60-89 may be normal in some populations, particularly the elderly, for whom the CKD-EPI formula has not been extensively validated. Use of the eGFR is not recommended in the following populations:& lt;br/>
I ndividuals with unstable creatinine concentration s, including patients and those with serious co-morbid conditions.<b r/>
Patie nts with extremes in muscle mass or diet.

The data above are obtained from the National Kidney Disease Education Program (NKDEP) which additionally recommends that when the eGFR is used in patients with extremes of body mass index for purposes of drug dosing, the eGFR should be multiplied by the estimated BMI. CHEMISTRY Potassium Lvl 4.8 3.5 - 5.1 01/10 Normal [facility] CHEMISTRY Glucose Lvl 85 70 - 99 01/10 Normal <sup>2</sup>I T ex nterpretive Medical Data: Adult Center reference range values reflect the clinical guidelines
of the [place] Diabetes Association. CHEMISTRY CO2 32 24 - 32 01/10 Normal [facility] CHEMISTRY Chloride Lvl 103 95 - 109 01/10 Normal [facility] CHEMISTRY Sodium Lvl 143 135 - 145 01/10 Normal [facility] CHEMISTRY Creatinine 1.0 0.5 - 1.4 01/10 Normal [facility] CHEMISTRY BUN 19 7 - 22 01/10 Normal [facility] CHEMISTRY Calcium Lvl 8.9 8.5 - 10.5 01/10 Normal [facility] HEMATOLOGY Segs 58.9 45.0 - 01/10 Normal [place] 75.0 [facility] HEMATOLOGY Monocytes # 0.8 0.0 - 0.8 01/10 Normal [facility] HEMATOLOGY Eosinophils # 0.2 0.0 - 0.5 01/10 [place] [facility] HEMATOLOGY Lymphocytes 26.3 20.0 - 01/10 Normal [place] 40.0 [facility] HEMATOLOGY Monocytes 11.1 2.0 - 12.0 01/10 Normal [facility] HEMATOLOGY Eosinophils 3.2 0.0 - 4.0 01/10 Normal [place]2012 [facility] HEMATOLOGY Basophils 0.5 0.0 - 1.0 01/10 Normal [facility] HEMATOLOGY Segs-Bands # 4.4 1.5 - 8.1 01/10 Normal [place] [facility] HEMATOLOGY Lymphocytes # 2.0 1.0 - 5.5 01/10 [place] [facility] HEMATOLOGY PTT 48.3 22.9 - 01/10 [place] <sup>6</sup>[place] 35.8 nterpretive Medical Data: Heparin Center Therapeutic Range: 57 - 92 Second[place] HEMATOLOGY INR 3.03 0.85 - 01/10 [place] <sup>4</sup>[place] 1.17 nterpretive Medical Data: Center RECOMMENDED RANGES FOR PROTIME INR:
2.0-3.0 for most medical and surgical thromboemboli c states.
2.5-3.5 for artificial heart valves and recurrent embolism.<br/ >
INR SHOULD BE USED ONLY FOR PATIENTS ON STABLE ANTICOAGULANT THERAPY. HEMATOLOGY PT 31.2 12.0 - 01/10 [facility] [place] 14.7 /2012 [facility] HEMATOLOGY RBC 4.66 4.70 - 01/10 [facility] [place] 6.10 /2012 [facility] HEMATOLOGY Platelet 154 133 - 450 01/10 Normal [facility] HEMATOLOGY RDW 15.5 11.5 - 01/10 [facility] [place] 14.5 [facility] HEMATOLOGY MPV 8.7 7.4 - 10.4 01/10 Normal [facility] HEMATOLOGY Hct 41.4 42.0 - 01/10 [facility] [place] 54.0 /2012 [facility] HEMATOLOGY Hgb 13.5 14.0 - 01/10 [facility] [place] 18.0 /2012 [facility] HEMATOLOGY MCHC 32.6 32.0 - 01/10 [facility] [place] 36.0 [facility] HEMATOLOGY MCV 88.9 80.0 - 01/10 [facility] [place] 94.0 /2012 [facility] HEMATOLOGY MCH 29.0 27.0 - 01/10 [facility] [place] 31.0 [facility] HEMATOLOGY WBC 7.5 3.7 - 10.4 01/10 Normal [facility] HEMATOLOGY TEG Interp Thrombelas 01/10 NA [place] tograph [facility] results [place] are within reference ranges. These indicate adequate hemostasis . If there is evidence of bleeding, consider anatomical or surgical bleeding. CPT:30610 HEMATOLOGY Angle 63.7 53.0 - 01/10 Normal [facility] 72.0 [facility] HEMATOLOGY K-time 1.9 1.0 - 3.0 01/10 Normal [facility]2012 [facility] HEMATOLOGY R-time 7.2 5.0 - 10.0 01/10 Normal [facility] HEMATOLOGY TEG Data See Note 7 01/10 Normal <sup>7</sup>I [facility] (01/10/2013 15:10:00) nterpretiv e Medical Data: Normal Center ranges are for citrated whole blood with kaolin activator.

R TIME: Reflects the degree of anti-coagulat ion due to LMWH, unfractionate d heparin, and coumadin as well as non-specific
factor deficiencies.

K TIME, ALPHA ANGLE, AND MA(MAX AMPLITUDE): Have been
associat ed with the platelet release reaction and fibrin
polymer formation. These parameters assess the speed of clot
formatio n and the tensil strength of the clot. Higher levels
are associated with hypercoagulab le states.
< br/>G VALUE: Another measure of clot strength.<br/ >
LY30 : Percent lysis in 30 Minutes is associated with the degree
of fibrinolysis.

CI or COAG INDEX: A calculation from the above measured data
indicati ng an overall hyper or hypo coagulability with values
above (plus) +3.0 being relatively hypercoagulab le and those
below (minus) -3.0 being relatively hypocoagulabl e.

These measurements are functional in nature with many variables
and require close clinical correlation.< br/>
Thro mboelasograph y (TEG) is mostly used to monitor significant coagulopathy in trauma patients or surgical patients. It assesses gloabal (primary and secondary) hemostasis using whole blood and therefore, not expected to correlate well with conventional coagulation tests. TEG results need to be correlated with clinical evaluation for patient management. HEMATOLOGY Coag Index -1.3 -3.0-3.0 - 01/10 [place] 3.0 [facility] HEMATOLOGY Ly30 0.6 0.0 - 7.5 01/10 Normal [facility] HEMATOLOGY G-value 6.8 4.5 - 11.0 01/10 Normal [facility] HEMATOLOGY Max Amp 57.7 50.0 - 01/10 Normal [facility] 70.0 [facility] CHEMISTRY Troponin-T <0.010 0.000 - 10/13 [facility] 0.100 [facility] CHEMISTRY Troponin-I <0.02 0.00 - 10/13 [facility] 0.40 [facility] CHEMISTRY Total CK 43 12 - 191 10/13 Normal [facility] CHEMISTRY eGFR 87 10/13 NA <sup>1</sup>R esult Medical Comment: The Center eGFR is calculated using the CKD-EPI formula. In most young, healthy individuals the eGFR will be >90 mL/min/1.73m2 . The eGFR declines with age. An eGFR of 60-89 may be normal in some populations, particularly the elderly, for whom the CKD-EPI formula has not been extensively validated. Use of the eGFR is not recommended in the following populations:& lt;br/>
I ndividuals with unstable creatinine concentration s, including patients and those with serious co-morbid conditions.<b r/>
Patie nts with extremes in muscle mass or diet.

The data above are obtained from the National Kidney Disease Education Program (NKDEP) which additionally recommends that when the eGFR is used in patients with extremes of body mass index for purposes of drug dosing, the eGFR should be multiplied by the estimated BMI. CHEMISTRY Calcium Lvl 8.4 8.5 - 10.5 10/13 [place] [facility] CHEMISTRY CO2 24 24 - 32 10/13 Normal [facility] CHEMISTRY Chloride Lvl 105 95 - 109 10/13 Normal [facility] CHEMISTRY Potassium Lvl 4.3 3.5 - 5.1 10/13 Normal [facility] CHEMISTRY Sodium Lvl 142 135 - 145 10/13 Normal [facility] CHEMISTRY Creatinine 0.8 0.5 - 1.4 10/13 Normal [facility] CHEMISTRY BUN 20 7 - 22 10/13 Normal [facility] CHEMISTRY Glucose Lvl 131 70 - 99 10/13 [place] <sup>4</sup>I [facility] T ex nterpretive Medical Data: Adult Center reference range values reflect the clinical guidelines
of the [place] Diabetes Association. CHEMISTRY AGAP 17.3 10.0 - 10/13 Normal [place] 20.0 [facility] CHEMISTRY A/G Ratio 1.5 0.7 - 1.6 10/13 Normal [facility] CHEMISTRY Globulin 2.5 2.0 - 4.0 10/13 Normal [facility] CHEMISTRY Bili Indirect 1.1 0.0 - 1.0 10/13 [facility] CHEMISTRY AST 22 0 - 37 10/13 Normal [facility] CHEMISTRY Total Protein 6.2 6.4 - 8.4 10/13 LOW [facility] CHEMISTRY Bili Total 1.7 0.2 - 1.3 10/13 [facility] CHEMISTRY Bili Direct 0.6 0.0 - 0.3 10/13 [facility] CHEMISTRY Alk Phos 113 39 - 136 10/13 Normal [facility] CHEMISTRY Albumin Lvl 3.7 3.5 - 5.0 10/13 Normal [facility] CHEMISTRY ALT 23 0 - 65 10/13 Normal [facility] CHEMISTRY Phosphorus 4.3 2.5 - 4.5 10/13 Normal [facility] CHEMISTRY Magnesium Lvl 2.3 1.8 - 2.4 10/13 Normal [facility] CHEMISTRY Ca Norm mgdL 4.64 4.65 - 10/13 LOW [place] 5. Medical Center CHEMISTRY Ca Ion mgdL 4.64 4.65 - 10/13 LOW [place] 5. Medical Center CHEMISTRY Ca Norm 1.16 1.16 - 10/13 Normal [place] 1. [facility] CHEMISTRY Ca Ion 1.16 1.16 - 10/13 Normal [place] 1.30 [facility] CHEMISTRY Troponin-T <0.010 0.000 - 10/13 Normal [place] 0.100 [facility] Center CHEMISTRY Troponin-I <0.02 0.00 - 10/13 Normal [place] 0.40 Medical Center CHEMISTRY Total CK 38 12 - 191 10/13 Normal [facility] CHEMISTRY POC A O2 Sat 91.0 95.0 - 10/13 LOW [place] 100.0 Medical Center CHEMISTRY POC A HCO3 25 22 - 26 10/13 Normal [facility] CHEMISTRY POC A Na 138 135 - 145 10/13 Normal [facility] CHEMISTRY POC A K 4.0 3.5 - 5.1 10/13 Normal [facility] CHEMISTRY POC A BE 1 -2-2 - 2 10/13 Normal [facility] CHEMISTRY POC A LA 1.8 0.5 - 2.2 10/13 Normal [facility] CHEMISTRY POC A Glu 145 70 - 99 10/13 [facility] CHEMISTRY POC A Ca Ion 1.16 1.16 - 10/13 Normal [place] 1.30 [facility] Center CHEMISTRY POC A Source ART 10/13 NA Medical Center CHEMISTRY POC A Temp 37.0 10/13 NA Medical Center CHEMISTRY POC A PCO2 40 35 - 45 10/[address] [facility] CHEMISTRY POC A pH 7.41 7.35 - 10/13 Normal 7.45 Medical Center CHEMISTRY POC A PO2 60 80 - 100 10/13 [facility] HEMATOLOGY Segs 84.9 45.0 - 10/13 HI [place] 75.0 [facility] Center HEMATOLOGY Lymphocytes 10.4 20.0 - 10/13 LOW [place] 40.0 Medical Center HEMATOLOGY Monocytes 3.4 2.0 - 12.0 10/13 Normal [facility] HEMATOLOGY Monocytes # 0.3 0.0 - 0.8 10/13 Normal [facility] HEMATOLOGY Basophils # 0.1 0.0 - 0.2 10/13 Normal [facility] HEMATOLOGY Eosinophils 0.1 0.0 - 4.0 10/13 Normal [facility] HEMATOLOGY Basophils 1.2 0.0 - 1.0 10/13 [facility] HEMATOLOGY Segs-Bands # 7.7 1.5 - 8.1 10/13 Normal [place] [facility] HEMATOLOGY Lymphocytes # 1.0 1.0 - 5.5 10/13 [place] [facility] HEMATOLOGY PTT 31.2 22.9 - 10/13 Normal <sup>10</sup> S[place] 35.8 Interpretive Medical Data: Heparin Center Therapeutic Range: 57 - 92 Seconds HEMATOLOGY INR 1.24 0.85 - 10/13 [place] <sup>7</sup>I [place] 1.17 nterpretive Medical Data: Center RECOMMENDED RANGES FOR PROTIME INR:
2.0-3.0 for most medical and surgical thromboemboli c states.
2.5-3.5 for artificial heart valves and recurrent embolism.<br/ >
INR SHOULD BE USED ONLY FOR PATIENTS ON STABLE ANTICOAGULANT THERAPY. HEMATOLOGY PT 15.8 12.0 - 10/13 [facility] [place] 14.7 [facility] HEMATOLOGY Platelet 134 133 - 450 10/13 Normal [facility] HEMATOLOGY MCH 30.0 27.0 - 10/13 Normal [place] 31.0 [facility] HEMATOLOGY MCHC 33.5 32.0 - 10/13 Normal [facility] 36.0 [facility] HEMATOLOGY MCV 89.5 80.0 - 10/13 Normal [facility] 94.0 [facility] HEMATOLOGY RDW 16.2 11.5 - 10/13 [facility] 14.5 [facility] HEMATOLOGY WBC 9.1 3.7 - 10.4 10/13 Normal [facility] HEMATOLOGY RBC 4.22 4.70 - 10/13 LOW [place] 6.10 [facility] HEMATOLOGY Hgb 12.7 14.0 - 10/13 LOW [facility] 18.0 [facility] HEMATOLOGY Hct 37.8 42.0 - 10/13 LOW [facility] 54.0 [facility] HEMATOLOGY MPV 8.8 7.4 - 10.4 10/13 Normal [facility] URINALYSIS UA 0.1 - 1.0 10/13 NA [facility] Urobilinogen [facility] URINALYSIS UA Sq Epi None Seen 10/13 NA [facility] URINALYSIS UA Hyal Cast 1 0 - 2 10/13 Normal [facility] URINALYSIS UA Bacteria Occasional /HPF None Seen 10/13 NA [facility] *NA Medical (10/12/2012 22:50:00) Ce nter URINALYSIS UA RBC <1 0 - [address] [facility] URINALYSIS UA WBC 2 0 - 5 10/13 Normal [facility] URINALYSIS UA Leuk Est Trace Negative 10/13 ABN [facility] *ABN Medical (10/12/2012 22:50:00) Ce nter URINALYSIS UA Nitrite Negative Negative 10/13 Normal [facility] (10/12/2012 22:50:00) [facility]YSIS UA Blood Negative Negative 10/13 Normal [facility] (10/12/2012 22:50:00) [facility] URINALYSIS UA Ketones Negative mg/dL Negative 10/13 [facility]2012 22:50:00) Ce nter URINALYSIS UA Mucus Few /LPF None Seen 10/13 [facility] (10/12/2012 22:50:00) Ce nter URINALYSIS UA Bili Negative Negative 10/13 [facility] (10/12/2012 22:50:00) Ce nter URINALYSIS UA Glucose Negative mg/dL Negative 10/13 NA Medical (10/12/2012 22:50:00) Ce nter URINALYSIS UA Spec Grav 1.011 <=1.030 10/[address] [facility] URINALYSIS UA Turbidity Clear Clear 10/13 Normal [facility] (10/12/2012 22:50:00) [facility] URINALYSIS UA Color Yellow Yellow 10/13 NA *NA Medical (10/12/2012 22:50:00) Ce nter URINALYSIS UA Protein Negative mg/dL Negative 10/13 Normal [facility] (10/12/2012 22:50:00) [facility] URINALYSIS UA pH 5.5 5.0 - 8.0 10/13 Normal [facility] CHEMISTRY Total CK 38 12 - 191 10/13 Normal [facility] CHEMISTRY Troponin-T <0.010 0.000 - 11/29 Normal [facility] 0.100 [facility] CHEMISTRY Troponin-I <0.02 0.00 - 10/13 Normal [facility] 0.40 [facility] CHEMISTRY T4 Free 1.45 0.76 - 10/13 Normal [facility] 1.46 [facility] Microbiolog Culture: 10/13 [facility] y Urine [facility] CHEMISTRY Magnesium Lvl 1.7 1.8 - 2.4 10/[address] [facility] CHEMISTRY Phosphorus 4.5 2.5 - 4.5 10/13 Normal [facility] CHEMISTRY TSH 0.291 0.360 - 10/13 LOW [place] 3.740 [facility] CHEMISTRY eGFR 83 10/13 NA <sup>2</sup>R esult Medical Comment: The Center eGFR is calculated using the CKD-EPI formula. In most young, healthy individuals the eGFR will be >90 mL/min/1.73m2 . The eGFR declines with age. An eGFR of 60-89 may be normal in some populations, particularly the elderly, for whom the CKD-EPI formula has not been extensively validated. Use of the eGFR is not recommended in the following populations:& lt;br/>
I ndividuals with unstable creatinine concentration s, including patients and those with serious co-morbid conditions.<b r/>
Patie nts with extremes in muscle mass or diet.

The data above are obtained from the National Kidney Disease Education Program (NKDEP) which additionally recommends that when the eGFR is used in patients with extremes of body mass index for purposes of drug dosing, the eGFR should be multiplied by the estimated BMI. CHEMISTRY BUN 18 7 - 22 10/13 Normal [facility] CHEMISTRY Glucose Lvl 129 70 - 99 10/13 HI <sup>5</sup>I [place] nterpretive Medical Data: Adult Center reference range values reflect the clinical guidelines
of the [place] Diabetes Association. CHEMISTRY Alk Phos 130 39 - 136 10/13 Normal [facility] CHEMISTRY Creatinine 0.9 0.5 - 1.4 10/13 Normal [facility] Lvl [facility] CHEMISTRY Sodium Lvl 141 135 - 145 10/13 Normal [facility] CHEMISTRY ALT 24 0 - 65 10/13 [facility] CHEMISTRY Albumin Lvl 4.4 3.5 - 5.0 10/13 Normal [facility] CHEMISTRY Total Protein 7.2 6.4 - 8.4 10/13 Normal [facility] CHEMISTRY AST 18 0 - 37 10/13 Normal [facility] CHEMISTRY Calcium Lvl 8.8 8.5 - 10.5 10/13 Normal [facility] CHEMISTRY Potassium Lvl 4.5 3.5 - 5.1 10/13 Normal [facility] CHEMISTRY CO2 25 24 - 32 10/13 Normal [facility] CHEMISTRY Chloride Lvl 105 95 - 109 10/13 Normal [facility] CHEMISTRY Bili Total 1.9 0.2 - 1.3 10/13 [facility] CHEMISTRY A/G Ratio 1.6 0.7 - 1.6 10/13 Normal [facility] CHEMISTRY Globulin 2.8 2.0 - 4.0 10/13 Normal [facility] CHEMISTRY B/C Ratio 20 6 - 25 10/13 Normal [facility] CHEMISTRY AGAP 15.5 10.0 - 10/13 Normal [place] 20.0 [facility] HEMATOLOGY RDW 16.0 11.5 - 10/13 HI [place] 14.5 [facility] HEMATOLOGY MCHC 32.8 32.0 - 10/13 Normal [place] 36.0 [facility] HEMATOLOGY Platelet 156 133 - 450 10/13 Normal [facility] HEMATOLOGY MPV 8.9 7.4 - 10.4 10/13 Normal [facility] HEMATOLOGY WBC 8.3 3.7 - 10.4 10/13 Normal [facility] HEMATOLOGY RBC 4.57 4.70 - 10/13 LOW [place] 6.10 [facility] HEMATOLOGY Hgb 13.5 14.0 - 10/13 LOW [place] 18.0 [facility] HEMATOLOGY MCV 90.0 80.0 - 10/13 Normal [place] 94.0 [facility] HEMATOLOGY Hct 41.1 42.0 - 10/13 LOW [place] 54.0 /2011 [facility] HEMATOLOGY MCH 29.6 27.0 - 10/13 Normal [place] 31.0 [facility] HEMATOLOGY Basophils 0.2 0.0 - 1.0 10/13 Normal [facility] HEMATOLOGY Monocytes # 0.1 0.0 - 0.8 10/13 [facility] HEMATOLOGY Lymphocytes # 0.9 1.0 - 5.5 10/13 LOW [facility] HEMATOLOGY Segs-Bands # 7.2 1.5 - 8.1 10/13 Normal [facility] HEMATOLOGY Segs 86.6 45.0 - 10/13 HI [place] 75.0 [facility] HEMATOLOGY Eosinophils 0.3 0.0 - 4.0 10/13 [facility] HEMATOLOGY Monocytes 1.5 2.0 - 12.0 10/13 LOW [facility] HEMATOLOGY Lymphocytes 11.4 20.0 - 10/13 LOW [place] 40.0 [facility] CHEMISTRY POC A Ca Ion 1.15 1.16 - 10/12 LOW [place] 1.30 [facility] CHEMISTRY POC A LA 0.7 0.5 - 2.2 10/12 Normal [facility] CHEMISTRY POC A O2 Sat 81.0 95.0 - 10/12 LOW [place] 100.0 [facility] CHEMISTRY POC A BE 1 -2-2 - 2 10/12 Normal [facility] CHEMISTRY POC A Na 137 135 - 145 10/[address] [facility] CHEMISTRY POC A K 4.3 3.5 - 5.1 10/[address] [facility] CHEMISTRY POC A Hct 41.0 42.0 - 10/12 LOW [place] 54.0 [facility] CHEMISTRY POC A Glu 115 70 - 99 10/12 HI [facility] CHEMISTRY POC A PO2 46 80 - 100 10/12 [facility] CHEMISTRY POC A pH 7.39 7.35 - 10/12 Normal [place] 7.45 [facility] CHEMISTRY POC A HCO3 26 22 - 26 10/12 Normal [facility] CHEMISTRY POC A PCO2 43 35 - 45 10/12 Normal [facility] CHEMISTRY POC A Temp 37.0 10/12 NA [facility] CHEMISTRY POC A Source ART 10/12 NA [facility] HEMATOLOGY PT 15.4 12.0 - 10/12 HI [place] 14.7 [facility] HEMATOLOGY INR 1.20 0.85 - 10/12 HI <sup>8</sup[facility] nterpretive Medical Data: Center RECOMMENDED RANGES FOR PROTIME INR:
2.0-3.0 for most medical and surgical thromboemboli c states.
2.5-3.5 for artificial heart valves and recurrent embolism.<br/ >
INR SHOULD BE USED ONLY FOR PATIENTS ON STABLE ANTICOAGULANT THERAPY. HEMATOLOGY PTT 32.9 22.9 - 10/12 Normal <sup>11</sup> [facility] s 35.8 Interpretive Medical Data: [facility] Center Therapeutic Range: 57 - 92 Seconds CHEMISTRY Globulin 2.8 2.0 - 4.0 09/21 Normal [facility] CHEMISTRY A/G Ratio 1.5 0.7 - 1.6 09/21 Normal [facility] CHEMISTRY AGAP 13.0 10.0 - 09/21 Normal [facility] 20.0 [facility] CHEMISTRY B/C Ratio 20 6 - 25 09/21 Normal [facility] CHEMISTRY eGFR 84 09/21 NA <sup>3</sup>R esult Medical Comment: The Center eGFR is calculated using the CKD-EPI formula. In most young, healthy individuals the eGFR will be >90 mL/min/1.73m2 . The eGFR declines with age. An eGFR of 60-89 may be normal in some populations, particularly the elderly, for whom the CKD-EPI formula has not been extensively validated. Use of the eGFR is not recommended in the following populations:& lt;br/>
I ndividuals with unstable creatinine concentration s, including patients and those with serious co-morbid conditions.<b r/>
Patie nts with extremes in muscle mass or diet.

The data above are obtained from the National Kidney Disease Education Program (NKDEP) which additionally recommends that when the eGFR is used in patients with extremes of body mass index for purposes of drug dosing, the eGFR should be multiplied by the estimated BMI. CHEMISTRY AST 28 0 - 37 09/21 Normal [facility] CHEMISTRY Sodium Lvl 141 135 - 145 09/21 Normal [facility] CHEMISTRY Total Protein 7.0 6.4 - 8.4 09/21 Normal [facility] CHEMISTRY Chloride Lvl 104 95 - 109 09/21 Normal [facility] CHEMISTRY Potassium Lvl 5.0 3.5 - 5.1 09/21 Normal [facility] CHEMISTRY CO2 29 24 - 32 09/21 Normal [facility] CHEMISTRY Bili Total 1.3 0.2 - 1.3 09/21 Normal [facility] CHEMISTRY Calcium Lvl 8.8 8.5 - 10.5 09/21 Normal [facility] CHEMISTRY Creatinine 0.9 0.5 - 1.4 09/21 Normal [facility] CHEMISTRY BUN 18 7 - 22 09/21 Normal [facility] CHEMISTRY Albumin Lvl 4.2 3.5 - 5.0 09/21 Normal [facility] CHEMISTRY Glucose Lvl 93 70 - 99 09/21 Normal <sup>6</sup>I [place] nterpretive Medical Data: Adult Center reference range values reflect the clinical guidelines
of the [place] Diabetes Association. CHEMISTRY Alk Phos 102 39 - 136 09/21 Normal [facility] CHEMISTRY ALT 27 0 - 65 09/21 Normal [facility] HEMATOLOGY Basophils # 0.1 0.0 - 0.2 09/21 Normal [facility] HEMATOLOGY Basophils 2.0 0.0 - 1.0 09/21 HI [facility] HEMATOLOGY Eosinophils 2.9 0.0 - 4.0 09/21 Normal [facility] HEMATOLOGY Segs-Bands # 4.4 1.5 - 8.1 09/21 Normal [facility] HEMATOLOGY Lymphocytes # 1.8 1.0 - 5.5 09/21 Normal Te [facility] HEMATOLOGY Monocytes # 0.7 0.0 - 0.8 09/21 Normal [facility] HEMATOLOGY Eosinophils # 0.2 0.0 - 0.5 09/21 Normal Te [facility] HEMATOLOGY Monocytes 9.7 2.0 - 12.0 09/21 Normal [facility] HEMATOLOGY Segs 61.0 45.0 - 09/21 Normal [place] 75.0 [facility] HEMATOLOGY Lymphocytes 24.4 20.0 - 09/21 Normal [facility] [place] 40.0 /2012 [facility] HEMATOLOGY RBC 4.44 4.70 - 11 LOW [place] 6.10 /2011 [facility] HEMATOLOGY Hgb 13.0 14.0 - 11 LOW [facility] 18.0 /2011 [facility] HEMATOLOGY Hct 40.2 42.0 - 11 LOW [facility] 54.0 /2011 [facility] HEMATOLOGY WBC 7.3 3.7 - 10.4 09/21 Normal [facility] HEMATOLOGY MCH 29.4 27.0 - 11 Normal [facility] 31.0 /2011 [facility] HEMATOLOGY MCHC 32.4 32.0 - 11 Normal [facility] 36.0 /2011 [facility] HEMATOLOGY RDW 16.0 11.5 - 09/21 [facility] 14. [facility] HEMATOLOGY MCV 90.6 80.0 - 09/21 Normal [facility] 94.0 /2011 [facility] HEMATOLOGY Platelet 153 133 - 450 09/21 Normal /2011 [facility] HEMATOLOGY MPV 8.9 7.4 - 10.4 09/21 Normal [facility] HEMATOLOGY PT 20.1 12.0 - 09/21 [facility] 14.7 [facility] HEMATOLOGY PTT 60.9 22.9 - 09/21 [place] <sup>[place]sup[place] 35.8 /2011 Interpretive Medical Data: [facility] Center Therapeutic Range: 57 - 92 Seconds HEMATOLOGY INR 1.70 0.85 - 09/21 [place] <sup>9</sup[place] 1.[place] nterpretive Medical Data: Center RECOMMENDED RANGES FOR PROTIME INR:
2.0-3.0 for most medical and surgical thromboemboli c states.
2.5-3.5 for artificial heart valves and recurrent embolism.<br/ >
INR SHOULD BE USED ONLY FOR PATIENTS ON STABLE ANTICOAGULANT THERAPY. Pathology Reports No Data Provided for This Section Diagnostic Reports Report Value Date Source Barium swallow DX Study: Barium swallow DX 02/15/2019 OP ID Arturo Clinical Indication: - R13. 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 There are no erosions, ulcerations or masses. There is normal i nitiation of the swallowing. Aspiration of barium was noted followed by protective cough. Large amount of residual contrast was noted in the piriform sinuses. There is normal esophageal c ontour and morphology without erosions, ulcerations, strictures or masses. Scattered tertiary esophageal contractions are seen. There is no hiatal hernia. There was no gastroesophageal reflux elicited during the exam. IMPRESSION: 1. Aspiration of contrast no hailee during the examination, followed by protective cough. Further evaluation with modified barium swallow study performed with speech language pathology may be helpful. 2. Incidentally noted cricopharyngeal bar. 3. Scattered tertiary esophageal contractions. SL: [id number] Facial Bones wo EXAM: CT ORBITS WITHOUT CONTRAST 02/01/2017 [facility] contrast CT (ER) DATE: 02/01/2017 8:[address] INDICATION: Pain Post Trauma - trauma COMPARISON: None TECHNIQUE: Volumetric CT acq uisition of the orbits without contrast. Axial, coronal and sagittal reconstructions. IV contrast: None. DLP: 123 mGy-cm FINDINGS: Bones: No fracture or other acute bony abnormali ty is identified. The paranasal sinuses and ma stoid air cells are clear. Dentures are visualized and are intact. Soft tissues: No abnormality of the globes is seen. There is no intraconal hematoma. Mild soft tissue contusion is seen in the left frontal region and possibly at the left cheek. No radiopaque foreign body is identified. IMPRESSION: 1. Mild soft tissue contusi on seen in the left frontal region and possibly the left cheek 2. No acute fracture or malalignment abnormalit y. 3. Diffuse osteopenia. 4. Mild atherosclerotic calcification of the in ternal carotid arteries. Spine cervical wo EXAM: CT CERVICAL SPINE WITHOUT CONTRAST 02/01 [facility] contrast CT DATE: 02/01/2017 8:54 PM CDT Cent er INDICATION: Pain Post Trauma - trauma COMPARISON: None TECHNIQUE: Volumetric acqui sition of the cervical spine without contrast. Axial, sagittal and coronal reconstructions. IV contrast: None. DLP: 478 mGy-cm FINDINGS: The spine is image d from the skull base to the level of superior endplate of T2. No acute fracture or malalig nment is identified. There is severe diffuse bone demineralization. Moderate to severe degenerative changes as evidenced by multilevel uncovertebral joint arthropathy C4-C7, posterior disc osteophyte co mplexes from C5 to C7 and anterior endplate osteophytosis from C2 to C6. No soft tissue abnormality is identified. Bilateral carotid bulbs are moderately calcified. Biapical atelectasis and/or scarring is seen. IMPRESSION: 1. No acute abnormality of the cervical spine. 2. Severe diffuse bone demineralization 3. Moderate to severe degenerative changes. 4. Biapical atelectasis and/or scarring. 5. Moderate desiccation of bilateral carotid bu lbs. Brain wo contrast CT CT HEAD WITHOUT CONTRAST 02/01/2017 [facility] DATE: 02/01/2017 at 10:[address] COMPARISON: None. HISTORY: Pain Post Trauma - trauma. TECHNIQUE: Contiguous axial images of the brain were obtained without intravenous contrast administration. Sagittal and coronal reformats were also provided. DLP: 997 mGy-cm. FINDINGS: There are no acute hemorrhag es or acute infarcts. The goldstein-white interfaces are well defined. Low density is noted within the periventricular white matter consistent with chronic small vessel ischemic disease. There is prominence of the cortical sulci, fissures, cisterns and ventricles consisten t with cortical atrophy appropriate for the maryjane ent's stated age of 81 years. There are no acute bony abno rmalities. The calvarium is intact. Atherosclerotic calcification is noted within the villarreal of the left vertebral and bilateral cavernous internal carotid arteries. A prosthe tic lens is noted within the left lobe c onsistent with prior cataract surgery. IMPRESSION: 1. No acute intracranial abnormality. 2. Age related volume loss. 3. White matter hypodensity consistent with chronic small vessel ischemic disease. 4. Arterial atherosclerosis. Resident preliminary report by Dr. Philip Sanabria: neg acute diffuse cerebral volume loss and chronic microangiopathic ischemic changes. Chest/Abdomen/Pelvis EXAM: CT CHEST WITH CONTRAST 02/01/2017 [facility] IV contrast CT EXAM: CT ABDOMEN AND PELVIS WITH CONTRAST Center DATE: 02/01/2017 8:54 PM CDT INDICATION: Pain Post Trauma - trauma COMPARISON: None. TECHNIQUE: Volumetric acquis ition of the chest, abdomen and pelvis following intravenous administration of contrast. Delayed imaging was then performed through the abdomen and pelvis, using a radiation reduction technique. Axial, coronal and sagittal reformats. IV contrast: 150 mL Visipaque 320 Oral contrast: None. DLP: 2304 mGy-cm FINDINGS: Lines and Tubes: None. Lower Neck: Visible portions unremarkable. Thoracic Aorta and Mediastin um: No mediastinal hematoma or thoracic aortic injury. Postsurgical changes status post coronary artery Lungs and Pleura: There is b iapical scarring and/or atelectasis. right upper lung scattered hazy groundglass opacities. Mild bibasilar subsegmental atelectasis. No pleural fluid or pneumothorax. Hepatobiliary: Normal. Gallbladder: No injury. Spleen: Normal. Pancreas: Normal. Adrenals: Normal. Kidneys: No acute renal inju ry. Multiple cysts are noted bilaterally with the largest measuring 2.4 cm in the lower pole of the right kidney. Ureters and Bladder: No injury. Reproductive Organs: No injury. Gastrointestinal Tract: No injury. Peritoneum and Retroperitoneum: No fluid collect ions or free air. Abdominal/Pelvic Vasculature : No vascular injury. The abdominal aorta and bilateral proximal iliac arteries are severely calcified. Lymphadenopathy: None. 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 No acute abnormalities noted of spine. Mild multilevel degenerative changes are present. No other acute bony injury. Diffuse osteopenia seen Soft Tissues: No acute injur y. A small lipoma is seen in the left anterior pelvic wall. IMPRESSION: 1. No acute thoracic, abdominal, or pelvic abno rmality 2. Right upper lobe scarring and edema, but no letitia contusion 3. Chronic compression deformity of L2 with goldie roximately 40% height loss 4. Mild multilevel degenerative changes of thor acic and lumbar spine 5. Biapical scarring and/or atelectasis 6. Diffuse osteopenia 7. Multiple bilateral renal cysts 8. Small lipoma in the left anterior pelvic wal l Elbow 3 views DX EXAM: XR LEFT ELBOW 3 VIEWS 02/01/2017 [facility] DATE: 02/01/2017 9:20 PM CDT Cent er INDICATION: trauma - trauma COMPARISON: None TECHNIQUE: AP, lateral and oblique radiographs of the left elbow DISCUSSION: No acute fractur e or malalignment is identified. There is no excessive joint fluid. No soft tissue abnormality is identified. IMPRESSION: No acute abnormality. Knee 3 views DX EXAM: XR LEFT KNEE 3 VIEWS 02/01/2017 [facility] DATE: 02/01/2017 9:20 PM CDT Cent er INDICATION: trauma - trauma COMPARISON: None. TECHNIQUE: AP, lateral and oblique views of the left knee DISCUSSION: Total arthroplas ty hardware is seen in usual position and anatomic alignment. No acute fracture or malalignment is identified. There is no excessive joint fluid. No soft tissue abnormality is identified. IMPRESSION: No acute abnormality. Hand 3 views DX EXAM: XR LEFT HAND 3 VIEWS 02/01/2017 [facility] EXAM: XR RIGHT HAND 3 VIEWS Cent er DATE: 02/01/2017 9:20 PM CDT INDICATION: trauma - trauma COMPARISON: None TECHNIQUE: PA, lateral and oblique radiographs of each hand DISCUSSION: No acute fractur e or malalignment is identified. Osteoarthrosis is noted bilaterally and rather diffuse distribution. There is swelling in the dorsal aspect of the metacarpophalangeal area o f the right hand, on the lat eral view. Swelling is also present in the left wrist area. IMPRESSION: Soft tissue swe lling at the right hand, and left wrist, but no other acute abnormality. Hand 3 views DX EXAM: XR LEFT HAND 3 VIEWS 02/01/2017 [facility] EXAM: XR RIGHT HAND 3 VIEWS Cent er DATE: 02/01/2017 9:20 PM CDT INDICATION: trauma - trauma COMPARISON: None TECHNIQUE: PA, lateral and oblique radiographs of each hand DISCUSSION: No acute fractur e or malalignment is identified. Osteoarthrosis is noted bilaterally and rather diffuse distribution. There is swelling in the dorsal aspect of the metacarpophalangeal area o f the right hand, on the lat eral view. Swelling is also present in the left wrist area. IMPRESSION: Soft tissue swe lling at the right hand, and left wrist, but no other acute abnormality. Knee 3 views DX EXAM: XR RIGHT KNEE 3 VIEWS 02/01/2017 [facility] DATE: 02/01/2017 9:20 PM CDT Cent er INDICATION: trauma - trauma COMPARISON: None. TECHNIQUE: AP, lateral and oblique views of the right knee DISCUSSION: Total arthroplas ty hardware is seen in usual position and anatomic alignment. No acute fracture or malalignment is identified. There is no excessive joint fluid. No soft tissue abnormality is identified. IMPRESSION: No acute abnormality. Chest 1view DX EXAM: XR CHEST 1 VIEW 02/01/2017 [facility] DATE: 02/01/2017 at 2043 hours Ce nter INDICATION: Pain Post Trauma - trauma COMPARISON: None available. TECHNIQUE: AP chest FINDINGS: Lines, tubes and hardware: P ulse generator projects over the left anterior chest with pacing lead in the right atrium, AICD lead in the right ventricle, and pacing lead in the coronary sinus. Median sternotomy wires are seen and intact. Lungs and pleura: Diffuse bi lateral airspace disease consistent with pulmonary edema. Heart and mediastinum: The cardiomediastinal you houette is enlarged. Bones: No acute bony abnormality is identified. IMPRESSION: Cardiomegaly with diffuse pulmonary edema Pelvis AP DX EXAM: XR PELVIS 1 VIEW 02/01/2017 [facility] DATE: 02/01/2017 at 2043 hours Ce nter INDICATION: Pain Post Trauma - trauma COMPARISON: None available. TECHNIQUE: A single AP supine radiograph of the pelvis FINDINGS: No acute fracture or malalignment is identified. Large and small bowel loops are filled with stoo l and gas and are nondilated. IMPRESSION: No acute abnormality. Esophagus BA swallow EXAM: FLUOROSCOPY MODIFIED BARIUM SWALLOW 0 12/31/2015 [facility] function video DX DATE: 12/31/2015 at 0958 hours Center INDICATION: Dysphagia. COMPARISON: Modified barium swallow 02/07/2013. TECHNIQUE: Oral barium contr ast of differing consistencies was given to the patient to assess swallowing mechanism. The study was performed in conjunction with speech pathology. FLUOROSCOPY TIME: 2 minutes 8 seconds DISCUSSION: The patient was given barium contrast of different consistencies. The swallowing reflex is delayed with difficulty with pharyngeal peristalsis. Thin barium with spoon: Symptomatic aspiration. Clover barium with spoon: Symptomatic aspiration . Honey barium with spoon: Severe vallecular pooli ng. Pudding barium with spoon: S evere vallecular pooling causing laryngeal penetration. IMPRESSION: 1. Please refer to speech p athologist's notes for further details and recommendations. 2. Symptomatic aspiration with thin and nectar barium. Consultation Notes No Data Provided for This Section Discharge Summaries No Data Provided for This Section History and Physicals No Data Provided for This Section Vital Signs Vital Sign Value Date Comments Source Heart Rate 80 03/16/2019 [facility] Respitory Rate 18 03/16/2019 [facility] Center Systolic (mm Hg) 120 03/16/2019 [facility] Diastolic (mm Hg) 70 03/16/2019 [facility] Center Respitory Rate 20 02/04/2017 [facility] Systolic (mm Hg) 125 02/04/2017 [facility] Diastolic (mm Hg) 74 02/04/2017 [facility] Heart Rate 85 02/04/2017 [facility] Temperature Oral (F) 97.9 F 02/04/2017 [facility] Temperature Oral (F) 97.6 F 02/04/2017 [facility] Heart Rate 86 02/04/2017 [facility] Respitory Rate 20 02/04/2017 [facility] Systolic (mm Hg) 99 02/04/2017 [facility] Center Diastolic (mm Hg) 59 02/04/2017 [facility] Temperature Oral (F) 98.0 F 02/04/2017 [facility] Systolic (mm Hg) 97 02/04/2017 [facility] Center Diastolic (mm Hg) 60 02/04/2017 [facility] Heart Rate 84 02/04/2017 [facility] Respitory Rate 20 02/04/2017 [facility] Height 180.34 cm 02/02/2017 [facility] Weight 68.182 02/02/2017 [facility] BMI Calculated 20.96 02/02/2017 [facility] BMI Calculated 20.96 02/02/2017 [facility] Weight 68.182 02/02/2017 [facility] Height 180.34 cm 02/02/2017 [facility] Height 180.34 cm 09/04/2016 [place] [facility] Respitory Rate 18 09/04/2016 [facility] Heart Rate 86 09/04/2016 [place] [facility] BMI Calculated 19.18 09/04/2016 [place] [facility] Weight 62.386 09/04/2016 [place] [facility] Systolic (mm Hg) 105 09/04/2016 [facility] Diastolic (mm Hg) 63 09/04/2016 [facility] Weight 64.716 05/22/2016 [facility] Height 177.8 cm 05/22/2016 [facility] BMI Calculated 20.47 05/22/2016 [facility] y[facility]anda Center Systolic (mm Hg) 107 05/22/2016 [facility] Center Diastolic (mm Hg) 67 05/22/2016 [facility] Heart Rate 84 05/22/2016 [facility] Temperature Oral (F) 96.9 F 05/22/2016 [facility] Weight 62.273 03/25/2016 [facility] BMI Calculated 19.7 03/25/2016 [facility] Height 177.8 cm 03/25/2016 [facility] Heart Rate 54 03/25/2016 [facility] Systolic (mm Hg) 76 03/25/2016 [facility] [facility] Diastolic (mm Hg) 51 03/25/2016 [facility] [place] BMI Calculated 26.89 01/21/2016 [facility] Weight 68.864 01/21/2016 [facility] Height 160.02 cm 01/21/2016 [facility] Systolic (mm Hg) 120 01/21/2016 [facility] d[facility] Center Diastolic (mm Hg) 71 01/21/2016 [facility] Temperature Oral (F) 97.2 F 01/21/2016 [facility] Heart Rate 53 01/21/2016 [facility] Systolic (mm Hg) 107 01/02/2016 [facility] Center Diastolic (mm Hg) 63 01/02/2016 [facility] Respitory Rate 18 01/02/2016 [facility] Heart Rate 86 01/02/2016 [facility] Systolic (mm Hg) 111 01/02/2016 [facility] Diastolic (mm Hg) 66 01/02/2016 [facility] Respitory Rate 18 01/02/2016 [facility] Systolic (mm Hg) 121 01/02/2016 [facility] Center Diastolic (mm Hg) 76 01/02/2016 [facility] Heart Rate 86 01/02/2016 [facility] Respitory Rate 18 01/02/2016 [facility] Heart Rate 85 01/02/2016 [facility] Temperature Oral (F) 97.1 F 01/01/2016 [facility] Temperature Oral (F) 96.9 F 01/01/2016 [facility] BMI Calculated 24.87 01/01/2016 [facility] Weight 78.636 01/01/2016 [facility] Height 177.8 cm 01/01/2016 [facility] Systolic (mm Hg) 117 12/31/2015 [facility] Center Diastolic (mm Hg) 74 12/31/2015 [facility] Respitory Rate 84 12/31/2015 [facility] BMI Calculated 24.44 12/31/2015 [facility] Height 177.8 cm 12/31/2015 [facility] Weight 77.273 12/31/2015 [facility] Respitory Rate 16 12/26/2015 [place] [facility] Systolic (mm Hg) 107 12/26/2015 [facility] Center Diastolic (mm Hg) 65 12/26/2015 [facility] Respitory Rate 20 12/26/2015 [facility] Systolic (mm Hg) 112 12/26/2015 [facility] Center Diastolic (mm Hg) 74 12/26/2015 [facility] Respitory Rate 19 12/26/2015 [facility] Systolic (mm Hg) 110 12/26/2015 [facility] Center Diastolic (mm Hg) 71 12/26/2015 [facility] Heart Rate 93 12/26/2015 [facility] Height 177.8 cm 12/17/2015 [facility] BMI Calculated 24.44 12/17/2015 [facility] Weight 77.273 12/17/2015 [facility] Temperature Oral (F) 97.8 F 12/06/2015 [facility] BMI Calculated 23.8 12/06/2015 [facility] Weight 75.227 12/06/2015 [facility] Height 177.8 cm 12/06/2015 [facility] Diastolic (mm Hg) 63 01/16/2013 [facility] Systolic (mm Hg) 98 01/16/2013 [facility] Center Respitory Rate 18 01/16/2013 [facility] Diastolic (mm Hg) 66 01/16/2013 [facility] Systolic (mm Hg) 103 01/16/2013 [facility] Respitory Rate 18 01/16/2013 [facility] Systolic (mm Hg) 102 01/16/2013 [facility] Center Diastolic (mm Hg) 66 01/16/2013 [facility] Respitory Rate 20 01/16/2013 [facility] Height 180.34 cm 01/16/2013 [facility] Weight 82.273 01/16/2013 [facility] Heart Rate 63 01/16/2013 [facility] Weight 82.273 01/10/2013 [facility] Height 180.34 cm 01/10/2013 [facility] Diastolic (mm Hg) 58 10/13/2012 [facility] Respitory Rate 20 10/13/2012 [facility] Systolic (mm Hg) 112 10/13/2012 [facility] Temperature Oral (F) 96.0 F 10/13/2012 [facility] Heart Rate 83 10/13/2012 [facility] Systolic (mm Hg) 121 10/13/2012 [facility] Center Diastolic (mm Hg) 76 10/13/2012 [facility] Heart Rate 82 10/13/2012 [facility] Systolic (mm Hg) 120 10/13/2012 [facility] Respitory Rate 20 10/13/2012 [facility] Diastolic (mm Hg) 75 10/13/2012 [facility] Heart Rate 83 10/13/2012 [facility] Temperature Oral (F) 97.1 F 10/13/2012 [facility] Respitory Rate 18 10/13/2012 [facility] Temperature Oral (F) 97.0 F 10/13/2012 [facility] Weight 79.545 10/12/2012 [facility] Height 180.34 cm 10/12/2012 [facility] Height 180.34 cm 09/21/2012 [facility] Weight 80.909 09/21/2012 [facility] Weight 86.136 04/12/2012 [facility] Height 180.34 cm 04/12/2012 [facility] Systolic (mm Hg) 111 04/12/2012 [facility] Diastolic (mm Hg) 72 04/12/2012 [facility] Heart Rate 70 04/12/2012 [facility] [place] Encounters Location Location Encounter Encounter Reason Attending ADM DC Stat us Source Details Type Number For Provider Date Date Visit [facility] [place] [facility] [id number] RIGHT DONNELL 03/17 Active [facility] 1 UPPER BARRETT /2012 Med[facility] l Center [facility] Center PAIN [facility] [place] [facility] [id number] DDC- NEW ADELA DELACRUZ 04/12 Active [facility] 2 [facility] VISIT [facility] [place] [facility] [id number] RUQ PAIN ADELA DELACRUZ 04/15 Active [facility] [place] OU [id number] DDC/ ADELA DELACRUZ 10/12 10/13 Active [facility] 4 DYSPHAGI /2011 Medical Center A Center [facility] Outpatient [id number] 787.20/4 MULUGETA 12/16 Acti ve [facility] 5 78.29 Medica l Center Center [facility] Outpatient [id number] DYSPHAGI MULUGETA 02/07 Acti ve [facility] 0 A [facility] [id number] Non 10/24 10/25 [place] 1 Physician /2014 [facility] Outpatient [id number] [place] 12/06 12/07 [facility] 2 [facility] Bedded [id number] [place] 12/12 12/12 [facility] Outpatient 3 [facility] OBS Day [id number] [place] 12/26 12/27 [facility] [place] Surgery 3 [facility] Outpatient [id number] [place] 12/31 01/01 [facility] [place] 4 [facility] Outpatient [id number] [place] 12/31 01/01 [facility] [place] 5 [place] [facility] OBS [id number] Get[place] 01/01 01/02 [facility] [place] Observation 7 Suhas Corrales [facility] Outpatient [id number] [place] 01/20 01/21 [facility] [place] 6 [place] [facility] Outpatient [id number] WENCESLAO RALPH 02/03 Activ [facility] Outpatient [id number] [place] 03/25 03/26 [facility] [address] [facility] Outpatient [id number] [place] 04/16 04/17 [facility] 0 [facility] Outpatient [id number] [place] 05/22 05/23 [facility] [place] [address] [facility] Outpatient [id number] [place] 09/04 09/05 [facility] [address] [place] [facility] Inpatient [id number] Corina Lopez 02/02 02/04 [facility] Outpt Diag [id number] [place] 02/15 02/16 [facility] Outpatient Services 4 [facility] Outpatient [id number] [place] 03/16 03/17 [facility] 5 [facility] DS [id number] DYSPHAGI MULUGETA Active M [facility] 6 A,ICD.9- [facility] Center 787.2 Center [facility] Outpatient [id number] ABNORMAL NON [place]anc [place] [address] WEIGHT PHYSICIAN [facility] Center LOSS Center OD [id number] 783.21 - MULUGETA Cancel OPID 1 ABNORMAL EAMON Sugar LOSS [place] 478.2 - DISEASE OF PHAR 787.20 OD [id number] 478.29 - MULUGETA Cancel OPID 0 DISEASE EAMON Lazcano n OF PHAR Procedures Procedure Code Date Perfomer Comments Source CABG - Coronary [id number] 60875 [facility] artery [facility] graft [place] <sup>1</sup> Hernia repair [id number] [facility] Knee replacement [id number] [facility] Operation [id number] 2Placement of [facility] <sup>2</sup> Pacemaker and Medical AICD (2008) Center Abdomen endoscopy [id number] [facility], OPID [place] Barium swallow [id number] [facility] OPID [place] CABG - Coronary [id number] 1993patietn [facility] had Medical graft<sup>1, quadraple CABG Center,M H 2</sup> OPID [place] Cataract [id number] left eye with [facility] surgery<sup>3</valencia lens Medical p> Center, OPID [place] Colonoscopy<sup>4 [id number] 2009 [facility] </sup> [facility] Center, OPID [place] Hernia [id number] hernia repair [facility] repair<sup>5, (INGUINAL) Medical 6</sup> x4x'3 in the Center, [facility] Knee replacement [id number] [facility] Operation<sup>7</ [id number] [place] sup[place] Pacemaker and Medical AICD (2008) Center,[facility] CABG - Coronary [id number] 1992 [facility] artery bypass Medical graft<sup>1</sup> Center, [facility] Hernia repair [id number] [facility] Operation<sup>2</ [id number] [place] sup[place] Pacemaker and Medical AICD (2008) Center,[facility] Colonoscopy<sup>2 [id number] 2009 [facility] </sup> [facility] Hernia [id number] x'3 in the [facility] repair<sup>3</sup Medical > Center Operation<sup>4</ [id number] [place] sup[place] Pacemaker and Medical AICD (2008) Center Assessment and Plan Assessment and Plan Date Source Extracted from:Title: Progress Note 02/04/2017 [facility] Author: Corina Lopez MD Date: 02/03/17 Assessment/Plan Mr. Cortés is a 81 y/o male with a PMH C AD s/p CABG, CHF c EF 35% s/p [...] -Cleared by ORS for discharge, PT seen a nd has cleared the patient for discharge -Needs more pain management, currently u nable to assess pain as patient has received a block early this morning, will transition to p.o. pain meds anddischarge tomorrow - present at bedside in the evening and she was given trainingregarding the dressings 3.Atrial fibrillation -Currently rate controlled -Amiodarone and digoxin and metoprolol h as been on hold due to low BP, 500 cc bolus givenecho shows EF of 35-40% 4.CAD, s/p CABG in 1992, AICD/PPM in 2008 -at home he is on metoprolol, Lipito r, Lasix, Aldactone, statin: BP meds on hold due to low BP 5.Hypertension -Currently on the low normal side, w ill monitor. BP meds on hold at this time 6.Hypothyroidism -Continue levothyroxine home medication 7.GERD - Gastro-esophageal reflux disease -On PPI, continue same 8.Acute pain due to injury -Currently onblock and multimodal pain regimen 9.History of laryngeal cancer Completed chemoradiation in 2003, not active at this lissy e 10.Osteopenia -On vitamin D supplementation 11.Compression fracture of L2 Chronic, no intervention at this time 12.Anemia -Normocytic anemia, no indication for transfusion at thi s time 13. Pulmonary Hypertension Sildenafil as BP allows Orders: AMIODarone, 100 mg, 1 tab, Route: PODr townsend form: TAB, Daily, Dosing Weight 68.182, kg, Start date: 02/04/17 9:00:00 CDT, Duration: 30 day, Stop date: 03/05/17 9:00:00 CDT MD to Nurse Order, Misc Prophylaxis Warfarinon hold, will resume upon discharge Disposition Possible DC tomorrow to home Extracted from:Title: History and Physical Author: Susu Keith MD [...] disease PPI 7.Acute pain due to injury Planada as needed 8.History of laryngeal cancer Chemoradiation completed in 2003 9.Osteopenia Vitamin D 10.Compression fracture of L2 Chronic Pulmonary Hypertension Sildenafil as BP allows Prophylaxis INR therapeutic today Lovenox tomorrow Disposition Pending surgery and clearance [facility] Hospitalist service is primary. Page [phone] with concerns. Extracted from:Title: ORS HAND TRAUMA INITIAL CONSULT H&P Author: Diana Adams Date: 02/01/17 ORS Hand Trauma Consult History and Physical [...] and impro dana with rest. Denies other trauma/injur y, pain or loss of ROM in other extremities. Denies radiation, N/T, or other paresthesias. TRUPTI: 230pm. 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 HEENT: Denies vision change, sore throat, ulcers in mouth, e pistaxis CV: Denies CP, Palpitations Resp: Denies SOB, wheezing, cough GI: Denies Abd pain, N/V/D/Constipation. Denies incontinence . : Denies urinary retention, urgency, burning, discharge. Back/Spine: Denies pain. Neuro: Denies N/T, other paresthesias in extremities. Endocrine: Denies recent weight changes, heat/cold insensiti vity. Psych: Denies depression, anxiety, labile mood, suicidal/gwyn icidal ideation. Musculoskeletal: Denies all but HPI. All other systems negative except HPI. Social History: Tobacco: Denies EtOH: Occasional Illicit drugs: none RHD. Lives with . Family History: [place], HTN, DM, CA (types unknown) Vitals: Systolic Blood Pressure : 145 mmHg (HI) Diastolic Blood Pressure : 61 mmHg Peripheral Pulse Rate : 85 bpm Respiratory Rate : 18 BRMIN SpO2 percent : 90 % (LOW) ED Temperature Taken : Yes Temperature Oral : 97.8 DegF Exam: Gen: A&O x 3. in NAD. RUE: Inspection: + Degloving to dorsum of jackson d with exposed tendons. + Gross contamination with [...] LUE: Inspection: + Degloving to dorsum of jackson d with exposed tendon. + Skin tears at elbow/forearm. + Gross contamination with dirt. Neg. crepitis, laxity. Sensation: sensation intact to light touch m/r/u n Motor: intact AIN/PIN/Ulnar in hand; 5/5 Wrist flex/ext; Elbow flex/ext; Shoulder ABd,Flex FDS/FDP and extensors intact all digits. Vascular: radial pulse palpated, BCR all fingers <2 sec. Imaging: R hand x-rays: Soft tissue swelling at t he right hand, and left wrist, but no other acute abnormality. L hand x-rays: Soft tissue swelling at t he right hand, and left wrist, but no [...] hands; will continue to follow while in-house Extracted from:Title: Clinical Document 01/02/2016 [facility] Author: Paul King Date: 01/02/16 Discharge Summary Name: Shelly Cortés Record Number: [id number] Admission Date: 12/31/2015 Discharge Date: 01/02/2016 Copies to: Diagnoses: Dyphagia Procedures: PEG tube placement by GI Chief complaint: Dysphagia Hospital course: Patient is a 80 y/o CM with hx of throat cancer s/p radiation and chemo in the past, Atrial fibrillation on Eliquis, HTN, CAD, systolic CHF who was admitted for worsening of dysphagia since Sep, 2015. B arium swallow study done showed symptoma tic aspiration with thin and nectar Barium. Patient received PEG tube placement on 01/01/2016 by GI. GI re- evaluated the PEG tube today (01/02/2016) and cleared p atient for discharge. Patients denies a ny fever, abdominal pain, nausea, and vomiting. While patient was admitted, he has been evaluated by Home Health and caul dresser. Discharge therapy: Medications: see medication reconciliation Diet: enteral tube feedings per PEG Activity: regular ADL Follow up: Dr. Negrete in 2 weeks. Primary care physician in 2 days Addendum by Bria Neri MD on 01/02/2016 19:47 pt seen and examined on discharge day. 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 Site Date Nares 08/28/2009 Isolation Required: CONTACT Before isolation precautions may be disc ontinued for this hospital visit, the following protocol [...] discontinued. Patient can only be cleared from isolati on for this visit. If readmitted, patient must be isolated and screened for MRSA again. Consult Infection Control for suggested regimens for decolonization of p atients with MRSA as well as for any que stions. We can be reached at [phone]. Extracted from:Title: Hospitalist History and Physical Author: Reji Acosta [...] statin 7.HTN - Hypertension controlled continuecurrent regimen an dmonitor 8.Hypothyroidism synthroid at home dose Orders: amLODIPine, 10 mg, 1 tab, Rout e: PO, Drug form: TAB, Daily, Dosing Weight 78.636, kg, Start date: 01/01/16 9:00:00, Duration: 30 day, Stop date: 01/30/16 9:00:00 atorvastatin, 40 mg, 1 tab, Route: PO, Drug form: TAB, Bedtime, Dosing Weight 78.636, kg, Start date: 12/31/15 21:00:00, Duration: 30 day, Stop date: 01/29/16 21:00:00 citalopram, 20 mg, 1 tab, Route: PO, D rug form: TAB, Daily, Dosing Weight 78.636, kg, Start date: 01/01/16 9:00:00, Duration: 30 day, Stop date: 01/30/16 9:00:00 digoxin, 125 microgram, 1 tab, Route: PO, Drug form: TAB, Daily, Dosing Weight 78.636, kg, Start date: 01/01/16 9:00:00, Duration: 30 day, Stop date: 01/30/16 9:00:00 enalapril, 5 mg, 1 tab, Route: PO, Jostin g form: TAB, BID, Dosing Weight 78.636, kg, Start date: 12/31/15 21:00:00, Duration: 30 day, Stop date: 01/30/16 17:00:00 furosemide, 40 mg, 1 tab, Route: PO, D rug form: TAB, Daily, Dosing Weight 78.636, kg, Start date: 01/01/16 9:00:00, Duration: 30 day, Stop date: 01/30/16 9:00:00 levothyroxine, 100 microgram, 1 tab, R oute: PO, Drug form: TAB, Daily, Dosing Weight 78.636, kg, Start date: 01/01/16 9:00:00, Duration: 30 day, Stop date: 01/30/16 9:00:00 metoprolol, 75 mg, 3 tab, Route: PO, D rug form: ERTAB, BID, Start date: 12/31/15 21:00:00, Duration: 30 day, Stop date: 01/30/16 17:00:00 nitroglycerin, 0.4 mg, 1 tab, Route: S L, Drug form: TAB, Q5Min, Dosing Weight 78.636, kg, PRN Chest Pain, Start date: 12/31/15 19:37:00, Duration: 30 day, Stop date: 01/30/16 20:36:00 pantoprazole, 40 mg, 1 tab, Route: PO, Drug form: ECTAB, Daily, Dosing Weight 78.636, kg, Start date: 01/01/16 9:00:00, Duration: 30 day, Stop date: 01/30/16 9:00:00 Diet NPO After Midnight Diet NPO Except For Prophylaxis scds on eliquis will hold for procedure Disposition Plan of Care No Data Provided for This Section Social History Social History Date Source Social History TypeResponse 02/02/[address] [facility] [place] [place] Substance Abuse Use: None. Alcohol Past, Type Beer. Frequency: 1-2 times p er year. Last use: in the past. Previous treatment: None. Alcohol use interferes with work or home: No. Drinks more than intended: No. Others hurt by drinkin g: No. Ready to change: No. Household alcohol concerns: No . Smoking Status Never smoker; Exposure to Tobacco Smoke None; Cigarette Smoking Last 365 Days No; Reg Smoking Cessation Counseling No entered on: 03/16/19 Social History TypeResponse 02/02/2017 [facility] [facility] Substance Abuse Use: None. Alcohol Past, Type Beer. Frequency: 1-2 times p er year. Last use: in the past. Previous treatment: None. Alcohol use interferes with work or home: No. Drinks more than intended: No. Others hurt by drinkin g: No. Ready to change: No. Household alcohol concerns: No . Smoking Status Never smoker; Exposure to Tobacco Smoke None; Cigarette Smoking Last 365 Days No; Reg Smoking Cessation Counseling No entered on: 02/01/17 No data available for this 10/25/2015 [facility] ity section Family History No Data Provided for This Section Advance Directives No Data Provided for This Section Functional Status No Data Provided for This Section
[2020-04-30] MEDS ORDERED: ACETAMINOPHEN 500 MG TAB ONE (04:08)
--- OUTSIDE RECORDS SUMMARY | 2020-04-30 04:14 | XMS REPORT | Continuity of Care Document ---
:1935 Author Organization [facility] t Address [address] [place] [address] Dr. Carrero [address] [place] [id number] Care Team Providers Name Role Phone Asked, Pcp Primary Care Physician Unavailable Christopher TONY Attending Clinician Unavailable Lorena Lopez MA Attending Clinician Unavailable Ute MARTI Attending Clinician Markos BOJORQUEZ Attending Clinician Unavailable Alessia JACOBSON Attending Clinician Unavailable Yasir MARTI PhD, S. Attending Clinician Stormy MARTI, Not In Attending Clinician Unavailable Kimmy JACOBSON Attending Clinician Unavailable Ada LABORER SALVAGE-C, Charitore Attending Clinician Sherley LABORER SALVAGE Attending Clinician SEBASTIAN Attending Clinician Unavailable Torri Swartz DO Attending Clinician Sergio MARTI Attending Clinician Armando MARTI Attending Clinician Zaira Lau MD Attending Clinician Randi JACOBSON Attending Clinician Unavailable Nicola Marti MD Attending Clinician Veronica Neves MD Attending Clinician Gilma RN Attending Clinician Unavailable Paul Gibson MD Attending Clinician Edy Knutson Attending Clinician EAMON Attending Clinician Unavailable AVELINO Attending Clinician Unavailable John Attending Clinician Fernando Beverly Attending Clinician Lawrence Dai Jr Attending Clinician Physician, Associated Attending Clinician Unavailable SERGIO Admitting Clinician Unavailable PURA Admitting Clinician Unavailable Trevor Melo Admitting Clinician Lawrence Dai Jr Admitting Clinician Payers Payer Name Policy Type Policy Number Effective Date Expiration Date Cheli balderas AETNA xxxxxxxx 2013 [place] MEDICAREAETNA 00:00:00 [facility] MEDIC[facility] HMO/[facility] [id number] Problems Condition Condition Condition Status Onset Resolution Last Treating Co mments Source Name Details Category Date Date Treatment Clinician Date Rhinovirus Rhinovirus Disease Active 2018-11 [place] infection infection 0-16 Meth khurram 00:00: st 00 Spondylosi Spondylosi Disease Active [place] s of s of 04-20 Methodi cervical cervical 00:00: st region region 00 without without myelopathy myelopathy or or radiculopa radiculopa thy thy Cervical Cervical Disease Active [place] arthritis arthritis 5-20 Meth khurram 00:00: st 00 Neck pain Neck pain Disease Active Overview: [place] 516 Patient Methodi 00:00: states st 00 that he was holding something on his head that fell a little bit and applied more sudden pressure a few months back. He didn't think much of it, but has been having neck pain since, and is now complaini ng of pain and stiffness with significa ntly reduced range of motion of the neck.Has tried tylenol for pain which helps him to rest. States he ignores the pain during the day. Patient denies numbness or tingling in the hands. Has some in the L leg, but states it did not start after the accident. 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 00:00: st (HCC) s/p (HCC) s/p 00 AVN AVN ablation ablation 02/10/2019 02/10/2019 CRICOPHARY Diagnosis Active 2019-03-16 Memoria LNGEAL 03-08 13:57:00 l DYSPHAGIA, 00:00: [place] CRICOPHARY CRICOPHARY 00 NG LNGEAL DYSPHAGIA, CRICOPHARY NG Active 9 [facility] Rhinorrhea Rhinorrhea Disease Active 2017-11 Overview : [place] 1-15 Patient Methodi 00:00: has some st 00 clear drainage from the nose Says he's not overly worried about it, but wanted to bring it up.Last Assessmen t & Plan: Can try flonase topically If not helpful, can try atrovent for possible vasomotor rhinitis Biventricu Biventricu Disease Active [place] [facility] 5-08 Methodi implantabl implantabl 00:00: st e e 00 cardiovert cardiovert er-defibri er-defibri llator llator (BSci, (BSci, upgraded upgraded 12/28/2014 12/28/[address] Cooley [address] Dr Cooley from dual from dual ICD by ICD by Bo Jarvis) Abnormal Abnormal Disease Active 2016-11 [place] findings findings 12-14 Method i on on 00:00: st diagnostic diagnostic 00 imaging of imaging of other other abdominal abdominal regions, regions, including including retroperit retroperit oneum oneum 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 [place] 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 Atrial Atrial Disease Active 2016-11 [place] tachycardi tachycardi 12-14 Me thodi a a 00:00: st 00 Gynecomast Gynecomast Disease Active 2016-11 Overview : [place] ia ia 0-25 Normal Methodi 00:00: breast st 00 tissue on mammogram 09/2017 OTHER Diagnosis Active 2017-02-01 Mem oria 3-20 23:00:00 l OTHER 00:00: [place] 00 Active 02/01/2017 [facility] DEGLOVING Diagnosis Active 2017-04-14 Memoria INJURY R 3-20 21:51:00 l HAND 00:00: Gurwinder DEGLOVING 00 INJURY R HAND Active 02/01/2017 [facility] Ischemic Ischemic Disease Active 2015-11 [place] congestive congestive 12-12 Il thodi cardiomyop cardiomyop 00:00: st athy athy 00 Mitral and Mitral and Disease Active 2015-11 [place] aortic aortic 12-12 Methodi incompeten incompeten 00:00: st ce ce 00 Ventricula Ventricula Disease Active 2015-11 [place] r r Methodi tachycardi tachycardi 00:00: st a a 00 FOLLOW UP Diagnosis Active 2016-09-04 Memoria 08-13 09:15:00 l FOLLOW 00:00: [place] UP 00 Active 6 [facility] FOLLOW UP Diagnosis Active 2016-10-10 Memoria GTUBE 08-11 15:33:00 l REMOVAL FOLLOW 00:00: Herm nir UP 00 GTUBE REMOVAL Active 08/11/2016 [facility] BDDC - F/U Diagnosis Active 2016-05-22 Memoria 05-21 09:20:00 l BDDC - 00:00: Gurwinder F/U 00 Active 05/21/2016 [facility] CRICOPHARY Diagnosis Active 2016-04-16 Memoria NGEAL - 14:15:00 l SPASM 00:00: Gurwinder CRICOPHARY 00 NGEAL SPASM Active 04/08/2016 [facility] Benign Benign Disease Active Overview: [place] non-nodula non-nodula 5- Previousl Methodi r r 00:00: y had st prostatic prostatic 00 some hyperplasi hyperplasi urinary a with a with retention lower lower ; patient urinary urinary says this tract tract has symptoms symptoms improved. Not using a catheter, no frequent infection s.Saw Dr. Quesada 11/2016; currently not taking the medicatio ns. In regard to flomax, has had some orthostat ic dizziness in the past, so this may be limiting. Last Assessmen t & Plan: Continue to monitor. R10.84 - Diagnosis Active 2016-03-08 M emoria GENERALIZE 3- 16:19:00 l D R10.84 - 00:01: [place] ABDOMINAL GENERALIZE 00 PAIN R60. D ABDOMINAL PAIN R60. Active 02/04/2016 [facility] Diagnosis Active 2016-01-21 M emoria F/U - 13:40:00 l HOSPITAL 00:00: [place] F/U 00 Active 01/06/2016 [facility] DYSPHAGIA Diagnosis Active 2016-01-07 Memoria WITH 2- 22:03:00 l ASPIRATION 00:00: [place] DYSPHAGIA 00 WITH ASPIRATION Active 12/31/2015 [facility] DYSPHAGIA Diagnosis Active 2016-01-02 Memoria 2-04 11:28:00 l 00:00: Gurwinder DYSPHAGIA 00 Active 12/19/2015 [facility] DSU-DYSPHA Diagnosis Active 2015-12-31 Memoria BALJIT 2-02 12:30:00 l 00:00: Gurwinder DSU-DYSPHA 00 BALJIT Active 12/17/2015 [facility] R13.10 - Diagnosis Active 2016-01-17 M emoria "DYSPHAGIA - 16:05:00 l , R13.10 - 00:01: [place] UNSPECIFIE "DYSPHAGIA 00 D" , UNSPECIFIE D" Active 6 OPID Gurwinder BDDC-DYSPH Diagnosis Active 2016-01-30 Memoria AGIA - 15:50:00 l 00:00: Gurwinder BDDC-DYSPH 00 AGIA Active 12/06/2015 [facility] SWALLOWING Diagnosis Active 2015-12-06 Memoria ISSUE 11-29 09:03:00 l 00:00: Gurwinder SWALLOWING 00 ISSUE Active 11/29/2015 [facility] WT. GAIN Diagnosis Active 2014-112015-10-24 M emoria 12-19 12:17:00 l WT. GAIN 00:00: [place] 00 Active 10/18/2015 [facility] 783.21 - Diagnosis Active 2013-03-20 M emoria ABNORMAL - 19:28:00 l LOSS O 783.21 - 00:01: [place] 478.2 - ABNORMAL 00 DISEASE LOSS O 478.2 - DISEASE Active 01/26/2013 [facility] [place] ABNORMAL Diagnosis Active 2013-03-30 M emoria WEIGHT 3-14 15:16:00 l LOSS ABNORMAL 00:00: [place] WEIGHT 00 LOSS Active 01/26/2013 [facility] 478.29 - Diagnosis Active 2013-03-20 M emoria DISEASE OF 3-13 18:37:00 l PHAR 478.29 - 00:01: [place] DISEASE OF 00 PHAR Active 01/25/2013 OP[facility] Gurwinder 01/16/13, Diagnosis Active 2013-01-05 Memoria ESCOGSCOPY 2- 09:14:00 l 00:00: [place] 01/16/13, 00 ESCOGSCOPY Active 01/03/2013 [facility] DYSPHAGIA, Diagnosis Active 2013-01-16 Memoria ICD.9-787. 2-19 07:26:00 l 2 00:00: Gurwinder DYSPHAGIA, 00 ICD.9-787. 2 Active 01/03/2013 [facility] 787.20/478 Diagnosis Active 2012-12-16 Memoria .29 - 10:53:00 l 00:00: Gurwinder 787.20/478 00 .29 Active 12/13/2012 [facility] DDC/ Diagnosis Active 2011-112012-10-21 Mem oria DYSPHAGIA 0 10:10:00 l DDC/ 00:00: Gurwinder DYSPHAGIA 00 Active 09/13/2012 [facility] RUQ PAIN Diagnosis Active 2012-04-15 M emoria 04-12 07:00:00 l RUQ PAIN 00:00: [place] 00 Active 04/12/2012 [facility] NEW CLINIC Diagnosis Active 2012-04-12 Memoria VISIT 03-31 14:37:00 l NEW 00:00: Gurwinder CLINIC 00 VISIT Active 03/31/2012 [facility] DDC- NEW Diagnosis Active 2012-04-12 M emoria CLINIC 03-31 14:43:00 l VISIT DDC- NEW 00:00: [place] CLINIC 00 VISIT Active 03/31/2012 [facility] RIGHT Diagnosis Active 2012-03-17 Mem oria UPPER 03-15 10:26:00 l QUADRANT RIGHT 00:00: Gurwinder PAIN UPPER 00 QUADRANT PAIN Active 03/15/2012 [facility] Methicilli Problem Active 2008-112013-02-09 M emoria n 0-14 21:41:32 l resistant 00:00: [place] Staphyloco Methicilli 00 ccus n aureus resistant Staphyloco ccus aureus Active 08/28/2009 Problem 02/09/2013 1Problem added by Discern Expert. [facility], BRAD [facility] Methicilli Problem Active 2009-1 2016-01-24 M emoria n 0-14 01:44:40 l resistant 00:00: Gurwinder Staphyloco Methicilli 00 ccus n aureus resistant (organism) Staphyloco ccus aureus (organism) Active 08/28/2009 Problem 01/24/2016 Problem added by Discern Expert. 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 [place] [facility] Base Base ans CABG CABG Problem Active Univers ity of [place] [facility] History of History of Problem Active U nivers Cardiovert Cardiovert it y of er-defibri er-defibri [place] llator llator Physici Pulse Pulse ans Generator Generator Insertion Insertion With Leads With Leads Abnormal Abnormal Problem Active Unive rs weight weight ity of loss loss [place] [facility] Abdominal Abdominal Problem Active Uni vers pain pain ity of [place] [facility] Atrial Atrial Problem Active Univers fibrillati fibrillati it y of on on [place] [facility] Ventricula Ventricula Problem Active U nivers r r ity of fibrillati fibrillati [place] [facility] Essential Essential Problem Active Uni vers (primary) (primary) ity of hypertensi hypertens[place] [facility] Abnormal Abnormal Problem Active Unive rs findings findings ity of on on [place] diagnostic diagnostic Ph ysici imaging of imaging of an s abdomen abdomen Malignant Malignant Problem Active 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 [place] [facility] Late Late Problem Active Univers effect of effect of it[place] of radiation radiation [place] [facility] Esophageal Esophageal Problem Active U nivers dysmotilit dysmotilit it y of y y [place] [facility] Cricophary Cricophary Problem Active U nivers ngeal ngeal ity of spasm spasm [place] [facility] Cricophary Cricophary Problem Active U nivers ngeal ngeal ity of achalasia [place]chalasia [place] [facility] Status Status Problem Active Univers post full post full ity of thickness thickness [place] skin graft skin graft Ph ysici ans Complicate Complicate Problem Active U nivers d d ity of laceration laceration [place] hand, of hand, Physic i right, right, ans subsequent subsequent encounter encounter Deep vein Deep vein Problem Active Uni vers thrombosis thrombosis it y of (DVT) (DVT) [place] [facility] Ischemic Ischemic Problem Active Unive rs cardiomyop cardiomyop it y of athy athy [place] [facility] History of History of Problem Active U nivers cardiac cardiac ity of arrest arrest [place] [facility] Dysphagia, Dysphagia, Problem Active U nivers pharyngeal pharyngeal it y of phase phase [place] [facility] Congestive Congestive Disease Active [place] heart heart Methodi failure failure st Persistent Persistent Disease Active [place] atrial atrial Methodi fibrillati fibrillati st on on On On Disease Active Overview: [place] continuous continuous now on Me thodi oral oral warfarin; st anticoagul anticoagul changed ation ation from elaquisFo llowed by cardiolog y Hearing Hearing Disease Active Overview: [place] loss loss with Methodi hearing st aides Atrial Problem Inactiv 2013-02-09 Ramirez evelina fibrillati e 21:41:32 l on Atrial [place] fibrillati on Inactive Problem 02/09/2013 [facility] CAD - Problem Resolve 2013-02-09 Ramirez evelina Coronary d 21:41:32 l artery CAD - [place] disease Coronary artery disease Resolved Problem 02/09/2013 [facility] Depression Problem Resolve 2013-02-09 Memoria d 21:41:32 l Gurwinder Depression Resolved Problem 02/09/2013 [facility] GERD - Problem Resolve 2013-02-09 Ramirez evelina Gastro-eso d 21:41:32 l phageal GERD - [place] reflux Gastro-eso disease phageal reflux disease Resolved Problem 02/09/2013 [facility] Hepatitis Problem Resolve 2013-02-09 M emoria C d 21:41:32 l [place] Hepatitis C Resolved Problem 02/09/2013 [facility] HLD - Problem Resolve 2013-02-09 Ramirez evelina Hyperlipid d 21:41:32 l emia HLD - Gurwinder Hyperlipid emia Resolved Problem 02/09/2013 [facility] HTN - Problem Resolve 2013-02-09 Ramirez evelina Hypertensi d 21:41:32 l on HTN - Gurwinder Hypertensi on Resolved Problem 02/09/2013 [facility] 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 Problem 02/09/2013 [facility] Other Problem Resolve 2019-03-18 Ramirez evelina (qualifier d 22:05:33 l value) Other Gurwinder (qualifier value) Resolved Problem 03/18/2019 [employer]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 [facility], [facility] Pulmonary Problem Resolve 2019-03-18 M emoria hypertensi d 22:05:33 l on [place] (disorder) Pulmonary hypertensi on (disorder) Resolved Problem 03/18/2019 Diagnosed in January 2016 [facility] Tongue Problem Resolve 2019-03-18 Ramirez evelina carcinoma d 22:05:33 l (disorder) Tongue Herm nir carcinoma (disorder) Resolved Problem 03/18/2019 [facility] [place],[facility] Viral Problem Resolve 2015-12-29 Ramirez evelina hepatitis d 02:01:31 l C Viral [place] (disorder) hepatitis C (disorder) Resolved Problem 12/29/2015 [facility] Hyperlipid Problem Active 2013-02-09 M emoria emia 21:41:32 l Gurwinder Hyperlipid emia Active Problem 02/09/2013 [facility] Hypertensi Problem Active 2013-02-09 M emoria on 21:41:32 l Gurwinder Hypertensi on Active Problem 3 [facility] Hypothyroi Problem Active 2013-02-09 M emoria dism 21:41:32 l [place] Hypothyroi dism Active Problem 02/09/2013 [facility] Coronary Problem Active 2019-03-18 Mem oria arterioscl 22:05:33 l erosis Coronary [place] (disorder) arterioscl erosis (disorder) Active Problem 03/18/2019 [facility] Gastro[facility] Problem Active 2019-03-18 M emoria hageal 22:05:33 l reflux Gurwinder disease Gastroesop (disorder) hageal reflux disease (disorder) Active Problem 03/18/2019 [facility] Hyperlipid Problem Active 2019-03-18 M emoria emia 22:05:33 l (disorder) [place] Hyperlipid emia (disorder) Active Problem 03/18/2019 [facility] [place],[facility] Hypertensi Problem Active 2019-03-18 M emoria ve 22:05:33 l disorder, [place] systemic Hypertensi arterial ve (disorder) disorder, systemic arterial (disorder) Active Problem 03/18/2019 [facility], [facility] [place],Vinayak [facility] Hypothyroi Problem Active 2019-03-18 M emoria dism 22:05:33 l (disorder) [place] Hypothyroi dism (disorder) Active Problem 03/18/2019 [facility], [facility] [place],Vinayak [facility] Depressive Problem Active 2016-01-24 M emoria disorder 01:44:40 l (disorder) [place] pat[place] Depressive disorder (disorder) Active Problem 01/24/2016 [facility] Depression Problem Active 2017-02-07 M emoria - motion 02:43:28 l (qualifier [place]eno n value) Depression - motion (qualifier value) Active Problem 02/07/2017 [facility] ABDMNAL Diagnosis Active 2012-04-15 Me moria PAIN RT 07:00:00 l UPR QUAD ABDMNAL Cyndi nn PAIN RT UPR QUAD Active [facility] DYSPHAGIA Diagnosis Active 2013-02-07 Memoria NOS 12:29:00 l Gurwinder DYSPHAGIA NOS Active [facility] DISEASE OF Diagnosis Active 2013-02-07 Memoria PHARYNX 12:29:00 l NEC DISEASE Gurwinder OF PHARYNX NEC Active [facility] MALIGNANT Diagnosis Active 2013-02-07 Memoria TERRANCE LARYNX 12:29:00 l NOS Gurwinder MALIGNANT TERRACNE LARYNX NOS Active [facility] UNDERWEIGH Diagnosis Active 2015-10-24 Memoria T 12:17:00 l [place] UNDERWEIGH T Active [facility] MEDICAL Diagnosis Active 2016-03-25 Me moria SERVICES 14:01:00 l NOT MEDICAL [place] AVAILABLE SERVICES IN HOME NOT AVAILABLE IN HOME Active [facility] DYSPHAGIA, Diagnosis Active 2016-01-07 Memoria UNSPECIFIE 22:03:00 l D Gurwinder DYSPHAGIA, UNSPECIFIE D Active [facility] ALCOHOLIC Diagnosis Active 2016-01-02 Memoria FATTY 11:29:00 l LIVER [place] ALCOHOLIC FATTY LIVER Active [facility] OTHER Diagnosis Active 2016-04-16 Mem oria DISEASES 14:15:00 l OF PHARYNX OTHER Cyndi nn DISEASES OF PHARYNX Active [facility] ENCNTR FOR Diagnosis Active 2016-09-04 Memoria GENERAL 09:15:00 l ADULT ENCNTR Gurwinder MEDICAL FOR EXAM W/ GENERAL ADULT MEDICAL EXAM W/ Active [facility] UNSPECIFIE Diagnosis Active 2017-04-14 Memoria D OPEN 21:51:00 l WOUND OF Gurwinder RIGHT UNSPECIFIE HAND, IN D OPEN WOUND OF RIGHT HAND, IN Active [facility] Allergies, Adverse Reactions, Alerts Allergy Allergy Status Severity Reaction(s) Onset Inactive Treating Comm ents Source Name Type Date Date Clinician Morphine Propensi Active GI [place] ty to Intolerance 03-17 Metho di adverse 00:00: st reaction 00 s to drug Tetracyc Propensi Active Hives [place] line ty to 03-17 Methodi adverse 00:00: st reaction 00 s to drug Morphine drug Active Univers Derivati allergy ity of ves [place] [facility] Tetracyc drug Active Univers line HCl allergy ity of CAPS [place] [facility] morphine morphine Active Memori a l [place] tetracyc tetracyc Active Memori a lines lines l Gurwinder Family History Family Member Diagnosis Comments Start Date Stop Date Source Unknown Family Family history of Family History [facility] Heart Disease [place] [facility] Unknown Family Family history of Family History [facility] Cancer [place] [facility] Natural Hypertension [place] brother [facility] Natural Prostate cancer [place] brother [facility] Natural father Coronary artery [place] disease [facility] Natural father Diabetes [place] [facility] Natural father Heart attack [place] [facility] Natural father Heart disease [place] [facility] Natural father Hypertension [place] [facility] Natural mother Heart attack [place] [facility] Natural mother Heart disease [place] [facility] Natural mother Hypertension [place] [facility] Natural sister Hypertension [facility] Social History Social Habit Start Date Stop Date Quantity Comments Source Sex Assigned At [facility] ethodist Exposure to Not sure [place] Metho dist SARS-CoV-2 (event) Alcohol intake 2020-03-12 2020-03-12 Current [facility] thodist 00:00:00 00:00:00 non-drinker of alcohol (finding) Social History 2015-10-25 2015-10-25 [facility] 05:59:00 05:59:00 Smoking Status Start Date Stop Date Source Never smoker [place] She[facility] t Medications Ordered Filled Start Stop Current Ordering Indication Dosage Frequency Signature Comments Components Source Medication Medication Date Date Medication? Clinician (SIG) Name Name latanoprost Yes 1[drp] QD Administer Neftaly (XALATAN) 03-12 1 drop to Metho di 0.005 % 15:50: both eyes st ophthalmic 41 nightly. solution atorvastati 2019- Yes Essential TAKE 1 Neftaly n (LIPITOR) 03-11 hypertensio TABLET BY Methodi 40 MG 00:00: n MOUTH st tablet 00 DAILY digOXIN Yes Essential TAKE 1 Teena ston (LANOXIN) 02-17 hypertensio TABLET BY Methodi 125 mcg 00:00: n MOUTH st (0.125 mg) 00 EVERY DAY tablet sacubitriL- Yes 1{tbl} Q.5D Take 1 Ho sarah valsartan 01-12 tablet by Metho di (ENTRESTO) 00:00: mouth 2 st 24-26 mg 00 (two) tablet per times a tablet day. enoxaparin 2019- No 40mg QD Inject 0.4 Neftaly (LOVENOX) 01-11-09 mL (40 mg Meth khurram 40 mg/0.4 00:00: 00:00 total) st mL syringe 00 :00 under the skin daily for 10 days. amoxicillin 2019- 2020- No 1{tbl} Q.5D Take 1 [place] -pot 01-11 03-03 tablet by Methodi clavulanate 00:00: 23:[address] (AUGMENTIN) 00 :00 (two) 875-125 mg times a per tablet day for 5 days. atorvastati 2020- No Essential TAKE 1 Neftaly n (LIPITOR) 12-15 hypertensio TABLET BY Methodi 40 MG 00:00: 00:[address] tablet 00 :00 DAILY digOXIN 2020- No Essential TAKE 1 Radames smith (LANOXIN) 12-15- hypertensio TABLET BY Methodi 125 mcg 00:00: 00:[address] (0.125 mg) 00 :00 EVERY DAY tablet digOXIN 2020- No 125ug QD Take 125 [place] (LANOXIN) 12-05 01-21 mcg by Methodi 125 mcg 13:49: 00:[address] tablet 31 :00 daily. levothyroxi Yes Hypothyroid TAKE 1 [place] ne 1-13 ism, TABLET(100 Methodi (SYNTHROID) 00:00: unspecified MCG) BY st 100 mcg 00 type MOUTH tablet EVERY OTHER DAY levothyroxi Yes TAKE 1 [facility] ne 1-13 TABLET(88 Methodi (SYNTHROID) 00:00: MCG) BY st 88 mcg 00 MOUTH tablet EVERY OTHER DAY levothyroxi 2018-11- No Hypothyroid TAKE 1 [place] ne 11-25 ism, TABLET(100 Methodi (SYNTHROID) 00:00: 00:00 unspecified MCG) BY st 100 mcg 00 :00 type MOUTH tablet EVERY OTHER DAY levothyroxi 2018-11- No Hypothyroid TAKE 1 [place] ne 11-20 ism, TABLET(100 Methodi (SYNTHROID) 00:00: 00:00 unspecified MCG) BY st 100 mcg 00 :00 type MOUTH tablet EVERY OTHER DAY atorvastati 2018-11- No Essential TAKE 1 [place] n (LIPITOR) 11-17 hypertensio TABLET BY Methodi 40 MG 00:00: 00:[address] tablet 00 :00 DAILY digOXIN 2018-11- No Essential TAKE 1 Radames smith (LANOXIN) 11-17 hypertensio TABLET BY Methodi 125 mcg 00:00: 00:[address] (0.125 mg) 00 :00 EVERY DAY tablet guaiFENesin 2018-11- No 200mg Q8H Take 10 mL Higginbotham (ROBITUSSIN 0-18 10-25 (200 mg Meth khurram ) 100 mg/5 00:00: 23:59 total) by s t mL syrup 00 :00 mouth every 8 (eight) hours as needed for cough for up to 7 days. benzonatate 2018-11- No 100mg [id number] Take 1 Higginbotham (TESSALON) 0-18 10-21 [id number] capsule [facility] 100 MG 00:00: 23:59 3D ([address] capsule 00 :00 total) by mouth 3 (three) times a day as needed for cough for up to 3 days. levothyroxi 2018-11- No 88ug Q2D Take 88 Ho sarah ne 0-03 10-03 mcg by [facility] (SYNTHROID, 13:52: 00:[address] LEVOXYL) 88 21 :00 every mcg tablet other day. levothyroxi 2018-11- No 88ug Q2D Take 1 Teena cannon ne 0-03 01-13 tablet (88 [facility] (SYNTHROID) 00:00: 00:00 mcg total) st 88 mcg 00 :00 by mouth tablet every other day. levothyroxi 2018-11- No TAKE 1 Teena cannon ne 0-11 15- TABLET(100 [facility] (SYNTHROID, 00:00: 00:00 MCG) BY LEVOXYL) 00 :00 MOUTH 100 mcg EVERY tablet OTHER DAY levothyroxi 2018- No TAKE 1 Teenajamal cannon ne 9 10- TABLET(100 [facility] (SYNTHROID, 00:00: 00:00 MCG) BY LEVOXYL) 00 :00 MOUTH 100 mcg EVERY tablet OTHER DAY warfarin 2019- One tablet Ho sarah (COUMADIN) 07-25 daily or Meth khurram 5 MG tablet 00:00: 00:[address] 00 :00 directed by MD office atorvastati 2018- Essential TAKE 1 Higginbotham n (LIPITOR) 8 11- hypertensio TABLET BY [facility] 40 MG 00:00: 00:[address] tablet 00 :00 DAILY levothyroxi 2018- No TAKE 1 Teena cannon ne 06-08 09-29 TABLET(100 [facility] (SYNTHROID, 00:00: 00:00 MCG) BY LEVOXYL) 00 :00 MOUTH 100 mcg EVERY tablet OTHER DAY atorvastati 2018- No Essential TAKE 1 Higginbotham n (LIPITOR) 5 08- hypertensio TABLET BY [facility] 40 MG 00:00: 00:[address] tablet 00 :00 DAILY diclofenac 2019- No Q.25D Apply [place] (VOLTAREN) 5-16 12-05 topically Met [facility] 1 % gel 00:00: 00:00 4 (four) st 00 :00 times a day. ONAbotulinu Yes Notes: "TO Memoria mtoxinA 03-16 BE l 18:00: RECONSTITU Gurwinder 00 EMRE AND ADMINISTER ED ONLY BY A PHYSICIAN" Reconstitu te with preservati ve free NS only. Stability = 4 hours after reconstitu tion. (Same As: Botox) WASTE: F/P - Red; E -Red metoprolol 2018- No 25mg QD Take 1 [place] succinate 5- 10-16 tablet (25 Met h[facility] XL 00:00: 00:00 mg total) st (TOPROL-XL) 00 :00 by mouth 25 mg 24 hr daily. tablet Take an 1/2 tablet (12.5) mg daily warfarin 2019- No Paroxysmal TAKE 2 Higginbotham (COUMADIN) 318 -27 atrial TABLETS BY [facility] 2.5 MG 00:00: 00:[address] tablet 00 :00 n (HCC) DAYS PER WEEK AND 1 TABLET BY MOUTH 1 DAY PER WEEK sacubitril- 2019- No 1{tbl} Q.5D Take 1 [facility] [place] valsartan 14 28 tablet by Meth khurram (ENTRESTO) 00:00: 00:[address] 24-26 mg 00 :00 (two) tablet per times a tablet day. warfarin Yes Paroxysmal TAKE 1 [place] (COUMADIN) 3-07 atrial TABLET(5 Met h[facility] 5 MG tablet 00:00: fibrillatio MG) BY st 00 n (HCC) MOUTH DAILY levothyroxi 2018- No TAKE 1 Teena davis ne 2-15 07-25 TABLET(100 [facility] (SYNTHROID, 00:00: 00:00 MCG) BY st LEVOXYL) 00 :00 MOUTH 100 mcg EVERY tablet OTHER DAY Bacitracin No 1 appl, Ramirez evelina 02-05 Route: l 14:00: TOP, [place] 00 Daily, Drug form: OINT, Apply on the affected area on the b/l hands., Start date: 02/05/17 9:00:00 CDT, Duration: 30 day, Stop date: 03/06/17 9:00:00 CDT calcium-vit Yes See Memori a poon D 600 3-23 Instructio l mg-400 intl 15:25: ns, Take 1 Gurwinder units oral 00 tab BID, # tablet, 30 tab, 0 chewable Refill(s) Acetaminoph Yes 1 tab, PO, Memoria en 300 MG / 23 Q6H, PRN l Codeine 15:23: Pain, X 7 Cyndi nn Phosphate 00 day, # 28 30 MG Oral tab, 0 Tablet Refill(s) [Tylenol with Codeine #3] Cephalexin Yes 750 mg = 1 M emoria 750 MG Oral 23 cap, PO, l Capsule 15:22: Q12H, X 5 Cyndi nn [Keflex] 00 day, # 10 cap, 0 Refill(s) Amiodarone No Notes: Memor ia 23 Same as: l 14:00: Cordaron, Gurwinder 00 Pacerone Sodium No 500 mL, Memoria Chloride 22 500 ml/hr, l 0.154 18:28: Infuse Gurwinder MEQ/ML 00 Over: 1 Injectable hr, Route: Solution IV, 500, Drug form: INJ, ONCE, Priority: STAT, Dosing Weight 68.182 kg, Start date: 02/03/17 13:28:00 CDT, Duration: 1 doses or times, Stop date: 02/03/17 13:28:00 CDT Naloxone No Notes: Memoria 02-03 Same as l 02:42: Narcan Promethazin No Notes: Do M emoria e 02-03 not give l 02:42: IV push. (Same as: Phenergan) Acetaminoph No Notes: Max Memoria en 02-03 acetaminop l 02:42: hen 4000 00 mg/day (4 gm/day). (Same as: Tylenol Extra Strength) Fentanyl No Notes: Memoria 02-03 (Same as: l 02:42: Sublimaze) Preservat richard free. Oxycodone No Notes: Memori a - (Same as: l 02:42: Roxicodone ) Flumazenil No Notes: Memor ia -22 (Same as: l 02:42: Romazicon) Lasix No Notes: Memoria 3-21 (Same as: l 18:28: Lasix) sacubitril Yes 1 tab, PO, M emoria 24 MG / 3-21 BID, # 28 l valsartan 17:48: tab, 0 Neno n 26 MG Oral 00 Refill(s) Tablet [Entresto] spironolact Yes 25 mg = 1 M emoria one 25 mg 3-21 tab, PO, l oral tablet 17:48: Daily, # He rmann 00 30 tab, 3 Refill(s) digoxin 125 No Notes: Ramirez evelina mcg (0.125 3-21 Take on an l mg) oral 14:00: Empty Gurwinder tablet 00 Stomach (Same as: Lanoxin) Citalopram No Notes: Memor ia 3-21 (Same As: l 14:00: CeleXA) Lipitor No Notes: Memoria 3-21 (Same as: l 14:00: Lipitor) Amiodarone No Notes: Memor ia 3-21 (Same as: l 14:00: Cordarone) Calcium No Notes: Memoria Carbonate 3-21 (Same As: l 1250 MG / 14:00: Fly-D, Herm nir Cholecalcif 00 OsCal-D, nathalie 200 Oyster UNT Oral Calcium) Tablet Spironolact No Notes: Ramirez evelina one 3-21 (Same As: l 14:00: Aldactone) Streptococc Yes Notes: Ramirez evelina us 3-21 Lightly l pneumoniae 14:00: roll vial He rmann serotype 1 00 (DO NOT capsular SHAKE) antigen before diphtheria administra [id number] tion. protein (Same as: conjugate Prevnar vaccine / 13) Streptococc us pneumoniae serotype 14 capsular antigen diphtheria [id number] protein conjugate vaccine / Streptococc us pneumoniae serotype 18C capsular antigen d metoprolol No Notes: Memor ia tartrate 3-21 (Same as: l 14:00: Toprol XL) Do Not Crush Levoxyl No Notes: Memoria 3-21 Take 1 l 14:00: hour Gurwinder 00 before or 2 hours after meal; Enteral feeds may interefere with the absorption of this medication . (Same as:Synthro id) Finasteride No Notes: Ramirez evelina 3-21 (Same as: l 14:00: Proscar) Gurwinder 00 "Do Not Crush" Women of childbeari ng age should not touch or handle broken tablets Lasix No Notes: Memoria 3-21 (Same as: l 14:00: Lasix) [place] 00 May cause GI upset. Give with food or milk. Protonix No Notes: Memoria 3-21 Tablet l 12:30: should not Gurwinder 00 be chewed or crushed. (Same as: Protonix) Levothyroxi 2016- Yes 88 Memori a ne Sodium 3-21 microgram l 0.088 MG 10:19: = 1 tab, Cyndi nn Oral Tablet 00 PO, Daily, [Levoxyl] # 30 tab, 0 Refill(s) Ondansetron No Notes: Ramirez evelina 3-21 (Same as: l 09:30: Zofran) [place] MEDICATION WASTE Product Size: 4 mg Product Wasted: ___ mg Docusate No Notes: Memoria 3-21 (Same as: l 09:30: Colace) [place] 00 (Do Not Crush) Sodium No 1,000 mL, Memori a Chloride 3-21 Rate: 42 l 0.154 09:30: ml/hr, Gurwinder MEQ/ML 00 Infuse Injectable over: 23.8 Solution hr, Route: IV, Dosing Weight 68.182 kg, Total Volume: 1,000, Start date: 02/02/17 4:30:00 CDT, Duration: 30 day, Stop date: 03/04/17 4:29:00 CDT Saline No Notes: Memoria Flush 0.9% 3-21 Same as: l 09:30: BD [place] 00 Posiflush Sterile Acetaminoph No Notes: Ramirez evelina en 325 MG / 3-21 (Same as: l Hydrocodone 09:30: [place] Cyndi nn Bitartrate 00 325/5) Do 5 MG Oral not exceed Tablet 4gm/day of acetaminop hen. Acetaminoph No Notes: Do M emoria en 3-21 not exceed l 09:30: 4 gm/day. [place] 00 (Same as: Tylenol) Dilaudid No Notes: Memoria 3-21 Same as: l 08:35: Dilaudid [place] 00 Ancef No Notes: Memoria 3-21 (Same As: l 06:18: Ancef, Gurwinder 00 Kefzol) MEDICATION WASTE Product Size: 1000 mg Product Wasted: ___ mg Gentamicin No Notes: Memor ia Sulfate -21 TIME l (SENIOR LIVING) 06:16: CRITICAL Gurwinder 00 MEDICATION (Same as Garamycin) sildenafil No Notes: Memor ia 20 MG Oral 02-02 (Same as: l Tablet 05:58: Revatio) Keflex No Notes: Memoria 3-21 Take on l 05:30: empty Gurwinder stomach. (Same As: Keflex) Keflex No Notes: Memoria 3-21 Take on l 05:13: empty [place] stomach. (Same As: Keftab) Dilaudid No Notes: Memoria 3-21 Same as: l 04:45: Dilaudid iodixanol No 150 mL, Memor ia 02-02 Route: l 03:12: IVP, Drug Form: SOLN, Dosing Weight 68.182, kg, ONCALL, STAT, Start date: 02/01/17 22:12:00 CDT, Duration: 1 doses or times, Dose = 2.2ml/kg, Max dose = 150ml -- "To be infused by Radiology Staff ONLY" Dilaudid No Notes: Memoria 3-21 Same as: l 02:47: Dilaudid Ondansetron No Notes: Ramirez evelina - (Same as: l 02:46: Zofran) MEDICATION WASTE Product Size: 4 mg Product Wasted: ___ mg Saline No Notes: Memoria Flush 0.9% 02-02 (Same as: l 01:54: BD Posiflush) predniSONE 2015-11 Yes 50 mg = 1 Me moria 50 mg oral 0-21 tab, PO, l tablet 14:18: Daily, 0 Refill(s) Prednisone 2015-11 No 20 mg, PO, M emoria 0-21 Daily, l 14:18: Quantity [place] 00 sufficient , 0 Refill(s) potassium 2016 Yes 1 appl, Memor ia nitrate 250 7-08 TOP, ONCE, l MG/ML / 15:36: APPLY TO Neon n Silver 00 AFFECTED Nitrate 750 AREA ONCE MG/ML DAILY FOR Medicated 6 DAYS, # Pad 6 ea, 0 Refill(s), Pharmacy: [facility] [id number] Warfarin Yes 2.5 mg = 1 Mem oria Sodium 2.5 7-08 tab, PO, l MG Oral 14:19: Daily, 0 Neno n Tablet 00 Refill(s) [Coumadin] spironolact Yes 25 mg = 1 M emoria one 25 mg 7-08 tab, PO, l oral tablet 14:19: BID, 0 Herm nir 00 Refill(s) silodosin 8 Yes 8 mg = 1 Me moria MG Oral 7-08 cap, PO, l Capsule 14:19: Daily, 0 Neno n [Rapaflo] 00 Refill(s) sildenafil Yes 60 mg = 3 Me moria 20 MG Oral 7-08 tab, PO, l Tablet 14:19: TID, 0 [place] 00 Refill(s) Finasteride Yes 5 mg = 1 Me moria 5 MG Oral 7-08 tab, PO, l Tablet 14:19: Daily, 0 [place] [Proscar] 00 Refill(s) AMIODarone Yes 200 mg = 1 M emoria 200 mg oral 7-08 tab, PO, l tablet 14:19: Daily, 0 Gurwinder 00 Refill(s) metoprolol 2016 Yes 25 mg = 1 Me moria tartrate 25 5-11 tab, PO, l mg oral 19:09: BID, # 60 Cyndi nn tablet 00 tab, 0 Refill(s) Furosemide Yes 80 mg = 1 Me moria 80 MG Oral 5-11 tab, PO, l Tablet 19:09: Daily, # [place] [Lasix] 00 30 tab, 0 Refill(s) Warfarin Yes 5 mg = 1 Memor ia Sodium 5 MG 5-11 tab, PO, l Oral Tablet 19:09: Daily, # He rmann [Coumadin] 00 30 tab, 0 Refill(s) silodosin 8 Yes 8 mg = 1 Me moria mg oral 5-11 cap, PO, l capsule 19:09: Daily, 0 Neno n 00 Refill(s) sildenafil 0 Yes 0 Memoria 5-11 Refill(s) l 19:09: Gurwinder 00 finasteride Yes 5 mg = 1 Me moria 5 mg oral 5-11 tab, PO, l tablet 19:09: Daily, # Gurwinder 00 30 tab, 0 Refill(s) Potassium Yes 20 mEq = 1 Me moria Chloride 20 5-11 tab, PO, l MEQ 19:09: BID, 0 Gurwinder Extended 00 Refill(s) Release Tablet Nutren 2.0 Yes Nutren Memor ia 3-08 2.0, See l 20:41: Instructio Gurwinder 00 ns, Nutren 2.0 via PEG 250mL q 4hrs x 4/day + 180 mL x 1/day Water flush 30mL before and after feeds, # 150 can, Refill(s) 12 amLODIPine Yes 5 mg = 1 Mem oria 5 mg oral 2-18 tab, PO, l tablet 19:42: Daily, # [place] 00 30 tab, 0 Refill(s) metoprolol Yes 25 mg = 1 Me moria 25 mg oral 2-18 tab, PO, l tablet, 19:42: BID, # 60 Cyndi nn extended 00 tab, 0 release Refill(s) Protonix No Notes: Memoria 2-18 Same as: l 17:00: Protonix Gurwinder 00 Mix in 5 mL apple juice or applesauce for oral & 10mL apple juice for NG tube Tylenol No Notes: Max Ramirez evelina 2-18 acetaminop l 03:45: hen = [place] 00 4000mg/day (4 gm/day). (Same as: Tylenol) [place] No Notes: Memoria 2-17 (Same as: l 16:30: [place], [place] 00 Vitamin K) Protonix No Notes: Memoria 2-17 Same as: l 15:00: Protonix Gurwinder 00 Mix in 5 mL apple juice or applesauce for oral & 10mL apple juice for NG tube Thyroxine No Notes: Memori a 2-17 Take 1 l 15:00: hour [place] 00 before or 2 hours after meal; Enteral feeds may interefere with the absorption of this medication . (Same as:Levothr oid, Synthroid) Furosemide No Notes: Memor ia 40 MG Oral 2-17 (Same as: l Tablet 15:00: Lasix) [place] 00 May cause GI upset. Give with food or milk. digoxin 125 No Notes: Ramirez evelina mcg (0.125 2-17 Take on an l mg) oral 15:00: Empty Gurwinder tablet 00 Stomach (Same as: Lanoxin) Citalopram No Notes: Memor ia 2-17 (Same As: l 15:00: CeleXA) Gurwinder 00 Norvasc No Notes: Memoria 2-17 (Same as: l 15:00: Norvasc) Magnesium No Notes: Memori a Sulfate -17 WASTE: F/P l 14:01: - Sink; E - Municipal Trash Bin Vitamin K1 No Notes: Memor ia 2-17 (Same as: l 14:00: Aqua-Mephy [place] ton, Vitamin K) MEDICATION WASTE Product Size: 10 mg Product Wasted: ___ mg metoprolol No Notes: Memor ia extended 2-17 (Same as: l release 03:00: Toprol XL) Do Not Crush enalapril No Notes: Memori a 2-17 (Same as: l 03:00: Vasotec) Lipitor No Notes: Memoria 2-17 (Same as: l 03:00: Lipitor) Nitroglycer No Notes: Ramirez evelina in 0.4 MG 2-17 (Same l Sublingual 01:37: as:Nitroqu H ermann Tablet 00 ick, [Nitrostat] Nitrostat) "Do Not Crush" Sublingual tablet enalapril 5 No 5 mg = 1 Me moria mg oral 2-17 tab, PO, l tablet 01:31: BID, 0 Refill(s) citalopram No 20 mg = 1 Me moria 20 mg oral 2-17 tab, PO, l tablet 01:31: Daily, # Gurwinder 00 30 tab, 0 Refill(s) metoprolol No See Memoria extended 2-17 Instructio l release 01:31: ns, 75 [place] 00 mgPO BID, 0 Refill(s) Furosemide No 40 mg = 1 Me moria 40 MG Oral 2-17 tab, PO, l Tablet 01:31: Daily, # Gurwinder 00 30 tab, 0 Refill(s) levothyroxi Yes 100 Memori a ne 100 mcg 2-17 microgram l (0.1 mg) 01:31: = 1 tab, Cyndi nn oral tablet 00 PO, Daily, # 30 tab, 0 Refill(s) digoxin 125 No 0.125 mg, M emoria mcg (0.125 2-17 PO, Daily, l mg) oral 01:31: # 30 tab, Herm nir tablet 00 0 Refill(s) atorvastati No 40 mg = 1 M emoria n 40 MG 2-17 tab, PO, l Oral Tablet 01:31: Bedtime, # Gurwinder [Lipitor] 00 30 tab, 0 Refill(s) apixaban 5 No 5 mg = 1 Mem oria MG Oral 2-17 tab, PO, l Tablet 01:31: BID, 0 Gurwinder [Eliquis] 00 Refill(s) Saline No Notes: Memoria Flush 0.9% 2-16 (Same as: l 20:50: BD Posiflush) Naloxone No Notes: Memoria 2-11 Same as l 22:02: Narcan Flumazenil No Notes: Memor ia 2-11 (Same as: l 22:02: Romazicon) Ondansetron No Notes: Ramirez evelina 2-11 (Same as: l 22:02: Zofran) MEDICATION WASTE Product Size: 4 mg Product Wasted: ___ mg Labetalol No 10 mg, 2 Ramirez evelina 2-11 mL, Route: l 22:02: IVP, Drug form: INJ, Q5Min, Dosing Weight 77.273, kg, PRN Elevated BP, Start date: 12/26/15 16:02:00, Duration: 5 doses or times, Stop date: Limited # of times Oxycodone No Notes: Memori a 2-11 (Same as: l 22:02: Roxicodone Gurwinder 00 ) Acetaminoph No Notes: Ramirez evelina en 12-26 Infuse l 22:02: over 15 Gurwinder 00 minutes Do not exceed 4gm/day of acetaminop hen MEDICATION WASTE Product Size: 1000 mg Product Wasted: ___ mg Furosemide Yes 40 mg = 1 Me moria 40 MG Oral -22 tab, PO, l Tablet 15:15: Daily, 0 Gurwinder 00 Refill(s) apixaban 5 Yes 5 mg = 1 Mem oria MG Oral -22 tab, PO, l Tablet 15:15: BID, 0 [place] [Eliquis] 00 Refill(s) digoxin 125 Yes 125 Memori a mcg (0.125 1-22 microgram l mg) oral 15:15: = 1 tab, Cyndi nn tablet 00 PO, Daily, 0 Refill(s) Nitroglycer Yes 0.4 mg = 1 Memoria in 0.4 MG -22 tab, SL, l Sublingual 15:15: Q5Min, PRN H ermann Tablet 00 Chest [Nitrostat] Pain, # 100 tab, 0 Refill(s) Levothyroxi Levothyroxi 2013-11 Yes LORA QD TAKE 1 [employer] ne Sodium ne Sodium 0-03 SDRINGOLA TABLET ity of 100 MCG 100 MCG 00:00: M.D. DAILY Kyle as Oral Tablet Oral Tablet 00 DIRECTED. Physici ans acetaminoph No Maximino 15 mL, Me moria en-hydrocod 3-04 Jacob Route: PO, l one 325 18:41: Agatha Drug Form: Her bush mg-10 mg/15 00 SOLN, mL oral Dosing solution Weight 82.273, kg, Q4H, PRN Pain Score 4-6, Start date: 01/16/13 12:41:00, Duration: 30 day, Stop date: 02/15/13 12:40:00 metoprolol No Maximino 1 mg, 1 Me moria 3-04 Jacob mL, Route: l 18:41: Agatha IVP, Drug Gurwinder 00 form: INJ, Q5Min, Dosing Weight 82.273, kg, PRN Elevated BP, Start date: 01/16/13 12:41:00, Duration: 5 doses or times, Stop date: 01/17/13 0:00:00 labetalol No Maximino 5 mg, 1 Mem oria 3-04 Jacob mL, Route: l 18:41: Agatha IVP, Drug Gurwinder 00 form: INJ, Q5Min, Dosing Weight 82.273, kg, PRN Elevated BP, Start date: 01/16/13 12:41:00, Duration: 5 doses or times, Stop date: 01/17/13 0:00:00 esmolol IV No Maximino 10 mg, 1 M emoria Push 3-04 Jacob mL, Route: l 18:41: Agatha IVP, Drug Gurwinder 00 form: INJ, Q5Min, Dosing Weight 82.273, kg, PRN Elevated BP, Start date: 01/16/13 12:41:00, Duration: 5 doses or times, Stop date: 01/17/13 0:00:00 ondansetron No Maximino 4 mg, 2 M emoria 3-04 Jacob mL, Route: l 18:41: Agatha IVP, Drug [place] 00 form: INJ, ONCE, Dosing Weight 82.273, kg, PRN Nausea & Vomiting, Start date: 01/16/13 12:41:00 naloxone No Maximino 0.04 mg, Mem oria 3-04 Jacob 0.1 mL, l 18:41: Agatha Route: Gurwinder 00 IVP, Drug form: INJ, Q2MIN, Dosing Weight 82.273, kg, PRN Narcotic Reversal, Start date: 01/16/13 12:41:00, Duration: 8 doses or times, Stop date: 01/17/13 0:00:00 flumazenil No Maximino 0.2 mg, 2 Memoria 3-04 Jacob mL, Route: l 18:41: Agatha IVP, Drug Gurwinder 00 form: INJ, PRN, Dosing Weight 82.273, kg, PRN Benzodiaze pine Reversal, Initial dose, Start date: 01/16/13 12:41:00, Duration: 30 day, Stop date: 02/15/13 13:40:00 Cleocin HCl No Ashwini E 600 mg, 4 Memoria 3-04 Eamon mL, Route: l 12:00: IVPB, Drug form: INJ, PRE OP, Start date: 01/16/13 6:00:00, Duration: 1 day, Stop date: 01/17/13 5:59:00 rivaroxaban 2011-11 No Ju-un 20 mg, Mem oria 12-13 Route: PO, l 23:00: [place] QPM, Dosing Weight 79.545, kg, Start date: 10/13/12 17:00:00, Duration: 30 day, Stop date: 11/11/12 17:00:00 Protonix 2011-11 No Ju-un 40 mg, 1 Ramirez evelina 12-13ian tab, l 22:30: [place] Route: PO, Drug form: ECTAB, Before Dinner, Dosing Weight 79.545, kg, Start date: 10/13/12 16:30:00, Duration: 30 day, Stop date: 11/11/12 16:30:00 pneumococca 2011-11 No SYSTEM 0.5 ml, M emoria l 23-valent 12-13 SYSTEM Route: IM, l vaccine 15:00: Drug Form: nir 00 INJ, Start date: 10/13/12 9:00:00, Stop date: 10/13/12 9:00:00 citalopram 2011-11 No Ju-un 20 mg, 1 Me moria 12-13ian tab, l 15:00: [place] Route: PO, Drug form: TAB, Daily, Dosing Weight 79.545, kg, Start date: 10/13/12 9:00:00, Duration: 30 day, Stop date: 11/11/12 9:00:00 Toprol-XL 2011-11 No Ju-un 50 mg, 1 Mem oria 50 mg oral 12-13ian tab, l tablet, 15:00: [place] Route: PO, Herm nir extended 00 Drug form: release ERTAB, Daily, Start date: 10/13/12 9:00:00, Duration: 30 day, Stop date: 11/11/12 9:00:00 enalapril 2011-11 No Ju-un 10 mg, 1 Mem oria 12-13 Ricardo tab, l 15:00: [place] Route: PO, [place] 00 Drug form: TAB, Daily, Dosing Weight 79.545, kg, Start date: 10/13/12 9:00:00, Duration: 30 day, Stop date: 11/11/12 9:00:00 dabigatran 2011-11 No Ju-un 150 mg, 1 M emoria 12-13 Ricardo cap, l 15:00: [place] Route: PO, Gurwinder 00 Drug form: CAP, BID, Dosing Weight 79.545, kg, Start date: 10/13/12 9:00:00, Duration: 30 day, Stop date: 11/11/12 17:00:00 Norvasc 2011-11 No Ju-un 10 mg, 1 Memor ia 12-13 Ricardo tab, l 15:00: [place] Route: PO, Gurwinder 00 Drug form: TAB, Daily, Dosing Weight 79.545, kg, Start date: 10/13/12 9:00:00, Duration: 30 day, Stop date: 11/11/12 9:00:00 Lipitor 2011-11 No Ju-un 40 mg, 1 Memor ia 12-13 Ricardo tab, l 15:00: [place] Route: PO, Drug form: TAB, Daily, Dosing Weight 79.545, kg, Start date: 10/13/12 9:00:00, Duration: 30 day, Stop date: 11/11/12 9:00:00 levothyroxi 2011-11 No Ju-un 125 Memor ia ne 12-13 Ricardo microgram, l 12:30: [place] 1 tab, [place] 00 Route: PO, Drug form: TAB, Q630AM, Dosing Weight 79.545, kg, Start date: 10/13/12 6:30:00, Duration: 30 day, Stop date: 11/11/12 6:30:00 clindamycin 2011-11 No Ju-un 600 mg, 4 Memoria 12-13 Ricardo mL, Route: l 11:47: Park IVPB, Drug [place] form: INJ, [id number], Dosing Weight 79.545, kg, Priority: STAT, Start date: 10/13/12 5:47:00, Duration: 30 day, Stop date: 11/11/12 21:47:00 magnesium 2011-11 No Alan Rubin 2 gm, 50 Memoria sulfate 12-13 Dwairy mL, Route: l 06:30: IVPB, Drug Gurwinder 00 form: INJ, ONCE, Dosing Weight 79.545, kg, Total dose = 2 gm, Start date: 10/13/12 0:30:00, Duration: 1 doses or times, Stop date: 10/13/12 0:30:00 Omnipaque 2011-11 No Ju-un 80 mL, Memor ia 350mg/ml 12-13 Route: l 03:07: Jennifer IVP, Drug Gurwinder Form: SOLN, Dosing Weight 79.545, kg, ONCALL, STAT, Start date: 10/12/12 21:07:00, Duration: 1 doses or times, Weight = 75 - 94kgWeight = 75 - 94kg docusate 2011-11 No Ju-un 100 mg, 1 Mem oria 12-13 Ricardo cap, l 00:00: Jennifer Route: PO, [place] 00 Drug form: CAP, BID, Dosing Weight 79.545, kg, PRN Constipati on, Start date: 10/12/12 18:00:00, Duration: 30 day, Stop date: 11/11/12 17:59:00 Trandate 2011-11 No Nimo 5 mg, 1 Mem oria 12-12 Britney mL, Route: l 20:50: Hughes IVP, Drug Herm nir form: INJ, Q5Min, PRN Elevated BP, Start date: 10/12/12 14:50:00, Duration: 30 day, Stop date: 11/11/12 14:49:00 flumazenil 2011-11 No Nimo 0.2 mg, 2 Memoria 12-12 Britney mL, Route: l 19:57: Hughes IVP, Drug Herm nir form: INJ, PRN, Dosing Weight 79.545, kg, PRN Benzodiaze pine Reversal, Initial dose, Start date: 10/12/12 13:57:00, Duration: 5 doses or times, Stop date: 10/13/12 0:00:00 naloxone 2011-11 No Nimo 0.04 mg, Me moria - Britney 0.1 mL, l 19:57: Hugehs Route: Gurwinder 00 IVP, Drug form: INJ, Q2MIN, Dosing Weight 79.545, kg, PRN Narcotic Reversal, Start date: 10/12/12 13:57:00, Duration: 8 doses or times, Stop date: 10/13/12 0:00:00 ondansetron 2011-11 No Nimo 4 mg, 2 Memoria - Britney mL, Route: l 19:57: Hughes IVP, Drug Herm nir 00 form: INJ, ONCE, Dosing Weight 79.545, kg, PRN Nausea & Vomiting, Start date: 10/12/12 13:57:00 hydrALAZINE 2011-11 No Nimo 5 mg, 0.25 Memoria 12-12 Britney mL, Route: l 19:57: Hughes IVP, Drug Herm nir 00 form: INJ, Q5Min, Dosing Weight 79.545, kg, PRN Elevated BP, Start date: 10/12/12 13:57:00, Duration: 4 doses or times, Stop date: 10/13/12 0:00:00 niCARdipine 2011-11 No Nimo 0.25 mg, Memoria 12-12 Britney 0.1 mL, l 19:57: Hughes Route: Gurwinder 00 IVP, Drug form: INJ, Q5Min, Dosing Weight 79.545, kg, PRN Elevated BP, Start date: 10/12/12 13:57:00, Duration: 4 doses or times, Stop date: 10/13/12 0:00:00 labetalol 2011-11 No Nimo 5 mg, Ramirez evelina -28 Britney Route: l 19:57: [place] IVP, [place] 00 Q5Min, Dosing Weight 79.545, kg, PRN Elevated BP, Start date: 10/12/12 13:57:00, Duration: 5 doses or times, Stop date: Limited # of times hydromorpho 2011-11 No Nimo 0.2 mg, Memoria ne 12-12 Britney 0.1 mL, l 19:57: [place] Route: Gurwinder 00 IVP, Drug form: INJ, Q5Min, Dosing Weight 79.545, kg, PRN Pain Score 4-6, Start date: 10/12/12 13:57:00, Duration: 5 doses or times, Stop date: 10/13/12 0:00:00 Xarelto 20 2011-11 Yes Substituti M emoria mg oral 12-12 on Allowed l tablet 16:29: [place] 02 citalopram 2011-11 Yes Ju-un 20 mg, 1 Me moria 20 mg oral 11-21ian tab, PO, l tablet 17:35: [place] Daily, 30 Neno n 47 tab, Substituti on Allowed, TAB Protonix 40 2011-11 Yes Ju-un 40 mg, 1 M emoria mg oral 11-21ian tab, PO, l enteric 17:35: [place] Daily, 30 Cyndi nn coated 00 tab, tablet Substituti on Allowed, ECTAB Pradaxa 150 2011-11 No Ju-un PO, BID, M emoria mg oral 11-21ian Substituti l capsule 17:33: [place] on Allowed Herm nir 53 enalapril 2011-11 Yes Ju-un 10 mg, 1 Mem oria 10 mg oral 11-21ian tab, PO, l tablet 17:33: [place] Daily, 30 Neno n 41 tab, Substituti on Allowed, TAB metoprolol 2011-11 Yes Ju-un 50 mg, PO, Memoria 50 mg oral 11-21ian Daily, 30 l tablet, 17:33: [place] tab, Gurwinder extended 20 Substituti release on Allowed Norvasc 10 2011-11 Yes Ju-un 10 mg, 1 Me moria mg oral 11-21ian tab, PO, l tablet 17:31: [place] Daily, 30 Neno n 50 tab, Substituti on Allowed, TAB Norvasc 10 2011-11 No 10 mg, 1 Mem oria mg oral 11-21 tab, PO, l tablet 17:31: Daily, 30 Neno n 13 tab, Substituti on Allowed, TAB Lipitor 40 2011-11 Yes Ju-un 40 mg, 1 Me moria mg oral 11-21ian tab, PO, l tablet 17:30: [place] Daily, 30 Neno n 24 tab, Substituti on Allowed, TAB levothyroxi 2011-11 Yes Substituti Memoria ne 125 mcg 1-07 on Allowed l (0.125 mg) 17:30: Gurwinder oral 13 capsule influenza 2008- No SYSTEM 0.5 ml, Mem oria virus 0-15 SYSTEM Route: IM, l vaccine, 14:00: Drug Form: Her ubsh inactivated 00 INJ, ONCE, Start date: 08/29/09 9:00:00, Stop date: 08/29/09 9:00:00 Atorvastati Atorvastati Yes DANA 1 QD TAKE 1 [facility] n Calcium n Calcium KORANNE TABLET ity of 40 MG Oral 40 MG Oral M.D. DA[place] Tablet Tablet Physici ans Digoxin 125 Digoxin 125 Yes U nivers MCG Oral MCG Oral ity of Tablet Tablet [place] [facility] Coumadin 5 Coumadin 5 Yes Uni vers MG Oral MG Oral ity of Tablet Tablet [place] [facility] Coumadin Coumadin Yes Univers 2.5 MG Oral 2.5 MG Oral i ty of Tablet Tablet [place] [facility] Entresto Entresto Yes Univers 24-26 MG 24-26 MG ity of Oral Tablet Oral Tablet [place] [facility] Levothyroxi Levothyroxi Yes U nivers ne Sodium ne Sodium ity o f 88 MCG Oral 88 MCG Oral [place] Tablet Tablet Physici ans Metoprolol Metoprolol Yes Uni vers Succinate Succinate ity o f ER 25 MG ER 25 MG [place] Oral Tablet Oral Tablet P hysici Extended Extended ans Release 24 Release 24 Hour Hour Immunizations Ordered Immunization Filled Immunization Date Status Commen ts Source Name Name FLUZONE HIGH-DOSE PF 2017-08-03 Completed [place] 00:00:00 [facility] Pneumococcal 2017-08-03 [address] [place] Conjugate 13-Valent 00:00:00 [facility] dist Tdap 2017-02-01 Completed [facility] [place] 00:00:00 [facility] Influenza 2013-08-11 Completed [facility] 00:00:00 Domingo Fonseca ns Influenza (IM) 2013-08-11 [address] [facility] [place] Preservative Free 00:00:00 Rosa mejia Influenza Trivalent 2013-08-11 Completed [place] 00:[facility]:00 [facility] Pneumococcal 2012-10-13 Completed [place] Polysaccharide 00:00:00 [facility] Influenza Trivalent 2009-08-29 Completed [place] 00:[facility]:00 [facility] Vital Signs Vital Name Observation Time Observation Value Comments Source Systolic blood 2020-03-12 15:50:00 122 mm[Hg] [place] [facility] pressure Diastolic blood 2020-03-12 15:50:00 69 mm[Hg] [place] [facility] pressure Heart rate 2020-03-12 15:50:00 85 /min [place] [facility] Body height 2020-03-12 15:50:00 177.8 cm [place] [facility] Body weight 2020-03-12 15:50:00 69.4 [address] [place] [facility] BMI 2020-03-12 15:50:00 21.95 kg/m2 [place] [facility] Body temperature 2020-02-01 10:29:00 35.89 Karime [place] [facility] Respiratory rate 2020-01-22 11:05:00 17 /min [place] [facility] Oxygen saturation in 2020-01-22 11:05:00 100 /min [place] [facility] Arterial blood by Pulse oximetry Heart Rate 2019-03-16 20:13:00 [facility] Respitory Rate 2019-03-16 20:13:00 [facility] Systolic (mm Hg) 2019-03-16 20:13:00 [facility] [place] Diastolic (mm Hg) 2019-03-16 20:13:00 Mem [facility] BP Systolic 2019-03-07 13:51:00 114 [facility] BP Diastolic 2019-03-07 13:51:00 78 mm[Hg] [facility] Height 2019-03-07 13:51:00 70 [in_us] [facility] Weight 2019-03-07 13:51:00 154 [lb_av] [facility] s Body Mass Index 2019-03-07 13:51:00 22.1 kg/m2 Unive rsity of Calculated [place] Physician s Heart Rate 2019-03-07 13:51:00 81 /min [facility] Physician s Respitory Rate 2017-02-04 13:44:00 [facility] [place] Systolic (mm Hg) 2017-02-04 13:44:00 Ramirez [facility] [place] Diastolic (mm Hg) 2017-02-04 13:44:00 Mem orial [facility] Heart Rate 2017-02-04 13:44:00 [facility] [place] Temperature Oral (F) 2017-02-04 13:44:00 97.9 F [facility] Temperature Oral (F) 2017-02-04 08:45:00 97.6 F [facility] Heart Rate 2017-02-04 08:45:00 [facility] Respitory Rate 2017-02-04 08:45:00 [facility] [place] Systolic (mm Hg) 2017-02-04 08:45:00 Ramirez rial [facility] Diastolic (mm Hg) 2017-02-04 08:45:00 [facility] Temperature Oral (F) 2017-02-04 04:50:00 98.0 F [facility] [place] Systolic (mm Hg) 2017-02-04 04:50:00 Ramirez [facility] [place] Diastolic (mm Hg) 2017-02-04 04:50:00 [facility] Heart Rate 2017-02-04 04:50:00 [facility] Respitory Rate 2017-02-04 00:50:00 [facility] Height 2017-02-02 09:25:00 180.34 cm [facility] Weight 2017-02-02 09:25:00 [facility] BMI Calculated 2017-02-02 09:25:00 [facility] [place] BMI Calculated 2017-02-02 01:34:00 [facility] [place] Weight 2017-02-02 01:34:00 [facility] Height 2017-02-02 01:34:00 180.34 cm [facility] Height 2016-09-04 14:09:00 180.34 cm [facility] Respitory Rate 2016-09-04 14:09:00 [facility] [place] Heart Rate 2016-09-04 14:09:00 [facility] [place] BMI Calculated 2016-09-04 14:09:00 [facility] Weight 2016-09-04 14:09:00 [facility] [place] Systolic (mm Hg) 2016-09-04 14:09:00 [facility] [place] Diastolic (mm Hg) 2016-09-04 14:09:00 [facility] Weight 2016-05-22 14:14:00 [facility] Height 2016-05-22 14:14:00 177.8 cm [facility] [place] BMI Calculated 2016-05-22 14:14:00 [facility] Systolic (mm Hg) 2016-05-22 14:14:00 [facility] [place] Diastolic (mm Hg) 2016-05-22 14:14:00 [facility] Heart Rate 2016-05-22 14:14:00 [facility] [place] Temperature Oral (F) 2016-05-22 14:14:00 96.9 F [facility] Weight 2016-03-25 19:06:00 [facility] BMI Calculated 2016-03-25 19:06:00 [facility] Height 2016-03-25 19:06:00 177.8 cm [facility] Heart Rate 2016-03-25 19:06:00 [facility] [place] Systolic (mm Hg) 2016-03-25 19:06:00 [facility] [place] Diastolic (mm Hg) 2016-03-25 19:06:00 [facility] BMI Calculated 2016-01-21 19:43:00 [facility] [place] Weight 2016-01-21 19:43:00 [facility] Height 2016-01-21 19:43:00 160.02 cm [facility] [place] Systolic (mm Hg) 2016-01-21 19:43:00 [facility] [place] Diastolic (mm Hg) 2016-01-21 19:43:00 [facility] Temperature Oral (F) 2016-01-21 19:43:00 97.2 F [facility] Heart Rate 2016-01-21 19:43:00 [facility] [place] Systolic (mm Hg) 2016-01-02 17:06:00 [facility] [place] Diastolic (mm Hg) 2016-01-02 17:06:00 [facility] Respitory Rate 2016-01-02 17:06:00 [facility] Heart Rate 2016-01-02 16:00:00 [facility] Systolic (mm Hg) 2016-01-02 16:00:00 [facility] [place] Diastolic (mm Hg) 2016-01-02 16:00:00 [facility] Respitory Rate 2016-01-02 14:02:00 [facility] [place] Systolic (mm Hg) 2016-01-02 14:02:00 Ramirez [facility] [place] Diastolic (mm Hg) 2016-01-02 14:02:00 [facility] [place] Heart Rate 2016-01-02 10:36:00 [facility] Respitory Rate 2016-01-02 10:36:00 [facility] Heart Rate 2016-01-02 05:37:00 [facility] [place] Temperature Oral (F) 2016-01-01 09:56:00 97.1 F [facility] Temperature Oral (F) 2016-01-01 05:43:00 96.9 F [facility] [place] BMI Calculated 2016-01-01 00:59:00 [facility] Weight 2016-01-01 00:59:00 [facility] Height 2016-01-01 00:59:00 177.8 cm [facility] [place] Systolic (mm Hg) 2015-12-31 18:49:00 [facility] [place] Diastolic (mm Hg) 2015-12-31 18:49:00 [facility] Respitory Rate 2015-12-31 18:49:00 [facility] [place] BMI Calculated 2015-12-31 18:49:00 [facility] Height 2015-12-31 18:49:00 177.8 cm [facility] [place] Weight 2015-12-31 18:49:00 [facility] Respitory Rate 2015-12-26 22:52:00 [facility] Systolic (mm Hg) 2015-12-26 22:52:00 [facility] [place] Diastolic (mm Hg) 2015-12-26 22:52:00 [facility] Respitory Rate 2015-12-26 22:30:00 [facility] [place] Systolic (mm Hg) 2015-12-26 22:30:00 [facility] [place] Diastolic (mm Hg) 2015-12-26 22:30:00 [facility] [place] Respitory Rate 2015-12-26 22:15:00 [facility] Systolic (mm Hg) 2015-12-26 22:15:00 [facility] [place] Diastolic (mm Hg) 2015-12-26 22:15:00 [facility] [place] Heart Rate 2015-12-26 20:17:00 [facility] Height 2015-12-17 19:49:00 177.8 cm [facility] BMI Calculated 2015-12-17 19:49:00 [facility] [place] Weight 2015-12-17 19:49:00 [facility] Temperature Oral (F) 2015-12-06 15:10:00 97.8 F [facility] BMI Calculated 2015-12-06 15:10:00 [facility] [place] Weight 2015-12-06 15:10:00 [facility] Height 2015-12-06 15:10:00 177.8 cm [facility] [place] Diastolic (mm Hg) 2013-01-16 20:15:00 [facility] [place] Systolic (mm Hg) 2013-01-16 20:15:00 [facility] [place] Respitory Rate 2013-01-16 20:15:00 [facility] [place] Diastolic (mm Hg) 2013-01-16 19:45:00 [facility] [place] Systolic (mm Hg) 2013-01-16 19:45:00 [facility] [place] Respitory Rate 2013-01-16 19:45:00 [facility] [place] Systolic (mm Hg) 2013-01-16 19:30:00 [facility] [place] Diastolic (mm Hg) 2013-01-16 19:30:00 [facility] Respitory Rate 2013-01-16 19:30:00 [facility] Height 2013-01-16 14:29:00 180.34 cm [facility] Weight 2013-01-16 14:29:00 [facility] Heart Rate 2013-01-16 14:20:00 [facility] [place] Weight 2013-01-10 21:54:00 [facility] Height 2013-01-10 21:54:00 180.34 cm [facility] Diastolic (mm Hg) 2012-10-13 17:42:00 [facility] [place] Respitory Rate 2012-10-13 17:42:00 [facility] Systolic (mm Hg) 2012-10-13 17:42:00 [facility] [place] Temperature Oral (F) 2012-10-13 17:42:00 96.0 F [facility] Heart Rate 2012-10-13 17:42:00 [facility] Systolic (mm Hg) 2012-10-13 16:04:00 Ramirez [facility] [place] Diastolic (mm Hg) 2012-10-13 16:04:00 [facility] [place] Heart Rate 2012-10-13 16:04:00 [facility] Systolic (mm Hg) 2012-10-13 13:31:00 [facility] [place] Respitory Rate 2012-10-13 13:31:00 [facility] [place] Diastolic (mm Hg) 2012-10-13 13:31:00 [facility] [place] Heart Rate 2012-10-13 13:31:00 [facility] Temperature Oral (F) 2012-10-13 13:31:00 97.1 F [facility] Respitory Rate 2012-10-13 11:07:00 [facility] Temperature Oral (F) 2012-10-13 11:07:00 97.0 F [facility] Weight 2012-10-12 16:33:00 [facility] Height 2012-10-12 16:33:00 180.34 cm [facility] Height 2012-09-21 15:43:00 180.34 cm [facility] Weight 2012-09-21 15:43:00 [facility] Weight 2012-04-12 20:21:00 [facility] Height 2012-04-12 20:21:00 180.34 cm [facility] Systolic (mm Hg) 2012-04-12 20:21:00 Ramirez [facility] Diastolic (mm Hg) 2012-04-12 20:21:00 [facility] [place] Heart Rate 2012-04-12 20:21:00 [facility] Procedures Procedure Date / Time Performing Clinician Source Performed PROTHROMBIN TIME WITH INR 2020-04-29 08:07:00 Rashaad Cooley PROTHROMBIN TIME WITH INR 2020-03-28 08:17:00 Rashaad Cooley [facility] PROTHROMBIN TIME WITH INR 2020-03-14 11:04:00 Rashaad Cooley COMPREHENSIVE METABOLIC 2020-02-05 10:30:00 Sreedhar Caballero PANEL [place] B NATRIURETIC PEPTIDE 2020-02-05 10:30:00 Sreedhar Caballero [place] MAGNESIUM LEVEL 2020-02-05 10:30:00 Sreedhar Caballero The[place] PROTHROMBIN TIME WITH INR 2020-02-02 14:32:00 Sreedhar Caballero [place] POC PT/INR 2020-02-01 10:30:00 Andres Unger odgrace COMPREHENSIVE METABOLIC 2020-01-22 12:05:00 Sreedhar Caballero PANEL [place] B NATRIURETIC PEPTIDE 2020-01-22 12:05:00 Sreedhar Caballero [place] MAGNESIUM LEVEL 2020-01-22 12:05:00 PudloSreedhar Neftaly Hawkins odist [place] ESTIMATED GFR 2020-01-22 12:05:00 PudloSreedhar Shruthi odist [place] POC PT/INR 2020-01-18 10:47:00 Rashaad Cooley [place] Meth odist BASIC METABOLIC PANEL 2020-01-11 03:33:00 Semones, Balbir patterson [facility] MAGNESIUM LEVEL 2020-01-11 03:33:00 SemonesBalbir odist PROTHROMBIN TIME WITH INR 2020-01-11 03:33:00 Sam, Billy iHgginbotham [facility] ESTIMATED GFR 2020-01-11 03:33:00 Sam, Billy Mata BASIC METABOLIC PANEL 2020-01-10 04:00:00 Semones, Balbir patterson [facility] MAGNESIUM LEVEL 2020-01-10 04:00:00 Semones, Balbir Hawkins odist ESTIMATED GFR 2020-01-10 04:00:00 Sam, Billy Mata B NATRIURETIC PEPTIDE 2020-01-10 03:30:00 Sam, Billy Mata PROTHROMBIN TIME WITH INR 2020-01-10 03:30:00 Sam, Billy Mata TTE COMPLETE, WO 2020-01-09 09:31:00 SemonesBalbir Met hodist CONTRAST, W DOPPLER ([id number]) PROTHROMBIN TIME WITH INR 2020-01-09 05:45:00 Sam, Billy Mata BASIC METABOLIC PANEL 2020-01-09 04:00:00 SemonesBalbir [facility] MAGNESIUM LEVEL 2020-01-09 04:00:00 Semones Balbirvíctor Hawkins odist THYROID STIMULATING 2020-01-09 04:00:00 SemonesBalbir HORMONE ESTIMATED GFR 2020-01-09 04:00:00 Sam, Billy Mata HC COMPLETE BLD COUNT 2020-01-08 05:30:00 Sam, Billy Mata W/AUTO DIFF COMPREHENSIVE METABOLIC 2020-01-08 05:30:00 Sam, Billy Mata PANEL B NATRIURETIC PEPTIDE 2020-01-08 05:30:00 Billy Vargas [facility] PROTHROMBIN TIME WITH INR 2020-01-08 05:30:00 Billy Vargas [facility] ESTIMATED GFR 2020-01-08 05:30:00 Sam Billy Higginbotham [facility] TROPONIN 2020-01-08 05:30:00 Sam Billy Higginbotham [facility] TROPONIN 2020-01-07 22:50:00 Dinorah Swartz hodist [place] LACTIC ACID LEVEL 2020-01-07 22:50:00 Dinorah Swartz M ethodist [place] LACTIC ACID LEVEL 2020-01-07 19:50:00 Dinroah Swartz ethodist [place] BLOOD CULTURE, AEROBIC & 2020-01-07 19:25:00 Dinorah Swartz [facility] ANAEROBIC [place] BLOOD CULTURE, AEROBIC & 2020-01-07 19:08:00 Dinorah Swartz [facility] ANAEROBIC [place] GROUP A STREP, RAPID 2020-01-07 18:17:00 Dinorah Swartz [facility] ANTIGEN [place] STREP SCREEN CULTURE 2020-01-07 18:17:00 Dinorah Swartz [facility] [place] XR CHEST 1 VW PORTABLE 2020-01-07 17:56:28 Dinorah Swartz [facility] [place] ECG ED PRELIMINARY 2020-01-07 17:07:40 Dinorah Swartz INTERPRETATION [place] INFLUENZA ANTIGEN TEST, 2020-01-07 17:03:00 Dinorah Swartz [facility] REFLEX NEGATIVE TO RPP [place] COMPREHENSIVE METABOLIC 2020-01-07 16:59:00 Dinorah Swatrz [facility] PANEL [place] LACTIC ACID, I-STAT 2020-01-07 16:59:00 Dinorah Swartz [place] CREATINE KINASE, TOTAL 2020-01-07 16:59:00 Dinorah Swartz [facility] (CPK) [place] TROPONIN, I-STAT 2020-01-07 16:59:00 Dinorah Swartz Il thodist [place] B NATRIURETIC PEP, I-STAT 2020-01-07 16:59:00 Dinorah Swartz [place] [facility] [place] HC COMPLETE BLD COUNT 2020-01-07 16:59:00 Dinorah Swartz on [facility] W/AUTO DIFF [place] ESTIMATED GFR 2020-01-07 16:59:00 Dinorah Swartz Met hodist [place] ECG 12-LEAD 2020-01-07 16:58:05 Dinorah Swartz Met hodist [place] POC PT/INR 2020-01-04 10:31:00 Andres Unger Meth odist POC PT/INR 2019-12-21 10:32:00 YasirRashaad lopez Meth odist POC PT/INR 2019-12-05 14:42:00 Andres Unger Meth odist POC PT/INR 2019-11-16 10:40:00 Yasir Rashaad Higginbotham Meth odist POC PT/INR 2019-10-19 10:54:00 Rashaad Cooley Meth odist POC PT/INR 2019-09-28 10:09:00 Rashaad Cooley Meth odist THYROID STIMULATING 2019-09-28 09:51:00 Judi Diana Neftaly [facility] HORMONE Ziara T4, FREE 2019-09-28 09:51:00 Diana Lau Meth odist Zair[place] POC PT/INR 2019-09-14 14:23:00 Rashaad Cooley Meth odist NT-PROBNP 2019-09-11 11:25:00 Sreedhar Caballero Meth odist [place] HC COMPLETE BLD COUNT 2019-09-01 04:15:00 Ruba Vigil n [facility] W/AUTO DIFF Fasa[place] BASIC METABOLIC PANEL 2019-09-01 04:15:00 Ruba Vigil n [facility] MAGNESI[facility] LEV[facility] 2019-09-01 04:15:00 Ruba Vigil [facility] PHOSPHORUS LEVEL 2019-09-01 04:15:00 Ruba Vigil Met [facility]odist [facility] PROTHROMBIN TIME WITH INR 2019-09-01 04:15:00 Sera Neves ESTIMATED GFR 2019-09-01 04:15:00 Sera Neves Met hodist NM MYOCARDIAL PERFUSION 2019-08-31 13:51:28 Leobardo Wren STRESS REST 1 DAY ECG 12-LEAD 2019-08-31 11:05:54 Petar Alexsandergurpreet Licea ethodist CV STRESS TEST 2019-08-31 11:05:43 Leobardo Wren Meth odist TROPONIN 2019-08-31 08:17:00 Sinclair Tarsha Person [facility] Keisha HC COMPLETE BLD COUNT 2019-08-31 04:16:00 Ruba Viigl W/AUTO DIFF Fasa[place] Ullah PROTHROMBIN TIME WITH INR 2019-08-31 04:16:00 Richar Delacruz [facility] BASIC METABOLIC PANEL 2019-08-31 04:00:00 [facility]a [facility]igil [facility] MAGNESIUM LEVEL 2019-08-31 04:00:00 Ruba Vigil [facility] odist [facility] [place] PHOSPHORUS LEVEL 2019-08-31 04:00:00 Ruba Vigil Met [facility]od[facility] ESTIMATED GFR 2019-08-31 04:00:00 Sera Neves Met hodist INFLUENZA ANTIGEN TEST, 2019-08-30 04:45:00 Richar Delacruz [facility] REFLEX NEGATIVE TO RPP RESPIRATORY PATHOGEN 2019-08-30 04:45:00 Sera Neves [facility] PANEL BASIC METABOLIC PANEL 2019-08-30 04:32:00 Danay Munoz MAGNESIUM LEVEL 2019-08-30 04:32:00 Danay Munoz PHOSPHORUS LEVEL 2019-08-30 04:32:00 Danay Munoz HC COMPLETE BLD COUNT 2019-08-30 04:32:00 Mio Marti [facility] W/AUTO DIFF Sreedhar Petersen PROTHROMBIN TIME WITH INR 2019-08-30 04:32:00 Richar Delacruz [facility] ESTIMATED GFR 2019-08-30 04:32:00 Sera Neves Met rocio CBC WITH PLATELET AND 2019-08-30 04:32:00 Sera Neves on [facility] DIFFERENTIAL DIGOXIN LEVEL 2019-08-30 04:32:00 Sera Neves Met rocio TROPONIN 2019-08-30 04:02:00 Neftaly Marti ECG 12-LEAD 2019-08-30 03:54:30 Danay Munoz TROPONIN, I-STAT 2019-08-29 22:00:00 Neftaly Marti Met rocio Petersen CT HEAD WO CONTRAST 2019-08-29 20:20:[address] ABDOMEN PELVIS WO 2019-08-29 20:12:33 Neftaly Marti CONTRAST Sreedhar Petersen XR CHEST 1 VW PORTABLE 2019-08-29 19:57:46 Micky Marti on Adolfo Petersen URINALYSIS 2019-08-29 19:48:00 Neftaly Marti BLOOD CULTURE, AEROBIC & 2019-08-29 19:40:00 Teena Marti ANAEROBIC Sreedhar Petersen BLOOD CULTURE, AEROBIC & 2019-08-29 19:28:00 Teena Marti ANAEROBIC Sreedhar Petersen HC COMPLETE BLD COUNT 2019-08-29 19:28:00 Mio Marti W/AUTO DIFF Sreedhar Petersen PROTHROMBIN TIME WITH 2019-08-29 19:28:00 Mio Marti INR, I-STAT Sreedhar Petersen COMPREHENSIVE METABOLIC 2019-08-29 19:28:00 Raymon Marti PANEL Sreedhar Petersen LACTIC ACID, I-STAT 2019-08-29 19:28:00 Neftaly Marti TROPONIN, I-STAT 2019-08-29 19:28:00 Neftaly Marti Met rocio Petersen B NATRIURETIC PEP, I-STAT 2019-08-29 19:28:00 Radames Marti ESTIMATED GFR 2019-08-29 19:28:00 Neftaly Marti INFLUENZA ANTIGEN 2019-08-29 19:25:00 Strong Neftaly Hollingsworth ECG 12-LEAD 2019-08-29 19:18:23 Neftaly Marti odist Sreedhar Petersen ECG ED PRELIMINARY 2019-08-29 19:16:49 Neftaly Marti ethodi INTERPRETATION Sreedhar Petersen POC PT/INR 2019-08-17 10:53:00 Rashaad Cooley Meth odist POC PT/INR 2019-07-27 10:45:00 Andres Unger Meth odist POC PT/INR 2019-06-28 10:35:00 Rashaad Cooley Meth odist POC PT/INR 2019-05-30 14:46:00 Andres Unger [place] Shruthi odist GI Esophagus barium 2019-02-07 00:00:00 [facility] swallow [id number] Physicians History of 2009-08-30 00:00:00 [facility] [place] Cardioverter-defibrillato Physic ians r Pulse Generator Insertion With Leads CABG [facility] Physicians History of Knee Surgery [facility] Physicians History of Hernia Repair [facility] Physicians History of Pacemaker [facility] Placement Physicians 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 Knee replacement [facility] [place] [facility] Operation <sup>2</sup> [facility] Barium swallow 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 surgery<sup>3</sup> Colonoscopy<sup>4</sup> [facility] Hernia repair<sup[facility], [facility]sup> Knee replacement [facility] N[facility] n Operation<sup>7</sup> [facility] Plan of Care Planned Activity Planned Date Details Comments Source Future Scheduled 2020-06-15 INFLUENZA VACCINE [place] [facility] Test 00:00:00 [code = INFLUENZA VACCINE] Diagnostic Test 2019-02-07 GI Esophagus barium [facility] Pending 00:00:00 swallow 06024 [code Physicia ns = 30172] Future Scheduled 1987 SHINGLES VACCINES [place] [facility] Test 00:00:00 (#1) [code = SHINGLES VACCINES (#1)] Encounters Start End Encounter Admission Attending Care Care Encounter Source Date/Time Date/Time Type Type Clinicians Facility Department ID 2020-03-12 2020-03-14 Outpatient UTE, [facility] [id number] [place] 00:00:00 00:00:00 ASHRITH [address] 2020-02-01 2020-02-01 Outpatient [facility] [id number] [place] 00:00:00 00:00:[address] 2020-02-01 2020-02-01 Outpatient [facility] [id number] [place] 00:00:00 00:00:[address] 2020-01-22 2020-01-22 Outpatient BHIMARAAlva, [facility] [id number] [place] 00:00:00 00:00:00 RAMIRO [address] 2020-01-22 2020-01-22 Outpatient BIONAT, [facility] [id number] [place] 00:00:00 00:00:00 IRAM [address] 2020-01-18 2020-01-18 Outpatient [facility] [id number] [place] 00:00:00 00:00:[address] 2020-01-11 2020-01-11 Outpatient RASHAAD COOLEY [facility] [id number] [place] 00:00:00 00:00:[address] 2020-01-07 2020-01-11 Inpatient CHRISTI CALZADA [facility] [id number] [place] 00:00:00 00:00:[address] 2019-10-06 2019-10-06 Outpatient [facility] [id number] [place] 00:00:00 00:00:[address] 2019-08-29 2019-09-01 Inpatient PURA, [facility] [id number] [place] 00:00:00 00:00:00 SERA [address] 2019-08-30 2019-08-30 Outpatient [facility] [id number] [place] 00:00:00 00:00:[address] 2019-03-16 2019-03-16 Outpatient Eamon [facility] [id number] 13:48:00 23:59:00 Ashwini Edy 15 2019-03-16 2019-03-16 Outpatient [facility] [id number] [facility] 13:48:00 13:48:00 2019-03-07 2019-03-07 Appointmen EAMONRAEANN [facility] [id number] [facility] 14:00:00 14:00:00 t; Rylan DALALology [place] iteyad [facility] Medical Physichelder [facility] 2019-02-15 2019-02-15 Outpatient SETH KnutsonGRAHAMP [facility] [id number] 08:27:00 23:59:00 Ashwini E 04 2019-02-07 2019-02-07 Appointmen EAMON [facility] [id number] [facility] 11:00:00 11:00:00 t; Rylan DALAL [facility] Medical Carmelo [facility] 2017-03-18 2017-03-18 [facility] [id number] [facility] 13:00:00 13:00:00 t; Rylan ROCHA [place] Rylan ROCHA Physi ci ans 2017-02-25 2017-02-25 [facility] [id number] [facility] 14:45:00 14:45:00 t; Rylan ROCHA [place] Rylan ROCHA Physi ci ans 2017-02-12 2017-02-12 [facility] [id number] Univers 16:15:00 16:15:00 t; Rylan ROCHA [place] Rylan ROCHA Physi ci ans 2017-02-01 2017-02-04 Outpatient JohnCorina [facility] [id number] 20:33:00 12:15:00 14 2016-09-04 2016-09-04 Outpatient Rush [facility] [id number] 09:01:00 23:59:00 Marin King 2016-05-22 2016-05-22 Outpatient Rush [facility] [id number] 09:12:00 23:59:00 [place] King 2016-04-16 2016-04-16 Outpatient Eamon [facility] [id number] 13:33:00 23:59:00 Ashwini E 2016-03-25 2016-03-25 Outpatient Rush, [facility] [id number] 13:58:00 23:59:00 Marin 09 Fernando 2016-01-21 2016-01-21 Outpatient Rush, [facility] [id number] 13:37:00 23:59:00 Marin 06 Fernando 2015-12-31 2016-01-02 Outpatient Suhas [facility] [id number] 18:33:00 15:39:00 Getachew Hebert 2015-12-31 2015-12-31 Outpatient Rush, [facility] [id number] 12:31:00 23:59:00 Marin 05 Fernando 2015-12-31 2015-12-31 Outpatient Rush, [facility] [id number] 09:30:00 23:59:00 Marin 04 Fernando 2015-12-26 2015-12-26 Outpatient Rush, [facility] [id number] 13:36:00 23:59:00 Marin 33 Fernando 2015-12-12 2015-12-12 Outpatient Rush, [facility] [id number] 13:04:00 15:00:00 Marin 03 Fernando 2015-12-06 2015-12-06 Outpatient Rush, [facility] [id number] 09:00:00 23:59:00 Marin 02 Fernando 2015-10-24 2015-10-24 Outpatient Physician, [facility] [id number] 12:08:00 23:59:00 Non 01 Associated Results Test Description Test Time Test Comments Results Result Comments Source Prothrombin time with INR 2020-04-30 00:34:00 Test Item Value Reference Range Interpretation Comme nts INR (test code = 1.9 H Reference R willie 6301-6) 0.9-1.1Moder ate-intensity Warfarin Therap y 2.0-3.0Higher-i ntensity Warfarin Therapy 3.0-4 .0 Prothrombin time (test 19.4 9.0- 11.5 H For more information on this code = 5902-2) sec test, go to:http://educa gracie.[employer]ucky [employer]/faq/FA Q104 NAHED (test code = NAHED) FASTING:YESFASTING: YES RAC (test code = RAC) Performing Organization Information: Site ID: RGA Name[facility] Address: [address] [place] [address] Director: Torrey Gaffney Lab Interpretation Abnormal (test code = 23306-4) [facility]Com[facility] metabolic [id number] 10:30:00 Test Item Value Reference Interpretation Comments Range Glucose (test 76 mg/dL 65-99 Fa sting code = 2345-7) reference int erval BUN (test code = 21 mg/dL 7- 3094-0) Creatinine (test 1.10 mg/dL 0.7-1.11 For patient s >49 code = 2160-0) years of age, the reference limit for Creatinine is approximately 1 3% higher for peopleidentifie d as -Aster n. EGFR Non-Afr. 62 > OR = 60 Guyanese (test mL/min/1.73m2 code = 2775) EGFR 72 > OR = 60 Guyanese (test mL/min/1.73m2 code = 41066-0) BUN/creatinine NOT APPLICABLE 6- (calc) ratio (test code = 3097-3) Sodium (test code 140 mmol/L 135-146 = 2951-2) Potassium (test 4.5 mmol/L 3.5-5.3 code = 2823-3) Chloride (test 103 mmol/L 98-110 code = 2075-0) CO2 (test code = 31 mmol/L 20-32 2027-9) Calcium (test 9.3 mg/dL 8.6-10.3 code = 77162-3) Protein (test 6.3 g/dL 6.1-8.1 code = 2885-2) Albumin, S (test 4.2 g/dL 3.6-5.1 code = 1751-7) Globulin, total 2.1 1.9- 3.7 g/dL (test code = (calc) 24684-8) Albumin/globulin 2.0 1.0- 2.5 ratio (test code (calc) = 1759-0) Total bilirubin 0.8 mg/dL 0.2-1.2 (test code = 1975-2) Alkaline 80 U/L 35-144 phosphatase (test code = 6768-6) AST (test code = 30 U/L 10-35 1920-8) ALT (test code = 22 U/L 9-46 1742-6) RAC (test code = Performing RAC) Organization Information: Site ID: NATALY Name: [facility] Lab Address: [address] [place] [phone] Director: Torrey Gaffney [facility]kharistMagnesium sfwwt1113-44-04 10:30:00 Test Item Value Reference Range Interpretation Comments Magnesium (test code 2.0 mg/dL 1.5-2.5 = 45348-2) RAC (test code = RAC) Performing Organization Information: Site ID: Lorena Name: [facility] Address: [address] [place] [phone] Director: Torrey Gaffney [facility] natriuretic tdqldnk4467-04-38 10:30:00 Test Item Value Reference Interpretation Comments Range BNP (test code = 314 pg/mL <100 [place] [address]-5) with age in the generalpopulati on with the highes t values seen inindividuals g reater than 75 years o f age.Reference: J. Am. Raquel. Cardiol. 2002; 40:976-982. NO COLLECTION DATE RECEIVED. WE LAI VE USEDTHE DATE TH E SPECIMEN WAS RE CEIVED BY INDY ANDREW THE COLLECTION DATE. IF THISIS INCOR RECT, PLEASE CONTACT CLIENT SERVICES.PHONE NUMBER: RAC (test code = Performing RAC) Organization Information: Site ID: ANTALY Name: [facility] on Lab Address: [address] [place] [phone] Director: Torrey Gaffney Lab Interpretation Abnormal (test code = 54972-0) [facility] PT/[id number] 10:30:00 Test Item Value Reference Range Interpretation Comments POC prothrombin time (test code = 24.8 6161858) POC INR (test code = 2871271) 2.1 [facility] BaptistBlood culture, aerobic & julasosyq9423-20-71 00:03:02 Test Item Value Reference Range Interpretation Comments Blood culture No growth Specimen isolate (test after 5 days InformationSpe cimen code = 600-7) of Source: BloodS pecimen incubation. Site: Forearm, left [facility] MethodistBasic metabolic nsqkd8763-34-52 05:41:36 Test Item Value Reference Range Interpretation Comments Sodium (test code = 2951-2) 143 135- 148 mEq/L Potassium (test code = 2823-3) 4.2 3.5- 5.0 mEq/L Chloride (test code = 2075-0) 106 98- 112 mEq/L CO2 (test code = 8-9) 21 24- 31 mEq/L L Anion gap (test code = 10177-8) 16@ANIO 7- 15 mEq/L H BUN (test code = 3094-0) 18 mg/dL 8-23 Creatinine (test code = 2160-0) 1.08 mg/dL 0.7-1.2 Glucose (test code = 2345-7) 87 mg/dL 65-99 Calcium (test code = 57227-6) 9.1 mg/dL 8.8-10.2 Lab Interpretation (test code = Abnormal 37003-3) [facility] MethodistStrep screen [id number] 11:19:04 Test Item Value Reference Range Interpretation Comments Strep screen No beta hemolytic Specimen culture Streptococci InformationSpec imen isolate (test isolated Source: Throat Specimen code = 2246) Site: Not other mckeon specified [facility] MethodistGroup A strep, rapid gyyehmf4711-60-74 11:19:04 Test Item Value Reference Interpretation Comments Range Group A Negative for Group Specimen strep, rapid A Streptococcus InformationS pecimen antigen antigen. Source: ThroatS pecimen result (test Site: Not other mckeon code = specified 0185846) [facility] MethodistEchocardiogram complete w contrast and 3D if xntqmg8278-51-84 14:59:00Interface, Radiology Results In - 01/09/2020 3:00 PM INTELLIGENCE OPERATIONS SPECIALIST Echocardiography Report [address] [address], [place], [place] [address].Name: SHELLY CORTÉS Pat.ID: [id number].Date: 01/09/2020 Refer.MD: BALBIR FONSECA NP Exam Time: 8:48:00 AM Study Type:Routine Echo Height: 70in Weight: 154lb BSA: 1.87 m2 Age: 11 1935,84Y Sex: MALE BP: 98/57 HR: 86 bpm Sonogrphr: Dari Reyes, [facility] Pat. Stat.:Inpatient Room: M431 Study Status:Final Echo Event ID:[id number] Order ID: [id number] Reason forStudy:CHF History / Clinical:Congestive Heart Failure, Pulmonary HypertensionProcedures: 2D Echo, Colorflow Doppler, Strain, PortableRace: SUMMARY: LV EF is mild to moderately depressed.Basal Inferior, Basal Inferolateral, Mid Inferior, Mid Inferolateralwalls are akinetic. Basal Anterolateral, Mid Anterolateral villarreal aremildly hypokinetic. Normal wall motion in all other villarreal.RV systolic function is lower limits of normal.Mild aortic valve stenosis.LV filling pressure is elevated.--- FINDINGS: LV : LV size is upper limits of normal. There is moderate concentric LV hypertrophy. Reduced average LV global longitudinal strain at - 12.5%. LV EF is mild to moderately depressed. Estimated EF is 40-44%. Basal Inferior, BasalInferolateral, Mid Inferior, Mid Inferolateral villarreal are akinetic. Basal Anterolateral, Mid Anterolateral villarreal are mildly hypokinetic. Normal wall motion in all other villarreal.RV: RV size is moderately enlarged. A pacemaker wire is seen in the RV. RV systolic function is lower limits of normal.LA: LA volume is severely enlarged.RA: RA volume is severely enlarged. A pacemaker wire is seen.AO: Aortic root diameter is normal.BRADLY:No pericardial effusion.AV: Mild thickening and calcification of AV leaflets. A trace of aortic regurgitation. Mild aortic valve stenosis. Estimated mean aortic valve eftzekuc09 mmHg with a valve area of 1.1 cm2. MV: Mild thickening and calcification of mitralleaflets. Moderate mitral annular calcification. Mild mitral regurgitation. PV: No structural PV abnormalities noted.TV: No structural TV abnormalities noted. A trace of tricuspid regurgitation Edmond: LV relaxation is impaired. LV filling pressure is elevated.Other: Estimated PA systolic pressure is 33 mmHg, assuming a mean RAP of 10 mmHg.------- MEASUREMENTS: 2DParasternal [place] Ao An 1.9 cm LVPWd 1.2 cm Ao Rtd 3.2 cm Index 1.7 cm/m2 LA Ds 4.9 cm IVSd 1.3 cm RWT 0.45 LVIDd 5.3 cm Index 2.8 cm/m2 LV Mass 267 g (122-174) LVIDs 2.1 cm LVM Index 143 g/m2 LV%fs 61 % LA Sng Plane LA Area 40 cm2 (8.8-23.4) LA Vol 187 ml Index 100 ml/m2 LA LngAx 7.3 cm RA Sng Plane RA Vol 102 ml Index 54 ml/m2 RA LngAx 6.2 cm RA Area 28 cm2 (8.3- 19.5)LVOT For Flow LVOT 1.9 cm LVOT Area 2.8 cm2 EF Biplane EDV 130 ml SV 54 ml ESV 76 ml EF 42 % DOPPLERAV For Flow/PINO AV xtMeo096 cm/s (100-170) AV TVI 48 cm AV mnVel 200 cm/s AVpkAcRt 5352cm/s2 AV pkPG 28 mmHg AV DeRt 1104 cm/s2 AV Mean G 18 mmHg AV Area 1.1 cm2 (3-5) AV ET 239 msec AV AC 79 msec (83-118) AV AC/ET 0.33 Aortic Valve AV DI 0.4 LVOT For Flow LVOT TVI 19 cm LVOT CI 2.3 l/m/m2 LVOT SV 54 ml LVOTpkPG 5.1 mmHg LVOTpkVel 113 cm/s LVOTmnPG 2.8 mmHg LVOT CO 4.3 l/min HR 79 bpm LVOT SVi 29 ml/m2 WALL MOTION: RESTING WALL MOTION:Basal Inferior, Basal Inferolateral, Mid Inferior, Mid Inferolateralwalls are akinetic. Basal Anterolateral, MidAnterolateral villarreal aremildly hypokinetic. Normal wall motion in all other villarreal.Wall Index = 1.5Signed 01/09/2020 02:59 PMLula Worley M.D.[facility] MethodistThyroid stimulating clotwsx6676-76-29 07:11:11 Test Item Value Reference Range Interpretation Comments TSH (test code = 3016-3) 0.65 0.27- 4.20 uIU/mL [facility] MethodistECG 12 dguy5386-11-23 16:19:53 Test Item Value Reference Range Interpretation Comments Ventricular rate (test 79 code = 253) QRSD interval (test 178 code = 260) QT interval (test code 414 = 264) QTC interval (test code 474 = 265) QRS axis 1 (test code = 205 268) T wave axis (test code 68 = 270) EKG impression (test Ventricular-paced code = 273) rhythm-Biventricular pacemaker detected-Atrial fibrillation-Abnormal ECG-In automated comparison with ECG of 31-AUG-2019 11:05,-Vent. rate has decreased BY 6 BPM- [facility] QqdeeqdatQiramvsf7531-71-72 06:53:04 Test Item Value Reference Range Interpretation Comments Troponin (test code = 0.041 ng/mL 0-0.04 H In pat ients 06932-0) suspected of lai ving a myocardial infarction, kiki ng with all other appropriate cli nical measures and ac tions including ECG a nd other diagnosti cs as appropriate, al asure Ultra TnI at 0 hrs and at 3 hrs.Myocardial infarction VERY LIKELYThe 0 hr TnI level is > 0.10 ng/mL ----- ----- ----- --Laci cardial infarct ion LIKELYThe 0 hr TnI level is > 0.04 ng/mL and 3 hr level is increased or decreased by at least 0.020 ng/ mL ----- ----- ----- Laci cardi al infarction V RENU UNLIKELYBoth th e 0 hr and 3 hr TnI levels <= 0.04 ng/mL(within no rmal limits) OR 0 hr is > 0.04 ng/mL and 3 hr is increased OR decreased by le ss than 0.020 ng/m L Lab Interpretation Abnormal (test code = 30067-0) [facility] with platelet and ljvdvmmrlpgj4667-61-27 06:31:24 Test Item Value Reference Range Interpretation Comments WBC (test code = 93372-9) 4.50 4.50- 11.00 k/uL RBC (test code = 52491-2) 4.12 m/uL 4.4-6 L HGB (test code = 718-7) 12.6 g/dL 14-18 L HCT (test code = 4544-3) 39.6 % 41-51 L MCV (test code = 787-2) 96.1 fL 82-100 MCH (test code = 785-6) 30.6 pg 27-34 MCHC (test code = 786-4) 31.8 g/dL 31-37 RDW - SD (test code = 51.3 fL 37-55 92966-6) MPV (test code = 74865-0) 10.5 fL 8.8-13.2 Platelet count (test code 89 150- 400 k/uL L = 04183-7) Nucleated RBC (test code 0.00 /100 WBC = 11115-4) Neutrophils (test code = 49.0 % 39-69 84959-2) Lymphocytes (test code = 35.3 % 25-45 32255-1) Monocytes (test code = 13.3 % 0-10 H 74723-7) Eosinophils (test code = 2.0 % 0-5 90908-6) Basophils (test code = 0.2 % 0-1 49211-9) Immature granulocytes 0.2 % 0-1 "Immat ure (test code = 54092-7) granul ocytes" (promyelocytes, myelocytes, metamyelocytes) Lab Interpretation (test Abnormal code = 91340-4) [facility] MethodistLactic acid kjali0351-32-47 01:19:08 Test Item Value Reference Range Interpretation Comments Lactic acid (test code = 13605-7) 1.3 mmol/L 0.5-2.2 [facility] MethodistXR Chest 1 Vw Jzvojzex0767-70-22 18:04:51 Interface, Radiology Results 01/07/2020 6:08 PM CSTEXAMINATION: XR CHEST 1 VW PORTABLECLINICAL HISTORY: chfCOMPARISON: 08/29/2019IMPRESSION:Heart and mediastinum stable. Left-sided AICD is again noted.Central pulmonary vascular enlargement again noted. Mild interstitial edema may be present and should be correlated. Left basilar patchy opacities are noted. [facility]-[id number] MethodistInfluenza antigen test, reflex negative to [id number] 17:29:04 Test Item Value Reference Interpretation Comments Range Influenza antigen Positive for A Specimen (test code = Influenza A InformationSpec imen 62758-9) antigen. Source: [facility] Site: Left Lab Interpretation Abnormal (test code = 23799-7) [facility] MethodistCreatine kinase, total (CPK)2020-01-07 17:20:37 Test Item Value Reference Range Interpretation Comments Creatine kinase (test code = 2157-6) 84 U/L 39-380 [facility] MethodistB natriuretic pep, H-Jwxz5061-34Rubw7894-09-05 17:20:37 Test Item Value Reference Range Interpretation Comments BNP, I-Stat (test code = 22831-8) 796 pg/mL 0-100 H Lab Interpretation (test code = Abnormal 52494-9) [facility] MethodistTroponin, N-[id number] 17:20:37 Test Item Value Reference Range Interpretation Comments Troponin, I-Stat 0.01 ng/mL 0-0.08 0.09 - 1.49 ng/ml (test code = 2359) May indic ate increased risk of acute coronary syndro me. >=1.5 ng/ml Consistent with acute myocardial infar ction. The diagnostic valu e of a single normal o r non-diagnostic result is questionable. Serial samples at 2-6 hour intervalsare re quired to rule out acute myocardial injury. [facility] MethodistLactic acid, J-Cmac7789-87Jidz9304-84-07 17:13:53 Test Item Value Reference Range Interpretation Comments Lactic acid, I-Stat (test code = 1.0 mmol/L 0.5-2.2 74852-8) [facility] ED Preliminary Interpretation - Not an Tbskm4817-21-16 17:07:40 Test Item Value Reference Range Interpretation Comments NAHED (test code = NAHED) Dinorah Swartz DO 01/09/2020 9:54 [facility] ED Preliminary Interpretation - Not an OrderPerformed by: Dinorah Swartz DOAuthorized by: Dinorah Swartz DO ECG reviewed by ED Physician in the absence of a professional model: yes Interpretation: Interpretation: abnormal Rhythm: Rhythm: paced Pacing: Capture: Complete Type of pacing: VentricularEctopy: Ectopy: none QRS: QRS axis: IndeterminateST segments: ST segments: Normal Lab Interpretation Abnormal (test code = 44365-5) [place] MataTGm, rgbk7288-91-12 06:47:00 Test Item Value Reference Range Interpretation Comments T4, free (test code 1.3 ng/dL 0.8-1.8 = 3024-7) RAC (test code = Performing Organization RAC) Information: Site ID: RGA Name: [facility] Address: [address] [place] [phone] Director: Torrey MataPhosphorus glnbh5488-69-99 05:42:02 Test Item Value Reference Range Interpretation Comments Phosphorus (test code = 2777-1) 2.9 mg/dL 2.4-4.5 [facility] ShekharistNm myocardial zzcslzkny1523-32-62 16:23:00Interface, Radiology Results In - 08/31/2019 4:24 PM CDT Nuclear Cardiology and Cardiac CT [address] [id number] Myocardial Perfusion Imaging Report Stress ECG tracings are available in [employer], [employer] and [employer] All ECG interpretations are included in this reportPat.Name: SHELLY CORTÉS.ID: [id number] .Date: 08/31/2019 Refer.MD: SERA NEVES MD Exam Time: 11:35:00 AM Study Type:Myocardial Perfusion ImagingHeight: 67in BSA: 1.79 m2 Age: 11 1935,83Y Sex: MALE BP: 133/65 HR: 80 bpm Nuclear Tech:Lu KINGMT,[facility]OTTSDALE CAMPUSMonserrat/FERNANDO RemyMT, [facility]OTTSDALE CAMPUSMoreno Event ID:[id number] Order ID: [id number] Reason for Study:Elevated troponin History / Clinical:A.FIB, CAD, Congestive HF, Fam. Hx of CAD, HTN,HDL, DVTProcedures: Single Day Stress / RestRisk Factors:Cardiovascular Disease, Hyperlipidemia, Hypertension,Family history of cardiovascular diseaseClinical Symptoms:Regadenoson Physical Exam:S1, S2 SUMMARY: SCINTIGRAPHIC RESULTSPerfusion Defect Size (% LV) 25% Total 5% Ischemia 20% ScarLeft Ventricular Perfusion ResultsThere is a severe lateral (anterolateral, mid-lateral) perfusiondefect during stress which minimally improves with rest imaging. Gated SPECT ResultsThe post stress left ventricular ejection fraction is 52% withakinesis of all hypoperfused segments. Left ventricular end- diastolicvolume is 213 ml; end-systolic volume is 103 ml. The left ventricleis moderately enlarged at stress. ConclusionAbnormal regadenoson Tc-99m tetrofosmin myocardial perfusion studycompatible with scar in the circumflex coronary artery vascularterritory. The LVEF is low-normal. CT Findings:Coronary calcification is present. The ascending and descending aortaare normal in size. There is no significant pericardial effusion.Limited lung espinoza show no significant abnormalities.CommentsThe study results indicate a high (>2%) annual risk for a cardiacdeath or non-fatal myocardial infarction. Study Quality/ArtifactsThe study quality is good. Comparison to Previous StudyNone available. FINDINGS: STRESS: Baseline Vital Signs: Intervention Regadenoson 0.4mg/5mlIV over 10 seconds followed by radiotracer injection and 5ml salineflushBaseline EKG Ventricular pacemaker Heart Rate: 80 Atropine Administered: 0Rest BP: 133/65 Stress Test Results:Target HR: 118 Symptoms and Complications:Stress-induced Arrhythmias Ventricular premature depolarizationsReason for Stopping Test: As per Regadenoson protocolSymptoms During Test GI discomfort, Shortness of breath,LightheadednessComplications NoneOther: Normal heart rate response to pharmacological stress,Normal blood pressure response to pharmacological stressECG / Stress Interpretation: Pacemaker rhythm precludes ST-segmentanalysis for diagnosing myocardial ischemia.Signed 08/31/2019 04:23 Linsey Harvey MethodistCv stress vpwq3220-38-36 13:59:39 Test Item Value Reference Range Interpretation Comments Resting HR (test code 84 = 5014083126) Resting BP (test code 133 = 9737879706) Peak MET Achieved 1 (test code = 5818762154) Protocol Name (test REGADENO code = 6883449513) Time in Exercise 00:01:00 Phase (test code = 8720769875) Max Systolic BP (test 133 code = 2633919663) Max Diastolic BP 65 (test code = 2890596100) Max Heart Rate (test 85 code = 2982525837) Max Predicted Heart 139 Rate (test code = 8765247401) Target HR Formula (220 - Age)*100% (test code = 9738803756) Test Indication (test code = 9529619540) Arrhy During Ex (test code = 3941147673) ECG Interp Before EX (test code = 4056724166) ECG Interp During Ex (test code = 3631007622) Ex Summary Comment (test code = 1380497336) Overall HR Response to Exercise (test code = 3051509722) Overall BP Response To Exercise (test code = 2484316041) Reason for Termination (test code = 7963149906) Stress Test -Waveform interpreted in Impression (test code report associated with = 4690880078) image study. No interpretation is provided as part of this Stress ECG report.-Electronically Signed By Lacie MARTI, Alber Calle ([id number]), research editor Aneta Pace ([id number]) on 08/31/2019 1:59:34 PM [facility] MethodistRespiratory pathogen yjdpi8565-94-82 11:32:30 Test Item Value Reference Interpretation Comments Range Respiratory Positive for A Specimen pathogen panel Rhinovirus/Enterovirus-- I nformationSpecimen (test code = Neg Jo Ann rce: 2148) ative for all other [facility] Site: pathogens Left tested:Negative for AdenovirusNegative for Coronavirus XCJ9Mxxorhof for Coronavirus BW64Ckrlhlid for Coronavirus 229ENegative for Coronavirus UV22Lumouflv for Human MetapneumovirusNegative for Influenza ANegative for Influenza A/G4Yhurycjw for Influenza A/J3Ewxvmmcr for Influenza A/H1-2009Negative for Influenza BNegative for Parainfluenza Virus 1Negative for Parainfluenza Virus 2Negative for Parainfluenza Virus 3Negative for Parainfluenza Virus 4Negative for Respiratory Syncytial VirusNegative for Bordetella pertussisNegative for Chlamydophila pneumoniaeNegative for Mycoplasma pneumoniaeThis real-time PCR assay detects the presence of nucleic acids (RNA or DNA) for the respiratory pathogens listed. A result of "Not-detected" does not exclude the possibility of the presence of one or more pathogens at concentrations less than the detectable limits of the assa Lab Abnormal Interpretation (test code = 62519-9) [facility] MethodistDigoxin pknpt2775-03-64 08:30:59 Test Item Value Reference Range Interpretation Comments Digoxin (test code = 0.5 ng/mL 0.8-2 L For briana id Digoxin 39437-5) results, at david st 6 hours should el apse between time of last dose and collec tion of blood.Otherw ise, result may be f alse high.Therapeuti c Range:0.8 - 2.0 ng/mL Lab Interpretation (test Abnormal code = 27719-5) [facility] MethodistCT Abdomen Pelvis Wo Mdbdehvx6540-07-04 20:32:31Hm Interface, Radiology Results 08/29/2019 8:35 PM CDTEXAMINATION: CT ABDOMEN PELVIS WOCONTRASTCLINICAL HISTORY: 83 yearsMale abd pain vomitingTECHNIQUE: Multidetector computed axial tomography of the abdomen and pelvis was performed without contrast utilizing automated exposure controland/or iterative reconstruction techniques to radiation dose. Coronal and sagittal reformatted images created at the CT scanner radiologic technologist mammogram were also submitted for interpretation.COMPARISON: September 14, 2016IMPRESSION:LUNG BASES:Cardiomegaly with mildly thickened interlobular septal thickening suggestive of pulmonary edema cardiogenic pulmonary edema. Pacing leads are partially visualized. Median sternotomy wires are present. There is no pleural or pericardial effusion.ABDOMEN:Liver: The liver is normal. No focal mass.Gallbladder/Biliary: The gallbladder is contracted and contains a small gallstone. There is no evidence of intra or extrahepatic biliary ductal dilatation.Spleen: The spleen is not enlarged.Pancreas: The pancreas is unremarkable.Adrenal Glands: The adrenal glands are unremarkable.Kidneys: The kidneys are atrophic. There is no mass or hydronephrosis. Bilateral hypodensit ies arise from the kidney measuring up to 2 cm on the right and 2 cm on the left both of which demonstrate attenuation values suggestive of simple cysts. There is mild nonspecific perinephric fat stranding more so on the left. Within the left upper pole there is a punctate renal stone measuring 4 mm. A subcentimeter hypodensity arising from the lower pole of the right kidney displays attenuation values which may represent a proteinaceous or hemorrhagic cyst.Vascular: Dense atherosclerotic calcification of the abdominal aorta and its branches. The aorta is nonaneurysmal.Nodes: No enlarged retroperitoneal or mesenteric lymphadenopathy.Bowel: Small hiatal hernia. No bowel obstruction or inflammatory changes.The appendix is normal. A moderate stool burden is present within colon.Ascites/fluid collections: No ascites or fluid collections.PELVIS:No mass, fluid collection or significant adenopathy. Theprostate is enlarged and indents the posterior bladder wall. Prominence of the bladder wall is likely secondary to chronic bladder outlet obstruction. If concern for cystitis is present urinalysis is recommended. There are coarse calcifications within the prostate. Scattered pelvic phleboliths are noted. A small hypodensity arises anterior wall the bladder is suspected to be a small diverticula.MUSCULOSKELETAL: Chronic L2 body compression fracture with approximately 50% height loss. There is no aggre ssive height loss compared to the prior exam.SUMMARY:1. Cardiomegaly with findings suggestive of cardiogenic pulmonary edema. 2. Nonobstructive left renal stone and stable bilateral renal cysts.3. Enlarged prostate with findings of chronic bladder outlet obstruction, clinical correlation recommended.4. Chronic L2 vertebral body compression fracture with approximately 50% height loss.5. Cholelithiasiswithout evidence of acute cholecystitis.6. Moderate stool burden query constipation. 7. Small hiatalhernia.[facility]-[id number] MethodistCT Head Wo Aalwjxtt3978-60-86 20:27:08Hm Interface, Radiology Results - 08/29/2019 8:30 PM CDTEXAMINATION: CT HEAD WO CONTRASTCT IMAGING WAS PERFORMED WITH ITERATIVE RECONSTRUCTION TECHNIQUE AND/OR AUTOMATED EXPOSURE CONTROL TO R EDUCE RADIATION DOSE.CLINICAL HISTORY: dizzy vomiting on coumadinCOMPARISON: CT brain April 22, 2018FINDINGS: There is no acute intracranial abnormality. Specifically there is no intracranial hemorrhage, mass effect or acute infarction.There are mild nonspecific cerebral white matter microvascularchanges. This chronic lacunar infarction versus perivascular space in the lateral basal ganglia region bilaterally.There is lopg-zq-vpnrtvjb cerebral cortical volume loss and mild cerebellar volume loss.There is minimal basal ganglia calcification. Atherosclerotic calcifications noted in the distal internal carotid and to a lesser degree vertebral arteries.There is amild mucosal thickening/mucus in the ethmoid sinus, maxillary sinuses and to a lesser degree sphenoid sinus.IMPRESSION:No acute abnormality and no significant change from the prior study.[id number] NhxokrymtDguigkudjq7089-01-02 20:04:22 Test Item Value Reference Range Interpretation Comments Glucose, UA (test code = 98542-2) Negative Negative Bilirubin, UA (test code = 5770-3) Negative Negative Ketones, UA (test code = 2514-8) Negative Negative Specific gravity, UA (test code = 1.020 1.001-1.035 5811-5) Blood, UA (test code = 5794-3) Negative Negative pH, UA (test code = 5803-2) 5.0 5.0-8.5 Protein, UA (test code = 07988-9) Negative Negative Urobilinogen, UA (test code = <2.0 <2.0 97657-6) Nitrite, UA (test code = 5802-4) Negative Negative Leukocyte esterase, UA (test code = Negative Negative 5799-2) Color, UA (test code = 5778-6) Yellow Appearance, UA (test code = 5767-9) [place] [facility] xjwtifp7557-60-89 19:52:44 Test Item Value Reference Range Interpretation Comments Influenza Negative for Specimen antigen (test Influenza A/B [facility] ecimen code = 1604) antigen. Source: [facility] Site: [place] MethodistProthrombin time with INR, J-Gkdx6578-56Uvxa8940-08-49 19:48:29 Test Item Value Reference Range Interpretation Comments POC prothrombin time 21.0 11.0- 14.5 sec H (test code = 5964-2) POC INR (test code = 1.8 The Int ernational 30302-4) Normalized Rati o (INR) is a therapeuti c monitoring tool for patients who ar e stable on oral vitamin K antagonist th erapy. An INR of 2.0-3 .0 is suggested for d eep vein thrombosis/pulm onary embolism. An IN R of 2.5-3.5 (high d ose) is suggested for s ome patients with mechanical hear t valves) Lab Interpretation Abnormal (test code = 01932-7) Neftaly MataGI Esophagus barium swallow [id number] 08:42:00Study: Barium swallow DX Clinical Indication: - R13.10 Dysphagia, unspecified,J39.2 Other diseasesof pharynx, K22.4 Dyskinesia of esophagus, K22.0 Achalasia of cardiaComparison: NoneFluoroscopy time: 1.23 minutesFINDINGS: The barium swallow examination shows indentation along the posteriorpharynx at the level of the lower cervical spine, suspicious for acricopharyngeal bar. There are no ero sions, ulcerations or masses. There isnormal initiation of the swallowing. Aspiration of barium was noted followed byprotective cough. Large amount of residual contrast was noted in the piriformsinuses.There is normal esophageal contour and morphology without erosions,ulcerations, strictures or masses. Scattered tertiary esophageal contractionsare seen. There is no hiatal hernia. There was no gastroesophageal refluxelicited during the exam.IMPRESSION:1. Aspiration of contrast noted during the examination, followed by protectivecough. Further evaluation with [facility] be helpful.2. Incidentally noted cricopharyngeal bar.3. Scattered tertiary esophageal contractions.SL: [id number]--Mojn by: David Bravoictated Date/time: 02/15/19 09:14Electronically Signed by: David Bravo MD 02/15/1909:18[facility]RE[facility]Un[facility] EvvvjdevbpWHRULPNLPX0233-59-80 10:17:001.2[facility] LchaxigIMWCGWITYH3549-13-22 10:17:000.9[facility] HBNFKELORM1627-55-72 10:17:000.1[facility] EgevtmrYIWCTINPFQ1445-86-27 10:17:000.1 [facility] CvainehPLVMVYTMKO1367-25-03 10:17:000.6[facility]annHEMATOLOGY 2017-02-04 10:17:001.2[facility] KztkpgzAQGYJAUKFD5572-09-34 10:17:0010.4[facility] JlynvzkQSNYIXTDUI3194-34-94 10:17:009.5[facility] ZlvxztzNHRTPAKQRZ6815-21-83 10:17:007.1[facility] ZlptxcuDPCGDGXHZX7206-50-48 10:17:00Normal (02/04/17 5:17 AM) [facility] ZbctdsuDDLUYXYBTH9832-65-43 10:17:0081.6[facility]annHEMATOLOGY 2017-02-04 10:17:00Normal (02/04/17 5:17 AM)[facility] GasptzjLSGGGDGURO0385-43-04 10:17:0012.8[facility] EorwddsOMRQZTZRHO7529-00-60 10:17:003.95[facility] PIVKETOAEC6396-56-19 10:17:17750Mxohyfqu RhzkmepYZMVQOUMTI4363-97-37 10:17:00 91.3[facility] LaclsidJRWAOPLHDC6524-00-10 10:17:0012.2[facility]annHEMATOLOGY 2017-02-04 10:17:00 Test Item Value Reference Range Interpretation Comments MCH (test code = MCH) 30.8 pg 27.0-31.0 [facility] TetblmkMAYUATWTAS4433-96-19 10:17:0036.0[facility]annHEMATOLOGY 2017-02-04 10:17:0033.8[facility] GuzbhgzDKXHIBPZRW6035-79-80 10:17:0015.2[facility] WaqpgjkCZRYBKTSWJ4225-64-70 10:17:009.2[facility] HermannCHEM QHZKJ9128-27-82 11:09:0061[facility] HermannCHEM XTSGK8131-72-38 11:09:0068[facility] HermannCHEM AGHDM3052-31-14 11:09:001.2[facility] HermannCHEM MLYEU0022-34-99 11:09:004.4 [facility] HermannCHEM GLLSU2316-01-45 11:09:84894Ksjvkoqc HermannCHEM PANEL 2017-02-03 11:09:0027[facility] HermannCHEM GEIND0445-59-23 11:09:008.9[facility] HermannCHEM HXSGB7529-28-90 11:09:006.0[facility] HermannCHEM NZNPW0081-35-71 11:09:95482Enobvrnn HermannCHEM BIYVE2595-88-53 11:09:0027[facility] HermannCHEM RJKXP1404-18-53 11:09:001.14[facility] HermannCHEM RWLOV7741-11-51 11:09:45406 [facility]annCHEM RSLYQ6364-45-09 11:09:002.8[facility] HermannCHEM PANEL 2017-02-03 11:09:0025[facility] HermannCHEM OYPTK6221-24-32 11:09:0023[facility] HermannCHEM HERGD6040-65-80 11:09:000.9[facility] HermannCHEM TMZGC6813-87-16 11:09:003.2[facility] HermannCHEM JYQCZ6686-20-65 11:09:0012.4[facility] HermannCHEM IPZZZ4356-81-57 11:09:0024[facility]annCHEM ZXYCT2069-68-15 11:09:002.8 [facility] HermannCHEM GHOKW3739-25-11 11:09:002.3[facility] HermannELECTROLYTES 2017-02-03 11:09:0012.4[facility] UbgimdbXGZKVGSBQIIR6855-56-62 11:09:0061[facility] BnragftCORXFTTSDDVF1023-75-69 11:09:0027[facility] WzsdcybSGHTDBMVGJRO8565-07-68 11:09:008.9[facility] EqayhywRHHDHCHNXCDD7003-61-03 11:09:26700Sjxlctrb [place] FSKWSFFPFBQQ9712-93-73 11:09:004.4[facility] JgvrjtpRETBPYBFOQQX0977-97-40 11:09:84527Nftshrjh EnhcjujJKOSFLGUGAPN8431-71-49 11:09:001.14[facility] HLORXDVDMLPK0403-84-01 11:09:0027[facility] ZblkzwzMYYTUGYVCCKX9312-86-48 11:09:00 105[facility] PbibvyaPLKTLFPGIT9661-13-09 11:09:001.85[facility]annHEMATOLOGY 2017-02-03 11:09:00 Test Item Value Reference Range Interpretation Comments PT (test code = PT) 21.7 s 12.0-14.7 [facility] BmlkqhjUDCOGJYLHW0677-38-41 11:09:0083.5[facility] HermannHEMATOLOGY 2017-02-03 11:09:000.1[facility] BoweovfWPZUHYWBJV6896-29-65 11:09:000.1[facility] TyacvjqYLQFZVTOML6827-86-02 11:09:0010.2[facility] YfatomeFSDOYFZXJT5220-90-96 11:09:006.1[facility] UtfjfyqBFJVPZNVYK6738-15-25 11:09:006.1[facility] [place] SJQXSAFLCK7346-22-73 11:09:000.7[facility] PffbgksHZSBSYRMXH5344-18-66 11:09:000.4 [facility] FszdfgzESLHHVYCHI9689-59-24 11:09:008.2[facility] HermannHEMATOLOGY 2017-02-03 11:09:13850Ynhytisb OdpevqsEKBYJNDQJF2741-61-94 11:09:007.3[facility] GuluuusCLNAQYHVNY1829-76-64 11:09:004.04[facility] EvuxwfrXZCDSZFKYE9018-88-71 11:09:0012.2[facility] UhcxlcdXLIJAQRESW9478-15-24 11:09:0037.0[facility] PNRJSHOVPU8741-66-18 11:09:0091.7[facility] CrptdhrVBFTNZXRGH5333-58-82 11:09:00 33.0[facility] NsykcsmMDFIMYBEQU5713-11-31 11:09:00 Test Item Value Reference Range Interpretation Comments MCH (test code = MCH) 30.2 pg 27.0-31.0 [facility] HtuahfxZYDGKCSEDQ2794-77-88 11:09:0015.4[facility] HermannHEMATOLOGY 2017-02-02 19:29:001.79[facility] AzimnxuWGVWREPKPJ1112-53-19 19:29:00 Test Item Value Reference Range Interpretation Comments PT (test code = PT) 21.1 s 12.0-14.7 [facility]annDRUG OCHOBO3562-60-93 07:53:00See Note (02/02/17 2:53 AM)[facility]annDR[facility] PTPHHE9143-97-83 07:53:00Negative *NA*(02/02/17 2:53 AM)[facility]annDR[facility] NMELPS7478-81-49 07:53:00Positive *ABN*(02/02/17 2:53 AM)[facility]annDR[facility] GQFQOC1875-59-55 07:53:00Negative *NA*(02/02/17 2:53 AM)[facility]annDR[facility] DWSHRY4400-04-13 07:53:00Negative *NA*(02/02/17 2:53 AM)[facility]annDR[facility] KRCGOW4414-19-79 07:53:00Negative *NA*(02/02/17 2:53 AM)[facility]annDR[facility] BTPPIZ9221-72-99 07:53:00Negative *NA*(02/02/17 2:53 AM)[facility]annDR[facility] XLSWCC1291-46-48 07:53:00Negative *NA*(02/02/17 2:53 AM)[facility]ann[facility] AND XLYFH1654-09-68 07:53:00Negative (02/02/17 2:53 AM)[facility] AND MLHOG3305-13-37 07:53:000.2[facility]ann[facility] AND STOOL 2017-02-02 07:53:00Small *ABN*(02/02/17 2:53 AM)[facility] STOOL 2017-02-02 07:53:00None Seen (02/02/17 2:53 AM)[facility] STOOL 2017-02-02 07:53:00>1.050[facility] AND WIHWH9626-45-50 07:53:00 Yellow *NA*(02/02/17 2:53 AM)[facility] MQZYA0623-37-51 07:53:00 Negative *NA*(02/02/17 2:53 AM)[facility] RYFET0147-43-02 07:53:00 Negative *NA*(02/02/17 2:53 AM)[facility] OEILH4224-64-47 07:53:00 Negative (02/02/17 2:53 AM)[facility] XLITU2095-70-49 07:53:00 Trace *ABN*(02/02/17 2:53 AM)[facility] MLDCT0580-54-49 07:53:00 Test Item Value Reference Range Interpretation Comments UA pH (test code = UA pH) 5.0 1 5.0-8.0 [facility] OPWKX2424-45-38 07:53:00Negative (02/02/17 2:53 AM) [facility] HBDTY3267-02-89 07:53:00None Seen (02/02/17 2:53 AM) [facility] SRDVB0439-66-50 07:53:00Clear (02/02/17 2:53 AM) [facility] AOTMO6267-04-15 07:53:00None Seen (02/02/17 2:53 AM) [facility] HermannCARDIAC GPYRLBF1696-59-63 02:23:0092[facility] HermannCHEM PANEL 2017-02-02 02:23:000.9[facility] GmbhjtlADEQRYBXJGJN2580-22-08 02:23:0015.3 [facility] JgwjequUNEXNZLXVJDQ9236-50-47 02:23:0051[facility] HermannELECTROLYTES 2017-02-02 02:23:009.0[facility] UqtltbpCQGCFJVWZNXV9537-22-06 02:23:004.3[facility] MfwqkbcKSJTFDUUJMEU0832-22-68 02:23:60289Jrngonoy UuzrdukXBASNJKWWIOK7707-52-12 02:23:0026[facility] SernireCZWJAANSCXZN3976-97-30 02:23:001.32[facility] [place] DSYHKCHDTAFN8811-88-45 02:23:25973Boyrceli PjuhbeoYKHWPDTVJTCQ4143-48-11 02:23:76802Jtxdgmlf LltbjxgEYQTMKMJBQCH8736-77-93 02:23:0026[facility] ZCMBZLWHTW0615-63-91 02:23:002.00[facility] LcpmndfEHPOJNVRLB5690-51-66 02:23:00 Test Item Value Reference Range Interpretation Comments PT (test code = PT) 23.0 s 12.0-14.7 [facility] TvntyaxOZTBEOKVUX4364-23-15 02:23:00 Test Item Value Reference Range Interpretation Comments PTT (test code = PTT) 35.0 s 22.9-35.8 [facility] XvupiimFGYVOFXHJS3928-62-30 02:23:008.1[facility] HermannHEMATOLOGY 2017-02-02 02:23:0034.1[facility] YekipzoCUBSAMMPLC3504-72-83 02:23:25734[place]as VzfhtynLTUZBVQURJ9333-51-96 02:23:0015.2[facility] ToxbbtvDKPXOKARAV9190-49-23 02:23:0012.9[facility] KdixnccAKELWZHCLK0195-67-76 02:23:004.18[facility] RZTACOUGBI9127-64-55 02:23:00 Test Item Value Reference Range Interpretation Comments MCH (test code = MCH) 30.9 pg 27.0-31.0 [facility] CenterIkwiviqWMYTWABPUG0067-29-77 02:23:0090.6[facility] HermannHEMATOLOGY 2017-02-02 02:23:0037.9[facility] VineatnVGLSVHNXKE4781-54-19 02:23:007.5[facility] OqodhulPMCGOIJDLA5260-32-86 02:23:009.4[facility] WbqvkvqXOPVGLILHG6456-07-21 02:23:00 Test Item Value Reference Range Interpretation Comments Max Amplitude Rapid (test code = Max 65 mm 52-71 Amplitude Rapid) [facility]ef[facility]blNLOFGPFSAU9574-[facility]-75 02:23:00 Test Item Value Reference Range Interpretation Comments R-time Rapid (test code = R-time 0.9 min 0.4-0.7 Rapid) [facility] HospitalRqyxpaqEZKAMRONHR7290-75-06 02:23:00 Test Item Value Reference Range Interpretation Comments ACT (TEG) Rapid (test code = ACT (TEG) 136 s 86-118 Rapid) [facility]WkhkdgoUUYRBXZVRU6465-97-36 02:23:00 Test Item Value Reference Range Interpretation Comments Angle Rapid (test code = Angle 76 degrees 64-80 Rapid) [facility] HospitalAjulkstIGGFZEJARI3126-02-47 02:23:00 Test Item Value Reference Range Interpretation Comments K-time Rapid (test code = K-time 1.0 min 0.6-2.3 Rapid) [facility] HospitalSogwxslXQEJLRZSEA7062-56-73 02:23:00 Test Item Value Reference Range Interpretation Comments Split Point Rapid (test code = Split 0.8 min Point Rapid) [facility] HospitalWxfpdvgNJIMKKACZJ8601-22-22 02:23:000.0[facility]annHEMATOLOGY 2017-02-02 02:23:008.2[facility] IxpeujgLJIMJPABYJ2733-02-16 02:23:001.5[facility] UwbfvdlBDWGLKIWUS8224-66-94 02:23:005.8[facility] DuzqmavGGAMYFTJAP7222-50-34 02:23:000.9[facility] EusgaoxLMVPZJBCWS9259-45-80 02:23:000.4[facility] XJLYQAADFJ4236-65-18 02:23:000.6[facility] SchudwgZHXYQBWYWJ8539-77-29 02:23:000.1 [facility] RoaxifjJKFMSVAUMX2570-60-94 02:23:0012.5[facility]annHEMATOLOGY 2017-02-02 02:23:0077.4[facility] QfxegloSTZGXHJVOI6984-77-83 02:23:00<0.003 [facility] AcasiygVGAIPASFWP5992-45-78 02:23:00<3[facility]annBLOOD BANK CTCFZNW1917-24-70 02:13:00Negative (02/01/17 9:13 PM)[facility]annHEMATOLOGY 2016-01-02 15:24:002.00[facility] ChnpkxpFXCKARNPWF4593-82-60 15:24:00 Test Item Value Reference Range Interpretation Comments PT (test code = PT) 23.0 s 12.0-14.7 [facility] JojmezpMMCYKXQVKM5019-07-46 09:53:00 Test Item Value Reference Range Interpretation Comments PT (test code = PT) 29.4 s 12.0-14.7 [facility] LjsnuwyVBSRAASAYD3607-82-43 09:53:002.75[facility] HermannCHEM PANEL 2016-01-01 00:56:001.7[facility] HermannCHEM IVQXS4672-42-28 00:56:002.9[facility] WilpbibXYIBDBASGWGH8712-65-32 00:56:0012.1[facility] FuuqpwxOFLKHGIKHSSQ1795-13-98 00:56:0050[facility] CuoqihfHGSCPWDWJVMI4400-67-98 00:56:0028[facility] CCEEWTBEYVIE8538-71-99 00:56:008.9[facility] BmqtqigXXVTEMAJOQOJ2208-15-69 00:56:004.1[facility] DogmnyaAVZSPMMFSFYJ9805-94-49 00:56:92134Djlpovfm [place] NPLPQSTFTJFR4787-23-76 00:56:09291Zamscflt UrvvetpOLRBUFXKXJQN9526-80-40 00:56:001.35[facility] CaanidmHVNNJQMAFYAE6168-31-96 00:56:0034[facility] IPYKIAZWFQMW4386-80-29 00:56:0072[facility] IbzxebbSPHXIGMPCJ5897-59-52 00:56:001+ *ABN*(12/31/15 6:56 PM)[facility] ZwjoggwLPSEYJRYPX1103-12-05 00:56:002.4[facility] JsmmuatHCAXKFUFSF3783-00-73 00:56:000.8[facility] QgdmdkoBSEAVBUKAM6276-03-20 00:56:000.1[facility] YvpamcfAFARSYANMW3088-21-63 00:56:0053.5[facility] NYBDVLKYJJ5003-72-05 00:56:0010.9[facility] SuzlxweQMSGIOACLQ9131-79-93 00:56:00 1.5[facility] AkgktczGRFHSDWELT9203-18-21 00:56:000.3[facility]annHEMATOLOGY 2016-01-01 00:56:0033.8[facility] BmiwcwcDIXPWDNCSC8874-02-40 00:56:003.7[facility] CywxnqrLVBBZPNJJP0721-10-60 00:56:008.5[facility] YctbrwwVBDZQLNYIC3987-72-05 00:56:007.0[facility] EomcpmaXWVDHFWRJZ8392-78-69 00:56:005.41[facility] VCVPPJUBJL0161-58-62 00:56:0013.6[facility] NhqmhtuXHMXFGGVJL9035-86-85 00:56:00 42.4[facility] JewrxdiAZQVOUJDRY0450-95-93 00:56:0078.3[facility]annHEMATOLOGY 2016-01-01 00:56:00 Test Item Value Reference Range Interpretation Comments MCH (test code = MCH) 25.2 pg 27.0-31.0 [facility] XdchsxcVVLGTOBWBU3025-04-59 00:56:0032.1[facility]annHEMATOLOGY 2016-01-01 00:56:0018.5[facility] JedtbrjGCVYXINTBA9324-55-76 00:56:55213Yunasmov PdkgfedTQQGSXBZSB6191-67-43 00:56:00 Test Item Value Reference Range Interpretation Comments PTT (test code = PTT) 37.6 s 22.9-35.8 [facility] OzzqrloYHUJGPHTWN6496-30-49 00:56:00 Test Item Value Reference Range Interpretation Comments PT (test code = PT) 28.6 s 12.0-14.7 [facility] KazkeviDRVVVQTXFI0767-11-42 00:56:002.65[facility] HermannELECTROLYTES 2015-12-26 20:16:005.1[facility] ClyifveNRZXYKMOILMP7800-18-07 19:45:0012.2 [facility] XnzctleCEUJCVQUOLUY3147-30-90 19:45:0063[facility] HermannELECTROLYTES 2015-12-17 19:45:0030[facility] UwcizneTVBSZOVCVQQJ8226-45-99 19:45:008.6[facility] EkopkvmWQBXOCWBHAMQ5896-41-72 19:45:99618Kekravhl VhcicbyGTZNDQINEPQO0888-02-69 19:45:005.2[facility] PdlppncRFOGXZVRSWUQ0304-46-28 19:45:18341Gnvnaksh [place] SMSACRCMCNJK0962-56-30 19:45:001.12[facility] MdgzofbMRLUSFHIKXXY9364-29-44 19:45:0027[facility] DwmnmxqCNVCVOWIWKAI5664-10-76 19:45:0084[facility] [place] DJZPEXACKA7667-00-81 19:45:000.1[facility] LndeevqMLZFAXXRSC5393-52-53 19:45:000.7 [facility] UuvcmmaRIUBMWXDEO9467-20-17 19:45:002.0[facility]annHEMATOLOGY 2015-12-17 19:45:003.3[facility] ZkscehbBISESFYLYF9361-54-91 19:45:0032.2[facility] HjshglsCQQYFKLUSJ9082-33-98 19:45:0053.9[facility] DjbgpaqJECETLIAYZ2437-43-24 19:45:000.6[facility] FyaludiOZJPQIQLZR4109-27-43 19:45:001.7[facility] [place] OHHYGFYTNM6018-78-52 19:45:0011.6[facility] KaggoddXBEYNBWSCK5548-01-49 19:45:00 5.3[facility] ZpckedfDKAYDCKPQK6150-43-39 19:45:00 Test Item Value Reference Range Interpretation Comments Angle (test code = Angle) 66.9 degrees 53.0-72.0 [facility] PgipwnqTPZWRUOUQA7133-20-05 19:45:00 Test Item Value Reference Range Interpretation Comments K-time (test code = K-time) 1.8 min 1.0-3.0 [facility] WhydxgwEGMFOVOBEK4259-53-97 19:45:00 Test Item Value Reference Range Interpretation Comments Max Amp (test code = Max Amp) 51.5 mm 50.0-70.0 [facility] LvprnhiFIHLNVPWSO0002-16-88 19:45:003.7[facility]annHEMATOLOGY 2015-12-17 19:45:000.0[facility] BcttdhqWLOIRXDHUB6559-26-25 19:45:00 Test Item Value Reference Range Interpretation Comments R-time (test code = R-time) 4.5 min 5.0-10.0 [facility] CabntimPTJVAVZNBD2099-83-42 19:45:00See Note (12/17/15 1:45 PM)[facility] RdufgigOTPSKEKBXN2745-69-31 19:45:00 Test Item Value Reference Range Interpretation Comments PT (test code = PT) 20.2 s 12.0-14.7 [facility] PfkaswnKPFFRGIFAL0657-57-75 19:45:001.69[facility]annHEMATOLOGY 2015-12-17 19:45:00 Test Item Value Reference Range Interpretation Comments PTT (test code = PTT) 34.9 s 22.9-35.8 [facility] SogznvpANNZWJIXEV6063-30-70 19:45:0031.3[facility]annHEMATOLOGY 2015-12-17 19:45:00 Test Item Value Reference Range Interpretation Comments MCH (test code = MCH) 25.1 pg 27.0-31.0 [facility]EevyseuGUUTKYPEPO5540-58-69 19:45:75970Sdmwlhdh HermannHEMATOLOGY 2015-12-17 19:45:0018.7[facility] UbtfncmSWQRBTJHVT9158-66-92 19:45:009.0[facility] SjghotgGLQQPDFOQJ5689-99-13 19:45:005.12[facility] HagjzobKMBRGCSWYD5313-01-52 19:45:006.1[facility] XkutojxHSSOUMXQBE7377-87-19 19:45:0012.9[facility] [place] ASMKIHZBPT8046-44-13 19:45:0041.0[facility] SrnbblrLAKMMMLKQO5463-15-30 19:45:00 80.0[facility] FmczlbqYXSMOPBPGY9965-57-00 14:35:001.26[facility]annHEMATOLOGY 2013-01-16 14:35:00 Test Item Value Reference Range Interpretation Comments PT (test code = PT) 16.0 s 12.0-14.7 H [facility] FgkpdnuFKPQCNMUTP4659-32-79 14:35:00 Test Item Value Reference Range Interpretation Comments PTT (test code = PTT) 33.4 s 22.9-35.8 N [facility] MavpfpkWLZBKNQXZ1319-39-79 21:10:0012.8[facility] HermannCHEMISTRY 2013-01-10 21:10:0073[facility] IqwomvfNESLMFHPM3879-48-64 21:10:004.8[facility] CoxlixcCNHBYFQWT6301-97-91 21:10:0085[facility] WiqquaxSZKHLNFFI6168-97-21 21:10:0032[facility] BgdgwkfJTKPCNDCW7757-17-05 21:10:77396Tqhltgrx [place] SNKXJORKR9265-64-72 21:10:63091Hcceepwx MsacgixFQZWXNBAJ4679-89-01 21:10:001.0 [facility] YjxgyrfERHPSLSLD0762-45-49 21:10:0019[facility] HermannCHEMISTRY 2013-01-10 21:10:008.9[facility] IqjioexTAVRPQABDN3049-84-12 21:10:0058.9[facility] RlupwbyQQLQFTBCBE1198-92-14 21:10:000.8[facility] NkqgwgbXKCLNMSSQH9299-83-76 21:10:000.2[facility] SylptxgEXOVATRBMJ2232-75-84 21:10:0026.3[facility] [place] HDRKYAEFRU6984-58-62 21:10:0011.1[facility] VgdtxzpHDKTSQGUDW0561-62-52 21:10:00 3.2[facility] LlxftlqNTEMAHBDQI0921-89-53 21:10:000.5[facility]annHEMATOLOGY 2013-01-10 21:10:004.4[facility] KdxedtoXJFEZUPNBI1673-18-60 21:10:002.0[facility] MmfruorWPXYMYZBND4936-12-64 21:10:00 Test Item Value Reference Range Interpretation Comments PTT (test code = PTT) 48.3 s 22.9-35.8 H [facility] GodnatkTSOKWSWEGS2239-87-09 21:10:003.03[facility] 2013-01-10 21:10:00 Test Item Value Reference Range Interpretation Comments PT (test code = PT) 31.2 s 12.0-14.7 H [facility] CnqaspiVOAHMMRWAZ7436-21-97 21:10:004.66[facility] 2013-01-10 21:10:11760Ceyznmlz BmxcwgpTWHRXLKEKN8247-81-06 21:10:0015.5[facility] AxdcwyrLCGHZXGNUX6533-35-26 21:10:008.7[facility] CstfxgrUPCKIXYAJM6185-51-37 21:10:0041.4[facility] ThwfjjdOQZYSRCIHB8196-78-15 21:10:0013.5[facility] UYOLMUQZYD5186-84-00 21:10:0032.6[facility] UpkyihyXPLLKNWSKY4356-64-30 21:10:00 88.9[facility] VzphatmHLECOPKBHT7170-87-50 21:10:00 Test Item Value Reference Range Interpretation Comments MCH (test code = MCH) 29.0 pg 27.0-31.0 N [facility] LamjxhzBVGMYSTWMC3405-54-32 21:10:007.5[facility] 2013-01-10 21:10:00 Test Item Value Reference Range Interpretation Comments Angle (test code = Angle) 63.7 degrees 53.0-72.0 N [facility]NXZXLGZR2118-69-93 21:10:00 Test Item Value Reference Range Interpretation Comments K-time (test code = K-time) 1.9 min 1.0-3.0 N [facility] YeaxmizYEYVOADMCO9292-62-60 21:10:00 Test Item Value Reference Range Interpretation Comments R-time (test code = R-time) 7.2 min 5.0-10.0 N [facility] OzcdkuzCMVFCHKLSR3707-42-92 21:10:00See Note 7(01/10/2013 15:10:00) [facility] OcfrfplTMUIUXKXJV3192-86-69 21:10:00-1.3[facility] 2013-01-10 21:10:000.6[facility] KwnyfqvZODSQCEHWG2206-21-55 21:10:006.8[facility] WlrvovnNYWRFYJNPG1373-96-25 21:10:00 Test Item Value Reference Range Interpretation Comments Max Amp (test code = Max Amp) 57.7 mm 50.0-70.0 N [facility] AuvjztzYBRENYGFR7869-61-91 17:18:00<0.010[facility]annCHEMISTRY 2012-10-13 17:18:00<0.02[facility] YsaxwwmBMEBLDLMK3695-52-48 17:18:0043 [facility] FlpfogzXJODUVIUP8940-13-61 12:20:0087[facility]annCHEMI[facility]Y 2012-10-13 12:20:008.4[facility] BexwiecYNDXPGNTI5348-22-69 12:20:0024[facility] QwzyvdrXLNOZYSKA9946-13-80 12:20:30638Ralpqhxl XnpcthlIPTHETQUB0789-27-83 12:20:004.3[facility] NazvfysYWWRVFEUT7103-19-17 12:20:58798Djdqrnzf Gurw[place] ZRMUFJVVQ7267-86-87 12:20:000.8[facility] NwdmnfaQGWGXCASK0312-56-96 12:20:0020 [facility] ZobzeqdTUGJKCLNQ5031-45-13 12:20:46591Mmnkvsia HermannCHEMISTRY 2012-10-13 12:20:0017.3[facility] PfbeukmREPHCJFJR0149-18-81 12:20:001.5[facility] YkyijxeBHHGVKMMI2419-58-87 12:20:002.5[facility] BagmwuaDXIWOGNAY6631-42-63 12:20:001.1[facility] LkucbqbKLDYRVYRP4483-66-50 12:20:0022[facility] YQKXDWILX7569-57-13 12:20:006.2[facility] QiwuiytLTJXBBWMN0399-27-15 12:20:001.7 [facility] FdolmwvUJCBXGQRT9715-68-79 12:20:000.6[facility]annCHEMISTRY 2012-10-13 12:20:75125Ijgoigki OcmodmqIOMGTWSYT8232-60-67 12:20:003.7[facility] HxsmspoCPIGUISXD3127-01-74 12:20:0023[facility] MkvdbdiQXXUWMNBY9978-16-12 12:20:004.3[facility] TgphmqhBSSFKLULR9852-03-74 12:20:002.3[facility] FEVRWDVCH6053-33-07 12:20:004.64[facility] EhgpignAOSIKSNUK7589-01-73 12:20:004.64 [facility] AvgpltxCCAQOYKXK9545-82-50 12:20:001.16[facility]annCHEMISTRY 2012-10-13 12:20:001.16[facility] CypscybJNKEQQHBC7586-04-59 12:20:00<0.010 [facility] CzmfmgvHLMOQVOFP4590-35-78 12:20:00<0.02[facility]annCHEMISTRY 2012-10-13 12:20:0038[facility] GoegtcxXWNXBIMTY4167-13-20 11:25:0091.0[facility] NlgnbhsZOHFSTFIA6546-32-21 11:25:0025[facility] GdtppfmBLMIOIPBN9525-32-54 11:25:59125Sidodlmr RghaatfHITPOOIUW6437-30-77 11:25:004.0[facility] RXWNHIKVH8911-70-69 11:25:001[facility] WvujwspMYICNPQQS9446-80-66 11:25:001.8 [facility] HooxphyDCNEAYIFZ2202-40-22 11:25:45667Tpcjoipc HermannCHEMISTRY 2012-10-13 11:25:001.16[facility] RwcbxwbZPZBMZZNN4687-17-98 11:25:0037.0[facility] OltprdqYLYLHFTLI3654-25-20 11:25:0040[facility] AjxvmxgMVDJZBRWJ7953-08-80 11:25:007.41[facility] QqddtdpCFRDSXCHC1620-29-51 11:25:0060[facility] IIESXPIVSV9784-26-70 10:40:0084.9[facility] YkgponbHHAAOMYUYS3681-63-02 10:40:00 10.4[facility] FncydqkGZMIIFIBJQ2070-28-33 10:40:003.4[facility]annHEMATOLOGY 2012-10-13 10:40:000.3[facility] TpyjobpIHLNORZDSX5219-80-96 10:40:000.1[facility] PmdvpxgCSDIYCJVMX0254-41-59 10:40:000.1[facility] XoraunnZJPHJZFFUC1911-88-08 10:40:001.2[facility] SjkqfwxVULEPHXCLZ2662-44-33 10:40:007.7[facility] XLXHADCDEY2070-08-61 10:40:001.0[facility] CsqiydrKVZTEHDZEG2467-47-53 10:40:00 Test Item Value Reference Range Interpretation Comments PTT (test code = PTT) 31.2 s 22.9-35.8 N [facility] OraahmlQRDBUTUHYL3498-86-34 10:40:001.24[facility] 2012-10-13 10:40:00 Test Item Value Reference Range Interpretation Comments PT (test code = PT) 15.8 s 12.0-14.7 H [facility] RhllxipTMUYNKVKJN9158-22-64 10:40:74239Pbenmhzx HermannHEMATOLOGY 2012-10-13 10:40:00 Test Item Value Reference Range Interpretation Comments MCH (test code = MCH) 30.0 pg 27.0-31.0 N [facility] IuaahdkFIKCEDXHHL9237-73-72 10:40:0033.5[facility]ann[facility]MATOLOGY 2012-10-13 10:40:0089.5[facility] FilsstiEUVCWEFUFP1572-19-75 10:40:0016.2[facility] MkhgqbuOGSJNLZSMJ6990-35-74 10:40:009.1[facility] XqrwktsVXMXVWABQJ6686-14-18 10:40:004.22[facility] OcfxmqfVVZSMAKBHC9256-14-66 10:40:0012.7[facility] NQTDWZINBB4304-44-26 10:40:0037.8[facility] GeohqovIOUPDEEREP3078-16-86 10:40:00 8.8[facility] BiwwockBOJRKYIMQL2855-02-42 04:50:001[facility] HermannURINALYSIS 2012-10-13 04:50:00Occasional /HPF *NA*(10/12/2012 22:50:00)[facility] PSAEVZYJHW3326-10-69 04:50:00<1[facility] KeylstdGGGIENNUAD8586-22-20 04:50:002 [facility] CsuupxfSBYSZKVWML7410-04-78 04:50:00Trace *ABN*(10/12/2012 22:50:00) [facility] DuogbkhWSQSHIFDRV0917-07-43 04:50:00Negative (10/12/2012 22:50:00) [facility] ItuehrwCXCBNTPXNC1718-56-47 04:50:00Negative (10/12/2012 22:50:00) [facility] KfdnjoeBNAZNWWIYK9080-86-14 04:50:00Negative mg/dL *NA*(10/12/2012 22:50:00)[facility] EjonrdqKRNFJJPARL9222-86-30 04:50:00Few /LPF *NA*(10/12/2012 22:50:00)[facility] EgbbfreMXCKXKKJQZ5982-41-65 04:50:00Negative *NA*(10/12/2012 22:50:00)[facility] DxizonsYBQOVQQXIX0780-55-48 04:50:00Negative mg/dL *NA*(10/12/2012 22:50:00)[facility] JbxzyfcLGGFXCBXJI0116-76-03 04:50:001.011 [facility] CdtnjyjYCYRTDKTZH4418-75-99 04:50:00Clear (10/12/2012 22:50:00)[facility] VeruwgoJONABXBBXC5745-08-15 04:50:00Yellow *NA*(10/12/2012 22:50:00)[facility] TlxliolZKKCLBHNSW1454-91-78 04:50:00Negative mg/dL (10/12/2012 22:50:00)[facility] BlvdosiUJUYJFWAZP8454-78-45 04:50:005.5[facility] BylsdpdFFYDQONZP1324-04-99 04:45:0038[facility] QxvysvbITDEOOHIY6603-77-65 04:45:00<0.010[facility] JUXZTOEEJ0507-91-52 04:45:00<0.02[facility] BlfoaqhAOMFDBIRV7899-79-43 04:45:00 1.45[facility] BaeauzyMQNSMPNWW1277-53-80 00:20:001.7[facility] HermannCHEMISTRY 2012-10-13 00:20:004.5[facility] IpntvvyTLJQFUGXU2496-34-41 00:20:000.291[facility] ZfbargvMNHPEMKKI9884-92-60 00:20:0083[facility] XhmgjmgTVUGCCAEM5236-50-12 00:20:0018[facility] GxrqpmbNDVLYPEQU4274-71-94 00:20:14061Sgqtjepv Gurwinder FJQNCYUHC6901-11-13 00:20:35966Axbladkp RwrgizvVCGQBFXJC2278-64-10 00:20:000.9 [facility] VzrqithIMJMXTMFI0831-02-64 00:20:45882Amquidto HermannCHEMISTRY 2012-10-13 00:20:0024[facility] SorusieZMBAGTFGK2622-65-78 00:20:004.4[facility] LtjjjgcIYQMUFTUH7328-95-97 00:20:007.2[facility] JihdibfSXVMQATDO0532-57-98 00:20:0018[facility] FttwrzwNVKEIVDRA7141-82-74 00:20:008.8[facility] XAKASZLZC3119-94-95 00:20:004.5[facility] VynvjiaUQGQTAWUG9339-50-67 00:20:0025 [facility] GnzpofsYUQXSIYHI2732-67-08 00:20:28169Vatwynmy HermannCHEMISTRY 2012-10-13 00:20:001.9[facility] HamgeweCYWTGJHFS4388-61-99 00:20:001.6[facility] ChlllimVAEMNXHAO6886-44-61 00:20:002.8[facility] DzkpojsDPKQNKSOF2948-83-37 00:20:0020[facility] DiflpjlOSZVXTMSH0895-69-21 00:20:0015.5[facility] ZDITTLNAQO0769-33-99 00:20:0016.0[facility] IjrxeilCXFLBPMFSK2491-36-01 00:20:00 32.8[facility] YrzehbdOGSVQFSDNC4952-70-26 00:20:55310Uwvdczsl HermannHEMATOLOGY 2012-10-13 00:20:008.9[facility] HrmiuboGIEVUXSRAY6049-37-73 00:20:008.3[facility] ZmolposULHWMQEAKA7008-25-65 00:20:004.57[facility] ZoolkyoGYUZROUYZK7355-15-42 00:20:0013.5[facility] PjejdxrGNDOZUVGPY5058-12-31 00:20:0090.0[facility] UDAEMSIRYS8258-09-39 00:20:0041.1[facility] AiqpxqzQLMDJCWLIK1451-42-53 00:20:00 Test Item Value Reference Range Interpretation Comments MCH (test code = MCH) 29.6 pg 27.0-31.0 N [facility] CnlwbbqGIZJUENEMW5719-78-60 00:20:000.2[facility] HermannHEMATOLOGY 2012-10-13 00:20:000.1[facility] IqyomhyDAGZSBVQNE7948-29-45 00:20:000.9[facility] ZropsimHVLBEWVIEI8419-70-44 00:20:007.2[facility] DdhizqkLWYJCQOULG2932-99-71 00:20:0086.6[facility] UsdfpkwWMVKCLVKPP0474-56-95 00:20:000.3[facility] EUGFWFXUBC9145-71-79 00:20:001.5[facility] VdcamqjKBYZJMLZBC4049-81-66 00:20:00 11.4[facility] SofympzIKQFCGSYN0463-85-47 21:56:001.15[facility] HermannCHEMISTRY 2012-10-12 21:56:000.7[facility] OksksvoBWSZXNHSS9082-49-81 21:56:0081.0[facility] MihqzhsWUJRPRGCS9935-35-94 21:56:001[facility] LjtymwqBMSSHXCPL5937-23-39 21:56:00 137[facility] HevhmgeTATHZEAUA7555-60-24 21:56:004.3[facility] HermannCHEMISTRY 2012-10-12 21:56:0041.0[facility] PddeetaQSFWMDNWA8002-93-35 21:56:64918Dzjarpxj XqgmxyjYIHGFWKMI1495-69-81 21:56:0046[facility] NdhejmzAUHZBPIRZ9009-96-37 21:56:007.39[facility] DadheqiGKDZVBEQS9446-88-74 21:56:0026[facility] WXEAMYURU0289-11-75 21:56:0043[facility] MwdebwvTWEIBRNRP4038-38-72 21:56:0037.0 [facility] BwievjzIJDTFYJPXS9508-73-24 17:00:00 Test Item Value Reference Range Interpretation Comments PT (test code = PT) 15.4 s 12.0-14.7 H [facility] SvxlfbxGYEGRNSTAB5389-22-52 17:00:001.20[facility] HermannHEMATOLOGY 2012-10-12 17:00:00 Test Item Value Reference Range Interpretation Comments PTT (test code = PTT) 32.9 s 22.9-35.8 N [facility] DepjuycLNIFILQRP4510-23-92 18:15:002.8[facility] HermannCHEMISTRY 2012-09-21 18:15:001.5[facility] YvrsfvjASVJSUCTW2350-27-54 18:15:0013.0[facility] XaxeppzUSCTIMBDP1618-29-36 18:15:0020[facility] IgqtzzvCHNLIMGWU2009-88-01 18:15:0084[facility] XerdcuaZLSZBHUBK8898-61-08 18:15:0028[facility] NSPVCEUQM5816-63-98 18:15:41162Jyrqenxr MxqiowdEONKPDCBS8361-75-12 18:15:007.0 [facility] CzrjlmgROUIBXIPU3585-21-65 18:15:56868Halsfseh HermannCHEMISTRY 2012-09-21 18:15:005.0[facility] LipavqrNMVBGJEXX2423-34-43 18:15:0029[facility] SvfmgtmALXKYUNUJ6247-66-95 18:15:001.3[facility] EfmhiceVGSSNBOHC1516-80-21 18:15:008.8[facility] WyqwxywTKGRHPVVH3865-80-73 18:15:000.9[facility] KPAARSCHY3817-97-41 18:15:0018[facility] AolfgucETFCSMYDH5947-97-61 18:15:004.2 [facility] UfmaptcROKCUHONL5834-12-73 18:15:0093[facility] HermannCHEMISTRY 2012-09-21 18:15:54214Lostplhe SfqpolaLUEZMCKWG6859-54-03 18:15:0027[facility] JiycowiJCSWNRZUJS0510-08-25 18:15:000.1[facility] SszkqxwEULISZIEPN8938-88-74 18:15:002.0[facility] UmzgseiFMHNJBGFFV8406-60-23 18:15:002.9[facility] BUKSMHKLQS7409-64-80 18:15:004.4[facility] YvlvaojNVKOKCWRRC3165-75-49 18:15:001.8 [facility] VgpkdnbNIFFXNUHER4753-57-55 18:15:000.7[facility] HermannHEMATOLOGY 2012-09-21 18:15:000.2[facility] ZdrmibuPTHOXGZTMC0047-51-90 18:15:009.7[facility] GgsvjtmZUESRJIOYM5417-34-30 18:15:0061.0[facility] FajeueySFSPWAVYBZ3568-74-21 18:15:0024.4[facility] MugmxhoYNHLEAFKSW6103-78-97 18:15:004.44[facility] EJAUBXWSYF0766-59-71 18:15:0013.0[facility] OupnuelLFXJZJMHXI3998-98-25 18:15:00 40.2[facility] LojivsdEVLWBYMSVU7439-19-34 18:15:007.3[facility] HermannHEMATOLOGY 2012-09-21 18:15:00 Test Item Value Reference Range Interpretation Comments MCH (test code = MCH) 29.4 pg 27.0-31.0 N [facility] HgypvliEWNPWQYUWE7072-58-25 18:15:0032.4[facility] HermannHEMATOLOGY 2012-09-21 18:15:0016.0[facility] KybkfivVYUUULJSWW3796-04-50 18:15:0090.6[facility] TizvrguRROMGJDOMT2477-04-65 18:15:53392Praxgalu JpqakpnHXBYYTYHXQ7529-76-30 18:15:008.9[facility] MbgsnrhXCDJNKKHBQ9809-64-29 18:15:00 Test Item Value Reference Range Interpretation Comments PT (test code = PT) 20.1 s 12.0-14.7 [facility]XWVXM1940-48-14 18:15:00 Test Item Value Reference Range Interpretation Comments PTT (test code = PTT) 60.9 s 22.9-35.8 [facility] CenterXvdswlyDPHBGJUEMT6707-62-90 18:15:001.70[facility] [place]
[2020-04-30 04:45] LABS: Basophils % 0.3 % (0-1.3); Hematocrit 39.5 % (39.6-49.0); Lymphocytes % 10.6 % (15.3-44.8); MPV 8.3 fL (7.6-11.3); Protime INR 2.1; RBC Red Blood Cell Count 4.27 M/uL (4.33-5.43)
[2020-04-30 04:56] LABS: ALT/SGPT 21 U/L (12-78); AST/SGOT 20 U/L (15-37); Albumin 3.6 g/dL (3.4-5.0); Alkaline Phosphatase 90 U/L (45-117); Amylase 34 U/L (25-115); BUN Blood Urea Nitrogen 21 mg/dL (7-18); Bicarbonate 24 mmol/L (21-32); Bilirubin Direct 0.4 mg/dL (0-0.2); Bilirubin Total 1.3 mg/dL (0.2-1.0); CKMB Creatine Kinase MB < 1.0 ng/mL (0.3-3.6); Creatine Phosphokinase 62 U/L (39-308); Glucose Level 136 mg/dL (74-106); Lipase 113 U/L (73-393); Potassium 4.3 mmol/L (3.5-5.1); Sodium Level 137 mmol/L (136-145); Troponin (Emerg Dept Use Only) 0.03 ng/mL (0.0-0.045)
[2020-04-30] MEDS ORDERED: NA CHLORIDE 0.9% 250 ML ONE (05:29)
[2020-04-30] MEDS ORDERED: AZITHROMYCIN 500 MG INJ IVPB ONE (05:29)
[2020-04-30] MEDS ORDERED: CEFTRIAXONE/SWI 1gm 1 GM/10 ML SYR ONE (05:29)
[2020-04-30] MEDS ORDERED: ALBUTEROL 2.5 MG/3 ML NEB SOL NEB PRN (05:50)
[2020-04-30] MEDS ORDERED: ONDANSETRON 4 MG/2 ML VIAL IV PRN (05:50)
[2020-04-30] MEDS ORDERED: IPRATROPIUM BROM 0.5MG/2.5ML NEB PRN (05:50)
[2020-04-30] MEDS ORDERED: BENZONATATE 100 MG CAP PO PRN (05:56)
[2020-04-30 06:17] LABS: Urine Specific Gravity 1.025 (1.005-1.030)
[2020-04-30 06:18] LABS: Urine Blood TRACE (NEG); Urine Glucose NEGATIVE (NEG); Urine Protein NEGATIVE (NEG); Urine pH 5.5 (5.0-7.0)
[2020-04-30 07:21] LABS: Urine Bacteria <20 /HPF (NONE SEEN); Urine Culture Reflex Order NOT NEEDED
--- NOTE | 2020-04-30 07:25 | EDPHYS ---
Physician Documentation [facility] Name: Macho Matthews Age: 84 yrs Sex: Male : 1935 Arrival Date: 04/30/2020 Time: 03:50 Bed 5 Private MD: ED Physician Willis Bear HPI: 04/30 04:52 This 84 yrs old Male presents to ER via EMS with complaints of Fever. tw4 04:52 The patient reports fever, not measured (subjective). Onset: The symptoms/episode tw4 began/occurred 3 day(s) ago. Modifying factors: there are no obvious modifying factors. Associated signs and symptoms: Pertinent positives: shortness of breath. Severity of symptoms: At their worst the symptoms were moderate in the emergency department the symptoms are unchanged. The patient has not experienced similar symptoms in the past. Historical: - Allergies: 03:57 Morphine; rv 03:57 TETRACYCLINES; rv - Home Meds: 03:57 Coumadin 2.5 mg 5 days per week [Active]; digoxin 125 mcg Oral tab 1 tab once daily rv [Active]; Entresto 24-26 mg Oral tab [Active]; finasteride 5 mg Oral tab 1 tab once daily [Active]; levothyroxine 100 mcg tab 1 tab evrey other day [Active]; Lipitor 40 mg Oral tab 1 tab once daily [Active]; - PMHx: 03:57 a-fib; CHF; Hyperlipidemia; Hypertension; Hypothyroidism; Pacemaker; Vertigo; rv - PSHx: 03:57 Unable to obtain; rv - Immunization history:: Adult Immunizations up to date. - Social history:: Smoking status: Patient denies any tobacco usage or history of. ROS: 04:52 Eyes: Negative for injury, pain, redness, and discharge, Cardiovascular: Negative for tw4 chest pain, palpitations, and edema, Respiratory: Negative for shortness of breath, cough, wheezing, and pleuritic chest pain, Abdomen/GI: Negative for abdominal pain, nausea, vomiting, diarrhea, and constipation, Back: Negative for injury and pain, MS/Extremity: Negative for injury and deformity, Skin: Negative for injury, rash, and discoloration, Neuro: Negative for headache, weakness, numbness, tingling, and seizure. 04:52 Constitutional: Positive for fever. Exam: 04:52 Constitutional: This is a well developed, well nourished patient who is awake, alert, tw4 and in no acute distress. Eyes: Pupils equal round and reactive to light, extra-ocular motions intact. Lids and lashes normal. Conjunctiva and sclera are non-icteric and not injected. Cornea within normal limits. Periorbital areas with no swelling, redness, or edema. Chest/axilla: Normal chest wall appearance and motion. Nontender with no deformity. No lesions are appreciated. Cardiovascular: Regular rate and rhythm with a normal S1 and S2. No gallops, murmurs, or rubs. Normal PMI, no JVD. No pulse deficits. Abdomen/GI: Soft, non-tender, with normal bowel sounds. No distension or tympany. No guarding or rebound. No evidence of tenderness throughout. 04:52 Respiratory: mild respiratory distress is noted, Respirations: labored breathing, that is mild, Breath sounds: rales, are located in both bases, rhonchi, are scattered. Vital Signs: 03:54 BP 146 / 67; Pulse 80; Resp 26; Temp 102.4; Pulse Ox 96% on R/A; Weight 65.77 kg; rv 05:00 BP 103 / 51; Pulse 82; Resp 33; Temp 99.6(O); Pulse Ox 98% on R/A; jb4 06:00 BP 93 / 58; Pulse 81; Resp 28; Pulse Ox 93% on R/A; jb4 07:16 BP 110 / 62; Pulse 80; Resp 24; Pulse Ox 98% on R/A; em MDM: 03:53 Patient medically screened. 04/30 03:53 Order name: Amylase, Serum; Complete Time: 05:15 04/30 05:16 Interpretation: Normal except: [place] 34. 04/30 03:53 Order name: Basic Metabolic Panel; Complete Time: 05:15 04/30 05:15 Interpretation: Normal except: GLUC 136; BUN 21; GFR 63. 04/30 03:53 Order name: Blood Culture Adult (2) 04/30 03:53 Order name: CBC with Diff; Complete Time: 05:15 04/30 05:16 Interpretation: Normal except: RBC 4.27; HGB 13.2; HCT 39.5; LYM% 10.6; MEGHAN% 81.0. 04/30 03:53 Order name: Ckmb; Complete Time: 05:15 04/30 05:16 Interpretation: Within normal limits: CKMB < 1.0. 04/30 03:53 Order name: CPK; Complete Time: 05:15 04/30 05:16 Interpretation: Within normal limits: CPK 62. 04/30 03:53 Order name: Lactate; Complete Time: 05:15 04/30 05:17 Interpretation: Within normal limits. 04/30 03:53 Order name: LFT's; Complete Time: 05:15 04/30 05:16 Interpretation: Normal except: BILID 0.4; BILIT 1.3. 04/30 03:53 Order name: Lipase; Complete Time: 05:15 04/30 05:17 Interpretation: Within normal limits. 04/30 03:53 Order name: Procalcitonin 04/30 03:53 Order name: Protime (+inr); Complete Time: 05:15 04/30 05:16 Interpretation: Normal except: PT 24.4. 04/30 03:53 Order name: Ptt, Activated; Complete Time: 05:15 04/30 05:17 Interpretation: Within normal limits: PTT 34.1. 04/30 03:53 Order name: Troponin (emerg Dept Use Only); Complete Time: 05:15 04/30 05:17 Interpretation: TROPED 0.03. 04/30 03:53 Order name: Urine Microscopic Only 04/30 03:53 Order name: Chest Single View XRAY 04/30 03:53 Order name: Accucheck; Complete Time: 04:26 04/30 03:53 Order name: Cardiac monitoring; Complete Time: 04:26 04/30 03:53 Order name: EKG - Nurse/Tech; Complete Time: 04:26 04/30 03:53 Order name: COVID-19 04/30 03:53 Order name: Flu; Complete Time: 05:15 04/30 05:17 Interpretation: Within normal limits. 04/30 03:53 Order name: Strep; Complete Time: 05:15 04/30 05:17 Interpretation: Within normal limits. 04/30 05:08 Order name: Throat Culture EDAZ 04/30 05:53 Order name: Urine Dipstick--Ancillary (enter results) 2 04/30 05:56 Order name: Heart Healthy EDAZ 04/30 05:56 Order name: Troponin I EDAZ 04/30 05:56 Order name: Troponin I [facility] 04/30 03:53 Order name: IV Saline Lock - Large Bore; Complete Time: 04:26 04/30 03:53 Order name: Labs collected and sent; Complete Time: 04:26 04/30 03:53 Order name: O2 Per Protocol; Complete Time: 04:26 04/30 03:53 Order name: O2 Sat Monitoring; Complete Time: 04:26 04/30 03:53 Order name: Urine Dipstick-Ancillary (obtain specimen); Complete Time: 05:53 04/30 03:53 Order name: Document PUI#; Complete Time: 04:25 04/30 03:53 Order name: Droplet/Contact Precautions; Complete Time: 04:25 04/30 03:53 Order name: Labs collected and sent; Complete Time: 04:27 04/30 03:53 Order name: Notify Health Dept [phone]/ ; Complete Time: 04:27 04/30 03:53 Order name: O2 Per Protocol; Complete Time: 04:27 tw Administered Medications: 04:05 Drug: Tylenol 1000 mg {Note: given only 500 mg, Pt appeared to choke after taking the jb4 firts pill..} Route: PO; 05:00 Follow up: Response: No adverse reaction; Temperature is decreased [facility] 05:25 Drug: Rocephin - (cefTRIAXone) 1 grams {Note: Administered IVP per pharmacy protocol..} jb4 Route: IVPB; Infused Over: 30 mins; Site: right forearm; 07:45 Follow up: Response: No adverse reaction; IV Status: Completed infusion; IV Intake: 10mlem 05:30 Drug: AZITHromycin 500 mg Route: IVPB; Infused Over: 1 hrs; Site: right antecubital; 4 07:45 Follow up: Response: No adverse reaction; IV Status: Completed infusion; IV Intake: em 250ml 05:53 Not Given (Physician Discretion): NS 0.9% (30 ml/kg) 30 ml/kg IV at bolus once; Sepsis jb4 Protocol Disposition: 04/30/20 07:24 Hospitalization ordered by Madelyn Vigil for Inpatient Admission. Preliminary diagnosis are Pneumonia, unspecified organism, Hypoxemia. - Bed requested for Telemetry/MedSurg (Inpatient). - Status is Inpatient Admission. em - Condition is Fair. - Problem is new. - Symptoms are unchanged. Signatures: Dispatcher [employer] EDMS Demetrio Barnett RN RN Bernabe Luque RN RN jb4 Willis Bear MD MD tw4 Claudia Kasper Ronaldo RN RN rv Corrections: (The following items were deleted from the chart) 07:26 07:24 Hospitalization Ordered by Madelyn Vigil MD for Inpatient Admission. Preliminary eb diagnosis is Pneumonia, unspecified organism; Hypoxemia. Bed requested for Telemetry/MedSurg (Inpatient). Status is Inpatient Admission. Condition is Fair. Problem is new. Symptoms are unchanged. tw4 08:02 07:26 04/30/2020 07:24 Hospitalization Ordered by Madelyn Vigil MD for Inpatient em Admission. Preliminary diagnosis is Pneumonia, unspecified organism; Hypoxemia. Bed requested for Telemetry/MedSurg (Inpatient). Status is Inpatient Admission. Condition is Fair. Problem is new. Symptoms are unchanged. eb
--- NOTE | 2020-04-30 07:25 | ER ---
Nurse's Notes [facility] Name: Macho Matthews Age: 84 yrs Sex: Male : 1935 Arrival Date: 04/30/2020 Time: 03:50 Bed 5 Private MD: Diagnosis: Pneumonia, unspecified organism;Hypoxemia Presentation: 04/30 03:54 Chief complaint: EMS states: FEVER FOR SEVERAL DAYS WITH GENERAL WEAKNESS AND ANOREXIA, rv AND COUGH. DENIES CHEST PAIN AND SOB, AND DYSURIA. COMPLAINS OF RIGHT LEG SORENESS. Coronavirus screen: Surgical mask placed on patient. Patient moved to private room, placed in contact and droplet isolation with eye protection until further assessment. Patient reports a cough. Patient reports a measured and/or subjective temperature greater than 100.4F. Patient denies travel on a cruise ship or to a country the [facility] currently lists as an affected area. Patient denies contact with known and/or suspected case of COVID-19. Ebola Screen: No symptoms or risks identified at this time. Initial Sepsis Screen: Does the patient meet any 2 criteria? RR > 20 per min. Temp <36.0*C (96.8*F)) or > 38.3*C (100.9*F). Does the patient have a suspected source of infection? Yes: Productive cough/pneumonia. Risk Assessment: Do you want to hurt yourself or someone else? Patient reports no desire to harm self or others. Onset of symptoms was April 29, 2020 at 08:00. 03:54 Method Of Arrival: EMS: [facility] rv 03:54 Acuity: HAROLDO 2 rv Triage Assessment: 03:57 General: Appears uncomfortable, Behavior is calm, cooperative. Pain: Complains of pain rv in right leg. EENT: No signs and/or symptoms were reported regarding the EENT system. Neuro: Level of Consciousness is awake, alert, obeys commands, Oriented to person, place, time, situation. Cardiovascular: Patient's skin is warm and dry. Rhythm is regular. Respiratory: Airway is patent Respiratory effort is even, Respiratory pattern is tachypnea Breath sounds are coarse bilaterally. Derm: Skin is intact. Historical: - Allergies: 03:57 Morphine; rv 03:57 TETRACYCLINES; rv - Home Meds: 03:57 Coumadin 2.5 mg 5 days per week [Active]; digoxin 125 mcg Oral tab 1 tab once daily rv [Active]; Entresto 24-26 mg Oral tab [Active]; finasteride 5 mg Oral tab 1 tab once daily [Active]; levothyroxine 100 mcg tab 1 tab evrey other day [Active]; Lipitor 40 mg Oral tab 1 tab once daily [Active]; - PMHx: 03:57 a-fib; CHF; Hyperlipidemia; Hypertension; Hypothyroidism; Pacemaker; Vertigo; rv - PSHx: 03:57 Unable to obtain; rv - Immunization history:: Adult Immunizations up to date. - Social history:: Smoking status: Patient denies any tobacco usage or history of. Screenin:58 Abuse screen: Denies threats or abuse. Denies injuries from another. Nutritional rv screening: No deficits noted. Tuberculosis screening: No symptoms or risk factors identified. Fall Risk None identified. Assessment: 04:00 General: Appears distressed, uncomfortable, Behavior is calm, cooperative, appropriate jb4 for age. Pain: Denies pain. Neuro: Level of Consciousness is awake, alert, obeys commands, Oriented to person, place, time, situation. Cardiovascular: Heart tones S1 S2 present Patient's skin is warm and dry. Respiratory: Airway is patent Respiratory effort is even, labored, Respiratory pattern is symmetrical, tachypnea Breath sounds are clear bilaterally. GI: No signs and/or symptoms were reported involving the gastrointestinal system. : No signs and/or symptoms were reported regarding the genitourinary system. EENT: No signs and/or symptoms were reported regarding the EENT system. Derm: Skin is intact, Skin is pink, warm \T\ dry. Musculoskeletal: Circulation, motion, and sensation intact. Range of motion: intact in all extremities. 04:05 Reassessment: Gave patient one 500 mg Tylenol. PT appeared to choke after taking PO jb4 medication. Provider notified. 05:00 Reassessment: Patient and/or family updated on plan of care and expected duration. Pain jb4 level reassessed. PT is resting with eyes closed, respirations remain tachypneic, labored, and symmetrical, no s/s of pain noted. 06:00 Reassessment: Patient appears in no apparent distress at this time. No changes from jb4 previously documented assessment. Patient and/or family updated on plan of care and expected duration. Pain level reassessed. 07:16 Reassessment: Patient appears in no apparent distress at this time. No changes from em previously documented assessment. Patient and/or family updated on plan of care and expected duration. Pain level reassessed. Patient denies pain at this time. Vital Signs: 03:54 BP 146 / 67; Pulse 80; Resp 26; Temp 102.4; Pulse Ox 96% on R/A; Weight 65.77 kg; rv 05:00 BP 103 / 51; Pulse 82; Resp 33; Temp 99.6(O); Pulse Ox 98% on R/A; jb4 06:00 BP 93 / 58; Pulse 81; Resp 28; Pulse Ox 93% on R/A; jb4 07:16 BP 110 / 62; Pulse 80; Resp 24; Pulse Ox 98% on R/A; em ED Course: 03:50 Patient arrived in ED. cl3 03:53 Willis Bear MD is Attending Physician. tw4 03:54 Obey Snider, KAVON is Primary Nurse. rv 03:56 Triage completed. rv 03:57 Arm band placed on Patient placed in the treatment room, on a stretcher, Patient rv notified of wait time. EKG completed in triage. Results shown to MD. 03:58 Patient has correct armband on for positive identification. Bed in low position. Call rv light in reach. Side rails up X 1. panel monitor on. Pulse ox on. NIBP on. 04:15 Inserted saline lock: 20 gauge in right forearm, using aseptic technique. Blood jb4 collected. 04:15 Initial lab(s) drawn, by ms, sent to lab. First set of blood cultures drawn by me. jb4 04:16 Chest Single View XRAY In Process Unspecified. EDMS 04:23 Flu and/or RSV swab sent to lab. Strep swab sent to lab. COVID SWAB SENT TO LAB. rv 04:30 Second set of blood cultures drawn by ms. jb4 07:24 Madelyn Vigil MD is Hospitalizing Provider. tw4 07:42 No provider procedures requiring assistance completed. Patient admitted, IV remains in em place. Administered Medications: 04:05 Drug: Tylenol 1000 mg {Note: given only 500 mg, Pt appeared to choke after taking the jb4 firts pill..} Route: PO; 05:00 Follow up: Response: No adverse reaction; Temperature is decreased [facility] 05:25 Drug: Rocephin - (cefTRIAXone) 1 grams {Note: Administered IVP per pharmacy protocol..} 4 Route: IVPB; Infused Over: 30 mins; Site: right forearm; 07:45 Follow up: Response: No adverse reaction; IV Status: Completed infusion; IV Intake: 10mlem 05:30 Drug: AZITHromycin 500 mg Route: IVPB; Infused Over: 1 hrs; Site: right antecubital; jb4 07:45 Follow up: Response: No adverse reaction; IV Status: Completed infusion; IV Intake: em 250ml 05:53 Not Given (Physician Discretion): NS 0.9% (30 ml/kg) 30 ml/kg IV at bolus once; Sepsis [facility] Protocol Intake: 07:45 IV: 250ml; Total: 250ml. em 07:45 IV: 10ml; Total: 260ml. em Outcome: 07:24 Decision to Hospitalize by Provider. 07:42 Admitted to Med/surg accompanied by tech, via stretcher, room 416, with chart, Report em called to KAVON Ruggiero 07:42 Condition: good 07:42 Instructed on the need for admit, Demonstrated understanding of instructions. 08:02 Patient left the ED. em Signatures: Dispatcher [employer] Demetrio Atkinson, Bernabe Vale RN, RN RN jb4 Willis Bear MD MD tw4 Obey Snider RN RN rv Lewis, Charde 3
--- NOTE | 2020-04-30 07:39 | P.HP ---
Certification for Inpatient Patient admitted to: Inpatient With expected LOS: >2 Midnights Patient will require the following post-hospital care: None Practitioner: I am a practitioner with admitting privileges, knowledge of patient current condition, hospital course, and medical plan of care. Services: Services provided to patient in accordance with Admission requirements found in Title 42 Section 412.3 of the Code of Federal Regulations Patient History Date of Service: 04/30/20 Reason for admission: Fever and shortness of breath History of Present Illness: Patient is an 84-year-old gentleman who was admitted to the hospital because he had been complaining of fever. Patient also has some generalized weakness and decreased appetite. There is concern he has been having some difficulty swallowing. The nurse gave patient some medication in the emergency room and patient has some difficulty with swallowing. Patient denied any chest pain. Patient has had old slight cough but no significant shortness of breath. Patient also been having some soreness in the leg. Decision was made to admit the patient to the hospital for further evaluation. Allergies morphine Allergy (Verified 12/24/17 11:25) Nausea/Vomiting Tetracyclines Allergy (Verified 12/24/17 11:25) Itching/Hives/Rash Home Medications: Citalopram Hydrobromide [Celexa] 20 mg PO DAILY 08/07/14 Atorvastatin Calcium [Lipitor*] 40 mg PO BEDTIME 01/23/15 Digoxin [Lanoxin*] 0.125 mg PO DAILY 01/23/15 Amiodarone HCl [Cordarone*] 200 mg PO [id number] 12/24/17 Finasteride [Proscar*] 5 mg PO DAILY 12/24/17 Furosemide [Lasix*] 20 mg PO EVERY 3RD DAY 12/24/17 Levothyroxine [Synthroid*] 88 mcg PO SEECOM 12/24/17 Levothyroxine [Synthroid*] 100 mcg PO EVERY 3RD DAY 12/24/17 Sacubitril/Valsartan [Entresto 24 mg-26 mg Tablet] 1 tab PO BID 12/24/17 Spironolactone [Aldactone*] 25 mg PO EVERY 3RD DAY 12/24/17 Warfarin Sodium [Coumadin*] 2.5 mg PO SEECOM 12/24/17 Warfarin Sodium [Coumadin*] 5 mg PO SEECOM 12/24/17 - Past Medical/Surgical History Diabetic: No -: History of Throat cancer, Post radiation -: HTN -: Hyperlipidemia -: Atrial fibrillation -: Chronic anticoagulation -: CAD with history of CABG -: Depression with anxiety -: Hypothyroidism -: Pacemaker/Defibrillator -: Osteoarthritis -: difibulator -: pacemaker -: bilateral knee sx -: bypass sx -: hernia repair x3 Psychosocial/ Personal History: , Several children, 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 - Family History Mother Medical History: Heart disease Father Medical History: Heart disease - Social History Smoking Status: Former smoker Alcohol use: No CD- Drugs: No Caffeine use: Yes Review of Systems 10-point ROS is otherwise unremarkable Physical Examination - Vital Signs Temperature: 100.5 F Blood Pressure: 110/70 Pulse: 105 Respirations: 18 Pulse Ox (%): 94 - Physical Exam General: Alert, In no apparent distress, Oriented x3, Other (Difficulty hearing; difficulty with swallowing) HEENT: Atraumatic, PERRLA, Mucous membr. moist/pink, EOMI, Sclerae nonicteric Neck: Supple, 2+ carotid pulse no bruit, No LAD, Without JVD or thyroid abnormality Respiratory: Diminished, Crackles/rales Cardiovascular: Regular rate/rhythm, Normal S1 S2, Systolic murmur Gastrointestinal: Normal bowel sounds, Soft and benign, Non-distended, No tenderness Musculoskeletal: No clubbing, No tenderness, Swelling Integumentary: No rashes Neurological: Normal speech, Normal strength at 5/5 x4 extr, Normal tone, Sensation intact, Cranial nerves 3-12 intact, Normal affect Lymphatics: No axilla or inguinal lymphadenopathy - Studies Laboratory Data (last 24 hrs) 04/30/20 04:15: PT 24.4 H, INR 2.10, APTT 34.1 04/30/20 04:15: WBC 9.8, Hgb 13.2 L, Hct 39.5 L, Plt Count 163 04/30/20 04:15: Sodium 137, Potassium 4.3, BUN 21 H, Creatinine 1.11, Glucose 136 H, Total Bilirubin 1.3 H, AST 20, ALT 21, Alkaline Phosphatase 90, Amylase 34, Lipase 113 Microbiology Data (last 24 hrs): 04/30/20 04:10 Nasopharnyx Coronavirus COVID-19 PCR - Final 04/30/20 04:10 Nasopharnyx Influenza Type A Antigen Screen - Final 04/30/20 04:10 Nasopharnyx Influenza Type B Antigen Screen - Final 04/30/20 04:10 Throat Group A Streptococcus Rapid Screen - Final Assessment & Plan - Problems (Diagnosis) (1) Left lower lobe pneumonia Current Visit: Yes Status: Acute (2) Hyperlipidemia Current Visit: No Status: Acute (3) Hypothyroidism Current Visit: No Status: Acute (4) Systolic CHF, acute on chronic Current Visit: No Status: Acute (5) Atrial fibrillation Current Visit: No Status: Chronic (6) CAD (coronary artery disease) Current Visit: No Status: Chronic (7) HTN (hypertension) Current Visit: No Status: Chronic (8) History of cardiac pacemaker Current Visit: No Status: Chronic (9) History of placement of internal cardiac defibrillator Current Visit: No Status: Chronic (10) COVID-19 virus test result unknown Current Visit: Yes Status: Acute - Plan 1. Continue with IV antibiotics 2. Awaiting sputum and blood culture 3. Repeat chest x-ray 4. Will proceed with CT scan of the chest if pneumonia is not improved to evaluate for postobstructive pneumonia 5. Pulmonary consultation 6. Continue with nebs as needed 7. O2 per protocol 8. Continue with gentle hydration 9. Repeat labs including CBC and renal function in a.m. 10. Continue with cardiac medications; echocardiogram; 11. GI and DVT prophylaxis Discharge Plan: Home Plan to discharge in: Greater than 2 days - Advance Directives Does patient have a Living Will: No Does patient have a Durable POA for Healthcare: No - Code Status/Comfort Care Code Status Assessed: Yes Code Status: Full Code Critical Care: No Time Spent Managing PTS Care (In Minutes): 45
--- NOTE | 2020-04-30 07:56 | RAD REPORT ---
EXAM DESCRIPTION: RAD - Chest Single View - 04/30/2020 4:15 am CLINICAL HISTORY: CONGESTION, fever, cough COMPARISON: December portable study, CT chest December TECHNIQUE: AP portable chest image was obtained 04/30/2020 4:15 am . FINDINGS: Pacemaker/defibrillator is in place. Sternotomy wires noted. Chronic interstitial opacific ation present in both lung espinoza. Slightly increased alveolar opacification noted in the upper right lung field and in the mid left lung field. This is a change from prior imaging. Stable cardiomegaly noted. Vasculature is prominent. No pneumothorax or large pleural effusion. No a cute bony abnormality seen. No acute aortic findings suspected. IMPRESSION: Suspected pneumonia in the mid left lung field and upper right lung field.
[2020-04-30] MEDS: ENOXAPARIN 40 MG/0.4 ML SQ SCH (08:14)
[2020-04-30] MEDS: NA CHLORIDE 0.9% 1,000 ML IV SCH ×2 (08:14→21:39)
[2020-04-30] MEDS: VANCOMYCIN 1.25 GM in NA CHLORIDE 0.9% 250 ML IVPB SCH (08:14)
[2020-04-30] MEDS ORDERED: predniSONE 20 MG TAB PO SCH (09:00)
[2020-04-30] MEDS ORDERED: CEFTRIAXONE 1 GM/NS 50 ML 1 GM/50 ML BAG IV SCH ×2 (09:00)
[2020-04-30] MEDS ORDERED: AZITHROMYCIN IV 500 MG in NA CHLORIDE 0.9% 250 ML IVPB SCH (09:00)
[2020-04-30 09:36] VITALS: BMI 20.7
[2020-04-30] MEDS: CEFTRIAXONE/SWI 1gm 1 GM/10 ML SYR IV SCH (17:21)
[2020-04-30] MEDS: ACETAMINOPHEN 500 MG TAB PO PRN (21:39)
[2020-05-01] MEDS: CEFTRIAXONE/SWI 1gm 1 GM/10 ML SYR IV SCH ×2 (05:02→17:58)
[2020-05-01] MEDS ORDERED: AZITHROMYCIN IV 500 MG in NA CHLORIDE 0.9% 250 ML IVPB SCH (06:00)
[2020-05-01 06:01] LABS: Absolute Lymphocytes (CBC) 1.5 K/uL (0.7-4.9); Basophils % 0.1 % (0-1.3); Hematocrit 38.5 % (39.6-49.0); Lymphocytes % 13.1 % (15.3-44.8); MPV 8.3 fL (7.6-11.3); RBC Red Blood Cell Count 4.16 M/uL (4.33-5.43)
[2020-05-01 06:13] LABS: Protime INR 2.23
[2020-05-01 06:25] LABS: Magnesium 2.2 mg/dL (1.8-2.4); Phosphorus 2.5 mg/dL (2.5-4.9); Potassium 3.9 mmol/L (3.5-5.1); Protein, Total 6.4 g/dL (6.4-8.2)
--- NOTE | 2020-05-01 06:27 | EKG ---
Test Date: 2020-04-30 Test Time: 03:56:42 Oil Extractor: JAE MEASUREMENT RESULTS: Intervals: Rate: 81 [place]: QRSD: 176 QT: 422 QTc: 490 [place]: P: [place]: QRS: 218 T: 77 INTERPRETIVE STATEMENTS: Electronic ventricular pacemaker Compared to ECG 02/12/2020 20:17:03 No significant changes Electronically Signed On 05-01-20 06:24:39 CDT by Efraín Love
[2020-05-01] MEDS: POTASS/SODIUM PHOSPHATE 1 PKT POWD.PACK PO SCH ×3 (06:49→11:58)
--- NOTE | 2020-05-01 06:49 | P.PN ---
Subjective Date of Service: 05/01/20 Patient is complaining of pain to the right leg; more specifically the right knee. Blood cultures have been positive for gram-positive cocci. Respiratory status is improved. Patient currently on vancomycin and Rocephin. Pulmonary consultation completed; awaiting orthopedics and may do arthrocentesis by bryce king. Review of Systems 10-point ROS is otherwise unremarkable Physical Examination - Vital Signs Temperature: 98.7 F Blood Pressure: 115/56 Pulse: 82 Respirations: 18 Pulse Ox (%): 95 - Physical Exam General: Alert, In no apparent distress, Oriented x3 Respiratory: Diminished, Expiratory wheezes, Rhonchi/gurgles (Left lower lobe) Cardiovascular: Regular rate/rhythm, Normal S1 S2, Systolic murmur Gastrointestinal: Normal bowel sounds, Soft and benign, Non-distended, No tenderness Musculoskeletal: Swelling, Tenderness, Warmth Neurological: Normal tone, Sensation intact, Cranial nerves 3-12 intact - Studies Microbiology Data (last 24 hrs): 04/30/20 04:10 Nasopharnyx Coronavirus COVID-19 PCR - Final 04/30/20 04:10 Nasopharnyx Influenza Type A Antigen Screen - Final 04/30/20 04:10 Nasopharnyx Influenza Type B Antigen Screen - Final 04/30/20 04:10 Throat Group A Streptococcus Rapid Screen - Final Medications List Reviewed: Yes Assessment & Plan - Problems (Diagnosis) (1) Left lower lobe pneumonia Status: Acute (2) Right knee pain Status: Acute Qualifiers: Chronicity: acute Qualified Code(s): M25.561 - Pain in right knee (3) Hyperlipidemia Status: Acute (4) Hypothyroidism Status: Acute (5) Systolic CHF, acute on chronic Status: Acute (6) Atrial fibrillation Status: Chronic (7) CAD (coronary artery disease) Status: Chronic (8) HTN (hypertension) Status: Chronic (9) History of cardiac pacemaker Status: Chronic (10) History of placement of internal cardiac defibrillator Status: Chronic (11) COVID-19 virus test result unknown Status: Acute - Plan 1. Continue with IV antibiotics 2. Awaiting blood culture-Gram stain is positive 3. Will plan to do are arthrocentesis 4. CT scan of the chest did not reveal pneumonic process as seen on CXR 5. Pulmonary consultation appreciated 6. Continue with nebs as needed 7. O2 per protocol 8. Continue with gentle hydration 9. Repeat labs including CBC and renal function in a.m. 10. Continue with cardiac medications; echocardiogram; 11. GI and DVT prophylaxis Discharge Plan: Home Plan to discharge in: Greater than 2 days - Advance Directives Does patient have a Living Will: Yes Does patient have a Durable POA for Healthcare: Yes - Code Status/Comfort Care Code Status: Full Code Critical Care: No Time Spent Managing PTS Care (In Minutes): 30
--- NOTE | 2020-05-01 08:45 | RAD REPORT ---
EXAM DESCRIPTION: RAD - Chest Single View - 05/01/2020 6:11 am CLINICAL HISTORY: pneumonia Chest pain. COMPARISON: Chest Single View dated 04/30/2020; Chest Single View dated 02/12/2020; CHEST SINGLE VIEW dated 01/22/2015; CHEST SINGLE VIEW dated 12/20/2014 FINDINGS: Portable technique limits examination quality. Since 04/30/2020, mild improvement in lung aeration is seen. The heart is significantly enlarged with a multi lead pacer/defibrillator device present. Sternotomy wires present. IMPRESSION: Mild improvement lung aeration is seen since comparative study.
[2020-05-01] MEDS: VANCOMYCIN 1.25 GM in NA CHLORIDE 0.9% 250 ML IVPB SCH (08:56)
[2020-05-01] MEDS: ENOXAPARIN 40 MG/0.4 ML SQ SCH (08:59)
[2020-05-01] MEDS ORDERED: POTASSIUM CL SA 10 MEQ TAB PO ONE (09:00)
[2020-05-01] MEDS: ACETAMINOPHEN 500 MG TAB PO PRN (09:55)
[2020-05-01] MEDS ORDERED: TRAMADOL HCL 50 MG TAB PO PRN (11:13)
--- NOTE | 2020-05-01 11:29 | RAD REPORT ---
EXAM DESCRIPTION: CT - Thorax Wo Con CLINICAL HISTORY: Chest pain RO pneumonia COMPARISON: Thorax Wo Con dated 02/12/2020; Chest Single View dated 05/01/2020 FINDINGS: Minimal interstitial pulmonary edema suspected. No focal infiltrate typical of pneumonia s een. Small bilateral pleural effusions. No pneumothorax. The heart is significantly and enlarged with pacer wires noted. No axillary, mediastinal or hilar adenopathy. Degenerative changes are present throughout the spine without lytic or blastic bone lesion. No displa janes fracture. No gross upper abdominal finding. All CT scans are performed using dose optimization technique as appropriate and may include automated exposure control or mA/KV adjustment according to patient size. IMPRESSION: Mild CHF.No focal consolidation typical of pneumonia seen.
[2020-05-01] MEDS: HYDROCODONE/APAP 7.5/325 MG TAB PO PRN ×2 (11:57→20:28)
--- NOTE | 2020-05-01 12:00 | P.CNS ---
Date of Consult: 05/01/20 Reason for Consult: Possible pneumonia Chief Complaint: Fever and shortness of breath History of Present Illness: Patient is 84 years of age admitted with sudden onset of chills and fever denies any pulmonary complaints no prior history of pulmonary problems patient does not smoke is a chills before also been complaining of swelling of the right knee denies any chest pain no urinary tract symptoms Allergies morphine Allergy (Verified 04/30/20 09:47) Nausea/Vomiting Tetracyclines Allergy (Verified 04/30/20 09:47) Itching/Hives/Rash Home Medications: Atorvastatin Calcium [Lipitor*] 40 mg PO BEDTIME 01/23/15 Digoxin [Lanoxin*] 0.125 mg PO DAILY 01/23/15 Levothyroxine [Synthroid*] 88 mcg PO SEECOM 12/24/17 Levothyroxine [Synthroid*] 100 mcg PO SEECOM 12/24/17 Sacubitril/Valsartan [Entresto 24 mg-26 mg Tablet] 1 tab PO BID 12/24/17 Warfarin Sodium [Coumadin*] 2.5 mg PO SEECOM 12/24/17 Warfarin Sodium 5 mg PO SEECOM 04/30/20 - Past Medical/Surgical History Diabetic: No -: History of Throat cancer, Post radiation -: HTN -: Hyperlipidemia -: Atrial fibrillation -: Chronic anticoagulation -: CAD with history of CABG -: Depression with anxiety -: Hypothyroidism -: Pacemaker/Defibrillator -: Osteoarthritis -: Vertigo -: difibulator -: pacemaker/ Defibrillator -: bilateral knee sx -: bypass sx -: hernia repair x3 Psychosocial/ Personal History: , Several children, 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 - Family History Mother Medical History: Heart disease, Hypertension Father Medical History: Heart disease, Hypertension - Social History Smoking Status: Never smoker Alcohol use: No CD- Drugs: No Caffeine use: Yes Place of Residence: Home Review of Systems 10-point ROS is otherwise unremarkable General: Weakness Musculoskeletal: As per HPI Physical Examination Temp Pulse Resp BP Pulse Ox 101.3 F H 82 18 115/56 L 95 05/01/20 09:55 05/01/20 08:04 05/01/20 08:04 05/01/20 08:04 05/01/20 08:04 General: Alert, In no apparent distress, Oriented x3 HEENT: Atraumatic Neck: Supple Respiratory: Clear to auscultation bilaterally Cardiovascular: No edema, Regular rate/rhythm, Irregular heart rate/rhythm Gastrointestinal: Normal bowel sounds, Soft and benign Musculoskeletal: Other (Right knee is swollen) - Problems (1) Fever of unknown origin Current Visit: Yes Status: Acute Plan: Patient admitted with fever of unknown origin CT scan no evidence of pneumonia echocardiogram is pending blood cultures positive possible contaminant knee x- ray and ESR is also pending pro calcitonin level elevated patient is febrile white count was normal on admission INR therapeutic
--- NOTE | 2020-05-01 13:55 | ECHO ---
HEIGHT: 5 ft 10 in WEIGHT: 144 lb 15.968 oz DATE OF STUDY: 05/01/[address]: Madelyn Vigil MD 2-DIMENSIONAL: YES M.MODE: YES DOPPLER: YES COLOR FLOW: YES TDS: NO PORTABLE: NO DEFINITY: NO BUBBLE STUDY: NO DIAGNOSIS: CONGESTIVE HEART FAILURE CARDIAC HISTORY: CATHERIZATION: YES SURGERY: YES PROSTHETIC VALVE: NO PACEMAKER: YES MEASUREMENTS (cm) DIASTOLIC (NORMALS) SYSTOLIC (NORMALS) IVSd 0.9 (0.6-1.2) LA Diam 4.5 (1.9-4.0) LVEF % LVIDd 5.9 (3.5-5.7) LVIDs 3.7 (2.0-3.5) %FS 37% LVPWd 1.2 (0.6-1.2) Ao Diam 3.2 (2.0-3.7) 2 DIMENSIONAL ASSESSMENT: RIGHT ATRIUM: NORMAL LEFT ATRIUM: DILATED RIGHT VENTRICLE: PACEMAKER LEFT VENTRICLE: NORMAL TRICUSPID VALVE: NORMAL MITRAL VALVE: MITRAL ANNULAR CALCIFICATION PULMONIC VALVE: NORMAL AORTIC VALVE: SCLEROSIS PERICARDIAL EFFUSION: NONE AORTIC ROOT: NORMAL LEFT VENTRICULAR WALL MOTION: NORMAL LEFT VENTRICULAR EJECTION FRACTION. DOPPLER/COLOR FLOW: MILD TRICUSPID REGURGITATION. COMMENTS: NORMAL LEFT VENTRICULAR EJECTION FRACTION. LOWER LEFT VENTRICULAR COMPLIANCE. MILD TRICUSPID REGURGITATION. NORMAL RIGHT VENTRICULAR SYSTOLIC PRESSURE. MITRAL ANNULAR CALCIFICATION. PACEMAKER IN RIGHT VENTRICLE APEX. AORTIC SCLEROSIS WITH NO STENOSIS. TECHNOLOGIST: Hugh GUAN
[2020-05-01] MEDS: NA CHLORIDE 0.9% 1,000 ML IV SCH ×2 (14:21→22:00)
--- NOTE | 2020-05-01 14:40 | RAD REPORT ---
EXAM DESCRIPTION: RAD - Knee Right 3 View - 05/01/2020 2:27 pm CLINICAL HISTORY: Right knee pain FINDINGS: No fracture or dislocation is seen. Right knee prosthesis is in good position without evidence of loosening Moderate joint effusion with soft tissue swelling. Osteoporosis
[2020-05-02] MEDS: NA CHLORIDE 0.9% 1,000 ML IV SCH ×2 (03:15→21:30)
[2020-05-02] MEDS: CEFTRIAXONE/SWI 1gm 1 GM/10 ML SYR IV SCH ×2 (05:09→17:36)
[2020-05-02 06:18] LABS: Absolute Lymphocytes (CBC) 1.2 K/uL (0.7-4.9); Basophils % 0.2 % (0-1.3); Hematocrit 35.1 % (39.6-49.0); Lymphocytes % 11.4 % (15.3-44.8); MPV 8.6 fL (7.6-11.3); RBC Red Blood Cell Count 3.81 M/uL (4.33-5.43)
[2020-05-02 06:26] LABS: Magnesium 2.3 mg/dL (1.8-2.4); Phosphorus 2.3 mg/dL (2.5-4.9); Potassium 4.2 mmol/L (3.5-5.1)
[2020-05-02] MEDS: VANCOMYCIN 1.25 GM in NA CHLORIDE 0.9% 250 ML IVPB SCH (08:09)
[2020-05-02] MEDS: ACETAMINOPHEN 500 MG TAB PO PRN (08:24)
[2020-05-02] MEDS: ENOXAPARIN 40 MG/0.4 ML SQ SCH (08:25)
[2020-05-02] MEDS: POTASS/SODIUM PHOSPHATE 1 PKT POWD.PACK PO SCH ×3 (08:25→11:15)
[2020-05-02] MEDS: Levofloxacin500mg IV 500 MG/100 ML BAG IV SCH (10:05)
[2020-05-02] MEDS: HYDROCODONE/APAP 7.5/325 MG TAB PO PRN (16:11)
[2020-05-03] MEDS ORDERED: LIDOCAINE 1% 20 ML MDV ONE (00:28)
[2020-05-03] MEDS: NA CHLORIDE 0.9% 1,000 ML IV SCH (00:40)
[2020-05-03] MEDS ORDERED: VANCOMYCIN 1.25 GM in NA CHLORIDE 0.9% 250 ML IVPB SCH (02:00)
[2020-05-03] MEDS: CEFTRIAXONE/SWI 1gm 1 GM/10 ML SYR IV SCH (05:04)
[2020-05-03] MEDS: ACETAMINOPHEN 500 MG TAB PO PRN (06:09)
[2020-05-03 06:25] LABS: BUN Blood Urea Nitrogen 16 mg/dL (7-18); Bicarbonate 21 mmol/L (21-32); Glucose Level 107 mg/dL (74-106); Phosphorus 2.6 mg/dL (2.5-4.9); Potassium 4.1 mmol/L (3.5-5.1); Sodium Level 139 mmol/L (136-145)
[2020-05-03 07:37] LABS: Body Fluid WBC 13617 /mm^3
[2020-05-03] MEDS: Levofloxacin500mg IV 500 MG/100 ML BAG IV SCH (07:57)
[2020-05-03] MEDS: ENOXAPARIN 40 MG/0.4 ML SQ SCH (07:57)
[2020-05-03 08:07] LABS: Appearance TURBID (CLEAR); Body Fluid Source SYNOVIAL; Color of fluid Yellow (COLORLESS)
--- NOTE | 2020-05-03 08:45 | P.PN ---
Subjective Date of Service: 05/02/20 Patient continues to have some pain in the right knee. Orthopedic is Consulted. Concern for septic arthritis. Blood cultures positive for strep agalactiae. Continue broad-spectrum antibiotic coverage. Arthrocentesis to determine etiology Review of Systems 10-point ROS is otherwise unremarkable Physical Examination - Vital Signs Temperature: 98.4 F Blood Pressure: 137/70 Pulse: 86 Respirations: 20 Pulse Ox (%): 93 - Physical Exam General: Alert, In no apparent distress, Oriented x3 Respiratory: Clear to auscultation bilaterally, Normal air movement Cardiovascular: Regular rate/rhythm, Normal S1 S2, Systolic murmur Gastrointestinal: Normal bowel sounds, Soft and benign, Non-distended, No tenderness Musculoskeletal: No clubbing, Swelling (Right knee effusion), Erythema, Tenderness, Warmth Neurological: Sensation intact, Cranial nerves 3-12 intact - Studies Microbiology Data (last 24 hrs): 04/30/20 04:10 Throat Culture & Sensitivity - Final NORMAL UPPER RESPIRATORY ZEKE GROWN. Medications List Reviewed: Yes Assessment & Plan - Problems (Diagnosis) (1) Left lower lobe pneumonia Status: Acute (2) Right knee pain Status: Acute Qualifiers: Chronicity: acute Qualified Code(s): M25.561 - Pain in right knee (3) Hyperlipidemia Status: Acute (4) Hypothyroidism Status: Acute (5) Systolic CHF, acute on chronic Status: Acute (6) Atrial fibrillation Status: Chronic (7) CAD (coronary artery disease) Status: Chronic (8) HTN (hypertension) Status: Chronic (9) History of cardiac pacemaker Status: Chronic (10) History of placement of internal cardiac defibrillator Status: Chronic (11) COVID-19 virus test result unknown Status: Acute - Plan 1. Continue with IV antibiotics 2. Blood cultures positive for strep agalactiae and 3. Ortho consulted for arthrocentesis; if not completed then will go ahead and perform 4. CT scan of the chest did not reveal pneumonic process as seen on CXR; continue antibiotic therapy 5. Pulmonary consultation appreciated 6. Continue with nebs as needed 7. O2 per protocol 8. Continue with gentle hydration 9. Repeat labs including CBC and renal function in a.m. 10. Continue with cardiac medications; echocardiogram was unremarkable 11. GI and DVT prophylaxis Discharge Plan: Home Plan to discharge in: Greater than 2 days - Advance Directives Does patient have a Living Will: Yes Does patient have a Durable POA for Healthcare: Yes - Code Status/Comfort Care Code Status: Full Code Critical Care: No Time Spent Managing PTS Care (In Minutes): 35
--- NOTE | 2020-05-03 08:48 | P.OP ---
Date of Service: 05/03/20 Findings and Operative Technique Patient was prepped and draped for a right knee arthrocentesis. Risks were discussed with patient and patient agreeable for procedure. Patient having significant pain and desiring relief. Superolateral approach to right knee arthrocentesis was performed. Patient was prepped with Betadine and alcohol. 1% lidocaine given for local anesthesia. Aspirated 50cc of yellowish colored fluid. Unlikely for this to be septic arthritis. Most likely inflammatory. Labs have been sent.
[2020-05-03] MEDS ORDERED: HYDROCORTISONE SUC 100 MG INJ IV ONE (08:52)
--- NOTE | 2020-05-03 08:52 | P.PN ---
Subjective Date of Service: 05/03/20 Patient experienced significant relief after arthrocentesis. The fluid was fairly clear with some cloudiness but there was no purulent fluid. Labs revealed inflammatory etiology and not septic arthritis. Gram stain pending. Calcium pyrophosphate crystals seen-with the results of the fluid analysis is this is most likely inflammatory arthritis. Patient given diagnosis pseudogout. Will give IV steroids and continue with IV antibiotics for positive blood cultures. Review of Systems 10-point ROS is otherwise unremarkable Physical Examination - Vital Signs Temperature: 98.4 F Blood Pressure: 137/70 Pulse: 86 Respirations: 20 Pulse Ox (%): 93 - Physical Exam General: Alert, In no apparent distress, Oriented x3 Respiratory: Clear to auscultation bilaterally, Normal air movement Cardiovascular: Regular rate/rhythm, Normal S1 S2, No murmurs Gastrointestinal: Normal bowel sounds, Soft and benign, Non-distended, No tenderness Musculoskeletal: No clubbing, Swelling (Minimal swelling at this time), Tenderness (Minimal tenderness) Integumentary: No rashes Neurological: Sensation intact, Cranial nerves 3-12 intact - Studies Microbiology Data (last 24 hrs): 04/30/20 04:10 Throat Culture & Sensitivity - Final NORMAL UPPER RESPIRATORY ZEKE GROWN. Medications List Reviewed: Yes Assessment & Plan - Problems (Diagnosis) (1) Left lower lobe pneumonia Status: Acute (2) Right knee pain Status: Acute Qualifiers: Chronicity: acute Qualified Code(s): M25.561 - Pain in right knee (3) Hyperlipidemia Status: Acute (4) Hypothyroidism Status: Acute (5) Systolic CHF, acute on chronic Status: Acute (6) Atrial fibrillation Status: Chronic (7) CAD (coronary artery disease) Status: Chronic (8) HTN (hypertension) Status: Chronic (9) History of cardiac pacemaker Status: Chronic (10) History of placement of internal cardiac defibrillator Status: Chronic (11) COVID-19 virus test result unknown Status: Acute (12) Pseudogout Status: Acute - Plan 1. Continue with IV antibiotics 2. Blood cultures positive for strep agalactiae and Gram stain is negative in synovial fluid; cultures are negative in synovial fluid 3. Ortho consultation discontinued; we were able to do arthrocentesis in removed 50 cc of yellowish fluid. No purulent fluid. Body fluid indicates inflammation and most likely pseudogout 4. CT scan of the chest did not reveal pneumonic process as seen on CXR; continue antibiotic therapy 5. Pulmonary consultation appreciated 6. Continue with nebs as needed 7. O2 per protocol 8. Continue with gentle hydration 9. Repeat labs including CBC and renal function in a.m. 10. Continue with cardiac medications; echocardiogram without any abnormalities 11. GI and DVT prophylaxis Discharge Plan: Home Plan to discharge in: Greater than 2 days - Advance Directives Does patient have a Living Will: Yes Does patient have a Durable POA for Healthcare: Yes - Code Status/Comfort Care Code Status: Full Code Critical Care: No Time Spent Managing PTS Care (In Minutes): 35
[2020-05-03] MEDS: PANTOPRAZOLE 40MG TABLET PO SCH ×2 (09:04→17:08)
[2020-05-03] MEDS: SACUBITRIL/VALSARTAN 24/26 MG TAB PO SCH ×2 (09:04→21:46)
[2020-05-03] MEDS: DIGOXIN 0.125 MG TABLET PO SCH (09:04)
--- NOTE | 2020-05-03 11:11 | CON ---
Reason For Consultation: Right knee effusion. History Of Present Illness: Mr. Matthews is an 84-year-old gentleman who had right total knee done deniz e years prior. I believe this was done by Dr. Poole, who has been retired for at least 6 years. Historically, he had recurrent effusions in the knee. He is hospitalized for pneumonia. We are aske d to consult for this knee. As mentioned in the past, we have suggested that knee aspiration to be p erformed by Interventional Radiology. Cultures and sensitivity sent and indeed this appears to be in fected, we will be happy to engage. However, this patient presents to us without any difficulty and the fact that he has a prosthetic knee. This was not initially communicated with us. If this indeed is infected, he will need to be sent to a tertiary facility. This is beyond the scope of what we ca n safely do here at this hospital. Therefore, I agree with aspiration by Interventional Radiology. If this is indeed turns to be a positive culture for septic knee, then [facility] His laboratory data reveals a slightly elevated white count. Apparently, he was b acteremic on the 30 of April with unusual pansensitive strep species. Again, as mentioned, if this knee does not return to aseptic, he will need debridement of the knee completely and placement of an antibiotic-laden spacer 6 weeks of intravenous antibiotics followed by a complex revision knee arthro plasty, which as mentioned is beyond the scope of what we can safely offer in this environment. SYMONE/MICHELLE Voice ID: [id number] Report ID: [id number]
[2020-05-03] MEDS ORDERED: WARFARIN SODIUM 5 MG TAB PO SCH (17:00)
--- NOTE | 2020-05-03 18:11 | CON ---
History Of Present Illness: This is an 84-year-old male, who was brought in with fevers and generali zed body aches. Patient has decreased appetite and weakness. Also prior to admission, I was consult ed for bacteremia secondary to strep and currently being treated with Levaquin. Patient also has rig ht knee septic arthritis, which has álvarez drained and cultures are sent and waiting for the results. Patient denies any headache, nausea, vomiting, chest pain, abdominal pain, constipation, or diarrhea. Feels better now that he is on antibiotic. Past Medical History: Hypercholesterolemia, coronary artery disease, benign prostatic hypertrophy, h ypothyroidism, hypertension, history of throat cancer status post radiation, atrial fibrillation, chr onic anticoagulation, status post CABG, depression with anxiety, pacemaker and defibrillator placemen t, osteoarthritis, bilateral knee surgery, and hernia repair x3. Social History: Nonsmoker after being treated for throat cancer. No alcohol use. Family History: Noncontributory except heart disease. Medications: Levaquin. See MAR for other medications. Allergies: TETRACYCLINE AND MORPHINE. Review of Systems: A 10-point review was performed. Physical Examination: General: This is an 84-year-old male, lying in bed, not in any acute cardiopulmonary distress. Vital Signs: Temperature 97.6, on arrival, patient's temperature was 100.2; pulse 80; respirations 1 9; blood pressure 141/77. HEENT: Unremarkable. Neck: Supple. Lungs: Basal crackles. Heart: S1, S2. Regular. Abdomen: Soft, nontender. Bowel sounds present. Extremities: Right knee swelling noted. Surgical scars noted on both knee areas. Laboratory Data: WBC 10.6, down from 11.1; hemoglobin 11.7; platelets are 154. Chemistry shows sodi um 139, potassium 4.1, chloride 109, bicarb 21, BUN 16, creatinine 0.8, glucose 107. Micro data show s right knee cultures are pending. Blood culture shows Strep agalactiae group B done on 04/30 and re commend to repeat blood cultures and continue antibiotic for 14 days after cultures are negative. Assessment And Plan: Right knee septic arthritis bacteremia secondary to Streptococcus agalactiae. Continue treatment for 2 weeks after blood cultures are negative. Leukocytosis has resolved. Patien t with anemia and multiple medical problems. Agree with Levaquin. We will follow the patient closel y. Thank you for consult. NF/MODL Voice ID: [id number] Report ID: [id number]
[2020-05-03] MEDS ORDERED: ATORVASTATIN 40 MG TAB PO SCH (21:00)
[2020-05-04 05:53] LABS: Absolute Lymphocytes (CBC) 0.9 K/uL (0.7-4.9); Basophils % 0.4 % (0-1.3); Lymphocytes % 13.2 % (15.3-44.8); MPV 8.3 fL (7.6-11.3); RBC Red Blood Cell Count 3.93 M/uL (4.33-5.43)
[2020-05-04 06:03] LABS: BUN Blood Urea Nitrogen 16 mg/dL (7-18); Bicarbonate 27 mmol/L (21-32); Glucose Level 86 mg/dL (74-106); Magnesium 2.2 mg/dL (1.8-2.4); Potassium 4.1 mmol/L (3.5-5.1); Sodium Level 141 mmol/L (136-145)
[2020-05-04] MEDS: PANTOPRAZOLE 40MG TABLET PO SCH (06:05)
[2020-05-04] MEDS ORDERED: LEVOTHYROXINE SOD 0.1 MG TAB PO SCH (06:30)
[2020-05-04] MEDS: SACUBITRIL/VALSARTAN 24/26 MG TAB PO SCH (09:00)
[2020-05-04] MEDS: Levofloxacin500mg IV 500 MG/100 ML BAG IV SCH (09:00)
[2020-05-04] MEDS: DIGOXIN 0.125 MG TABLET PO SCH (09:03)
[2020-05-04 12:31] VITALS: O2SAT 96
[2020-05-04] MEDS: ACETAMINOPHEN 500 MG TAB PO PRN (14:09)
[2020-05-04] MEDS ORDERED: WARFARIN SODIUM 2.5 MG TAB PO SCH (17:00)
[2020-05-05 02:05] VITALS: BP 137/70; TEMP 98.4
--- NOTE | 2020-05-05 02:09 | P.DS ---
Discharge Date: 05/04/20 Disposition: ROUTINE DISCHARGE Discharge Condition: GOOD Reason for Admission: Fever and shortness of breath Consultations: Pulmonary - Problems (1) Left lower lobe pneumonia Status: Acute (2) Right knee pain Status: Acute Qualifiers: Chronicity: acute Qualified Code(s): M25.561 - Pain in right knee (3) Hyperlipidemia Status: Acute (4) Hypothyroidism Status: Acute (5) Systolic CHF, acute on chronic Status: Acute (6) Atrial fibrillation Status: Chronic (7) CAD (coronary artery disease) Status: Chronic (8) HTN (hypertension) Status: Chronic (9) History of cardiac pacemaker Status: Chronic (10) History of placement of internal cardiac defibrillator Status: Chronic (11) COVID-19 virus test result unknown Status: Acute (12) Pseudogout Status: Acute Brief History of Present Illness: Patient is an 84-year-old gentleman who was admitted to the hospital because he had been complaining of fever. Patient also has some generalized weakness and decreased appetite. There is concern he has been having some difficulty swallowing. The nurse gave patient some medication in the emergency room and patient has some difficulty with swallowing. Patient denied any chest pain. Patient has had old slight cough but no significant shortness of breath. Patient also been having some soreness in the leg. Decision was made to admit the patient to the hospital for further evaluation. Hospital Course: Patient's blood cultures were positive. Patient's blood cultures revealed strep agalactiae. Synovial fluid was negative for infection. Calcium pyrophosphate crystals were positive. Most likely pseudogout. Vital Signs/Physical Exam: Temp Pulse Resp BP Pulse Ox 98.4 F 86 20 137/70 93 05/05/20 02:07 05/05/20 02:07 05/05/20 02:07 05/05/20 02:07 05/05/20 02:07 General: Alert, In no apparent distress, Oriented x3 Laboratory Data at Discharge: WBC 6.9 K/uL (4.3-10.9) D 05/04/20 05:25 Hgb 11.9 g/dL (13.6-17.9) L 05/04/20 05:25 Hct 36.0 % (39.6-49.0) L 05/04/20 05:25 Plt Count 187 K/uL (152-406) D 05/04/20 05:25 PT 25.9 SECONDS (9.5-12.5) H 05/01/20 05:24 INR 2.23 05/01/20 05:24 APTT 37.9 SECONDS (24.3-36.9) H 05/01/20 05:24 Sodium 141 mmol/L (136-145) 05/04/20 05:25 Potassium 4.1 mmol/L (3.5-5.1) 05/04/20 05:25 BUN 16 mg/dL (7-18) 05/04/20 05:25 Creatinine 0.75 mg/dL (0.55-1.3) 05/04/20 05:25 Glucose 86 mg/dL (74-106) 05/04/20 05:25 Phosphorus 2.6 mg/dL (2.5-4.9) 05/03/20 05:18 Magnesium 2.2 mg/dL (1.8-2.4) 05/04/20 05:25 Total Bilirubin 1.0 mg/dL (0.2-1.0) 05/01/20 05:24 AST 15 U/L (15-37) 05/01/20 05:24 ALT 17 U/L (12-78) 05/01/20 05:24 Alkaline Phosphatase 73 U/L (45-117) 05/01/20 05:24 Troponin I 0.04 ng/mL (0.0-0.045) 04/30/20 19:01 Triglycerides 48 mg/dL (<150) 05/01/20 05:24 Cholesterol 88 mg/dL (<200) 05/01/20 05:24 HDL Cholesterol 40 mg/dL (40-60) 05/01/20 05:24 Cholesterol/HDL Ratio 2.20 05/01/20 05:24 Amylase 34 U/L (25-115) 04/30/20 04:15 Lipase 113 U/L (73-393) 04/30/20 04:15 Home Medications: Atorvastatin Calcium [Lipitor*] 40 mg PO BEDTIME 01/23/15 Digoxin [Lanoxin*] 0.125 mg PO DAILY 01/23/15 Levothyroxine [Synthroid*] 88 mcg PO SEECOM 12/24/17 Levothyroxine [Synthroid*] 100 mcg PO SEECOM 12/24/17 Sacubitril/Valsartan [Entresto 24 mg-26 mg Tablet] 1 tab PO BID 12/24/17 Warfarin Sodium [Coumadin*] 2.5 mg PO SEECOM 12/24/17 Warfarin Sodium 5 mg PO SEECOM 04/30/20 Amox/Clavulanate [Augmentin 875-125 Tab] 1 each PO BID #20 tab 05/04/20 Benzonatate [Tessalon Perle*] 200 mg PO TID PRN #30 cap 05/04/20 predniSONE [Prednisone] 20 mg PO BID #10 tablet 05/04/20 New Medications: Amox/Clavulanate [Augmentin 875-125 Tab] 1 each PO BID #20 tab predniSONE [Prednisone] 20 mg PO BID #10 tablet Benzonatate [Tessalon Perle*] 200 mg PO TID PRN #30 cap PRN Reason: Cough Patient Discharge Instructions: OK TO DC IV AND DC HOME. FOLLOW-UP WITH PRIMARY CARE PROVIDER IN 1-2 WEEKS. FOLLOW-UP WITH Rheumatology IN 1-2 WEEKS for pseudogout of the right knee. RETURN TO THE ER IF symptoms worsened. CALL DR. BLUM AT [phone] IF ANY QUESTIONS REGARDING HOSPITAL STAY. PLEASE CALL THE FLOOR AT [phone] IF ANY MEDICATION OR NURSING QUESTIONS. [facility] been notified to go do an eval on patient. Diet: AHA Activity: Fall precautions Time spent managing pt's care (in minutes): 30
[2020-05-05] MEDS ORDERED: LEVOTHYROXINE SOD 0.088 MG TAB PO SCH (06:30)
== END 2020-05-04 14:20 | disposition home or self-care (01) | DRG 193 ==
LOC: ER 03:48 → ERHOLD 05:56 → 4TH 07:34 → 2ND 16:51
PROVIDERS: ADMIT Hospitalist; ATTEND Hospitalist
PROC: 0S9C3ZZ Drainage of Right Knee Joint, Percutaneous Approach (ICD-10-PCS; principal; 2020-05-03)
DX: J18.9 Pneumonia, unspecified organism (principal); I50.23 Acute on chronic systolic (congestive) heart failure; I48.20 Chronic atrial fibrillation, unspecified; M11.261 Other chondrocalcinosis, right knee; I11.0 Hypertensive heart disease with heart failure; R05 Cough; Z20.828 Contact with and (suspected) exposure to other viral communicable diseases; Z88.1 Allergy status to other antibiotic agents; Z88.5 Allergy status to narcotic agent; Z79.890 Hormone replacement therapy; Z79.01 Long term (current) use of anticoagulants; Z79.899 Other long term (current) drug therapy; Z85.89 Personal history of malignant neoplasm of other organs and systems; I25.10 Atherosclerotic heart disease of native coronary artery without angina pectoris; E78.5 Hyperlipidemia, unspecified; Z95.1 Presence of aortocoronary bypass graft; E03.9 Hypothyroidism, unspecified; Z87.891 Personal history of nicotine dependence; R06.02 Shortness of breath; Z95.810 Presence of automatic (implantable) cardiac defibrillator; B95.1 Streptococcus, group B, as the cause of diseases classified elsewhere
CPT/HCPCS: 36415; 71045; 71250; 80048; 80053; 80061; 80076; 80202; 81003; 81015; 82150; 82550; 82553; 83605; 83690; 83735; 83880; 84100; 84145; 84484; 85025; 85610; 85652; 85730; 86140; 87040; 87070; 87077; 87081; 87186; 87205; 87804; 89050; 89060; 93005; 93306; 94760; 97116; 97161; 97530; 99285; J0456; J0696; J1650; J1720; J7030; J7512; U0002